=== PATIENT | male | born 1960 | race Two or more races ===

== ENCOUNTER 2020-07-22 11:22 | Inpatient (IN) | payer MEDICAID, SELFPAY ==
[2020-07-22] VITALS (19 sets, daily range): BP systolic 115–155; BP diastolic 67–99; PULSE 58–92; RESP 10–19; TEMP 36.1–36.8; O2SAT 97–100; BMI 26.4
--- NOTE | 2020-07-22 | ECG_ITS ---
Test Reason : WEAKNESS Blood Pressure : / mmHG Vent. Rate : 071 BPM Atrial Rate : 071 BPM P-R Int : 162 ms QRS Dur : 090 ms QT Int : 402 ms P-R-T Axes : 074 -32 027 degrees QTc Int : 436 ms Normal sinus rhythm Possible Left atrial enlargement Left axis deviation Abnormal ECG When compared with ECG of 27-AUG-2019 16:59, No significant change was found Referred By: Generic ED Physician Electronically Signed By:Kadeem Valle
[2020-07-22 12:14] LABS: MANUAL DIFF FLAG NO
[2020-07-22 12:15] LABS: Basophils Absolute Auto 0.1 X10*3/uL (0.0-0.2); Eosinophils Absolute Auto 0.1 X10*3/uL (0.0-0.4); Eosinophils Percent Auto 1.1 % (0-4); Hematocrit 42.8 % (42-52); Hemoglobin 14.5 g/dl (14.0-18.0); Imm Gran Abs Auto 0.01 X10*3/uL (0.00-0.03); Imm Gran Pct Auto 0.1 % (0.0-0.4); Lymphocytes Absolute Auto 1.6 X10*3/uL (1.2-4.9); Lymphocytes Percent Auto 20.9 % (20-40); Mean Corpuscular HGB Conc 33.9 g/dl (31.0-36.0); Mean Corpuscular Hemoglobin 30.9 pg (27.0-33.0); Mean Corpuscular Volume 91.3 fL (80-98); Mean Platelet Volume 9.4 fL (9.4-12.4); Monocytes Absolute Auto 0.6 X10*3/uL (0.1-1.2); Monocytes Percent Auto 7.3 % (2-11); Neutrophils Absolute Auto 5.5 X10*3/uL (2.0-8.3); Neutrophils Percent Auto 69.6 % (45-73); Platelet Count 243 X10*3/uL (160-400); Red Blood Count 4.69 X10*6/uL (4.60-5.80); Red Cell Distribution Width 12.7 % (11.0-16.0); White Blood Count 7.8 X10*3/uL (4.8-10.8)
[2020-07-22 12:40] LABS: Anion Gap 14 (12-20); Blood Urea Nitrogen 14 mg/dL (9-16); Calcium 9.2 mg/dL (8.4-10.2); Carbon Dioxide 25 mmol/L (22-29); Chloride 105 mmol/L (96-108); Creatinine Clr Calc Pharmacy 84.5; Estimated Glomerular Filt Rate > 60; Glucose Random 95 mg/dL (60-115); Potassium 4.5 mmol/l (3.3-5.1); Sodium 139 mmol/L (135-145)
--- NOTE | 2020-07-22 12:45 | XR_ITS ---
EXAMINATION: XR CHEST CLINICAL INFORMATION: Dizziness, question stroke COMPARISON: Chest x-ray 08/27/2019 TECHNIQUE: Frontal view of the chest was obtained. FINDINGS: The lungs are well-expanded and clear of acute process. The heart size and pulmonary vascularity is normal. There is moderate spondylosis mid and lower dorsal spine. No lytic process seen. XR/XR chest 1V IMPRESSION: Unremarkable chest exam
--- NOTE | 2020-07-22 12:45 | CT_ITS ---
EXAMINATION: CT ANGIOGRAM HEAD CT ANGIOGRAM NECK CLINICAL INFORMATION: Stroke like symptoms. Slurred speech. Right-sided facial droop. COMPARISON: CT head from 07/22/2020. Brain MRI from 04/09/2008. TECHNIQUE: Initial noncontrast town marshal imaging of the head and neck was performed. Comparison is made with noncontrast head CT from earlier today. Test bolus sequences followed by intravenous administration 70 mL of Omnipaque 350. Helical imaging was performed in the axial plane from the aortic arch to the skull vertex. Delayed postcontrast imaging of the head was also performed. The data was processed at the ct mri technologist's workstation for generation of MIP sequences. Angled MIPs and volume rendered reformatted images were also generated at an offline 3D workstation. Stenoses are assessed in accordance with NASCET criteria unless otherwise indicated. DLP: 1556 mGy-cm This CT examination was performed using dose optimization techniques as appropriate, variously including the following: *Automated exposure control. *Adjustment of mA and/or kV according to patient size (this includes techniques or standardized protocols for targeted exams where dose is matched to indication/reason for exam; i.e. extremities or head). *Use of iterative reconstruction technique. FINDINGS: CT Head: There is no evidence of acute intracranial hemorrhage or edematous territorial infarction. Scattered hypoattenuation in the periventricular and deep white matter are consistent with mild to moderate microangiopathy. Matute-white matter differentiation is preserved. Proportional prominence of the ventricles and sulcal spaces. No evidence for obstructive hydrocephalus. No abnormal mass effect or midline shift. No extra-axial fluid collections. No pathologic intra-axial enhancement or regional oligemia. No acute soft tissue or osseous abnormalities. Mild mucosal thickening of the paranasal sinuses. The mastoid air cells and middle ear cavities are clear. Prominent odontogenic enamel erosions and periapical lucencies associated with the maxillary right premolars/molars. CT Neck: Bilateral tonsillitis. The thyroid gland and remaining cervical soft tissues are within normal limits. Moderate multilevel degenerative spinal arthropathy of the cervical spine. Advanced degenerative disc disease from C3-C7 with disc-osteophyte complexes. Moderate multilevel facet and uncovertebral joint arthropathy with osseous encroachment on the neural foramina from C2-C7. CT Upper Chest: The visualized lung apices and upper mediastinum are within normal limits. Neck CTA: Aortic Arch: Normal contour and caliber with mild calcific atherosclerotic disease. Classic 3 vessel branching pattern of the aortic arch. Great Vessel Origins: No significant stenosis of the branch origins. Right Common Carotid Artery: Normal opacification without focal stenosis or occlusion. Cervical Right Internal Carotid Artery: Calcific atherosclerotic disease of the carotid bulb and proximal internal carotid artery causing less than 50% stenosis. Left Common Carotid Artery: Normal opacification without focal stenosis or occlusion. Cervical Left Internal Carotid Artery: Mild calcific atherosclerotic disease of the carotid bulb and proximal internal carotid artery without flow-limiting stenosis. Cervical Right Vertebral Artery: Co-dominant. Normal opacification without focal stenosis or occlusion. Cervical Left Vertebral Artery: Co-dominant. Normal opacification without focal stenosis or occlusion. Brain CTA: Intracranial Internal Carotid Arteries: Normal contrast opacification of the petrous, cavernous, paraophthalmic, and supraclinoid segments of the internal carotid arteries without focal stenosis. Right Anterior Cerebral Artery: Normal A1 segment. Normal opacification of the distal segments of the JENNIFER. Left Anterior Cerebral Artery: Normal A1 segment. Normal opacification of the distal segments of the JENNIFER. Anterior Communicating Artery: Normal. Right Middle Cerebral Artery: Normal opacification of the M1 segment of the MCA without focal stenosis or occlusion. Normal arborization of the distal segments. Left Middle Cerebral Artery: Normal opacification of the M1 segment of the MCA without focal stenosis or occlusion. Normal arborization of the distal segments. Right Vertebral Artery: Normal opacification of the V4 segment. Normal opacification of the proximal segments of the posterior inferior cerebellar artery. Left Vertebral Artery: Normal opacification of the V4 segment. Normal opacification of the proximal segments of the posterior inferior cerebellar artery. Basilar Artery: Normal opacification without focal stenosis or occlusion. Normal appearance of the proximal superior cerebellar arteries. Right Posterior Cerebral Artery: Normal P1 segment. Normal opacification of the distal segments of the PAPER SLITTER. Left Posterior Cerebral Artery: Normal P1 segment. Normal opacification of the distal segments of the PAPER SLITTER. Dominant right transverse sinus. The left-sided transverse and sigmoid sinuses are mildly diminutive. Otherwise, normal opacification of the superior sagittal, straight, transverse, and sigmoid sinuses. CT/CT angio head neck stroke IMPRESSION: 1. No evidence of acute intracranial hemorrhage or edematous territorial infarction. 2. CTA of the head and neck without proximal occlusion or flow-limiting stenosis. 3. Mild to moderate underlying microangiopathy. 4. Moderate multilevel degenerative spinal arthropathy of the cervical spine. This critical result was discussed with YEIMY Weir at 13:40 on 07/22/2020 and it was ascertained that the content and urgency of the report was understood at the time of direct communication.
--- NOTE | 2020-07-22 12:45 | CT_ITS ---
EXAMINATION: CT HEAD WITHOUT CONTRAST (STROKE PROTOCOL) CLINICAL INFORMATION: Acute stroke like symptoms. COMPARISON: MRI brain 11/09/2009, 11 09, 04/09/2008 TECHNIQUE: Contiguous axial imaging was performed from the skull base to vertex without intravenous administration of contrast. Additional 2-D coronal and sagittal reformatted images are generated on the CT workstation and uploaded to PACS. This CT examination was performed using dose optimization techniques as appropriate, variously including the following: *Automated exposure control *Adjustment of mA and/or kV according to patient size (this includes techniques or standardized protocols for targeted exams where dose is matched to indication/reason for exam; i.e. extremities or head) *Use of iterative reconstruction technique DLP: 495 mGy-cm FINDINGS: There is no intracranial hemorrhage, hematoma, or extra-axial fluid collection. The ventricles are normal in size. There is no hydrocephalus, edema, or mass effect. There are some subtle scattered low-attenuation gliosis centrum semiovale, greater on the left, similar to prior MR studies. No mass effect or edema. No dense vessel sign. There is no visible acute territorial infarct or mass lesion. The calvarium appears intact. There is no pneumocephalus or orbital emphysema. The visualized sinuses and middle ears and mastoid air cells show no significant mucosal thickening. There are no air-fluid levels. Result called to Emergency Department provider Raquel Rossi at [address]/CT head for stroke IMPRESSION: No acute intracranial abnormality. CTA head and neck to be reported separately.
--- NOTE | 2020-07-22 12:46 | ED_ITS ---
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 Reports that he was feeling completely well prior to that no preceding symptoms. Patient reports that he feels the room is spinning and he is unable to walk due to he feels like he is going to fall over with a headache and slurred speech. Related Data Allergies Allergy/AdvReac Type Severity Reaction Status Date / Time No Known Allergies Allergy Mild UNKNOWN Unverified 04/21/20 15:56 [No Known Allergies*] Review of Systems Review of Systems: Constitutional : No Fever, No Chills, No Night Sweats, No Fatigue, No Malaise ENT/Mouth : No Ear Pain, No Nasal Congestion, No Sinus Pain, No sore throat, No Rhinorrhea Eyes: No Eye Pain, No Swelling, No Redness, No Foreign Body, No Discharge, No Vision Changes Cardiovascular : No Chest Pain, No SOB, No Dyspnea on Exertion, No Orthopnea, No Palpitations Respiratory : No Cough, No Sputum, No Wheezing, No Dyspnea Gastrointestinal : No Nausea, No Vomiting, No Diarrhea, No Constipation, No abdominal Pain, No Hematochezia, No Melena Genitourinary : No Dysuria, No Urinary Frequency, No Urinary Incontinence, No Urgency, No Flank Pain Musculoskeletal : No joint pain, No Myalgias Skin : No lacerations Neuro : No Numbness, No Paresthesias, No Loss of Consciousness, + Dizziness, + Headache, + Slurred speech Yes all other systems are reviewed and are negative COUNTS INCLUDE 234 BEDS AT THE [facility] Past Medical History Attestation statement: The following information was validated with the patient. Medical History Asthma Bronchitis HLD (hyperlipidemia) HTN (hypertension) Myocardial infarction Social History Social History Alcohol intake: never Smoking Status: Never smoker Use of substances other than those prescribed or required for medical reasons: No Advance Directives: No Advance Directives Information Provided: Yes Physical Exam Vital Signs: Vital Signs: Last Vital Signs Temp 98.2 F 07/22/20 11:29 Pulse 76 07/22/20 15:45 Resp 11 L 07/22/20 15:45 BP 152/99 H 07/22/20 15:45 Pulse Ox 99 07/22/20 15:45 Body Mass Index 26.4 Vital signs have been reviewed as normal and appeared to be correct. Blood pressure normal. Heart rate normal. Respiration rate normal. Temperature normal. Oxygen saturation normal. Appearance: Patient is Malaysian-speaking. Noted to have a slurred speech although is Alert and Oriented X3. No acute distress. Head: Normal external exam. Normocephalic. Atraumatic. Able to rotate head bilaterally. Eyes: PERRLA. EOMI. No nystagmus noted. Conjunctiva and sclera normal. Eyelids normal. Corneal reflex normal. ENT: EAC normal. TM's Normal. Hearing normal. Pharynx normal. Uvula midline. tongue midline. Moist mucous membranes. No trismus noted. No drooling noted. No muffled voice noted. Neck: Normal inspection. Neck supple. FROM. No adenopathy. Thyroid Normal. No meningeal signs. No neck mass noted. CVS: Normal heart rate and rhythm. Heart sound normal. No murmurs noted. Pulses normal throughout. Respiratory: No respiratory distress. Painless inspiration. Breath sounds normal. No wheezes/rales/rhonchi noted. Chest nontender. No accessory muscle usage noted or decreased air movement noted. Abdomen: Soft and nontender. Bowel sounds normal in all 4 quadrants. No distention noted. No organomegaly noted. No visible injury noted. Back: No CVA tenderness. Full range of motion noted. Skin: Skin warm and dry. Normal skin color. Normal skin turgor. No ra shes/lesions/lacerations noted. Extremities: No lower extremity edema. Extremities exhibit normal range of motion. Extremities nontender. Able to shrug shoulders bilaterally and keep up against resistance. Neuro: Oriented X 3. No motor deficit. No sensory deficit. Reflexes normal. Moving all extremities. No focal motor deficits. Cranial nerves II-XI intact bilaterally. Patient noted to have right facial droop.. Normal cognition. Speech is slurred. Gait is unable to be tested as I attempted to stand the patient and he leaned over forward and reported he was too dizzy to attempt to walk at this time and wanted to sit back down. Strength 5/5 throughout. No pronator drift. No tremor noted. No fasciculations noted. Muscle tone normal throughout. No asterixis noted. Jrxprr-om-cita test normal. Heel to key test normal. No rigidity noted. NIHSS score 4. NIH Stroke Scale Internal: Initial- Upon Arrival Time: 12:45 Level of Consciousness: Alert Level of Consciousness Questions: Answers both questions correctly Level of Consciousness Commands: Performs both tasks correctly Best Gaze: Normal Visual: No visual loss Facial Palsy: Partial paralysis Motor Arm (Right): No drift Motor Arm (Left): No drift Motor Leg (Right): No drift Motor Leg (Left): No drift Limb Ataxia: Absent Sensory: Normal Best Language: Mild to moderate aphasia Dysarthia: Mild to moderate dysarthria Extinction and Inattention: No abnormality Score: 4 Course Course Course Narrative: 12:45pm - 59yoM c PMHx of CAD, [place], Paroxysmal atrial fibrillation, HTN, HLD currently only on aspirin presenting via ems c reports of sudden onset of dizziness/occiptal headache 6-7 out of 10 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 - on exam patient is alert and oriented x3 noted to have a right facial droop and slurred speech otherwise does not have pronator drift. Equal strength bilaterally to all 4 extremities. I attempted to ambulate the patient and he stood up leaning forward reporting he felt like he was going to fall over and wanted to sit back down there for gait not able to be tested at this time. NIHSS score at - I called [facility] on [address] in [place] and they report that the patient has not filled any prescriptions since 2017 at their location although patient reported this is his primary pharmacy. - Concern for cerebellum CVA - Plan: Stroke protocol, consult with Neurology Dr. Rick who reported after the CT scan of brain without contrast and a CTA of brain with contrast to attempt to walk the patient if the patient falls over towards the right to give tPA in order MRI. Reevaluation(s) Reevaluation #1: - call received from radiologist CT scan of brain without contrast negative for any acute processes. Awaiting CTA. Time: 13:24 Reevaluation #2: - CTA of brain and neck negative for any large vessel occlusion or acute intracranial hemorrhage. Therefore myself and Dr. Joseph attempted attempted to ambulate the patient and he has right-sided weakness with a wide based gait and leaning to the left. - Care team TPa delay due to Care team unable to determine eligibilty and needed diagnostic testing first. Therefore TPa given at 13:59PM. Awaiting MRI of brain without contrast. Will continue to monitor. Time: 13:59 Reevaluation #3: - MRI of brain returned revealed chronic changes intracranial abnormality. Although patient received tPA as it appears he had a vertebral vascular ischemia and responded to the tPA with moderate improvement slurred speech is resolved. Still has mild right sided facial droop although it is improved at this time we will admit and monitor for at least 24 hours. Patient understands agrees with this plan. Time: 16:13 [facility] - Dizziness Medical Records Attestation: I reviewed the patient's medical records. Lab Data Attestation: I reviewed the patient's lab results. Result diagrams: 07/22/20 13:25 12 13:25 Labs: Lab Results 07/22/20 07/22/20 07/22/20 Range/Units 12:09 12:09 12:09 WBC 7.8 (4.8-10.8) X10*3/uL RBC 4.69 (4.60-5.80) X10*6/uL Hgb 14.5 (14.0-18.0) g/dl Hct 42.8 (42-52) % MCV 91.3 (80-98) fL MCH 30.9 (27.0-33.0) pg MCHC 33.9 (31.0-36.0) g/dl RDW 12.7 (11.0-16.0) % Plt Count 243 (160-400) X10*3/uL MPV 9.4 (9.4-12.4) fL Immature Gran % (Auto) 0.1 (0.0-0.4) % Neut % (Auto) 69.6 (45-73) % Lymph % (Auto) 20.9 (20-40) % [place] % (Auto) 7.3 (2-11) % Eos % (Auto) 1.1 (0-4) % Baso % (Auto) 1.0 (0-2) % Lymph # (Auto) 1.6 (1.2-4.9) X10*3/uL [place] # (Auto) 0.6 (0.1-1.2) X10*3/uL Eos # (Auto) 0.1 (0.0-0.4) X10*3/uL Baso # (Auto) 0.1 (0.0-0.2) X10*3/uL Abs Immat Gran (auto) 0.01 (0.00-0.03) X10*3/uL Absolute Neuts (auto) 5.5 (2.0-8.3) X10*3/uL Absolute Nucleated RBC 0.000 (0.0-0.012) X10*3/uL Nucleated RBC % (auto) 0.0 (0.0-0.2) /100WBC PT (10.8-13.0) SEC Whole Blood PT (11.1-13.5) sec INR (0.9-1.1) Whole Blood INR (0.9-1.1) APTT (24.1-38.0) SEC Sodium 139 (135-145) mmol/L Potassium 4.5 (3.3-5.1) mmol/l Chloride 105 (96-108) mmol/L Carbon Dioxide 25 (22-29) mmol/L Anion Gap 14 (12-20) BUN 14 (9-16) mg/dL Creatinine 1.02 (0.5-1.4) mg/dL Estim Creat Clear Calc 84.5 Estimated GFR > 60 POC Glucose (60-115) mg/dL Random Glucose 95 (60-115) mg/dL Calcium 9.2 (8.4-10.2) mg/dL Magnesium (1.6-2.6) mg/dL Total Bilirubin (0.0-1.0) mg/dL Direct Bilirubin (0.0-0.5) mg/dL AST (5-37) U/L ALT (0-40) U/L Alkaline Phosphatase (39-117) U/L Total Creatine Kinase (38-174) U/L Troponin I High Sens < 3.5 (<3.5-35.0) ng/L Total Protein (6.5-8.0) g/dL Albumin (3.5-5.0) g/dL TSH (0.32-4.0) uIU/mL Urine Color Urine Appearance Urine pH (5.0-8.0) Ur Specific [place] (1.005-1.025) Urine Protein (NEG-TRACE) MG/DL Urine Glucose (UA) (NEG) MG/DL Urine Ketones (NEG) MG/DL Urine Blood (NEG) Urine Nitrite (NEG) Ur Leukocyte Esterase (NEG) Urine Opiates Screen (Not Detect) Ur Barbiturates Screen (Not Detect) Ur Phencyclidine Scrn (Not Detect) Ur Amphetamines Screen (Not Detect) U Benzodiazepines Scrn (Not Detect) Urine Cocaine Screen (Not Detect) U Marijuana (THC) Screen (Not Detect) Ethyl Alcohol mg/dL 07/22/20 07/22/20 07/22/20 Range/Units 12:46 12:55 13:25 WBC 9.0 (4.8-10.8) X10*3/uL RBC 4.79 (4.60-5.80) X10*6/uL Hgb 14.7 (14.0-18.0) g/dl Hct 43.9 (42-52) % MCV 91.6 (80-98) fL MCH 30.7 (27.0-33.0) pg MCHC 33.5 (31.0-36.0) g/dl RDW 12.5 (11.0-16.0) % Plt Count 233 (160-400) X10*3/uL MPV 9.7 (9.4-12.4) fL Immature Gran % (Auto) 0.2 (0.0-0.4) % Neut % (Auto) 67.2 (45-73) % Lymph % (Auto) 22.7 (20-40) % [place] % (Auto) 7.8 (2-11) % Eos % (Auto) 1.3 (0-4) % Baso % (Auto) 0.8 (0-2) % Lymph # (Auto) 2.0 (1.2-4.9) X10*3/uL [place] # (Auto) 0.7 (0.1-1.2) X10*3/uL Eos # (Auto) 0.1 (0.0-0.4) X10*3/uL Baso # (Auto) 0.1 (0.0-0.2) X10*3/uL Abs Immat Gran (auto) 0.02 (0.00-0.03) X10*3/uL Absolute Neuts (auto) 6.1 (2.0-8.3) X10*3/uL Absolute Nucleated RBC 0.000 (0.0-0.012) X10*3/uL Nucleated RBC % (auto) 0.0 (0.0-0.2) /100WBC PT (10.8-13.0) SEC Whole Blood PT 12.1 (11.1-13.5) sec INR (0.9-1.1) Whole Blood INR 1.0 (0.9-1.1) APTT (24.1-38.0) SEC Sodium (135-145) mmol/L Potassium (3.3-5.1) mmol/l Chloride (96-108) mmol/L Carbon Dioxide (22-29) mmol/L Anion Gap (12-20) BUN (9-16) mg/dL Creatinine (0.5-1.4) mg/dL Estim Creat Clear Calc Estimated GFR POC Glucose 96 (60-115) mg/dL Random Glucose (60-115) mg/dL Calcium (8.4-10.2) mg/dL Magnesium (1.6-2.6) mg/dL Total Bilirubin (0.0-1.0) mg/dL Direct Bilirubin (0.0-0.5) mg/dL AST (5-37) U/L ALT (0-40) U/L Alkaline Phosphatase (39-117) U/L Total Creatine Kinase (38-174) U/L Troponin I High Sens (<3.5-35.0) ng/L Total Protein (6.5-8.0) g/dL Albumin (3.5-5.0) g/dL TSH (0.32-4.0) uIU/mL Urine Color Urine Appearance Urine pH (5.0-8.0) Ur Specific [place] (1.005-1.025) Urine Protein (NEG-TRACE) MG/DL Urine Glucose (UA) (NEG) MG/DL Urine Ketones (NEG) MG/DL Urine Blood (NEG) Urine Nitrite (NEG) Ur Leukocyte Esterase (NEG) Urine Opiates Screen (Not Detect) Ur Barbiturates Screen (Not Detect) Ur Phencyclidine Scrn (Not Detect) Ur Amphetamines Screen (Not Detect) U Benzodiazepines Scrn (Not Detect) Urine Cocaine Screen (Not Detect) U Marijuana (THC) Screen (Not Detect) Ethyl Alcohol mg/dL 07/22/20 07/22/20 07/22/20 Range/Units 13:25 13:25 13:25 WBC (4.8-10.8) X10*3/uL RBC (4.60-5.80) X10*6/uL Hgb (14.0-18.0) g/dl Hct (42-52) % MCV (80-98) fL MCH (27.0-33.0) pg MCHC (31.0-36.0) g/dl RDW (11.0-16.0) % Plt Count (160-400) X10*3/uL MPV (9.4-12.4) fL Immature Gran % (Auto) (0.0-0.4) % Neut % (Auto) (45-73) % Lymph % (Auto) (20-40) % [place] % (Auto) (2-11) % Eos % (Auto) (0-4) % Baso % (Auto) (0-2) % Lymph # (Auto) (1.2-4.9) X10*3/uL [place] # (Auto) (0.1-1.2) X10*3/uL Eos # (Auto) (0.0-0.4) X10*3/uL Baso # (Auto) (0.0-0.2) X10*3/uL Abs Immat Gran (auto) (0.00-0.03) X10*3/uL Absolute Neuts (auto) (2.0-8.3) X10*3/uL Absolute Nucleated RBC (0.0-0.012) X10*3/uL Nucleated RBC % (auto) (0.0-0.2) /100WBC PT 12.5 (10.8-13.0) SEC Whole Blood PT (11.1-13.5) sec INR 1.1 (0.9-1.1) Whole Blood INR (0.9-1.1) APTT 29.7 (24.1-38.0) SEC Sodium 138 (135-145) mmol/L Potassium 4.3 (3.3-5.1) mmol/l Chloride 105 (96-108) mmol/L Carbon Dioxide 28 (22-29) mmol/L Anion Gap 9 L (12-20) BUN 13 (9-16) mg/dL Creatinine 1.00 (0.5-1.4) mg/dL Estim Creat Clear Calc 86.2 Estimated GFR > 60 POC Glucose (60-115) mg/dL Random Glucose 93 (60-115) mg/dL Calcium 9.2 (8.4-10.2) mg/dL Magnesium 2.0 (1.6-2.6) mg/dL Total Bilirubin 0.9 (0.0-1.0) mg/dL Direct Bilirubin 0.4 (0.0-0.5) mg/dL AST 21 (5-37) U/L ALT 24 (0-40) U/L Alkaline Phosphatase 72 (39-117) U/L Total Creatine Kinase 201 H (38-174) U/L Troponin I High Sens < 3.5 (<3.5-35.0) ng/L Total Protein 6.9 (6.5-8.0) g/dL Albumin 3.7 (3.5-5.0) g/dL TSH 1.08 (0.32-4.0) uIU/mL Urine Color Urine Appearance Urine pH (5.0-8.0) Ur Specific [place] (1.005-1.025) Urine Protein (NEG-TRACE) MG/DL Urine Glucose (UA) (NEG) MG/DL Urine Ketones (NEG) MG/DL Urine Blood (NEG) Urine Nitrite (NEG) Ur Leukocyte Esterase (NEG) Urine Opiates Screen (Not Detect) Ur Barbiturates Screen (Not Detect) Ur Phencyclidine Scrn (Not Detect) Ur Amphetamines Screen (Not Detect) U Benzodiazepines Scrn (Not Detect) Urine Cocaine Screen (Not Detect) U Marijuana (THC) Screen (Not Detect) Ethyl Alcohol mg/dL 07/22/20 07/22/20 07/22/20 Range/Units 13:25 14:14 14:14 WBC (4.8-10.8) X10*3/uL RBC (4.60-5.80) X10*6/uL Hgb (14.0-18.0) g/dl Hct (42-52) % MCV (80-98) fL MCH (27.0-33.0) pg MCHC (31.0-36.0) g/dl RDW (11.0-16.0) % Plt Count (160-400) X10*3/uL MPV (9.4-12.4) fL Immature Gran % (Auto) (0.0-0.4) % Neut % (Auto) (45-73) % Lymph % (Auto) (20-40) % [place] % (Auto) (2-11) % Eos % (Auto) (0-4) % Baso % (Auto) (0-2) % Lymph # (Auto) (1.2-4.9) X10*3/uL [place] # (Auto) (0.1-1.2) X10*3/uL Eos # (Auto) (0.0-0.4) X10*3/uL Baso # (Auto) (0.0-0.2) X10*3/uL Abs Immat Gran (auto) (0.00-0.03) X10*3/uL Absolute Neuts (auto) (2.0-8.3) X10*3/uL Absolute Nucleated RBC (0.0-0.012) X10*3/uL Nucleated RBC % (auto) (0.0-0.2) /100WBC PT (10.8-13.0) SEC Whole Blood PT (11.1-13.5) sec INR (0.9-1.1) Whole Blood INR (0.9-1.1) APTT (24.1-38.0) SEC Sodium (135-145) mmol/L Potassium (3.3-5.1) mmol/l Chloride (96-108) mmol/L Carbon Dioxide (22-29) mmol/L Anion Gap (12-20) BUN (9-16) mg/dL Creatinine (0.5-1.4) mg/dL Estim Creat Clear Calc Estimated GFR POC Glucose (60-115) mg/dL Random Glucose (60-115) mg/dL Calcium (8.4-10.2) mg/dL Magnesium (1.6-2.6) mg/dL Total Bilirubin (0.0-1.0) mg/dL Direct Bilirubin (0.0-0.5) mg/dL AST (5-37) U/L ALT (0-40) U/L Alkaline Phosphatase (39-117) U/L Total Creatine Kinase (38-174) U/L Troponin I High Sens (<3.5-35.0) ng/L Total Protein (6.5-8.0) g/dL Albumin (3.5-5.0) g/dL TSH (0.32-4.0) uIU/mL Urine Color YELLOW Urine Appearance CLEAR Urine pH 7.0 (5.0-8.0) Ur Specific [place] 1.010 (1.005-1.025) Urine Protein NEG (NEG-TRACE) MG/DL Urine Glucose (UA) NEG (NEG) MG/DL Urine Ketones NEG (NEG) MG/DL Urine Blood NEG (NEG) Urine Nitrite NEG (NEG) Ur Leukocyte Esterase NEG (NEG) Urine Opiates Screen Not Detected (Not Detect) Ur Barbiturates Screen Not Detected (Not Detect) Ur Phencyclidine Scrn Not Detected (Not Detect) Ur Amphetamines Screen Not Detected (Not Detect) U Benzodiazepines Scrn Not Detected (Not Detect) Urine Cocaine Screen Not Detected (Not Detect) U Marijuana (THC) Screen Not Detected (Not Detect) Ethyl Alcohol < 10 mg/dL Imaging Data Chest x-ray: Attestation: I personally reviewed and interpreted this imaging study as follows: Radiologist's impression: IMPRESSION: Unremarkable chest exam CT scan - head: Attestation: I personally reviewed and interpreted this imaging study as follows: Radiologist's impression: IMPRESSION: No acute intracranial abnormality. CTA head and neck to be reported separately. CTA of head/neck: Attestation: I personally reviewed and interpreted this imaging study as follows: Radiologist's impression: IMPRESSION: 1. No evidence of acute intracranial hemorrhage or edematous territorial infarction. 2. CTA of the head and neck without proximal occlusion or flow-limiting stenosis. 3. Mild to moderate underlying microangiopathy. 4. Moderate multilevel degenerative spinal arthropathy of the cervical spine. This critical result was discussed with YEIMY Weir at 13:40 on 07/22/2020 and it was ascertained that the content and urgency of the report was understood at the time of direct communication. MR brain without contrast: Attestation: I personally reviewed and interpreted this imaging study as follows: Radiologist's impression: IMPRESSION: No acute intracranial abnormality. Specifically, no acute infarction or mass is seen. Background changes of moderate chronic microangiopathy. Degenerative spondylosis seen in the upper cervical spine with some mass effect on the ventral cord at the C3-C4 and C4-C5 levels. ECG Data Attestation: I personally reviewed and interpreted this ECG as follows: ECG interpretation date: 07/22/20 ECG interpretation time: 11:31 Interpretation: Normal sinus rhythm with ventricular rate of 71 with left atrial enlargement with left axis deviation no acute ischemic changes noted. Similar compared to 08/27/2019. Critical Care Time Critical Care Time Critical Care Time: Yes Total Critical Care Time: 60 Attestation: I personally attest to this time spent taking care of the patient Discharge Plan Discharge Clinical Impression: CVA (cerebral vascular accident) Patient Disposition: Admitted As Inpatient
[2020-07-22 12:47] LABS: Troponin-I High Sensitivity < 3.5 ng/L (<3.5-35.0)
[2020-07-22 12:59] LABS: Glucose, Whole Blood 96 mg/dL (60-115)
[2020-07-22] MEDS: iohexoL 350 MG/ML 100 ML INFUS..BTL 70 ML IV (13:19)
--- NOTE | 2020-07-22 13:22 | PC.NURSE ---
RETURN FROM CT AT THIS TIME, CXR AT BEDSIDE
[2020-07-22 13:35] LABS: Basophils Absolute Auto 0.1 X10*3/uL (0.0-0.2); Basophils Percent Auto 0.8 % (0-2); Eosinophils Absolute Auto 0.1 X10*3/uL (0.0-0.4); Eosinophils Percent Auto 1.3 % (0-4); Hematocrit 43.9 % (42-52); Hemoglobin 14.7 g/dl (14.0-18.0); Imm Gran Abs Auto 0.02 X10*3/uL (0.00-0.03); Imm Gran Pct Auto 0.2 % (0.0-0.4); Lymphocytes Percent Auto 22.7 % (20-40); MANUAL DIFF FLAG NO; Mean Corpuscular HGB Conc 33.5 g/dl (31.0-36.0); Mean Corpuscular Hemoglobin 30.7 pg (27.0-33.0); Mean Corpuscular Volume 91.6 fL (80-98); Mean Platelet Volume 9.7 fL (9.4-12.4); Monocytes Absolute Auto 0.7 X10*3/uL (0.1-1.2); Monocytes Percent Auto 7.8 % (2-11); Neutrophils Absolute Auto 6.1 X10*3/uL (2.0-8.3); Neutrophils Percent Auto 67.2 % (45-73); Platelet Count 233 X10*3/uL (160-400); Red Blood Count 4.79 X10*6/uL (4.60-5.80); Red Cell Distribution Width 12.5 % (11.0-16.0)
[2020-07-22 13:40] LABS: INTERNATIONAL NORM RATIO 1.1 (0.9-1.1); Prothrombin Time 12.5 SEC (10.8-13.0)
--- NOTE | 2020-07-22 13:42 | MR_ITS ---
EXAMINATION: MR BRAIN WITHOUT CONTRAST CLINICAL INFORMATION: Patient with right facial droop/slurred speech. Question stroke. COMPARISON: Head CT 07/22/2020. TECHNIQUE: Multiplanar, multisequence imaging of the brain was performed without intravenous contrast. FINDINGS: There is no acute infarction, hemorrhage, mass, or extra-axial fluid collection. Punctate microhemorrhages are seen in the left temporal lobe and in the right basal ganglia presumably reflecting sequela of hypertensive arteriopathy.. Moderate patchy foci of T2 hyperintensity are seen in the cerebral white matter compatible with chronic microangiopathy. The ventricles and sulci are commensurate. No hydrocephalus is seen. The major arterial flow voids are preserved at the skull base. The orbital contents appear normal. There is mild paranasal sinus mucosal thickening without fluid levels. Degenerative changes are seen in the upper cervical spine at the C3-C4 and C4-C5 levels with some mass effect on the ventral cord. MR/MR head/brain wo con IMPRESSION: No acute intracranial abnormality. Specifically, no acute infarction or mass is seen. Background changes of moderate chronic microangiopathy. Degenerative spondylosis seen in the upper cervical spine with some mass effect on the ventral cord at the C3-C4 and C4-C5 levels.
[2020-07-22 13:43] LABS: Partial Thromboplastin Time 29.7 SEC (24.1-38.0)
[2020-07-22 14:00] LABS: Ethanol < 10 mg/dL
--- NOTE | 2020-07-22 14:00 | PC.NURSE ---
this rn witnessed tpa being administered by caden prasad (rn) at 1359, bolus and administration of pump with 5 rights.
[2020-07-22 14:08] LABS: Troponin-I High Sensitivity < 3.5 ng/L (<3.5-35.0)
[2020-07-22 14:09] LABS: Alanine Aminotransferase 24 U/L (0-40); Albumin Level 3.7 g/dL (3.5-5.0); Alkaline Phosphatase 72 U/L (39-117); Anion Gap 9 (12-20); Aspartate Amino Transferase 21 U/L (5-37); Bilirubin Direct 0.4 mg/dL (0.0-0.5); Bilirubin Total 0.9 mg/dL (0.0-1.0); Blood Urea Nitrogen 13 mg/dL (9-16); Calcium 9.2 mg/dL (8.4-10.2); Carbon Dioxide 28 mmol/L (22-29); Chloride 105 mmol/L (96-108); Creatinine Clr Calc Pharmacy 86.2; Estimated Glomerular Filt Rate > 60; Glucose Random 93 mg/dL (60-115); Potassium 4.3 mmol/l (3.3-5.1); Sodium 138 mmol/L (135-145); Total Protein 6.9 g/dL (6.5-8.0)
[2020-07-22 14:10] LABS: Stroke Lab Use COMPLETE
[2020-07-22 14:17] LABS: Prothrombin Time Whole Bld POC 12.1 sec (11.1-13.5)
[2020-07-22 14:25] LABS: Thyroid Stimulating Hormone 1.08 uIU/mL (0.32-4.0)
[2020-07-22 14:25] LABS: Glucose Urine UA NEG (NEG); Leukocyte Esterase Urine NEG (NEG); Nitrite Urine NEG (NEG); Urine Blood NEG (NEG); Urine Ketones NEG (NEG); Urine Protein NEG (NEG-TRACE)
[2020-07-22 14:26] LABS: Appearance Urine CLEAR; Color Urine YELLOW
[2020-07-22] MEDS: 0.9 % Sodium Chloride 1,000 ML 999 ML IVCONT (14:30)
[2020-07-22 14:50] LABS: Amphetamine Screen Urine Not Detected (Not Detect); Barbiturates, Urine Not Detected (Not Detect); Benzodiazepines Screen Urine Not Detected (Not Detect); Cannabinoid Screen Urine Not Detected (Not Detect); Cocaine Screen Urine Not Detected (Not Detect); Opiate Screen Urine Not Detected (Not Detect); Phencyclidine Screen Urine Not Detected (Not Detect)
--- NOTE | 2020-07-22 15:26 | MHC.STROKE ---
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 HE HAS BEEN NON-COMPLIANT IN THE PAST BUT HE DOES AGREE TO THIS PLAN. I STRESSED FUTURE STROKE PREVENTION. WE REVIEWED HIS RISK FACTORS. I DID GIVE HIM 2 PILL BOXES FOR MANANA AND NOCHE. HE KNOWS TO TAKE THESE MEDICATIONS AND HAS AGREED TO DO SO. HE ALSO AGREES TO FOLLOW UP WITH DR MEYER AT THE [facility]. HE HAS AGREED TO CINETECHNICIAN HIS MEDICATIONS AND I HAVE ASKED CASE MANAGEMENT TO MAKE SURE THIS IS ALL SET AT THE PHARMACY WHEN HE GETS THERE. Addendum entered by Gina Carpio RN 07/25/20 11:34: PHYSICAL THERAPY IS RECOMMENDING OUTPATIENT PT, PATIENT CAN BE REFERRED TO [facility] BY HIS PCP. Addendum entered by Gina Carpio RN 07/23/20 10:35: LDL 108 RECOMMENDING HIGH DOSE STATIN (IF ATORVASTATIN 40 MG OR GREATER, ANTICOAGULATION START (AFTER 1400 TODAY DUE TO TPA GUIDELINES)(SEE DR FIGUEROA'S NOTE) Original Note: EMS PRE-NOTIFIED AT 1117, NO STROKE ALERT, NEAL, DIZZY, UPON PA EVAL AND MASK TAKEN OFF SLIGHT FACIAL DROOP AND APHASIA. HE IS DANISH SPEAKING AND PA SPEAKS DANISH. STROKE PROTOCOL ACTIVATED. PA SPOKE WITH NEUROLOGIST, CT AND CTA H/N RECOMMENDED PRIOR TO DECISION ON TPA. CTA NO LVO (LARGE VESSEL OCCLUSION). TPA BOLUS WAS GIVEN AT 1359 DOOR-TO-TPA = 3HR 37 MINUTES (217MINUTES). DELAY IN ADMINISTRATION DUE TO CLARIFICATION OF DIAGNOSIS, CARE TEAM COULD NOT DETERMINE ELIGIBILITY WITHOUT THE DIAGNOSTIC TESTS. SLIGHT IMPROVEMENT OF APHASIA AFTER TPA. PASSED SWALLOW SCREEN, CURRENTLY IN MRI. DISCUSSED CASE WITH DR FIGUEROA. STROKE EDUCATION INITIATED. I MARSHA CONTINUE TO FOLLOW.
--- NOTE | 2020-07-22 15:51 | PC.NURSE ---
RETURN FROM MRI AT THIS TIME. IMPROVING SPEECH AND R SIDED FACIAL DROOP
--- NOTE | 2020-07-22 16:12 | P.CNNE_ITS ---
History of Present Illness Data of Consult Service Date: 07/22/20 Primary Care Provider: Fidel Faust MD HPI Reason for consult: Right facial droop, slurred speech and loss of balance This is a 59-year-old man with a history of coronary artery disease status post myocardial infarction, paroxysmal atrial fibrillation not anticoagulated, hypertension and depression hyperlipidemia and asthma who came to the ER away at the want to our history of difficulty walking because of poor balance some slurring of speech and was noted to have a right facial droop. He had a stat CT scan and CT a and which were unremarkable and was given TPA in the ER and then it was suggested that she have an MRI that to see if there has been a vertebrobasilar stroke. There is no previous history of stroke. Review of Systems Eyes: Eyes: Reports no additional eye complaints ENT: Reports system reviewed and no additional complaints, except as documented and Reports Normal hearing present Cardiovascular: Cardiovascular: Reports no additional cardiovascular complaints Respiratory: Respiratory: Reports no additional respiratory complaints Gastrointestinal: Gastrointestinal: Reports no additional gastrointestinal complaints Genitourinary: Genitourinary: Reports no additional male genitourinary compl aints Musculoskeletal: Musculoskeletal: Reports no additional musculoskeletal complaints Integumentary/Breasts: Skin/Breast: Reports system reviewed and no additional complaints, except as docu Neurologic: Reports as per HPI and Reports Normal hearing present Psychiatric: Psychiatric: Reports as per HPI Endocrine: Endocrine: Reports no additional endocrine complaints Hematologic/Lymphatic: Hematologic/Lymphatic: Reports no additional hematologic/lymphatic complaints Allergic/Immunologic: Allergic/Immunologic: Reports no additional allergic/immunologic complaints [facility] Past Medical History Medical History Asthma Bronchitis HLD (hyperlipidemia) HTN (hypertension) Myocardial infarction Social History Social History Alcohol intake: never Smoking Status: Never smoker Use of substances other than those prescribed or required for medical reasons: No Advance Directives: No Advance Directives Information Provided: Yes Meds Allergies Allergy/AdvReac Type Severity Reaction Status Date / Time No Known Allergies Allergy Mild UNKNOWN Unverified 04/21/20 15:56 [No Known Allergies*] Physical Exam Vital Signs: Vital Signs: Last Vital Signs Temp 98.2 F 07/22/20 11:29 Pulse 76 07/22/20 15:45 Resp 11 L 07/22/20 15:45 BP 152/99 H 07/22/20 15:45 Pulse Ox 99 07/22/20 15:45 Body Mass Index 26.4 Const: General: cooperative, comfortable, no acute distress, well developed, alert and awake Nutritional Appearance: well nourished Orientation/consciousness: oriented to person, oriented to place and oriented to time Limitations: no limitations HENMT: Head: Yes normal to inspection, Yes normocephalic and Yes atraumatic Ears: hearing grossly normal bilaterally General nose exam: Normal external nose present Face and sinus: Yes normal facial exam Mouth: Normal oral and palatal mucosa present Eyes: General: appearance normal, both eyes and all related structures Visual Garcia: normal visual garcia by confrontation Alignment and Position: alignment normal Periorbital: periorbital findings normal Eyelids: Yes eyelids normal Conjunctivae: conjunctivae normal Sclerae: sclerae normal Corneas: corneas normal Pupils: Equal, round and reactive pupils present and Pupil accommodation reflex normal EOM: EOMs intact bilaterally Direct Ophthalmoscopy: normal light reflex Neck: Neck: Yes normal visual inspection, Yes full ROM and Yes no meningeal s igns Thyroid: Thyroid normal Carotids: normal carotid upstroke and bounding pulses Chest: Chest palpation & inspection: normal inspection of the chest Resp: Effort & Inspection: normal respiratory effort Auscultation: clear to auscultation bilaterally Cardio: Rate: regular rate Rhythm: regular rhythm Heart sounds: S1 normal heart sound present and S2 normal heart sound present Peripheral pulses: Peripheral pulses 2+ throughout GI: Inspection: Yes normal to inspection Percussion: Yes normal to percussion Auscultation: normal bowel sounds Rectal Exam - Male: Yes de ferred Back/Spine/Pelvis: Cervical Spine: normal cervical lordosis and cervical ROM normal Thoracic/Lumbar Spine: thoracic and lumbar spine normal to inspection Skin: General skin exam: no rashes or lesions noted Neuro: General: oriented to person, oriented to place, oriented to time, gait normal, tone normal, moves all extremities, Normal light touch and pain sensation, no meningeal signs, no focal motor deficits, CN's II-XI intact bilaterally, normal sensation to monofilament and deep tendon reflexes 2+ bilaterally Cranial nerves: Yes CN's II-XII intact bilaterally, Yes Equal, round and reactive pupils present, Yes Bilaterally intact EOM present, Yes Nystagmus not present, Yes Normal facial strength present, Yes Midline tongue p resent, Yes Normal gag reflex present, Yes Symmetric palate elevation present, Yes Normal hearing present and Yes Ability to bilaterally rotate head present Cognition (Neuro): normal cognition Speech: Other speech findings present (Neuro) Gait exam (Neuro): Normal gait present Motor exam (neuro): 5/5 motor strength present throughout, Pronator motor function not present, no tremor noted, no asterixis, Motor fasciculations not present, Normal motor muscle tone present throughout and Motor abnormalities not present Sensory Exam: Bilaterally intact graphesthesia Deep tendon reflexes (DTR's): Right triceps reflex intensity grade: 2+, Left triceps reflex intensity grade: 2+, Rt Biceps (C5, C6): 2+, Left biceps reflex intensity grade: 2+, Right brachioradialis reflex intensity grade: 2+, Left brachioradialis reflex intensity grade: 2+, Right patellar reflex intensity grade: 2+, Left patellar reflex intensity grade: 2+, Right ankle reflex intensity grade: 2+ and Left ankle reflex intensity grade: 2+ Plantar Reflex Responses: downgoing: right, left and bilateral Coordination: [id number] test normal, [id number] test normal, tandem gait normal and Romberg test negative Pupils: Normal pupillary reactivity/response: bilateral Extrem: General: Yes normal to inspection, Yes normal exam except as noted and Yes no pedal edema Psych: Appearance: grossly normal Mental Status: mental status grossly normal Speech and movement: Normal speech and movement present and Clear speech present Affect: normal affect Attitude: cooperative Thought process: Normal thought process present Results Labs CBC & Chem 7: 07/22/20 13:25 07/22/20 13:25 Labs: Short CBC 07/22/20 07/22/20 Range/Units 12:09 13:25 WBC 7.8 9.0 (4.8-10.8) X10*3/uL Hgb 14.5 14.7 (14.0-18.0) g/dl Hct 42.8 43.9 (42-52) % Plt Count 243 233 (160-400) X10*3/uL BMP 07/22/20 07/22/20 12:09 13:25 Sodium 139 138 Potassium 4.5 4.3 Chloride 105 105 Carbon Dioxide 25 28 BUN 14 13 Creatinine 1.02 1.00 Calcium 9.2 9.2 Cardiac Enzymes 07/22/20 Range/Units 13:25 Total Creatine Kinase 201 H (38-174) U/L Liver Function 07/22/20 Range/Units 13:25 Total Bilirubin 0.9 (0.0-1.0) mg/dL Direct Bilirubin 0.4 (0.0-0.5) mg/dL AST 21 (5-37) U/L ALT 24 (0-40) U/L Alkaline Phosphatase 72 (39-117) U/L Albumin 3.7 (3.5-5.0) g/dL Urine 07/22/20 Range/Units 14:14 Urine Color YELLOW Urine Appearance CLEAR Urine pH 7.0 (5.0-8.0) Ur Specific [place] 1.010 (1.005-1.025) Urine Protein NEG (NEG-TRACE) MG/DL Urine Glucose (UA) NEG (NEG) MG/DL Assessment and Plan (1) Vertebrobasilar ischemia: Problem details: Vertebrobasilar ischemic events characterized by ataxia, right facial droop and some slurring of speech which has improved after t-PA Status: Acute Observing ICU for 24 hours because of the TPA administered from vertebrobasilar ischemic event. The patient has made a good recovery. We'll start him on long-term anticoagulation with either Coumadin or Eliquis (2) Heart disease: Status: Acute (3) Paroxysmal A-fib: Status: Acute Anticoagulate (4) HLD (hyperlipidemia): Status: Acute
[2020-07-22 16:15] LABS: COVID-19 Test Negative (Negative); IDNOW Serial# 9DD0AD1C
--- NOTE | 2020-07-22 16:55 | PM.CCHP ---
History of Present Illness Date of Service: 07/22/20 Chief Complaint: Right-sided weakness 59-year-old gentleman with underlying history of CAD, mi, paroxysmal AFib not on anticoagulation, hypertension, hyperlipidemia, asthma admitted on 07/22/2020 with right-sided weakness and slurred speech. Evaluated by neurology in emergency room and has had tPA administered for an acute CVA with significant improvement of his right-sided deficits. Patient being admitted for further monitoring. Review of Systems Constitutional: Constitutional: Denies malaise Eyes: Eyes: Denies change in vision ENT: Reports Normal hearing present Cardiovascular: Cardiovascular: Denies chest pain and Denies dyspnea on exertion Respiratory: Respiratory: Denies cough, Denies dyspnea on exertion and Denies wheezing Gastrointestinal: Gastrointestinal: Denies constipation and Denies diarrhea Genitourinary: Genitourinary: Denies urinary incontinence and Denies urinary urgency Musculoskeletal: Musculoskeletal: Reports muscle weakness (Right-sided) Integumentary/Breasts: Skin/Breast: Denies rash Neurologic: Reports as per HPI, Reports Normal hearing present, Denies confusion, Reports focal weakness and Reports other (slurred speech) Psychiatric: Psychiatric: Denies anxiety and Denies confusion Endocrine: Endocrine: Denies cold intolerance and Denies heat intolerance Hematologic/Lymphatic: Hematologic/Lymphatic: Denies easy bruising Allergic/Immunologic: Allergic/Immunologic: Denies wheezing PMFSH Past Medical History Medical History Asthma Bronchitis HLD (hyperlipidemia) HTN (hypertension) Myocardial infarction Social History Social History Alcohol intake: never Smoking Status: Never smoker Use of substances other than those prescribed or required for medical reasons: No Advance Directives: No Advance Directives Information Provided: Yes Meds Allergies Allergy/AdvReac Type Severity Reaction Status Date / Time No Known Allergies Allergy Mild UNKNOWN Unverified 04/21/20 15:56 [No Known Allergies*] Physical Exam Vital Signs: Vital Signs: Last Vital Signs Temp 98.2 F 07/22/20 11:29 Pulse 76 07/22/20 15:45 Resp 11 L 07/22/20 15:45 BP 152/99 H 07/22/20 15:45 Pulse Ox 99 07/22/20 15:45 Body Mass Index 26.4 Const: General: No confusion Orientation/consciousness: patient oriented x3 and No confusion Eyes: Sclerae: sclerae normal EOM: EOMs intact bilaterally Neck: Neck: Yes no lymphadenopathy, Yes trachea midline and Yes supple Resp: Effort & Inspection: normal respiratory effort and no respiratory distress Auscultation: clear to auscultation bilaterally Cardio: Rate: regular rate Rhythm: regular rhythm Heart sounds: no gallops, no murmurs and no rubs GI: Palpation (GI): Soft to palpation and Other GI palpation findings present ( Nontender) Auscultation: normal bowel sounds Neuro: General: patient oriented x3 and No confusion Cranial nerves: Yes Normal hearing present and Yes Other cranial nerve findings present (RUE and RLE motor strength 4 out 5, otherwise 5 out of 5) Extrem: General: Yes no pedal edema, No clubbing and No cyanosis Results Labs CBC and Chem 7: 07/22/20 13:25 07/22/20 13:25 Labs: Laboratory Results - last 24 hr 07/22/20 07/22/20 07/22/20 12:09 12:09 12:09 MCV 91.3 MCH 30.9 MCHC 33.9 RDW 12.7 Plt Count 243 MPV 9.4 Immature Gran % (Auto) 0.1 Neut % (Auto) 69.6 Lymph % (Auto) 20.9 [place] % (Auto) 7.3 Eos % (Auto) 1.1 Baso % (Auto) 1.0 Lymph # (Auto) 1.6 [place] # (Auto) 0.6 Eos # (Auto) 0.1 Baso # (Auto) 0.1 Abs Immat Gran (auto) 0.01 Absolute Neuts (auto) 5.5 Absolute Nucleated RBC 0.000 Nucleated RBC % (auto) 0.0 PT Whole Blood PT INR Whole Blood INR APTT Anion Gap 14 Estim Creat Clear Calc 84.5 Estimated GFR > 60 POC Glucose Random Glucose 95 Calcium 9.2 Magnesium Total Bilirubin Direct Bilirubin AST ALT Alkaline Phosphatase Total Creatine Kinase Troponin I High Sens < 3.5 Total Protein Albumin TSH Urine Color Urine Appearance Urine pH Ur Specific [place] Urine Protein Urine Glucose (UA) Urine Ketones Urine Blood Urine Nitrite Ur Leukocyte Esterase Urine Opiates Screen Ur Barbiturates Screen Ur Phencyclidine Scrn Ur Amphetamines Screen U Benzodiazepines Scrn Urine Cocaine Screen U Marijuana (THC) Screen Ethyl Alcohol COVID-19 (MARIA G) COVID-19 Clin Com 07/22/20 07/22/20 07/22/20 12:46 12:55 13:25 MCV 91.6 MCH 30.7 MCHC 33.5 RDW 12.5 Plt Count 233 MPV 9.7 Immature Gran % (Auto) 0.2 Neut % (Auto) 67.2 Lymph % (Auto) 22.7 [place] % (Auto) 7.8 Eos % (Auto) 1.3 Baso % (Auto) 0.8 Lymph # (Auto) 2.0 [place] # (Auto) 0.7 Eos # (Auto) 0.1 Baso # (Auto) 0.1 Abs Immat Gran (auto) 0.02 Absolute Neuts (auto) 6.1 Absolute Nucleated RBC 0.000 Nucleated RBC % (auto) 0.0 PT Whole Blood PT 12.1 INR Whole Blood INR 1.0 APTT Anion Gap Estim Creat Clear Calc Estimated GFR POC Glucose 96 Random Glucose Calcium Magnesium Total Bilirubin Direct Bilirubin AST ALT Alkaline Phosphatase Total Creatine Kinase Troponin I High Sens Total Protein Albumin TSH Urine Color Urine Appearance Urine pH Ur Specific [place] Urine Protein Urine Glucose (UA) Urine Ketones Urine Blood Urine Nitrite Ur Leukocyte Esterase Urine Opiates Screen Ur Barbiturates Screen Ur Phencyclidine Scrn Ur Amphetamines Screen U Benzodiazepines Scrn Urine Cocaine Screen U Marijuana (THC) Screen Ethyl Alcohol COVID-19 (MARIA G) COVID-19 Clin Com 07/22/20 07/22/20 07/22/20 13:25 13:25 13:25 MCV MCH MCHC RDW Plt Count MPV Immature Gran % (Auto) Neut % (Auto) Lymph % (Auto) [place] % (Auto) Eos % (Auto) Baso % (Auto) Lymph # (Auto) [place] # (Auto) Eos # (Auto) Baso # (Auto) Abs Immat Gran (auto) Absolute Neuts (auto) Absolute Nucleated RBC Nucleated RBC % (auto) PT 12.5 Whole Blood PT INR 1.1 Whole Blood INR APTT 29.7 Anion Gap 9 L Estim Creat Clear Calc 86.2 Estimated GFR > 60 POC Glucose Random Glucose 93 Calcium 9.2 Magnesium 2.0 Total Bilirubin 0.9 Direct Bilirubin 0.4 AST 21 ALT 24 Alkaline Phosphatase 72 Total Creatine Kinase 201 H Troponin I High Sens < 3.5 Total Protein 6.9 Albumin 3.7 TSH 1.08 Urine Color Urine Appearance Urine pH Ur Specific [place] Urine Protein Urine Glucose (UA) Urine Ketones Urine Blood Urine Nitrite Ur Leukocyte Esterase Urine Opiates Screen Ur Barbiturates Screen Ur Phencyclidine Scrn Ur Amphetamines Screen U Benzodiazepines Scrn Urine Cocaine Screen U Marijuana (THC) Screen Ethyl Alcohol COVID-19 (MARIA G) COVID-19 Clin Com 07/22/20 07/22/20 07/22/20 13:25 14:14 14:14 MCV MCH MCHC RDW Plt Count MPV Immature Gran % (Auto) Neut % (Auto) Lymph % (Auto) [place] % (Auto) Eos % (Auto) Baso % (Auto) Lymph # (Auto) [place] # (Auto) Eos # (Auto) Baso # (Auto) Abs Immat Gran (auto) Absolute Neuts (auto) Absolute Nucleated RBC Nucleated RBC % (auto) PT Whole Blood PT INR Whole Blood INR APTT Anion Gap Estim Creat Clear Calc Estimated GFR POC Glucose Random Glucose Calcium Magnesium Total Bilirubin Direct Bilirubin AST ALT Alkaline Phosphatase Total Creatine Kinase Troponin I High Sens Total Protein Albumin TSH Urine Color YELLOW Urine Appearance CLEAR Urine pH 7.0 Ur Specific [place] 1.010 Urine Protein NEG Urine Glucose (UA) NEG Urine Ketones NEG Urine Blood NEG Urine Nitrite NEG Ur Leukocyte Esterase NEG Urine Opiates Screen Not Detected Ur Barbiturates Screen Not Detected Ur Phencyclidine Scrn Not Detected Ur Amphetamines Screen Not Detected U Benzodiazepines Scrn Not Detected Urine Cocaine Screen Not Detected U Marijuana (THC) Screen Not Detected Ethyl Alcohol < 10 COVID-19 (MARIA G) COVID-19 Clin Com 07/22/20 15:54 MCV MCH MCHC RDW Plt Count MPV Immature Gran % (Auto) Neut % (Auto) Lymph % (Auto) [place] % (Auto) Eos % (Auto) Baso % (Auto) Lymph # (Auto) [place] # (Auto) Eos # (Auto) Baso # (Auto) Abs Immat Gran (auto) Absolute Neuts (auto) Absolute Nucleated RBC Nucleated RBC % (auto) PT Whole Blood PT INR Whole Blood INR APTT Anion Gap Estim Creat Clear Calc Estimated GFR POC Glucose Random Glucose Calcium Magnesium Total Bilirubin Direct Bilirubin AST ALT Alkaline Phosphatase Total Creatine Kinase Troponin I High Sens Total Protein Albumin TSH Urine Color Urine Appearance Urine pH Ur Specific [place] Urine Protein Urine Glucose (UA) Urine Ketones Urine Blood Urine Nitrite Ur Leukocyte Esterase Urine Opiates Screen Ur Barbiturates Screen Ur Phencyclidine Scrn Ur Amphetamines Screen U Benzodiazepines Scrn Urine Cocaine Screen U Marijuana (THC) Screen Ethyl Alcohol COVID-19 (MARIA G) Negative COVID-19 Clin Com See Note Imaging Radiologist's Impressions: Impressions Chest X-Ray 07/22/20 12:45 IMPRESSION: Unremarkable chest exam Head CT 07/22/20 12:45 IMPRESSION: No acute intracranial abnormality. CTA head and neck to be reported separately. Head/Neck CTA 07/22/20 12:45 IMPRESSION: 1. No evidence of acute intracranial hemorrhage or edematous territorial infarction. 2. CTA of the head and neck without proximal occlusion or flow-limiting stenosis. 3. Mild to moderate underlying microangiopathy. 4. Moderate multilevel degenerative spinal arthropathy of the cervical spine. This critical result was discussed with YEIMY Weir at 13:40 on 07/22/2020 and it was ascertained that the content and urgency of the report was understood at the time of direct communication. Brain MRI 07/22/20 13:42 IMPRESSION: No acute intracranial abnormality. Specifically, no acute infarction or mass is seen. Background changes of moderate chronic microangiopathy. Degenerative spondylosis seen in the upper cervical spine with some mass effect on the ventral cord at the C3-C4 and C4-C5 levels. Assessment and Plan (1) CVA (cerebral vascular accident): Status: Acute Assessment: 59-year-old gentleman admitted with an acute CVA status post tPA administration in ER with significant improvement in right-sided upper and lower extremity weakness and resolution of aphasia Plan: Neuro: acute CVA status post tPA administration in ER with significant improvement in right-sided upper and lower extremity weakness and resolution of aphasia. Neurology service care appreciated. Continue post tPA care. Cardiac: No acute issues. Maintain systolic blood pressure under 180. Pulmonary: No acute issues. Renal: No acute issues. Endo: No acute issues. GI: No acute issues. ID: No acute issues Heme/Onc: No acute issues. Psych: No acute issues. Miscellaneous: No acute issues. Prophylaxis: Intermittent pneumatic compression Diet: Pending swallow evaluation
--- NOTE | 2020-07-22 17:45 | PC.NURSE ---
report given to joseph in icu
[2020-07-22 18:26] LABS: Basophils Absolute Auto 0.1 X10*3/uL (0.0-0.2); Basophils Percent Auto 0.8 % (0-2); Eosinophils Absolute Auto 0.3 X10*3/uL (0.0-0.4); Eosinophils Percent Auto 2.5 % (0-4); Hemoglobin 15.4 g/dl (14.0-18.0); Imm Gran Abs Auto 0.02 X10*3/uL (0.00-0.03); Imm Gran Pct Auto 0.2 % (0.0-0.4); Lymphocytes Absolute Auto 2.6 X10*3/uL (1.2-4.9); Lymphocytes Percent Auto 26.9 % (20-40); Mean Corpuscular HGB Conc 34.2 g/dl (31.0-36.0); Mean Corpuscular Volume 90.7 fL (80-98); Mean Platelet Volume 9.8 fL (9.4-12.4); Monocytes Percent Auto 9.9 % (2-11); Neutrophils Absolute Auto 5.9 X10*3/uL (2.0-8.3); Neutrophils Percent Auto 59.7 % (45-73); Platelet Count 229 X10*3/uL (160-400); Red Blood Count 4.96 X10*6/uL (4.60-5.80); Red Cell Distribution Width 12.6 % (11.0-16.0); White Blood Count 9.8 X10*3/uL (4.8-10.8)
[2020-07-22 18:27] LABS: MANUAL DIFF FLAG NO
[2020-07-22] MEDS: 0.9 % Sodium Chloride Flush 3 ML SYRINGE IVFLUSH (18:29)
[2020-07-22 18:55] LABS: Cholesterol 177 mg/dL; HDL Cholesterol 48 mg/dL; LDL Cholesterol Calculated 108 mg/dl; Triglycerides 106 mg/dL
[2020-07-22] MEDS: Flu Vacc QS2020-21(6mos up)/PF 0.5 ML SYRINGE IM (20:27)
[2020-07-22] MEDS: Acetaminophen 325 MG TABLET 650 MG PO (21:20)
[2020-07-22 22:05] LABS: Glucose, Whole Blood 115 mg/dL (60-115)
[2020-07-22] MEDS: Lactated Ringers 1,000 ML 80 ML IVCONT (22:25)
[2020-07-23] VITALS (18 sets, daily range): BP systolic 117–138; BP diastolic 68–84; PULSE 56–86; RESP 14–20; TEMP 35.9–36.6; O2SAT 95–99; BMI 26.4
[2020-07-23 06:25] LABS: Anion Gap 11 (12-20); Blood Urea Nitrogen 12 mg/dL (9-16); Calcium 9.2 mg/dL (8.4-10.2); Carbon Dioxide 27 mmol/L (22-29); Chloride 106 mmol/L (96-108); Creatinine Clr Calc Pharmacy 99.1; Estimated Glomerular Filt Rate > 60; Glucose Random 89 mg/dL (60-115); Magnesium 2.1 mg/dL (1.6-2.6); Potassium 4.2 mmol/l (3.3-5.1); Sodium 140 mmol/L (135-145)
--- NOTE | 2020-07-23 06:25 | PC.NURSE ---
CARE ASSUMED 23;15...AWAKE..ALERT...ORIENTED X3..SPEECH CLEAR...LYLE WITH GOOD STRENGTH..REPOSITIONS SELF AD-SCOTTY...VSS...RESPIRATIONS EASY ON ROOM AIR...S.CAMERON TO NSR HR 50'S-60'S...DENIES HEADACHE ...RESTFUL..NO SIGNS OF BLEEDING...
[2020-07-23] MEDS: 0.9 % Sodium Chloride Flush 3 ML SYRINGE IVFLUSH ×3 (08:52→23:02)
--- NOTE | 2020-07-23 11:09 | P.PNCC_ITS ---
Subjective Subjective Date of Service: 07/23/20 Interval History: 59-year-old gentleman with underlying history of CAD, mi, paroxysmal AFib not on anticoagulation, hypertension, hyperlipidemia, asthma admitted on 07/22/2020 with right-sided weakness and slurred speech. Evaluated by neurology in emergency room and has had tPA administered for an acute CVA with significant improvement of his right-sided deficits. Patient admitted to intensive care unit for post tPA monitoring. No events overnight. Passed swallow evaluation. Physical Exam Vital Signs: Vital Signs: Last Vital Signs Temp 97.6 F 07/23/20 03:57 Pulse 75 07/23/20 10:57 Resp 16 07/23/20 10:57 BP 117/79 07/23/20 10:57 Pulse Ox 96 07/23/20 10:57 Body Mass Index 26.4 Const: General: no acute distress, alert and awake Orientation/consciousness: patient oriented x3 Eyes: Sclerae: sclerae normal EOM: EOMs intact bilaterally Neck: Neck: Yes no lymphadenopathy, Yes trachea midline and Yes supple Resp: Effort & Inspection: normal respiratory effort and no respiratory distress Auscultation: clear to auscultation bilaterally Cardio: Rate: regular rate Rhythm: regular rhythm Heart sounds: no gallops, no murmurs and no rubs GI: Palpation (GI): Soft to palpation and Other GI palpation findings present ( Nontender) Auscultation: normal bowel sounds Neuro: General: patient oriented x3 and no focal motor deficits Extrem: General: Yes no pedal edema, No clubbing and No cyanosis Objective Data Labs CBC & Chem 7: 07/22/20 18:16 07/23/20 05:16 Labs: Laboratory Results - last 24 hr 07/22/20 07/22/20 07/22/20 12:09 12:09 12:09 WBC 7.8 RBC 4.69 Hgb 14.5 Hct 42.8 MCV 91.3 MCH 30.9 MCHC 33.9 RDW 12.7 Plt Count 243 MPV 9.4 Immature Gran % (Auto) 0.1 Neut % (Auto) 69.6 Lymph % (Auto) 20.9 [place] % (Auto) 7.3 Eos % (Auto) 1.1 Baso % (Auto) 1.0 Lymph # (Auto) 1.6 [place] # (Auto) 0.6 Eos # (Auto) 0.1 Baso # (Auto) 0.1 Abs Immat Gran (auto) 0.01 Absolute Neuts (auto) 5.5 Absolute Nucleated RBC 0.000 Nucleated RBC % (auto) 0.0 PT Whole Blood PT INR Whole Blood INR APTT Sodium 139 Potassium 4.5 Chloride 105 Carbon Dioxide 25 Anion Gap 14 BUN 14 Creatinine 1.02 Estim Creat Clear Calc 84.5 Estimated GFR > 60 POC Glucose Random Glucose 95 Calcium 9.2 Magnesium Total Bilirubin Direct Bilirubin AST ALT Alkaline Phosphatase Total Creatine Kinase Troponin I High Sens < 3.5 Total Protein Albumin Triglycerides Cholesterol LDL Cholesterol, Calc HDL Cholesterol TSH Urine Color Urine Appearance Urine pH Ur Specific [place] Urine Protein Urine Glucose (UA) Urine Ketones Urine Blood Urine Nitrite Ur Leukocyte Esterase Urine Opiates Screen Ur Barbiturates Screen Ur Phencyclidine Scrn Ur Amphetamines Screen U Benzodiazepines Scrn Urine Cocaine Screen U Marijuana (THC) Screen Ethyl Alcohol COVID-19 (MARIA G) COVID-19 Clin Com 07/22/20 07/22/20 07/22/20 12:46 12:55 13:25 WBC 9.0 RBC 4.79 Hgb 14.7 Hct 43.9 MCV 91.6 MCH 30.7 MCHC 33.5 RDW 12.5 Plt Count 233 MPV 9.7 Immature Gran % (Auto) 0.2 Neut % (Auto) 67.2 Lymph % (Auto) 22.7 [place] % (Auto) 7.8 Eos % (Auto) 1.3 Baso % (Auto) 0.8 Lymph # (Auto) 2.0 [place] # (Auto) 0.7 Eos # (Auto) 0.1 Baso # (Auto) 0.1 Abs Immat Gran (auto) 0.02 Absolute Neuts (auto) 6.1 Absolute Nucleated RBC 0.000 Nucleated RBC % (auto) 0.0 PT Whole Blood PT 12.1 INR Whole Blood INR 1.0 APTT Sodium Potassium Chloride Carbon Dioxide Anion Gap BUN Creatinine Estim Creat Clear Calc Estimated GFR POC Glucose 96 Random Glucose Calcium Magnesium Total Bilirubin Direct Bilirubin AST ALT Alkaline Phosphatase Total Creatine Kinase Troponin I High Sens Total Protein Albumin Triglycerides Cholesterol LDL Cholesterol, Calc HDL Cholesterol TSH Urine Color Urine Appearance Urine pH Ur Specific [place] Urine Protein Urine Glucose (UA) Urine Ketones Urine Blood Urine Nitrite Ur Leukocyte Esterase Urine Opiates Screen Ur Barbiturates Screen Ur Phencyclidine Scrn Ur Amphetamines Screen U Benzodiazepines Scrn Urine Cocaine Screen U Marijuana (THC) Screen Ethyl Alcohol COVID-19 (MARIA G) COVID-19 [employer] Com 07/22/20 07/22/20 07/22/20 13:25 13:25 13:25 WBC RBC Hgb Hct MCV MCH MCHC RDW Plt Count MPV Immature Gran % (Auto) Neut % (Auto) Lymph % (Auto) [place] % (Auto) Eos % (Auto) Baso % (Auto) Lymph # (Auto) [place] # (Auto) Eos # (Auto) Baso # (Auto) Abs Immat Gran (auto) Absolute Neuts (auto) Absolute Nucleated RBC Nucleated RBC % (auto) PT 12.5 Whole Blood PT INR 1.1 Whole Blood INR APTT 29.7 Sodium 138 Potassium 4.3 Chloride 105 Carbon Dioxide 28 Anion Gap 9 L BUN 13 Creatinine 1.00 Estim Creat Clear Calc 86.2 Estimated GFR > 60 POC Glucose Random Glucose 93 Calcium 9.2 Magnesium 2.0 Total Bilirubin 0.9 Direct Bilirubin 0.4 AST 21 ALT 24 Alkaline Phosphatase 72 Total Creatine Kinase 201 H Troponin I High Sens < 3.5 Total Protein 6.9 Albumin 3.7 Triglycerides Cholesterol LDL Cholesterol, Calc HDL Cholesterol TSH 1.08 Urine Color Urine Appearance Urine pH Ur Specific [place] Urine Protein Urine Glucose (UA) Urine Ketones Urine Blood Urine Nitrite Ur Leukocyte Esterase Urine Opiates Screen Ur Barbiturates Screen Ur Phencyclidine Scrn Ur Amphetamines Screen U Benzodiazepines Scrn Urine Cocaine Screen U Marijuana (THC) Screen Ethyl Alcohol COVID-19 (MARIA G) COVID-19 [employer] Com 07/22/20 07/22/20 07/22/20 13:25 14:14 14:14 WBC RBC Hgb Hct MCV MCH MCHC RDW Plt Count MPV Immature Gran % (Auto) Neut % (Auto) Lymph % (Auto) [place] % (Auto) Eos % (Auto) Baso % (Auto) Lymph # (Auto) [place] # (Auto) Eos # (Auto) Baso # (Auto) Abs Immat Gran (auto) Absolute Neuts (auto) Absolute Nucleated RBC Nucleated RBC % (auto) PT Whole Blood PT INR Whole Blood INR APTT Sodium Potassium Chloride Carbon Dioxide Anion Gap BUN Creatinine Estim Creat Clear Calc Estimated GFR POC Glucose Random Glucose Calcium Magnesium Total Bilirubin Direct Bilirubin AST ALT Alkaline Phosphatase Total Creatine Kinase Troponin I High Sens Total Protein Albumin Triglycerides Cholesterol LDL Cholesterol, Calc HDL Cholesterol TSH Urine Color YELLOW Urine Appearance CLEAR Urine pH 7.0 Ur Specific [place] 1.010 Urine Protein NEG Urine Glucose (UA) NEG Urine Ketones NEG Urine Blood NEG Urine Nitrite NEG Ur Leukocyte Esterase NEG Urine Opiates Screen Not Detected Ur Barbiturates Screen Not Detected Ur Phencyclidine Scrn Not Detected Ur Amphetamines Screen Not Detected U Benzodiazepines Scrn Not Detected Urine Cocaine Screen Not Detected U Marijuana (THC) Screen Not Detected Ethyl Alcohol < 10 COVID-19 (MARIA G) COVID-19 [employer] 07/22/20 07/22/20 07/22/20 15:54 18:16 18:16 WBC 9.8 RBC 4.96 Hgb 15.4 Hct 45.0 MCV 90.7 MCH 31.0 MCHC 34.2 RDW 12.6 Plt Count 229 MPV 9.8 Immature Gran % (Auto) 0.2 Neut % (Auto) 59.7 Lymph % (Auto) 26.9 [place] % (Auto) 9.9 Eos % (Auto) 2.5 Baso % (Auto) 0.8 Lymph # (Auto) 2.6 [place] # (Auto) 1.0 Eos # (Auto) 0.3 Baso # (Auto) 0.1 Abs Immat Gran (auto) 0.02 Absolute Neuts (auto) 5.9 Absolute Nucleated RBC 0.000 Nucleated RBC % (auto) 0.0 PT Whole Blood PT INR Whole Blood INR APTT Sodium Potassium Chloride Carbon Dioxide Anion Gap BUN Creatinine Estim Creat Clear Calc Estimated GFR POC Glucose Random Glucose Calcium Magnesium Total Bilirubin Direct Bilirubin AST ALT Alkaline Phosphatase Total Creatine Kinase Troponin I High Sens Total Protein Albumin Triglycerides 106 Cholesterol 177 LDL Cholesterol, Calc 108 HDL Cholesterol 48 TSH Urine Color Urine Appearance Urine pH Ur Specific [place] Urine Protein Urine Glucose (UA) Urine Ketones Urine Blood Urine Nitrite Ur Leukocyte Esterase Urine Opiates Screen Ur Barbiturates Screen Ur Phencyclidine Scrn Ur Amphetamines Screen U Benzodiazepines Scrn Urine Cocaine Screen U Marijuana (THC) Screen Ethyl Alcohol COVID-19 (MARIA G) Negative COVID-19 [employer] See Note 07/22/20 07/23/20 22:02 05:16 WBC RBC Hgb Hct MCV MCH MCHC RDW Plt Count MPV Immature Gran % (Auto) Neut % (Auto) Lymph % (Auto) [place] % (Auto) Eos % (Auto) Baso % (Auto) Lymph # (Auto) [place] # (Auto) Eos # (Auto) Baso # (Auto) Abs Immat Gran (auto) Absolute Neuts (auto) Absolute Nucleated RBC Nucleated RBC % (auto) PT Whole Blood PT INR Whole Blood INR APTT Sodium 140 Potassium 4.2 Chloride 106 Carbon Dioxide 27 Anion Gap 11 L BUN 12 Creatinine 0.87 Estim Creat Clear Calc 99.1 Estimated GFR > 60 POC Glucose 115 Random Glucose 89 Calcium 9.2 Magnesium 2.1 Total Bilirubin Direct Bilirubin AST ALT Alkaline Phosphatase Total Creatine Kinase Troponin I High Sens Total Protein Albumin Triglycerides Cholesterol LDL Cholesterol, Calc HDL Cholesterol TSH Urine Color Urine Appearance Urine pH Ur Specific [place] Urine Protein Urine Glucose (UA) Urine Ketones Urine Blood Urine Nitrite Ur Leukocyte Esterase Urine Opiates Screen Ur Barbiturates Screen Ur Phencyclidine Scrn Ur Amphetamines Screen U Benzodiazepines Scrn Urine Cocaine Screen U Marijuana (THC) Screen Ethyl Alcohol COVID-19 (MARIA G) COVID-19 Clin Com Progress Note: A&P Assessment and plan (1) CVA (cerebral vascular accident): Status: Acute Assessment and Plan: Assessment: 59-year-old gentleman admitted with an acute CVA status post tPA administration in ER with significant improvement in right-sided upper and lower extremity weakness and resolution of aphasia Plan: Neuro: acute CVA status post tPA administration in ER with significant improvement in right-sided upper and lower extremity weakness and resolution of aphasia. Neurology service care appreciated. Continue post tPA care. Started on aspirin. Cardiac: No acute issues. Maintain systolic blood pressure under 180. Underlying history of hypertension and paroxysmal AFib. Pulmonary: No acute issues. Renal: No acute issues. Endo: No acute issues. GI: No acute issues. ID: No acute issues Heme/Onc: No acute issues. Psych: No acute issues. Miscellaneous: No acute issues. Prophylaxis: Intermittent pneumatic compression Diet: Regular Time Spent With Patient Total time spent with greater than 50% in coordination of care (as documented) at patient's floor/unit and/or counseling patient:: 0
[2020-07-23] MEDS: Lactated Ringers 1,000 ML 80 ML IVCONT (12:13)
[2020-07-23 12:26] LABS: Glucose, Whole Blood 99 mg/dL (60-115)
[2020-07-23 16:41] LABS: Glucose, Whole Blood 119 mg/dL (60-115)
[2020-07-23 21:12] LABS: Glucose, Whole Blood 97 mg/dL (60-115)
[2020-07-24] VITALS (7 sets, daily range): BP systolic 106–136; BP diastolic 68–82; PULSE 66–84; RESP 18–20; TEMP 36.3–36.9; O2SAT 96–98; BMI 25.5
[2020-07-24] MEDS: 0.9 % Sodium Chloride Flush 3 ML SYRINGE IVFLUSH ×3 (08:24→23:15)
[2020-07-24 08:56] LABS: Glucose, Whole Blood 97 mg/dL (60-115)
--- NOTE | 2020-07-24 11:31 | P.PNIM_ITS ---
Subjective Subjective Date of Service: 07/24/20 Interval History: seen and examined this AM hoping to go home today denies any complaints reports unsure why hes not on OAC for his PAF. Denies history of GI bleed. Explained to him the need for OAC, risk vs benefits discussed. Agreeable on s tarting Eliquis. ROS General - no fevers or chills Cardiovascular - no chest pain Respiratory - no shortness of breath or cough Abdominal- no abdominal pain, nausea, vomiting, diarrhea Physical Exam Vital Signs: Vital Signs: Last Vital Signs Temp 98.1 F 07/24/20 08:00 Pulse 77 07/24/20 08:00 Resp 20 07/24/20 08:00 BP 116/71 07/24/20 08:00 Pulse Ox 96 07/24/20 08:00 Body Mass Index 25.5 Const: Other: General - no acute distress, appears comfortable Cardiovascular - regular rate and rhythm, S1-S2 Lungs - normal respiratory effort, clear to auscultation bilaterally, no wheezing Abdomen - soft, nontender, no rebound or guarding Extremities - no edema bilaterally Neuro - awake and alert, no focal deficits Objective Data Current Medications Generic Name Dose Route Start Last Admin Trade Name Freq PRN Reason Stop Dose Admin Acetaminophen 650 mg 07/22/20 18:48 07/22/20 21:20 Acetaminophen 325 Mg Tablet PO 650 mg Q6H PRN Administration Pain, Mild (Pain Scale 1-3) Atorvastatin Calcium 40 mg 07/24/20 21:00 Atorvastatin Calcium 40 Mg Tablet PO BEDTIME ISIAH Ondansetron HCl 4 mg 07/22/20 16:17 Ondansetron Hcl 4 Mg/2 Ml Vial IVPUSH Q8H PRN Nausea Sodium Chloride 3 ml 07/23/20 00:00 07/24/20 08:24 0.9 % Sodium Chloride Flush 3 Ml Syringe IVFLUSH 3 ml QSHIFT ISIAH Administration Labs CBC & Chem 7: 07/22/20 18:16 07/23/20 05:16 Assessment and Plan (1) CVA (cerebral vascular accident): Status: Acute Assessment and Plan: This is a 59 yo M with CAD - s/p CT, PAF -- not on OAC, HLD, HTN, Asthma who presented with sudden onset neurological deficits. He was treated with t-PA and subsequently admitted to the ICU. 1. Acute CVA lipitor 40 change aspirin to eliquis (history of PAF) neuro input appreciated echo tomorrow seen by pt/ot - OP PT 2. PAF not on OAC, unclear why eliquis 5mg bid -- start this evening rate controlled, ? on toprol 25mg at home -- will hold off on this 3. HLD atorvastatin 40mg 4. Asthma not in exacerbation Full Code DVT pptx, ELiquis dispo: home tomorrow with outpatient services
[2020-07-24 11:34] LABS: Glucose, Whole Blood 103 mg/dL (60-115)
--- NOTE | 2020-07-24 15:33 | MHC.CM.PN ---
SENIOR EXECUTIVE COMPENSATION ANALYST COMPLETED WITH PT WITH THE ASSISTANCE OF PASSENGER SERVICE MANAGER. PT REPORTS HE LIVES ALONE AND IS FULLY INDEPENDENT WITH ALL CARE AND MOBILITY. PT HAS NO SERVICES AND NO DME. PT HAS A HCP COMPLETED NAMING LEON MARTINEZ HIS AGENT. PT CONFIRMS HIS PCP IS KIERRA LINO. CURRENT DC PLAN IS HOME WITH NO SERVICES PT REPORTS HIS FRIEND WILL DRIVE HIM HOME AT DC
[2020-07-24 16:28] LABS: Glucose, Whole Blood 94 mg/dL (60-115)
[2020-07-24] MEDS: Apixaban 5 MG TABLET PO (19:59)
[2020-07-24] MEDS: Atorvastatin Calcium 40 MG TABLET PO (19:59)
[2020-07-24 21:48] LABS: Glucose, Whole Blood 90 mg/dL (60-115)
[2020-07-25 03:20] VITALS: BP 136/80; PULSE 65; RESP 18; TEMP 36.4; O2SAT 97
[2020-07-25 06:00] VITALS: BMI 25.0
[2020-07-25 07:28] VITALS: BP 131/76; PULSE 61; RESP 20; TEMP 36.8; O2SAT 96
[2020-07-25] MEDS: Apixaban 5 MG TABLET PO (08:01)
[2020-07-25] MEDS: 0.9 % Sodium Chloride Flush 3 ML SYRINGE IVFLUSH (08:02)
[2020-07-25 08:03] LABS: Glucose, Whole Blood 102 mg/dL (60-115)
[2020-07-25 11:24] LABS: Glucose, Whole Blood 99 mg/dL (60-115)
[2020-07-25 11:35] VITALS: BP 124/78; PULSE 64; RESP 20; TEMP 36.4; O2SAT 97
[2020-07-25 15:17] VITALS: BP 135/76; PULSE 75; RESP 20; TEMP 37.1; O2SAT 98
--- NOTE | 2020-07-25 15:59 | PM.DS ---
DS: Providers Provider Date of admission: 07/22/20 16:17 Primary care physician: Fidel Faust MD Consults: 07/22/20 12:45 Consult to Neurology Stat Consulting Provider: [facility] Reason for consultation: dizziness? stroke Has provider been notified: Yes DS: Diagnosis Discharge Diagnosis (1) CVA (cerebral vascular accident): Status: Acute (2) Paroxysmal A-fib: Status: Acute DS: Medications Discharge Medications Home Medications: Home Medications Medication Instructions Recorded Confirmed albuterol sulfate [ProAir HFA] 2 puff INHALATION Q4-6H PRN 07/25/20 07/25/20 Previous Rx's Medication Instructions Recorded apixaban [Eliquis] 5 mg PO BID #30 tab 07/25/20 atorvastatin 40 mg PO BEDTIME #30 tab 07/25/20 diltiazem HCl [Cardizem CD] 120 mg PO DAILY #30 cap 07/25/20 DS: Summary Hospital Course Hospital Course: Patient presented with signs and symptoms suggestive of an acute CVA and after discussion with Neurology he was given tPA while in the emergency room and per protocol was subsequently admitted to the emergency room. Patient's symptoms subsequently improved and eventually he was without any neurological deficits (despite a negative MRI, felt by Neurology that this was an aborted stroke). He was evaluated by Physical therapy who recommended PT with outpatient services. Due to his history of paroxysmal AFib atrial fibrillation, neurology recommended anticoagulation and he was subsequently started on Eliquis 48 hours post tPA. He will also be discharged on Lipitor and Cardizem 120.. Time Spent with Patient Time attestation: Total time spent providing and/or coordinating discharge services: Quality: Stroke Pt Provided Written Stroke Discharge Instructions: Patient given written information Physical Exam Vital Signs: Vital Signs: Last Vital Signs Temp 98.7 F 07/25/20 15:17 Pulse 75 07/25/20 15:17 Resp 20 07/25/20 15:17 BP 135/76 07/25/20 15:17 Pulse Ox 98 07/25/20 15:17 Body Mass Index 25.0 Const: Other: General - no acute distress, appears comfortable Cardiovascular - regular rate and rhythm, S1-S2 Lungs - normal respiratory effort, clear to auscultation bilaterally, no wheezing Abdomen - soft, nontender, no rebound or guarding Extremities - no edema bilaterally Neuro - awake and alert, no focal deficits DS: Data Data Completed and Pending Labs on day of discharge: Laboratory Last Values WBC 9.8 X10*3/uL (4.8-10.8) 07/22/20 18:16 RBC 4.96 X10*6/uL (4.60-5.80) 07/22/20 18:16 Hgb 15.4 g/dl (14.0-18.0) 07/22/20 18:16 Hct 45.0 % (42-52) 07/22/20 18:16 MCV 90.7 fL (80-98) 07/22/20 18:16 MCH 31.0 pg (27.0-33.0) 07/22/20 18:16 MCHC 34.2 g/dl (31.0-36.0) 07/22/20 18:16 RDW 12.6 % (11.0-16.0) 07/22/20 18:16 Plt Count 229 X10*3/uL (160-400) 07/22/20 18:16 MPV 9.8 fL (9.4-12.4) 07/22/20 18:16 Immature Gran % (Auto) 0.2 % (0.0-0.4) 07/22/20 18:16 Neut % (Auto) 59.7 % (45-73) 07/22/20 18:16 Lymph % (Auto) 26.9 % (20-40) 07/22/20 18:16 [place] % (Auto) 9.9 % (2-11) 07/22/20 18:16 Eos % (Auto) 2.5 % (0-4) 07/22/20 18:16 Baso % (Auto) 0.8 % (0-2) 07/22/20 18:16 Lymph # (Auto) 2.6 X10*3/uL (1.2-4.9) 07/22/20 18:16 [place] # (Auto) 1.0 X10*3/uL (0.1-1.2) 07/22/20 18:16 Eos # (Auto) 0.3 X10*3/uL (0.0-0.4) 07/22/20 18:16 Baso # (Auto) 0.1 X10*3/uL (0.0-0.2) 07/22/20 18:16 Abs Immat Gran (auto) 0.02 X10*3/uL (0.00-0.03) 07/22/20 18:16 Absolute Neuts (auto) 5.9 X10*3/uL (2.0-8.3) 07/22/20 18:16 Absolute Nucleated RBC 0.000 X10*3/uL (0.0-0.012) 07/22/20 18:16 Nucleated RBC % (auto) 0.0 /100WBC (0.0-0.2) 07/22/20 18:16 PT 12.5 SEC (10.8-13.0) 07/22/20 13:25 Whole Blood PT 12.1 sec (11.1-13.5) 07/22/20 12:46 INR 1.1 (0.9-1.1) 07/22/20 13:25 Whole Blood INR 1.0 (0.9-1.1) 07/22/20 12:46 APTT 29.7 SEC (24.1-38.0) 07/22/20 13:25 Sodium 140 mmol/L (135-145) 07/23/20 05:16 Potassium 4.2 mmol/l (3.3-5.1) 07/23/20 05:16 Chloride 106 mmol/L (96-108) 07/23/20 05:16 Carbon Dioxide 27 mmol/L (22-29) 07/23/20 05:16 Anion Gap 11 (12-20) L 07/23/20 05:16 BUN 12 mg/dL (9-16) 07/23/20 05:16 Creatinine 0.87 mg/dL (0.5-1.4) 07/23/20 05:16 Estim Creat Clear Calc 99.1 07/23/20 05:16 Estimated GFR > 60 07/23/20 05:16 POC Glucose 99 mg/dL (60-115) 07/25/20 11:15 Random Glucose 89 mg/dL (60-115) 07/23/20 05:16 Calcium 9.2 mg/dL (8.4-10.2) 07/23/20 05:16 Magnesium 2.1 mg/dL (1.6-2.6) 07/23/20 05:16 Total Bilirubin 0.9 mg/dL (0.0-1.0) 07/22/20 13:25 Direct Bilirubin 0.4 mg/dL (0.0-0.5) 07/22/20 13:25 AST 21 U/L (5-37) 07/22/20 13:25 ALT 24 U/L (0-40) 07/22/20 13:25 Alkaline Phosphatase 72 U/L (39-117) 07/22/20 13:25 Total Creatine Kinase 201 U/L (38-174) H 07/22/20 13:25 Troponin I High Sens < 3.5 ng/L (<3.5-35.0) 07/22/20 13:25 Total Protein 6.9 g/dL (6.5-8.0) 07/22/20 13:25 Albumin 3.7 g/dL (3.5-5.0) 07/22/20 13:25 Triglycerides 106 mg/dL 07/22/20 18:16 Cholesterol 177 mg/dL 07/22/20 18:16 LDL Cholesterol, Calc 108 mg/dl 07/22/20 18:16 HDL Cholesterol 48 mg/dL 07/22/20 18:16 TSH 1.08 uIU/mL (0.32-4.0) 07/22/20 13:25 Urine Color YELLOW 07/22/20 14:14 Urine Appearance CLEAR 07/22/20 14:14 Urine pH 7.0 (5.0-8.0) 07/22/20 14:14 Ur Specific [place] 1.010 (1.005-1.025) 07/22/20 14:14 Urine Protein NEG MG/DL (NEG-TRACE) 07/22/20 14:14 Urine Glucose (UA) NEG MG/DL (NEG) 07/22/20 14:14 Urine Ketones NEG MG/DL (NEG) 07/22/20 14:14 Urine Blood NEG (NEG) 07/22/20 14:14 Urine Nitrite NEG (NEG) 07/22/20 14:14 Ur Leukocyte Esterase NEG (NEG) 07/22/20 14:14 Urine Opiates Screen Not Detected (Not Detect) 07/22/20 14:14 Ur Barbiturates Screen Not Detected (Not Detect) 07/22/20 14:14 Ur Phencyclidine Scrn Not Detected (Not Detect) 07/22/20 14:14 Ur Amphetamines Screen Not Detected (Not Detect) 07/22/20 14:14 U Benzodiazepines Scrn Not Detected (Not Detect) 07/22/20 14:14 Urine Cocaine Screen Not Detected (Not Detect) 07/22/20 14:14 U Marijuana (THC) Screen Not Detected (Not Detect) 07/22/20 14:14 Ethyl Alcohol < 10 mg/dL 07/22/20 13:25 COVID-19 (MARIA G) Negative (Negative) 07/22/20 15:54 COVID-19 Clin Com See Note 07/22/20 15:54 Discharge Plan Discharge Patient Disposition: Home, Self-Care Referrals: Fidel Faust MD [Primary Care Provider] - Discharge Medications: New atorvastatin 40 mg Tablet 40 mg PO BEDTIME Qty: 30 RF: 0 Eliquis 5 mg Tablet 5 mg PO BID Qty: 30 RF: 0 Continued albuterol sulfate [ProAir HFA] 90 mcg/actuation Hfa Aerosol Inhaler 2 puff INHALATION Q4-6H PRN (Reason: Shortness Of Breath) RF: 0 diltiazem HCl [Cardizem CD] 120 mg Capsule,Extended Release 24hr 120 mg PO DAILY Qty: 30 RF: 0 Discontinued fluticasone propion-salmeterol [Advair Diskus] 250-50 mcg/dose Blister With Device 1 inh INHALATION BID RF: 0 simvastatin 10 mg Tablet 10 mg PO BEDTIME RF: 0 aspirin [Aspir-81] 81 mg Tablet,Delayed Release (Dr/Ec) 81 mg PO DAILY RF: 0 Discharge Orders: Discharge Order (Routine); Ordered 07/25/20 Ordered By: Cj Torres Diet: advance to usual diet Activity on Discharge: As tolerated Visit Report Forms: Patient Portal Discharge page Care Plan Goals: To stay healthy and out of the hospital. Health Concerns: Stroke PAF Plan of Treatment: Stroke - take Lipitor and Eliquis PAF - Take Eliquis + Cardizem Follow up with your primary care doctor.
--- NOTE | 2020-07-25 16:19 | CA_ITS ---
Transthoracic Echocardiogram Patient (Last, First, Middle): Edmond Childers, Gender: Male Date of : 1960 Age: 59 Procedure Date: 07/25/2020 Procedure Type: Transthoracic Echocardiogram Location: [facility] [place] Height: 182.88 cm Weight: 83.46 kg BSA: 2.06 m2 Heart Rate: bpm BP: 136 / 80 mmHg Civil Division Commander Deputy Sheriff: FRANC Abel MD: Damon Huff MD Tar Heat Exchanger Cleaner: Aric Magaña MD Symptoms: s/p CVA Study Quality: Good ECG Rhythm: Sinus Conclusions: - 1. Normal LV systolic function with grade 1 diastolic dysfunction 2. Normal cardiac valvular Doppler 3. Normal RV systolic pressure 4. No pericardial effusion Findings Left Ventricle Normal left ventricular size, thickness, and systolic function. The visually estimated ejection fraction is between 60-65%. Spectral Doppler is indicative of an impaired relaxation filling pattern. E/E prime ratio is <8, consistent with normal filling pressures. Evidence suggests grade I (mild) diastolic dysfunction. Right Ventricle Normal right ventricular cavity size and systolic function. Atria Both atria are normal in size. There is lipomatous hypertrophy of the interatrial septum. There is no evidence of interatrial shunt. Aortic Valve There is mild calcification of the aortic valve. There is no aortic valve stenosis. There is trace (trivial) aortic valve regurgitation. Mitral Valve Normal mitral valve structure and function. There is trace mitral valve regurgitation. There is no mitral valve stenosis. Pulmonic Valve The pulmonic valve was not well visualized. Tricuspid Valve Likely normal tricuspid valve structure and function. There is trace tricuspid valve regurgitation. The right ventricular systolic pressure is normal. Normal right atrial pressure. There is no evidence of pulmonary hypertension. Great Vessels All visible segments of the aorta are normal in size. The pulmonary artery was not well visualized. Venous The inferior vena cava is normal in size and collapses greater than 50% with inspiration. Pericardium/Pleural There is no evidence of pericardial effusion. Prior Study Comparison No change compared to prior study dated: 07/24/2019. Measurements 2D Linear Measurements IVSd: 1.00 0.6-0.9/0.6-1.0 cm LVIDd: 4.42 3.9-5.3/4.2-5.9 cm LVIDd Index: 2.15 2.4-3.2/2.2-3.1 cm/m2 LVIDs: 2.74 2.0-3.6 cm LVPWd: 0.99 0.7-1.1 cm Ao Root: 3.90 2.1-3.5 cm LA Diam: 3.00 2.7-3.8/3.0-4.0 cm LAIDs Index: 1.46 1.5-2.3 cm/m2 LV Mass: 184.23 67-162/88-224 g LV Mass Index: 89.43 43-95/49-115 g/m2 LVOT Diam: 2.20 3.0+(-)1.3 cm 2D Systolic Function EF 4C: 61.50 >55% EF 2C: 65.60 >55% EF BiP: 64.10 >55% Mitral Valve MV Pk E: 0.64 MV PK A: 0.65 MV Decel Time: 349.00 E/A: 1.00 E'Lateral: 13.20 E'Medial: 6.38 E/E' Med: 10.00 E/E' Lat: 4.80 PHT: 102.00 MVA PHT: 2.16 Decel [place]: 1.82 Aortic Valve AoV Pk Dimitry: 1.34 AoV Mn Dimitry: 0.79 AoV VTI: 0.24 AoV Pk Grad: 7.00 Aov Mn Grad: 3.00 FRANCESCO Cont.VTI: 3.67 LVOT LVOT Pk Dimitry: 1.17 LVOT Mn Dimitry: 0.66 LVOT VTI: 0.23 LVOT Pk Grad: 5.00 LVOT Mn Grad: 2.00 LVOT Diam: 2.20 LVOT Area: 3.80 Diastolic Function MV Pk E: 0.64 MV Pk A: 0.65 E/A: 1.00 E'Medial: 6.38 E/E' Med: 10.00 E' Laterial: 13.20 E/E' Lat: 4.80 Tricuspid Valve TR Pk Dimitry: 2.11 TR Pk Grad: 18.00 RA Press: 3.00 RVSP: 21.00 Great Vessels Aorta Ao Root-2D: 3.90 2.0-3.7 cm Ao Asc: 3.20 2.1-3.4 cm Ao Arch: 3.00 Updated in Other Vendor System with Status of Final Aric Magaña MD electronically signed on 07/25/2020 2:19:02 PM with status of Final
[2020-07-25 16:32] LABS: Glucose, Whole Blood 85 mg/dL (60-115)
== END 2020-07-25 17:00 | disposition home or self-care (01) | DRG 45 ==
LOC: HO.ED 16:18 → HO.ICU 17:10 → HO.IMC 07-23 10:20
PROVIDERS: Internal Medicine; Physician Assistant Medical; Admitting Provider Internal Medicine Pulmonary Disease; Emergency Provider Emergency Medicine Emergency Medical Services; PCP Internal Medicine; Visit Provider Family Medicine
DX: I63.9 Cerebral infarction, unspecified (principal); I48.0 Paroxysmal atrial fibrillation; G45.0 Vertebro-basilar artery syndrome; R29.810 Facial weakness; E78.5 Hyperlipidemia, unspecified; I10 Essential (primary) hypertension; J45.909 Unspecified asthma, uncomplicated; Z20.828 Contact with and (suspected) exposure to other viral communicable diseases; R29.704 NIHSS score 4; I25.2 Old myocardial infarction; I25.10 Atherosclerotic heart disease of native coronary artery without angina pectoris; Z79.899 Other long term (current) drug therapy
CPT/HCPCS: 36415; 70450; 70496; 70498; 70551; 71045; 80048; 80061; 80076; 80307; 80320; 81003; 82550; 82947; 83735; 84443; 84484; 85025; 85610; 85730; 87635; 90686; 92526; 92610; 93005; 93306; 96360; 97162; 97166; 99285; 99291; J2997; Q9967

== ENCOUNTER 2020-08-05 09:33 | Emergency (ER) | payer MEDICAID, SELFPAY ==
[2020-08-05 09:42] VITALS: BP 131/67; BP 154/89; PULSE 76; PULSE 82; RESP 16; TEMP 37; O2SAT 98; BMI 26.4
--- NOTE | 2020-08-05 09:58 | XR_ITS ---
EXAMINATION: XR CHEST CLINICAL INFORMATION: Left-sided headaches since 9:00 AM. COMPARISON: Chest done on 07/22/2020. TECHNIQUE: 2 views of the chest were obtained. FINDINGS: No significant abnormality is noted involving the heart, lungs, mediastinum, bony thorax or soft tissues. XR/XR chest 2V IMPRESSION: Unremarkable examination.
--- NOTE | 2020-08-05 09:58 | ECG_ITS ---
Test Reason : WEAKNESS Blood Pressure : / mmHG Vent. Rate : 066 BPM Atrial Rate : 066 BPM P-R Int : 166 ms QRS Dur : 096 ms QT Int : 420 ms P-R-T Axes : 000 -25 -26 degrees QTc Int : 440 ms Normal sinus rhythm Left axis deviation RSR' or QR pattern in V1 suggests right ventricular conduction delay Abnormal ECG When compared with ECG of 22-JUL-2020 11:31, No significant changes seen Referred By: Raquel Rossi Electronically Signed By:CHRISTY GARY
--- NOTE | 2020-08-05 09:59 | CT_ITS ---
EXAMINATION: CT HEAD WITHOUT CONTRAST CLINICAL INFORMATION: Left-sided headaches since 9:00 AM. COMPARISON: CT of the head done on 07/22/2020. MRI of the head done on 07/22/2020. TECHNIQUE: Contiguous axial imaging was performed from the skull base to vertex without intravenous administration of contrast. This CT examination was performed using dose optimization techniques as appropriate, variously including the following: *Automated exposure control *Adjustment of mA and/or kV according to patient size (this includes techniques or standardized protocols for targeted exams where dose is matched to indication/reason for exam; i.e. extremities or head) *Use of iterative reconstruction technique DLP: 750.0 mGy-cm FINDINGS: There is no evidence of acute intracranial hemorrhage or territorial infarction. No abnormal mass effect or midline shift is seen. Matute to white matter differentiation is well preserved. No extra-axial fluid collections are identified. The ventricles are normal in size. There is no abnormal attenuation within the brain parenchyma. The osseous structures and soft tissues are normal. The mastoid air cells and visualized portions of the paranasal sinuses are well aerated. CT/CT head/brain wo con IMPRESSION: No acute intracranial pathology. No significant change since prior CT of the head dated 07/22/2020.
[2020-08-05 10:23] LABS: Basophils Absolute Auto 0.1 X10*3/uL (0.0-0.2); Basophils Percent Auto 0.7 % (0-2); Eosinophils Absolute Auto 0.2 X10*3/uL (0.0-0.4); Eosinophils Percent Auto 2.1 % (0-4); Hemoglobin 14.4 g/dl (14.0-18.0); Imm Gran Abs Auto 0.02 X10*3/uL (0.00-0.03); Imm Gran Pct Auto 0.2 % (0.0-0.4); Lymphocytes Absolute Auto 1.4 X10*3/uL (1.2-4.9); Lymphocytes Percent Auto 13.6 % (20-40); MANUAL DIFF FLAG NO; Mean Corpuscular HGB Conc 33.5 g/dl (31.0-36.0); Mean Corpuscular Hemoglobin 30.6 pg (27.0-33.0); Mean Corpuscular Volume 91.3 fL (80-98); Mean Platelet Volume 9.7 fL (9.4-12.4); Monocytes Percent Auto 9.9 % (2-11); Neutrophils Absolute Auto 7.4 X10*3/uL (2.0-8.3); Neutrophils Percent Auto 73.5 % (45-73); Platelet Count 275 X10*3/uL (160-400); Red Blood Count 4.71 X10*6/uL (4.60-5.80); Red Cell Distribution Width 12.3 % (11.0-16.0); White Blood Count 10.1 X10*3/uL (4.8-10.8)
[2020-08-05] MEDS: Acetaminophen 325 MG TABLET 975 MG PO (10:33)
[2020-08-05] MEDS: 0.9 % Sodium Chloride 1,000 ML 999 ML IVCONT (10:34)
--- NOTE | 2020-08-05 10:46 | PC.NURSE ---
iv established, blood labs obtained and sent, pt sent for ct scan via stretcher. medicated per emar, tolerating po w/o issue, see swallow eval.
[2020-08-05 10:50] LABS: Alanine Aminotransferase 37 U/L (0-40); Albumin Level 3.8 g/dL (3.5-5.0); Alkaline Phosphatase 91 U/L (39-117); Anion Gap 11 (12-20); Aspartate Amino Transferase 25 U/L (5-37); Bilirubin Direct 0.3 mg/dL (0.0-0.5); Bilirubin Total 0.7 mg/dL (0.0-1.0); Blood Urea Nitrogen 12 mg/dL (9-16); Calcium 8.7 mg/dL (8.4-10.2); Carbon Dioxide 25 mmol/L (22-29); Chloride 106 mmol/L (96-108); Creatinine Clr Calc Pharmacy 97.9; Estimated Glomerular Filt Rate > 60; Glucose Random 116 mg/dL (60-115); Potassium 4.2 mmol/l (3.3-5.1); Sodium 138 mmol/L (135-145)
[2020-08-05 10:57] LABS: INTERNATIONAL NORM RATIO 1.3 (0.9-1.1); Prothrombin Time 14.9 SEC (10.8-13.0)
--- NOTE | 2020-08-05 11:01 | ECG_ITS ---
Test Reason : repeat ekg Blood Pressure : / mmHG Vent. Rate : 062 BPM Atrial Rate : 062 BPM P-R Int : 164 ms QRS Dur : 096 ms QT Int : 438 ms P-R-T Axes : 066 -25 011 degrees QTc Int : 444 ms Normal sinus rhythm Possible Left atrial enlargement Incomplete right bundle branch block Borderline ECG When compared with ECG of 05-AUG-2020 10:57, No significant changes seen Referred By: Radhika Dunaway Electronically Signed By:Kadeem Valle
--- NOTE | 2020-08-05 11:01 | ED.HA ---
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 Denies any other symptoms related to this including dizziness, changes in vision, recent head injury, paresthesias, jaw pain, nausea/vomiting, chest pain Related Data Home Medications Medication Instructions Recorded Confirmed albuterol sulfate [ProAir HFA] 2 puff INHALATION Q4-6H PRN 07/25/20 07/25/20 Previous Rx's Medication Instructions Recorded apixaban [Eliquis] 5 mg PO BID #30 tab 07/25/20 atorvastatin 40 mg PO BEDTIME #30 tab 07/25/20 diltiazem HCl [Cardizem CD] 120 mg PO DAILY #30 cap 07/25/20 acetaminophen [Tylenol Extra 1,000 mg PO QID PRN #14 tab 08/05/20 Strength] Allergies Allergy/AdvReac Type Severity Reaction Status Date / Time No Known Allergies Allergy Mild UNKNOWN Verified 07/23/20 21:06 [No Known Allergies*] Review of Systems Review of Systems: Constitutional : No Fever, No Chills, No Night Sweats, No Fatigue, No Malaise ENT/Mouth : No Ear Pain, No Nasal Congestion, No Sinus Pain, No sore throat, No Rhinorrhea Eyes: No Eye Pain, No Swelling, No Redness, No Foreign Body, No Discharge, No Vision Changes Cardiovascular : No Chest Pain, No SOB, No Dyspnea on Exertion, No Orthopnea, No Palpitations Respiratory : No Cough, No Sputum, No Wheezing, No Dyspnea Gastrointestinal : No Nausea, No Vomiting, No Diarrhea, No Constipation, No abdominal Pain, No Hematochezia, No Melena Genitourinary : No Dysuria, No Urinary Frequency, No Urinary Incontinence, No Urgency, No Flank Pain Musculoskeletal : No joint pain, No Myalgias Skin : No lacerations Neuro : No Numbness, No Paresthesias, No Loss of Consciousness, No Dizziness, + Headache Yes all other systems are reviewed and are negative [facility] Past Medical History Attestation statement: The following information was validated with the patient. Medical History Asthma Bronchitis HLD (hyperlipidemia) HTN (hypertension) Myocardial infarction Vertebrobasilar ischemia Social History Social History Household Members: None Housing: House Alcohol intake: never Smoking Status: Never smoker Use of substances other than those prescribed or required for medical reasons: No Advance Directives: No Advance Directives Information Provided: No service: No Current occupational status: unemployed Physical Exam Vital Signs: Vital Signs: Last Vital Signs Temp 98.6 F 08/05/20 09:42 Pulse 82 08/05/20 09:42 Resp 16 08/05/20 09:42 BP 131/67 08/05/20 09:42 Pulse Ox 98 08/05/20 09:42 Body Mass Index 26.4 Vital signs have been reviewed as normal and appeared to be correct. Blood pressure normal. Heart rate normal. Respiration rate normal. Temperature normal. Oxygen saturation normal. Appearance: Alert. Oriented X3. No acute distress. Head: Normal external exam. Normocephalic. Atraumatic. Able to rotate head bilaterally. Eyes: PERRLA. EOMI. No nystagmus noted. Conjunctiva and sclera normal. Eyelids normal. Corneal reflex normal. ENT: EAC normal. TM's Normal. Hearing normal. Pharynx normal. Uvula midline. tongue midline. Moist mucous membranes. No trismus noted. No drooling noted. No muffled voice noted. Neck: Normal inspection. Neck supple. FROM. No adenopathy. Thyroid Normal. No meningeal signs. No neck mass noted. CVS: Normal heart rate and rhythm. Heart sound normal. No murmurs noted. Pulses normal throughout. Respiratory: No respiratory distress. Painless inspiration. Breath sounds normal. No wheezes/rales/rhonchi noted. Chest nontender. No accessory muscle usage noted or decreased air movement noted. Abdomen: Soft and nontender. Bowel sounds normal in all 4 quadrants. No distention noted. No organomegaly noted. No visible injury noted. Back: No CVA tenderness. Full range of motion noted. Skin: Skin warm and dry. Normal skin color. Normal skin turgor. No rashes/lesions/lacerations noted. Extremities: No lower extremity edema. Extremities exhibit normal range of motion. Extremities nontender. Able to shrug shoulders bilaterally and keep up against resistance. Neuro: Oriented X 3. No motor deficit. No sensory deficit. Reflexes normal. Moving all extremities. No focal motor deficits. Cranial nerves II-XI intact bilaterally. Facial strength normal. Normal cognition. Speech normal. Gait normal. Strength 5/5 throughout. No pronator drift. No tremor noted. No fasciculations noted. Muscle tone normal throughout. No asterixis noted. [id number] test normal. Heel to key test normal. Tandem gait normal. Does not sway with eyes open. Romberg test negative. Rapid alternating movement upper extremity normal. Rapid alternating movement lower extremity normal. Hand drop from overhead-Misses. face. No rigidity noted. NIHSS score 0. NIH Stroke Scale Internal: Initial- Upon Arrival Time: 10:00 Level of Consciousness: Alert Level of Consciousness Questions: Answers both questions correctly Level of Consciousness Commands: Performs both tasks correctly Best Gaze: Normal Visual: No visual loss Facial Palsy: Normal Motor Arm (Right): No drift Motor Arm (Left): No drift Motor Leg (Right): No drift Motor Leg (Left): No drift Limb Ataxia: Absent Sensory: Normal Best Language: No aphasia Dysarthia: Normal Extinction and Inattention: No abnormality Score: 0 Course Course Course Narrative: 10am - 59yoM c PMHx of CVA on 07/22/2020 currently on Eliquis and taking as prescribed, CAD, AR, Paroxysmal atrial fibrillation, HTN, HLD presenting to the ED c 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 - on exam patient is alert and oriented x3. No focal neuro deficits noted. Has a normal steady gait. NIH SS score 0. Patient is currently on Eliquis and is taking as prescribed. Patient has non disabling symptoms and is on Eliquis therefore not a tPA candidate at this time. - Plan: Labs, EKG, chest x-ray, CT scan of brain. Provide Tylenol then re-evaluate. Reevaluation(s) Reevaluation #1: - all labs within normal limits. CT scan of brain within normal limits no acute processes noted. Chest x-ray within normal limits no acute processes noted. EKG normal sinus rhythm no acute ischemic changes noted. - patient was given 975 mg of Tylenol reports symptomatic relief of his headache. - I consulted with neurology who reported that the patient had a MRI last month and was unsure if he actually had a stroke although due to patient having symptoms of stroke-like symptoms and receiving tPA and symptoms improve they called it a stroke although patient is currently on Eliquis therefore there is nothing else to do for him at this time therefore Neurology Dr. Velazquez recommending if the patient's headache is better to discharge the patient and instruct to return if any new or worsening symptoms therefore instructed the patient to return if any new or worsening symptoms follow-up with Neurology and PCP. Patient understands agrees the plan. Time: 11:58 [facility] - Headache Medical Records Attestation: I reviewed the patient's medical records. Lab Data Attestation: I reviewed the patient's lab results. Result diagrams: 08/05/20 10:16 08/05/20 10:15 Labs: Lab Results 08/05/20 08/05/20 08/05/20 Range/Units 10:15 10:15 10:15 WBC (4.8-10.8) X10*3/uL RBC (4.60-5.80) X10*6/uL Hgb (14.0-18.0) g/dl Hct (42-52) % MCV (80-98) fL MCH (27.0-33.0) pg MCHC (31.0-36.0) g/dl RDW (11.0-16.0) % Plt Count (160-400) X10*3/uL MPV (9.4-12.4) fL Immature Gran % (Auto) (0.0-0.4) % Neut % (Auto) (45-73) % Lymph % (Auto) (20-40) % [place] % (Auto) (2-11) % Eos % (Auto) (0-4) % Baso % (Auto) (0-2) % Lymph # (Auto) (1.2-4.9) X10*3/uL [place] # (Auto) (0.1-1.2) X10*3/uL Eos # (Auto) (0.0-0.4) X10*3/uL Baso # (Auto) (0.0-0.2) X10*3/uL Abs Immat Gran (auto) (0.00-0.03) X10*3/uL Absolute Neuts (auto) (2.0-8.3) X10*3/uL Absolute Nucleated RBC (0.0-0.012) X10*3/uL Nucleated RBC % (auto) (0.0-0.2) /100WBC PT 14.9 H (10.8-13.0) SEC INR 1.3 H (0.9-1.1) Sodium 138 (135-145) mmol/L Potassium 4.2 (3.3-5.1) mmol/l Chloride 106 (96-108) mmol/L Carbon Dioxide 25 (22-29) mmol/L Anion Gap 11 L (12-20) BUN 12 (9-16) mg/dL Creatinine 0.88 (0.5-1.4) mg/dL Estim Creat Clear Calc 97.9 Estimated GFR > 60 Random Glucose 116 H (60-115) mg/dL Calcium 8.7 (8.4-10.2) mg/dL Magnesium 2.0 (1.6-2.6) mg/dL Total Bilirubin 0.7 (0.0-1.0) mg/dL Direct Bilirubin 0.3 (0.0-0.5) mg/dL AST 25 (5-37) U/L ALT 37 (0-40) U/L Alkaline Phosphatase 91 D (39-117) U/L Troponin I High Sens < 3.5 (<3.5-35.0) ng/L B-Natriuretic Peptide 18 (<100) pg/mL Total Protein 7.0 (6.5-8.0) g/dL Albumin 3.8 (3.5-5.0) g/dL 08/05/20 Range/Units 10:16 WBC 10.1 (4.8-10.8) X10*3/uL RBC 4.71 (4.60-5.80) X10*6/uL Hgb 14.4 (14.0-18.0) g/dl Hct 43.0 (42-52) % MCV 91.3 (80-98) fL MCH 30.6 (27.0-33.0) pg MCHC 33.5 (31.0-36.0) g/dl RDW 12.3 (11.0-16.0) % Plt Count 275 (160-400) X10*3/uL MPV 9.7 (9.4-12.4) fL Immature Gran % (Auto) 0.2 (0.0-0.4) % Neut % (Auto) 73.5 H (45-73) % Lymph % (Auto) 13.6 L (20-40) % [place] % (Auto) 9.9 (2-11) % Eos % (Auto) 2.1 (0-4) % Baso % (Auto) 0.7 (0-2) % Lymph # (Auto) 1.4 (1.2-4.9) X10*3/uL [place] # (Auto) 1.0 (0.1-1.2) X10*3/uL Eos # (Auto) 0.2 (0.0-0.4) X10*3/uL Baso # (Auto) 0.1 (0.0-0.2) X10*3/uL Abs Immat Gran (auto) 0.02 (0.00-0.03) X10*3/uL Absolute Neuts (auto) 7.4 (2.0-8.3) X10*3/uL Absolute Nucleated RBC 0.000 (0.0-0.012) X10*3/uL Nucleated RBC % (auto) 0.0 (0.0-0.2) /100WBC PT (10.8-13.0) SEC INR (0.9-1.1) Sodium (135-145) mmol/L Potassium (3.3-5.1) mmol/l Chloride (96-108) mmol/L Carbon Dioxide (22-29) mmol/L Anion Gap (12-20) BUN (9-16) mg/dL Creatinine (0.5-1.4) mg/dL Estim Creat Clear Calc Estimated GFR Random Glucose (60-115) mg/dL Calcium (8.4-10.2) mg/dL Magnesium (1.6-2.6) mg/dL Total Bilirubin (0.0-1.0) mg/dL Direct Bilirubin (0.0-0.5) mg/dL AST (5-37) U/L ALT (0-40) U/L Alkaline Phosphatase (39-117) U/L Troponin I High Sens (<3.5-35.0) ng/L B-Natriuretic Peptide (<100) pg/mL Total Protein (6.5-8.0) g/dL Albumin (3.5-5.0) g/dL Imaging Data Chest x-ray: Attestation: I personally reviewed and interpreted this imaging study as follows: Radiologist's impression: IMPRESSION: Unremarkable examination. CT scan - head: Attestation: I personally reviewed and interpreted this imaging study as follows: Radiologist's impression: IMPRESSION: No acute intracranial pathology. No significant change since prior CT of the head dated 07/22/2020. ECG Data Attestation: I personally reviewed and interpreted this ECG as follows: ECG interpretation date: 08/05/20 ECG interpretation time: 11:01 Interpretation: Normal sinus rhythm with a ventricular rate of 62 with a normal [place] interval with incomplete right bundle-branch block with a normal QT/QTC interval. No acute ischemic changes noted. Similar compared to prior EKG on 07/22/2020. Critical Care Time Critical Care Time Critical Care Time: Yes Total Critical Care Time: 60 Attestation: I personally attest to this time spent taking care of the patient Discharge Plan Discharge Clinical Impression: Headache, migraine Patient Disposition: Home, Self-Care Instructions: Migraine Headache (ED) Prescriptions: New acetaminophen [Tylenol Extra Strength] 500 mg tablet 1,000 mg PO QID PRN (Reason: pain) Qty: 14 RF: 0 No Action albuterol sulfate [ProAir HFA] 90 mcg/actuation Hfa Aerosol Inhaler 2 puff INHALATION Q4-6H PRN (Reason: Shortness Of Breath) RF: 0 atorvastatin 40 mg Tablet 40 mg PO BEDTIME Qty: 30 RF: 0 Eliquis 5 mg Tablet 5 mg PO BID Qty: 30 RF: 0 diltiazem HCl [Cardizem CD] 120 mg Capsule,Extended Release 24hr 120 mg PO DAILY Qty: 30 RF: 0 Referrals: Fidel Faust MD [Primary Care Provider] - 2 days Print Language: Wallisian
[2020-08-05 11:02] LABS: B Type Natriuretic Peptide 18 pg/mL (<100); Troponin-I High Sensitivity < 3.5 ng/L (<3.5-35.0)
--- NOTE | 2020-08-05 11:43 | PC.NURSE ---
pt sts feeling much better, denies headache at this time. per neuro, pt can be discharged home.
== END 2020-08-05 12:09 | disposition home or self-care (01) ==
PROVIDERS: Physician Assistant Medical; Emergency Provider Emergency Medicine; PCP Internal Medicine
DX: G43.909 Migraine, unspecified, not intractable, without status migrainosus (principal); I10 Essential (primary) hypertension; I25.2 Old myocardial infarction; Z86.73 Personal history of transient ischemic attack (TIA), and cerebral infarction without residual deficits; I48.0 Paroxysmal atrial fibrillation; Z79.01 Long term (current) use of anticoagulants
CPT/HCPCS: 36415; 70450; 71046; 80048; 80076; 83735; 83880; 84484; 85025; 85610; 93005; 96360; 99284; 99291

== ENCOUNTER 2020-09-26 09:00 | Outpatient (RCR) | payer MEDICAID, SELFPAY ==
[2020-09-04 05:47] LABS: Stone Source KIDNEY
== END 2020-10-19 09:12 | disposition other institution (70) ==
LOC: HO.PT 09:00
PROVIDERS: PCP Internal Medicine; Visit Provider Internal Medicine
DX: I63.9 Cerebral infarction, unspecified (principal)
CPT/HCPCS: 82365; 97110; 97162; 97530; 97535

== ENCOUNTER 2020-11-16 10:39 | Emergency (ER) | payer MEDICAID, SELFPAY ==
[2020-11-16 11:19] VITALS: BP 160/90; PULSE 80
--- NOTE | 2020-11-16 11:19 | PC.NURSE ---
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
[2020-11-16 11:26] VITALS: BP 122/61; PULSE 74; RESP 18; TEMP 36.6; O2SAT 98; BMI 26.0
--- NOTE | 2020-11-16 12:32 | PC.NURSE ---
labs drawn per standing order
[2020-11-16 12:42] LABS: Basophils Percent Auto 0.3 % (0-2); Hematocrit 44.7 % (42-52); Hemoglobin 14.6 g/dl (14.0-18.0); Imm Gran Abs Auto 0.04 X10*3/uL (0.00-0.03); Imm Gran Pct Auto 0.3 % (0.0-0.4); Lymphocytes Absolute Auto 0.6 X10*3/uL (1.2-4.9); Lymphocytes Percent Auto 5.3 % (20-40); MANUAL DIFF FLAG SCAN; Mean Corpuscular HGB Conc 32.7 g/dl (31.0-36.0); Mean Corpuscular Hemoglobin 29.7 pg (27.0-33.0); Mean Corpuscular Volume 90.9 fL (80-98); Mean Platelet Volume 9.4 fL (9.4-12.4); Monocytes Absolute Auto 0.4 X10*3/uL (0.1-1.2); Monocytes Percent Auto 3.5 % (2-11); Neutrophils Percent Auto 90.6 % (45-73); Platelet Count 253 X10*3/uL (160-400); Red Blood Count 4.92 X10*6/uL (4.60-5.80); Red Cell Distribution Width 12.9 % (11.0-16.0); SCAN SMEAR FLAG 1; White Blood Count 12.2 X10*3/uL (4.8-10.8)
--- NOTE | 2020-11-16 12:44 | ECG_ITS ---
Test Reason : DIZZINESS Blood Pressure : / mmHG Vent. Rate : 066 BPM Atrial Rate : 066 BPM P-R Int : 162 ms QRS Dur : 090 ms QT Int : 418 ms P-R-T Axes : 148 -25 -21 degrees QTc Int : 438 ms Unusual P axis, possible ectopic atrial rhythm Abnormal ECG When compared with ECG of 05-AUG-2020 11:01, Ectopic atrial rhythm has replaced Sinus rhythm Nonspecific T wave abnormality, worse in Inferior leads Referred By: Evert Joseph Electronically Signed By:
[2020-11-16 12:49] LABS: INTERNATIONAL NORM RATIO 1.1 (0.9-1.1); Prothrombin Time 12.7 SEC (10.8-13.0)
[2020-11-16 12:52] LABS: Partial Thromboplastin Time 29.2 SEC (24.1-38.0)
[2020-11-16 13:06] LABS: Troponin-I High Sensitivity 7.3 ng/L (<3.5-35.0)
[2020-11-16 13:23] LABS: Alanine Aminotransferase 32 U/L (0-40); Albumin Level 3.8 g/dL (3.5-5.0); Alkaline Phosphatase 99 U/L (39-117); Anion Gap 10 (12-20); Aspartate Amino Transferase 24 U/L (5-37); Bilirubin Direct 0.6 mg/dL (0.0-0.5); Bilirubin Total 1.5 mg/dL (0.0-1.0); Blood Urea Nitrogen 14 mg/dL (9-16); Calcium 9.1 mg/dL (8.4-10.2); Carbon Dioxide 23 mmol/L (22-29); Chloride 109 mmol/L (96-108); Creatinine Clr Calc Pharmacy 91.5; Estimated Glomerular Filt Rate > 60; Glucose Random 104 mg/dL (60-115); Lipase 25 U/L (8-78); Potassium 4.8 mmol/L (3.3-5.1); Sodium 137 mmol/L (135-145)
[2020-11-16 13:52] LABS: SLIDE REVIEW VERIFIED
--- NOTE | 2020-11-16 14:10 | ED.GENADULT ---
HPI - General Adult General Chief complaint: Dizziness Stated complaint: DIZZY,ABD PAIN Time Seen by Provider: 11/16/20 12:42 Source: patient Mode of arrival: EMS Limitations: no limitations History of Present Illness HPI narrative: 60-year-old male who presents emergency department by ambulance for evaluation sudden onset of dizziness. Patient states that he was just waking up around 10:00 a.m. when he developed room spinning dizziness. He had associated nausea and vomiting. He also states that he had abdominal pain. He points to his periumbilical area when asked to localize the pain. He states that it was a dull ache which was worse with vomiting. He felt hot at home but did not take his temperature. He denied lightheadedness, diaphoresis, neck, jaw, arm pain, chest pain, changes bowel movements. The patient states that any time he moved his head, the dizziness got worse. The patient received his 2nd Moderna COVID-19 shot yesterday. Related Data Home Medications Medication Instructions Recorded Confirmed albuterol sulfate [ProAir HFA] 2 puff INHALATION Q4-6H PRN 07/25/20 07/25/20 Previous Rx's Medication Instructions Recorded apixaban [Eliquis] 5 mg PO BID #30 tab 07/25/20 atorvastatin 40 mg PO BEDTIME #30 tab 07/25/20 diltiazem HCl [Cardizem CD] 120 mg PO DAILY #30 cap 07/25/20 acetaminophen [Tylenol Extra 1,000 mg PO QID PRN #14 tab 08/05/20 Strength] meclizine [Dramamine Less Drowsy] 25 mg PO TID PRN #20 tab 11/16/20 ondansetron 4 mg PO Q6-8H PRN #14 tab 11/16/20 Allergies Allergy/AdvReac Type Severity Reaction Status Date / Time No Known Allergies Allergy Mild UNKNOWN Verified 07/23/20 21:06 [No Known Allergies*] Review of Systems Review of Systems: Yes all other systems are reviewed and are negative [facility] Past Medical History Medical History Asthma Bronchitis CVA (cerebral vascular accident) HLD (hyperlipidemia) HTN (hypertension) Myocardial infarction Paroxysmal A-fib Vertebrobasilar ischemia Social History Social History Household Members: None Housing: House Alcohol intake: never Smoking Status: Never smoker Advance Directives Date on File: 07/23/20 service: No Current occupational status: unemployed Physical Exam Vital Signs: Vital Signs: Last Vital Signs Temp 97.9 F 11/16/20 11:26 Pulse 74 11/16/20 11:26 Resp 18 11/16/20 11:26 BP 122/61 11/16/20 11:26 Pulse Ox 98 11/16/20 11:26 Body Mass Index 26.0 Const: General: cooperative and healthy appearing Orientation/consciousness: oriented to person and oriented to place Limitations: no limitations HENMT: Head: Yes normal to inspection, Yes normocephalic and Yes atraumatic Ears: external ears normal General nose exam: Normal external nose present Face and sinus: Yes normal facial exam Mouth: Normal oral and palatal mucosa present Throat: Yes posterior oropharynx normal Eyes: Periorbital: periorbital findings normal Eyelids: Yes eyelids normal Conjunctivae: conjunctivae normal Sclerae: sclerae normal Corneas: corneas normal Pupils: Equal, round and reactive pupils present EOM: Nystagmus present (Lateral) Direct Ophthalmoscopy: normal light reflex Neck: Neck: Yes full ROM, Yes no lymphadenopathy, Yes no meningeal signs, Yes trachea midline and Yes supple Chest: Chest palpation & inspection: normal inspection of the chest and normal palpation of entire chest wall Resp: Effort & Inspection: normal respiratory effort and able to speak in complete sentences Auscultation: clear to auscultation bilaterally Cardio: Rate: regular rate Rhythm: regular rhythm Heart sounds: S1 normal heart sound present, S2 normal heart sound present and no murmurs GI: Inspection: Yes normal to inspection Palpation (GI): Soft to palpation, nontender, no guarding, not rigid and No hepatosplenomegaly present : General: Yes no CVA tenderness Back/Spine/Pelvis: Back: no CVA tenderness Cervical Spine: normal cervical lordosis Thoracic/Lumbar Spine: thoracic and lumbar spine normal to inspection Skin: Lesions: no lesions Rashes: no rashes Wounds: no wounds Neuro: General: oriented to person, oriented to place and no meningeal signs Cranial nerves: Yes CN's II-XII intact bilaterally, Yes Equal, round and reactive pupils present and Yes Nystagmus present (Lateral) Cognition (Neuro): normal cognition Motor exam (neuro): 5/5 motor strength present throughout Coordination: [id number] test normal and [id number] test normal Extrem: General: Yes normal to inspection and Yes full ROM Psych: Appearance: well kempt Mental Status: mental status grossly normal Speech and movement: Normal speech and movement present Affect: normal affect Attitude: cooperative Thought process: Normal thought process present Thought content: Normal thought content present Course Course Course Narrative: 60-year-old male who presents emergency department for evaluation of sudden onset dizziness associated with nausea, vomiting and abdominal pain. Patient states the symptoms are worse with movement. Patient states that his symptoms have resolved at this time however if he moves his head the symptoms return. Patient's physical examination did reveal lateral nystagmus and inducible dizziness with position change. Laboratory evaluation was revealed a detectable but not elevated high sensitivity troponin of 7.3 which was. The patient's 12 EKG was unremarkable. At this time, I believe the patient's presentation is consistent with positional vertigo and not a stroke or myocardial infarction. I did discuss this with him. He was given meclizine 25 mg orally and Zofran ODT 4 mg trans lingual. The patient was discharged home with printed and verbal instructions on positional vertigo. Was given a prescription for meclizine and Zofran. Medical Decision Making Lab Data Result diagrams: 11/16/20 12:29 11/16/20 12:29 Labs: Lab Results 11/16/20 11/16/20 11/16/20 Range/Units 12:29 12:29 12:29 WBC 12.2 H (4.8-10.8) X10*3/uL RBC 4.92 (4.60-5.80) X10*6/uL Hgb 14.6 (14.0-18.0) g/dl Hct 44.7 (42-52) % MCV 90.9 (80-98) fL MCH 29.7 (27.0-33.0) pg MCHC 32.7 (31.0-36.0) g/dl RDW 12.9 (11.0-16.0) % Plt Count 253 (160-400) X10*3/uL MPV 9.4 (9.4-12.4) fL Immature Gran % (Auto) 0.3 (0.0-0.4) % Neut % (Auto) 90.6 H (45-73) % Lymph % (Auto) 5.3 L (20-40) % Hernando % (Auto) 3.5 (2-11) % Eos % (Auto) 0.0 (0-4) % Baso % (Auto) 0.3 (0-2) % Lymph # (Auto) 0.6 L (1.2-4.9) X10*3/uL Hernando # (Auto) 0.4 (0.1-1.2) X10*3/uL Eos # (Auto) 0.0 (0.0-0.4) X10*3/uL Baso # (Auto) 0.0 (0.0-0.2) X10*3/uL Abs Immat Gran (auto) 0.04 H (0.00-0.03) X10*3/uL Absolute Neuts (auto) 11.0 H (2.0-8.3) X10*3/uL Absolute Nucleated RBC 0.000 (0.0-0.012) X10*3/uL Nucleated RBC % (auto) 0.0 (0.0-0.2) /100WBC Smear Tech's Comments VERIFIED PT 12.7 (10.8-13.0) SEC INR 1.1 (0.9-1.1) APTT 29.2 (24.1-38.0) SEC Sodium 137 (135-145) mmol/L Potassium 4.8 (3.3-5.1) mmol/L Chloride 109 H (96-108) mmol/L Carbon Dioxide 23 (22-29) mmol/L Anion Gap 10 L (12-20) BUN 14 (9-16) mg/dL Creatinine 0.93 (0.5-1.4) mg/dL Estim Creat Clear Calc 91.5 Estimated GFR > 60 Random Glucose 104 (60-115) mg/dL Calcium 9.1 (8.4-10.2) mg/dL Total Bilirubin 1.5 H (0.0-1.0) mg/dL Direct Bilirubin 0.6 H (0.0-0.5) mg/dL AST 24 (5-37) U/L ALT 32 (0-40) U/L Alkaline Phosphatase 99 (39-117) U/L Troponin I High Sens (<3.5-35.0) ng/L Total Protein 7.0 (6.5-8.0) g/dL Albumin 3.8 (3.5-5.0) g/dL Lipase 25 (8-78) U/L 11/16/20 Range/Units 12:29 WBC (4.8-10.8) X10*3/uL RBC (4.60-5.80) X10*6/uL Hgb (14.0-18.0) g/dl Hct (42-52) % MCV (80-98) fL MCH (27.0-33.0) pg MCHC (31.0-36.0) g/dl RDW (11.0-16.0) % Plt Count (160-400) X10*3/uL MPV (9.4-12.4) fL Immature Gran % (Auto) (0.0-0.4) % Neut % (Auto) (45-73) % Lymph % (Auto) (20-40) % Hernando % (Auto) (2-11) % Eos % (Auto) (0-4) % Baso % (Auto) (0-2) % Lymph # (Auto) (1.2-4.9) X10*3/uL Hernando # (Auto) (0.1-1.2) X10*3/uL Eos # (Auto) (0.0-0.4) X10*3/uL Baso # (Auto) (0.0-0.2) X10*3/uL Abs Immat Gran (auto) (0.00-0.03) X10*3/uL Absolute Neuts (auto) (2.0-8.3) X10*3/uL Absolute Nucleated RBC (0.0-0.012) X10*3/uL Nucleated RBC % (auto) (0.0-0.2) /100WBC Smear Tech's Comments PT (10.8-13.0) SEC INR (0.9-1.1) APTT (24.1-38.0) SEC Sodium (135-145) mmol/L Potassium (3.3-5.1) mmol/L Chloride (96-108) mmol/L Carbon Dioxide (22-29) mmol/L Anion Gap (12-20) BUN (9-16) mg/dL Creatinine (0.5-1.4) mg/dL Estim Creat Clear Calc Estimated GFR Random Glucose (60-115) mg/dL Calcium (8.4-10.2) mg/dL Total Bilirubin (0.0-1.0) mg/dL Direct Bilirubin (0.0-0.5) mg/dL AST (5-37) U/L ALT (0-40) U/L Alkaline Phosphatase (39-117) U/L Troponin I High Sens 7.3 D (<3.5-35.0) ng/L Total Protein (6.5-8.0) g/dL Albumin (3.5-5.0) g/dL Lipase (8-78) U/L Discharge Plan Discharge Clinical Impression: Benign paroxysmal positional vertigo Patient Disposition: Home, Self-Care Instructions: Benign Paroxysmal Positional Vertigo (ED) Additional Instructions: Take meclizine 25 mg pills, 1 pill every 6 hours as needed for dizziness. Take Zofran (ondansetron) ODT 4 mg pills, 1 pill dissolved in your mouth every 6-8 hours as needed for nausea and vomiting. Follow-up with your doctor in 2 days. Please return to the emergency department if your symptoms get worse or if you develop any symptoms that are concerning to you. Prescriptions: New meclizine [Dramamine Less Drowsy] 25 mg tablet 25 mg PO TID PRN (Reason: dizziness) Qty: 20 RF: 0 ondansetron 4 mg tablet,disintegrating 4 mg PO Q6-8H PRN (Reason: nausea and vomiting) Qty: 14 RF: 0 No Action acetaminophen [Tylenol Extra Strength] 500 mg tablet 1,000 mg PO QID PRN (Reason: pain) Qty: 14 RF: 0 albuterol sulfate [ProAir HFA] 90 mcg/actuation Hfa Aerosol Inhaler 2 puff INHALATION Q4-6H PRN (Reason: Shortness Of Breath) RF: 0 atorvastatin 40 mg Tablet 40 mg PO BEDTIME Qty: 30 RF: 0 Eliquis 5 mg Tablet 5 mg PO BID Qty: 30 RF: 0 diltiazem HCl [Cardizem CD] 120 mg Capsule,Extended Release 24hr 120 mg PO DAILY Qty: 30 RF: 0 Print Language: Finnish
[2020-11-16] MEDS: Meclizine HCl 25 MG TABLET PO (14:17)
== END 2020-11-16 14:34 | disposition home or self-care (01) ==
PROVIDERS: Emergency Provider Emergency Medicine Emergency Medical Services; PCP Internal Medicine
DX: H81.10 Benign paroxysmal vertigo, unspecified ear (principal); R11.2 Nausea with vomiting, unspecified; I10 Essential (primary) hypertension; E78.5 Hyperlipidemia, unspecified; J45.909 Unspecified asthma, uncomplicated; I48.0 Paroxysmal atrial fibrillation; I25.2 Old myocardial infarction; Z86.73 Personal history of transient ischemic attack (TIA), and cerebral infarction without residual deficits; Z79.01 Long term (current) use of anticoagulants; Z79.02 Long term (current) use of antithrombotics/antiplatelets; Z79.899 Other long term (current) drug therapy
CPT/HCPCS: 36415; 80053; 80076; 82248; 83690; 84484; 85025; 85610; 85730; 93005; 99283; 99284

== ENCOUNTER 2020-11-25 13:37 | Outpatient (REF) | payer MEDICAID, SELFPAY ==
--- NOTE | ~2020-11-25 | MR_ITS ---
EXAMINATION: MR ABDOMEN WITHOUT AND WITH CONTRAST CLINICAL INFORMATION: Congenital malformation of the pancreatic duct. Abdominal pain. COMPARISON: Previous CT of the abdomen and pelvis July 2019 TECHNIQUE: MR abdomen was performed without and with use of 9 mL intravenous Gadavist gadolinium contrast. Postcontrast images are performed in multiphase dynamic sequences. Imaging was performed in 3 planes. MRCP sequences were also performed. FINDINGS: LUNG BASES: The visualized lung bases are unremarkable. LIVER, GALLBLADDER, AND BILIARY TREE: The liver is normal in size, smooth in contour, and normal in signal. No focal hepatic lesion or biliary ductal dilatation is present. The gallbladder is unremarkable with no evidence of gallbladder wall thickening, or obvious pericholecystic inflammatory changes. PANCREAS: Unremarkable. The pancreas is normal in signal. The pancreas enhances normally. The main pancreatic duct is normal in caliber. SPLEEN: Normal. ADRENAL GLANDS: Normal. KIDNEYS AND URETERS: The kidneys are normal in size, shape, and enhance symmetrically. No hydronephrosis or mass. There are small renal cysts. GASTROINTESTINAL TRACT: No bowel obstruction. No ascites or fluid collection. ABDOMINAL WALL: No significant hernia is appreciated. LYMPH NODES: No lymphadenopathy. VASCULAR: Unremarkable. OSSEOUS STRUCTURES: Marrow signal normal. There is degenerative disc disease of the spine. MR/MR abdomen wo/w con IMPRESSION: Normal MR of the pancreas and MRCP.
[2020-11-25 14:20] LABS: Blood Urea Nitrogen 15 mg/dL (9-16); Estimated Glomerular Filt Rate > 60
== END 2020-11-25 13:38 | disposition home or self-care (01) ==
LOC: HO.MRI 13:37
PROVIDERS: Visit Provider Internal Medicine
DX: Q45.3 Other congenital malformations of pancreas and pancreatic duct (principal)
CPT/HCPCS: 36415; 74183; 82565; 84520; A9585

== ENCOUNTER 2021-02-20 09:00 | Outpatient (RCR) | payer MEDICAID, SELFPAY | END 2021-02-21 08:00 | disposition home or self-care (01) | LOC: HO.PT 09:00 | PROVIDERS: PCP Internal Medicine; Visit Provider Nurse Practitioner Family | DX: H81.10 Benign paroxysmal vertigo, unspecified ear (principal) | CPT/HCPCS: 95992; 97110; 97112; 97162; 97530 ==

== ENCOUNTER 2021-06-15 08:59 | Emergency (ER) | payer MEDICAID, SELFPAY ==
[2021-06-15 09:08] VITALS: BP 147/83; PULSE 78; RESP 17; TEMP 36.6; O2SAT 98; BMI 29.0
--- NOTE | 2021-06-15 10:42 | ED_ITS ---
HPI - General Adult General Chief complaint: Wound/Laceration Stated complaint: lt thumb lac, dizziness Time Seen by Provider: 06/15/21 10:41 Source: patient Limitations: no limitations History of Present Illness HPI narrative: Patient presents to the ER with laceration to his left thumb after making breakfast this morning. Lacerations to the palmar aspect at the base of the thumb. Approximately 1 cm. Patient states bleeding was controlled with pressure. Tetanus status is unknown. No other complaints at this time. Related Data Home Medications Medication Instructions Recorded Confirmed albuterol sulfate 90 mcg/actuation 2 puff INHALATION Q4-6H PRN 07/25/20 07/25/20 aerosol inhaler (ProAir HFA) Previous Rx's Medication Instructions Recorded apixaban 5 mg tablet (Eliquis) 5 mg PO BID #30 tab 07/25/20 atorvastatin 40 mg tablet 40 mg PO BEDTIME #30 tab 07/25/20 diltiazem HCl 120 mg 120 mg PO DAILY #30 cap 07/25/20 capsule,extended release 24 hr (Cardizem CD) acetaminophen 500 mg tablet 1,000 mg PO QID PRN #14 tab 08/05/20 (Tylenol Extra Strength) meclizine 25 mg tablet (Dramamine 25 mg PO TID PRN #20 tab 11/16/20 Less Drowsy) ondansetron 4 mg disintegrating 4 mg PO Q6-8H PRN #14 tab 11/16/20 tablet Allergies Allergy/AdvReac Type Severity Reaction Status Date / Time No Known Allergies Allergy Mild UNKNOWN Verified 07/23/20 21:06 [No Known Allergies*] Review of Systems Constitutional: Constitutional: Denies chills, Denies fever(s) and Denies headache(s) ENT: Denies headache(s) Cardiovascular: Cardiovascular: Denies chest pain and Denies dyspnea Respiratory: Respiratory: Denies dyspnea Gastrointestinal: Gastrointestinal: Denies nausea and Denies vomiting Musculoskeletal: Comments: Left thumb pain secondary laceration Neurologic: Denies headache(s) [facility] Past Medical History Medical History Asthma Bronchitis CVA (cerebral vascular accident) HLD (hyperlipidemia) HTN (hypertension) Myocardial infarction Paroxysmal A-fib Vertebrobasilar ischemia Social History Social History Household Members: None Housing: House Do you presently have visiting nurse or other home services: No Alcohol intake: never Advance Directives: No Advance Directives Date on File: 07/23/20 service: No Current occupational status: unemployed Physical Exam Vital Signs: Vital Signs: Last Vital Signs Temp 98 F 06/15/21 09:08 Pulse 78 06/15/21 09:08 Resp 17 06/15/21 09:08 BP 147/83 H 06/15/21 09:08 Pulse Ox 98 06/15/21 09:08 Body Mass Index 29.0 vital signs have been reviewed as normal and appeared to be correct. Blood pressure normal. Heart rate normal. Respiration rate normal. Temperature normal. Oxygen saturation normal. Appearance: Alert. Oriented X3. No acute distress. Head: Normal external exam. Normocephalic. Atraumatic. Eyes: PERRLA. EOMI. Conjunctiva and sclera normal. Eyelids normal. ENT: Pharynx normal. Uvula midline. Neck: Soft full range of motion, no JVD CVS: Heart regular rate and rhythm no murmurs and rubs Respiratory: Breath sounds are clear to auscultation bilaterally. No accessory muscle use noted. Skin: Palmar aspect base of left thumb that is approximately 1.5 cm laceration bleeding controlled with pressure Extremities: Patient has full range of motion of the left thumb with flexion a nd extension positive capillary refill positive sensation Neuro: Oriented X 3. No motor deficit. No sensory deficit. Reflexes normal. Course Course Course Narrative: Left thumb laceration Abrasion Puncture wound 0.5 mL Tdap IM 11:08 a.m. wound dress patient tolerated procedure well Procedures Laceration Laceration 1: Site: hand (Base of left thumb palmar aspect) Side (If applicable): left Size (cm): 1.5 Description: linear Depth: simple, single layer Local Anesthetic: lidocaine 1% Amount of anesthesia used (mL): 3.5 Pre-repair: wound explored and irrigated extensively Skin layer closed with: nylon Size (cm): 4-0 Number of sutures: 3 Technique: simple, interrupted Technique: simple, interrupted Discharge Plan Discharge Clinical Impression: Laceration of thumb Qualifiers: Encounter type: initial encounter Damage to nail status: without damage Foreign body presence: without foreign body Laterality: left Qualified Code(s): S61.012A - Laceration without foreign body of left thumb without damage to nail, initial encounter Patient Disposition: Home, Self-Care Instructions: Finger Laceration (ED) Additional Instructions: Suture removal 7-10 days Keep wound clean and dry if bleeding direct pressure Return if symptoms worsen Prescriptions: No Action acetaminophen [Tylenol Extra Strength] 500 mg tablet 1,000 mg PO QID PRN (Reason: pain) Qty: 14 RF: 0 albuterol sulfate [ProAir HFA] 90 mcg/actuation Hfa Aerosol Inhaler 2 puff INHALATION Q4-6H PRN (Reason: Shortness Of Breath) RF: 0 atorvastatin 40 mg Tablet 40 mg PO BEDTIME Qty: 30 RF: 0 Eliquis 5 mg Tablet 5 mg PO BID Qty: 30 RF: 0 diltiazem HCl [Cardizem CD] 120 mg Capsule,Extended Release 24hr 120 mg PO DAILY Qty: 30 RF: 0 meclizine [Dramamine Less Drowsy] 25 mg tablet 25 mg PO TID PRN (Reason: dizziness) Qty: 20 RF: 0 ondansetron 4 mg tablet,disintegrating 4 mg PO Q6-8H PRN (Reason: nausea and vomiting) Qty: 14 RF: 0
[2021-06-15] MEDS: Lidocaine HCl 1 % 20 ML VIAL 10 ML INFILTRATI (11:09)
[2021-06-15] MEDS: Diphth,Pertus(ACell),Tet Adult 0.5 ML SYRINGE IM (11:09)
== END 2021-06-15 11:14 | disposition home or self-care (01) ==
PROVIDERS: Emergency Provider Emergency Medicine; PCP Internal Medicine
DX: S61.012A Laceration without foreign body of left thumb without damage to nail, initial encounter (principal); I10 Essential (primary) hypertension; J45.909 Unspecified asthma, uncomplicated; I25.2 Old myocardial infarction; Z86.73 Personal history of transient ischemic attack (TIA), and cerebral infarction without residual deficits; X58.XXXA Exposure to other specified factors, initial encounter; Y93.G3 Activity, cooking and baking; Y92.9 Unspecified place or not applicable; Y99.9 Unspecified external cause status
CPT/HCPCS: 12001; 90471; 90715; 99283; 99284

== ENCOUNTER 2021-07-25 09:28 | Emergency (ER) | payer MEDICAID, SELFPAY ==
--- NOTE | ~2021-07-25 | US_ITS ---
EXAMINATION: US VENOUS ULTRASOUND WITH DOPPLER LOWER EXTREMITY, BILATERAL CLINICAL INFORMATION: Leg swelling COMPARISON: None TECHNIQUE: Ultrasound of the deep veins is performed from the hip to the calf with compression sonography and color and pulse Doppler assessment. Spectral analysis with color-flow imaging is performed. FINDINGS: RIGHT: There is normal venous compression and respiratory variation and augmented flow. The visualized common femoral vein, superficial femoral vein, profunda femoral vein, popliteal vein, and the trifurcation region shows no evidence of deep venous thrombosis. There is a 3.8 x 0.8 x 0.9 cm Aguila's cyst. LEFT: There is normal venous compression and respiratory variation and augmented flow. The visualized common femoral vein, superficial femoral vein, profunda femoral vein, popliteal vein, and the trifurcation region shows no evidence of deep venous thrombosis. There is no popliteal fossa cyst. US/US venous duplex LE BI IMPRESSION: No DVT demonstrated in the bilateral lower extremities. Small right Aguila's cyst.
--- NOTE | ~2021-07-25 | XR_ITS ---
EXAMINATION: XR CHEST CLINICAL INFORMATION: Chest pain COMPARISON: None TECHNIQUE: Frontal view of the chest was obtained. FINDINGS: No significant abnormality is noted involving the heart, lungs, mediastinum, bony thorax or soft tissues. XR/XR chest 1V IMPRESSION: Unremarkable chest examination.
--- NOTE | ~2021-07-25 | CT_ITS ---
EXAMINATION: CT ANGIOGRAM OF THE CHEST WITH AND WITHOUT CONTRAST (CT PULMONARY ANGIOGRAM FOR PE) CLINICAL INFORMATION: Reason for Exam Covid positive. elevated D-dimer. PE? COMPARISON: Previous chest x-ray from earlier the same day and chest CTA October 2018 TECHNIQUE: Prior to contrast administration, noncontrast localization images were obtained. Subsequently, multidetector volumetric imaging was performed from the thoracic inlet to below the diaphragms following the administration of 80 mL Omnipaque 350 intravenous contrast. No contrast reaction reported Sagittal, coronal, and MIP oblique sagittal reformatted images were obtained on the CT workstation, uploaded to PACS, and reviewed. This CT examination was performed using dose optimization techniques as appropriate, variously including the following: *Automated exposure control *Adjustment of mA and/or kV according to patient size (this includes techniques or standardized protocols for targeted exams where dose is matched to indication/reason for exam; i.e. extremities or head) *Use of iterative reconstruction technique Total exam dose-length product 357 mGy-cm FINDINGS: QUALITY OF STUDY/CONTRAST BOLUS: Exam is limited due to late timing of IV contrast administration. PULMONARY ARTERIES: Evaluation pulmonary embolism is limited due to late timing of contrast administration. No large or central pulmonary embolism is seen. Evaluation of smaller segmental and subsegmental pulmonary arteries is nondiagnostic. THORACIC AORTA: No aneurysm or dissection. LUNG: There is subsegmental atelectasis at the left lung base. The lungs are otherwise clear. PLEURA: No pleural effusion or pneumothorax. MEDIASTINUM: Normal heart size. No pericardial effusion. No hilar or mediastinal lymphadenopathy. No evidence of septal bowing or right heart strain. CHEST WALL/AXILLA: No axillary or internal mammary lymphadenopathy. OSSEOUS STRUCTURES: No acute or suspicious osseous abnormality. There are degenerative changes of the spine. UPPER ABDOMEN: Unremarkable. No reflux of contrast into the hepatic veins to suggest elevated right heart pressures. CT/CT angio chest PE protocol IMPRESSION: Very limited exam due to timing of contrast. No evidence of large or central pulmonary embolism. Smaller segmental and subsegmental pulmonary arteries are not optimally evaluated. Minimal subsegmental atelectasis at the left lung base. No evidence of pneumonia.
[2021-07-25 10:03] VITALS: BP 123/80; BP 170/82; PULSE 106; RESP 18; TEMP 36.6; O2SAT 96; O2SAT 97; BMI 27.1
--- NOTE | 2021-07-25 10:50 | ECG_ITS ---
Test Reason : leg pain Blood Pressure : / mmHG Vent. Rate : 099 BPM Atrial Rate : 099 BPM P-R Int : 154 ms QRS Dur : 086 ms QT Int : 348 ms P-R-T Axes : 062 -33 014 degrees QTc Int : 446 ms Normal sinus rhythm Left axis deviation Abnormal ECG When compared with ECG of 16-NOV-2020 12:53, Vent. rate has increased BY 34 BPM Referred By: Jimmy Hernandez Electronically Signed By:CHRISTY GARY
[2021-07-25 12:01] LABS: Basophils Percent Auto 0.4 % (0-2); Eosinophils Percent Auto 0.4 % (0-4); Hematocrit 46.8 % (42.0-52.0); Hemoglobin 15.5 g/dl (14.0-18.0); Imm Gran Abs Auto 0.03 X10*3/uL (0.00-0.03); Imm Gran Pct Auto 0.3 % (0.0-0.4); Lymphocytes Absolute Auto 1.4 X10*3/uL (1.2-4.9); Lymphocytes Percent Auto 14.2 % (20-40); MANUAL DIFF FLAG SCAN; Mean Corpuscular HGB Conc 33.1 g/dl (31.0-36.0); Mean Corpuscular Hemoglobin 29.7 pg (27.0-33.0); Mean Corpuscular Volume 89.7 fL (80.0-98.0); Mean Platelet Volume 9.7 fL (9.4-12.4); Monocytes Absolute Auto 1.6 X10*3/uL (0.1-1.2); Monocytes Percent Auto 16.7 % (2-11); Neutrophils Absolute Auto 6.6 x10*3/uL (2.0-8.3); Platelet Count 231 X10*3/uL (160-400); Red Blood Count 5.22 X10*6/uL (4.60-5.80); Red Cell Distribution Width 13.3 % (11.0-16.0); SCAN SMEAR FLAG 1; White Blood Count 9.7 X10*3/uL (4.8-10.8)
[2021-07-25 12:03] LABS: INTERNATIONAL NORM RATIO 1.1 (0.9-1.1); Prothrombin Time 12.7 SEC (9.9-13.0)
[2021-07-25 12:06] LABS: Partial Thromboplastin Time 32.7 SEC (24.1-38.0)
[2021-07-25 12:20] LABS: SLIDE REVIEW VERIFIED
[2021-07-25 12:23] LABS: Alanine Aminotransferase 56 U/L (0-40); Alkaline Phosphatase 110 U/L (39-117); Anion Gap 12 (12-20); Aspartate Amino Transferase 37 U/L (5-37); Bilirubin Total 1.7 mg/dL (0.0-1.0); Blood Urea Nitrogen 17 mg/dL (9-16); Calcium 9.7 mg/dL (8.4-10.2); Carbon Dioxide 26 mmol/L (22-29); Chloride 106 mmol/L (96-108); Creatinine Clr Calc Pharmacy 69.7; Estimated Glomerular Filt Rate > 60; Glucose Random 105 mg/dL (60-115); Lactate Dehydrogenase 178 U/L (118-273); Potassium 4.6 mmol/L (3.3-5.1); Sodium 139 mmol/L (135-145); Total Protein 7.8 g/dL (6.5-8.0)
[2021-07-25 12:24] LABS: B Type Natriuretic Peptide 13 pg/mL (<100)
[2021-07-25 12:31] LABS: Influenza A PCR NEGATIVE (Negative); Influenza B PCR NEGATIVE (Negative); Resp Syncy Virus RNA Qual PCR NEGATIVE (Negative); SARS COV2 PCR INHOUSE POSITIVE (Negative)
--- NOTE | 2021-07-25 12:36 | ED_ITS ---
HPI - General Adult General Chief complaint: Extremity Injury, Lower Stated complaint: LEG PAIN, NO INJURY PER EMS Time Seen by Provider: 07/25/21 10:42 Source: patient Mode of arrival: ambulatory Limitations: no limitations History of Present Illness HPI narrative: 60-year-old male presents to ED for bilateral leg pain with chills and subjective fever. Patient denies any coughing, shortness of breath, or redness of lower extremities. Patient states he feels lower extremities are inflamed/swollen. Patient denies any trauma to the legs. Patient denies any numbness/tingling in lower extremities. Patient states mild chest discomfort ealier in the day that resolved. . Patient states he last received covid vaccine doses last November. Patient did not get the booster. Related Data Home Medications Medication Instructions Recorded Confirmed albuterol sulfate 90 mcg/actuation 2 puff INHALATION Q4-6H PRN 07/25/20 07/25/20 aerosol inhaler (ProAir HFA) Previous Rx's Medication Instructions Recorded apixaban 5 mg tablet (Eliquis) 5 mg PO BID #30 tab 07/25/20 atorvastatin 40 mg tablet 40 mg PO BEDTIME #30 tab 07/25/20 diltiazem HCl 120 mg 120 mg PO DAILY #30 cap 07/25/20 capsule,extended release 24 hr (Cardizem CD) acetaminophen 500 mg tablet 1,000 mg PO QID PRN #14 tab 08/05/20 (Tylenol Extra Strength) meclizine 25 mg tablet (Dramamine 25 mg PO TID PRN #20 tab 11/16/20 Less Drowsy) ondansetron 4 mg disintegrating 4 mg PO Q6-8H PRN #14 tab 11/16/20 tablet benzonatate 100 mg capsule 100 mg PO TID PRN #15 cap 07/25/21 dexamethasone 6 mg tablet 6 mg PO DAILY #10 tab 07/25/21 (Decadron) Allergies Allergy/AdvReac Type Severity Reaction Status Date / Time No Known Allergies Allergy Mild UNKNOWN Verified 07/23/20 21:06 [No Known Allergies*] Review of Systems Review of Systems: Yes all other systems are reviewed and are negative Constitutional: Constitutional: Reports as per HPI, Reports no additional constitutional complaints and Reports chills Eyes: Eyes: Reports as per HPI and Reports no additional eye complaints ENT: Reports system reviewed and no additional complaints, except as documented and Reports as per HPI Cardiovascular: Cardiovascular: Reports as per HPI and Reports no additional cardiovascular complaints Respiratory: Respiratory: Reports as per HPI and Reports no additional resp iratory complaints Gastrointestinal: Gastrointestinal: Reports as per HPI and Reports no additional gastrointestinal complaints Genitourinary: Genitourinary: Reports no additional male genitourinary complaints and Reports as per HPI Musculoskeletal: Musculoskeletal: Reports no additional musculoskeletal complaints and Reports as per HPI Comments: Bilateral leg pain Neurologic: Reports system reviewed and no additional complaints, except as documented and Reports as per HPI Psychiatric: Psychiatric: Reports no additional psychiatric complaints and Reports as per HPI [facility] Past Medical History Medical History Asthma Bronchitis CVA (cerebral vascular accident) HLD (hyperlipidemia) HTN (hypertension) Myocardial infarction Paroxysmal A-fib Vertebrobasilar ischemia Social History Social History Household Members: None Housing: House Do you presently have visiting nurse or other home services: No Alcohol intake: never Advance Directives: Yes Advance Directives on File: Yes Advance Directives Date on File: 07/23/20 service: No Current occupational status: unemployed Physical Exam Vital Signs: Vital Signs: Last Vital Signs Temp 98 F 07/25/21 10:03 Pulse 106 H 07/25/21 10:03 Resp 18 07/25/21 10:03 BP 123/80 07/25/21 10:03 Pulse Ox 97 07/25/21 10:03 BMI result Body Mass Index 27.1 Const: General: cooperative, healthy appearing, comfortable, no acute distress, well developed, alert, awake and Physically active Orientation/consciousness: patient oriented x3 HENMT: Head: Yes normal to inspection, Yes No palpable skull fracture present, Yes normocephalic, Yes atraumatic and No abrasion Eyes: General: appearance normal, both eyes and all related structures Neck: Neck: Yes normal visual inspection, Yes full ROM, Yes no lymphadenopathy, Yes no meningeal signs, Yes trachea midline, Yes supple and No tender Chest: Chest palpation & inspection: normal inspection of the chest and normal palpation of entire chest wall Resp: Effort & Inspection: normal respiratory effort and able to speak in complete sentences Auscultation: clear to auscultation bilaterally Cardio: Jugular venous distension: no JVD Heart sounds: S1 normal heart sound present and S2 normal heart sound present GI: Inspection: Yes normal to inspection and No abdominal wall ecchymosis Palpation (GI): Soft to palpation, not firm, nontender, no guarding and not rigid : General: No CVA tenderness and Yes no CVA tenderness Back/Spine/Pelvis: Back: no CVA tenderness, No CVA tenderness and No back tenderness Skin: General skin exam: no rashes or lesions noted and elasticity normal Neuro: Other: Bilateral lower extremity negative for any swelling, pitting edema, calf tenderness, erythema, ecchymosis, deformity, crepitus, bluish black discoloration, or hotness. Both lower extremities motor/neuro/vascular exam intact. General: patient oriented x3, gait normal, no meningeal signs and CN's II-XI intact bilaterally Cranial nerves: Yes CN's II-XII intact bilaterally Extrem: General: Yes normal to inspection and Yes full ROM Psych: Appearance: grossly normal, well kempt and not disheveled Course Course Course Narrative: Patient lower extremities negative for cellulitis, DVT, arterial occlusion, or fracture. Due to patient stating chills and feeling warm will do COVID swab and labs and D-dimer patient states slight chest pain without any shortness of breath. Reevaluation(s) Reevaluation #1: EKG negative STEMI. Troponin pending. BNP negative. COVID swab positive. D-dimer positive. Chest x-ray negative pneumonia. Chest CT ordered to rule out PE. Time: 13:21 Reevaluation #2: Chest CTA negative for PE. Troponin negative. Lower extremity negative for blood clot. Patient is safe for discharge. Patient is not hypoxic. Patient educated on self-isolation. Patient educated on symptoms of respiratory distress and told to return to the ED immediately if he has them. Patient encouraged to get portable finger O2 saturation pulse ox Medical Decision Making MDM Narrative Medical decision making narrative: COVID Lab Data Result diagrams: 07/25/21 11:46 07/25/21 11:46 Labs: Lab Results 07/25/21 07/25/21 07/25/21 Range/Units 11:46 11:46 11:46 WBC 9.7 (4.8-10.8) X10*3/uL RBC 5.22 (4.60-5.80) X10*6/uL Hgb 15.5 (14.0-18.0) g/dl Hct 46.8 (42.0-52.0) % MCV 89.7 (80.0-98.0) fL MCH 29.7 (27.0-33.0) pg MCHC 33.1 (31.0-36.0) g/dl RDW 13.3 (11.0-16.0) % Plt Count 231 (160-400) X10*3/uL MPV 9.7 (9.4-12.4) fL Immature Gran % (Auto) 0.3 (0.0-0.4) % Neut % (Auto) 68.0 (45-73) % Lymph % (Auto) 14.2 L (20-40) % Runnels % (Auto) 16.7 H (2-11) % Eos % (Auto) 0.4 (0-4) % Baso % (Auto) 0.4 (0-2) % Lymph # (Auto) 1.4 (1.2-4.9) X10*3/uL Runnels # (Auto) 1.6 H (0.1-1.2) X10*3/uL Eos # (Auto) 0.0 (0.0-0.4) X10*3/uL Baso # (Auto) 0.0 (0.0-0.2) X10*3/uL Abs Immat Gran (auto) 0.03 (0.00-0.03) X10*3/uL Absolute Neuts (auto) 6.6 (2.0-8.3) x10*3/uL Absolute Nucleated RBC 0.000 (0.0-0.012) X10*3/uL Nucleated RBC % (auto) 0.0 (0.0-0.2) /100WBC Smear Tech's Comments VERIFIED PT 12.7 (9.9-13.0) SEC INR 1.1 (0.9-1.1) APTT 32.7 (24.1-38.0) SEC D-Dimer High Sensitivty 555 NG/ML Sodium 139 (135-145) mmol/L Potassium 4.6 (3.3-5.1) mmol/L Chloride 106 (96-108) mmol/L Carbon Dioxide 26 (22-29) mmol/L Anion Gap 12 (12-20) BUN 17 H (9-16) mg/dL Creatinine 1.22 (0.5-1.4) mg/dL Estim Creat Clear Calc 69.7 Estimated GFR > 60 Random Glucose 105 (60-115) mg/dL Calcium 9.7 D (8.4-10.2) mg/dL Total Bilirubin 1.7 H (0.0-1.0) mg/dL AST 37 D (5-37) U/L ALT 56 H (0-40) U/L Alkaline Phosphatase 110 (39-117) U/L Lactate Dehydrogenase 178 (118-273) U/L Troponin I High Sens (<3.5-35.0) ng/L B-Natriuretic Peptide (<100) pg/mL Total Protein 7.8 (6.5-8.0) g/dL Albumin 4.0 (3.5-5.0) g/dL Procalcitonin ng/mL Influenza Type A (PCR) (Negative) Influenza Type B (PCR) (Negative) RSV RNA Qual (PCR) (Negative) SARS-CoV-2 RNA (RT-PCR) (Negative) 07/25/21 07/25/21 07/25/21 Range/Units 11:46 11:46 11:46 WBC (4.8-10.8) X10*3/uL RBC (4.60-5.80) X10*6/uL Hgb (14.0-18.0) g/dl Hct (42.0-52.0) % MCV (80.0-98.0) fL MCH (27.0-33.0) pg MCHC (31.0-36.0) g/dl RDW (11.0-16.0) % Plt Count (160-400) X10*3/uL MPV (9.4-12.4) fL Immature Gran % (Auto) (0.0-0.4) % Neut % (Auto) (45-73) % Lymph % (Auto) (20-40) % Runnels % (Auto) (2-11) % Eos % (Auto) (0-4) % Baso % (Auto) (0-2) % Lymph # (Auto) (1.2-4.9) X10*3/uL Runnels # (Auto) (0.1-1.2) X10*3/uL Eos # (Auto) (0.0-0.4) X10*3/uL Baso # (Auto) (0.0-0.2) X10*3/uL Abs Immat Gran (auto) (0.00-0.03) X10*3/uL Absolute Neuts (auto) (2.0-8.3) x10*3/uL Absolute Nucleated RBC (0.0-0.012) X10*3/uL Nucleated RBC % (auto) (0.0-0.2) /100WBC Smear Tech's Comments PT (9.9-13.0) SEC INR (0.9-1.1) APTT (24.1-38.0) SEC D-Dimer High Sensitivty NG/ML Sodium (135-145) mmol/L Potassium (3.3-5.1) mmol/L Chloride (96-108) mmol/L Carbon Dioxide (22-29) mmol/L Anion Gap (12-20) BUN (9-16) mg/dL Creatinine (0.5-1.4) mg/dL Estim Creat Clear Calc Estimated GFR Random Glucose (60-115) mg/dL Calcium (8.4-10.2) mg/dL Total Bilirubin (0.0-1.0) mg/dL AST (5-37) U/L ALT (0-40) U/L Alkaline Phosphatase (39-117) U/L Lactate Dehydrogenase (118-273) U/L Troponin I High Sens (<3.5-35.0) ng/L B-Natriuretic Peptide 13 (<100) pg/mL Total Protein (6.5-8.0) g/dL Albumin (3.5-5.0) g/dL Procalcitonin 0.18 ng/mL Influenza Type A (PCR) NEGATIVE (Negative) Influenza Type B (PCR) NEGATIVE (Negative) RSV RNA Qual (PCR) NEGATIVE (Negative) SARS-CoV-2 RNA (RT-PCR) POSITIVE A (Negative) 07/25/21 Range/Units 15:09 WBC (4.8-10.8) X10*3/uL RBC (4.60-5.80) X10*6/uL Hgb (14.0-18.0) g/dl Hct (42.0-52.0) % MCV (80.0-98.0) fL MCH (27.0-33.0) pg MCHC (31.0-36.0) g/dl RDW (11.0-16.0) % Plt Count (160-400) X10*3/uL MPV (9.4-12.4) fL Immature Gran % (Auto) (0.0-0.4) % Neut % (Auto) (45-73) % Lymph % (Auto) (20-40) % Runnels % (Auto) (2-11) % Eos % (Auto) (0-4) % Baso % (Auto) (0-2) % Lymph # (Auto) (1.2-4.9) X10*3/uL Runnels # (Auto) (0.1-1.2) X10*3/uL Eos # (Auto) (0.0-0.4) X10*3/uL Baso # (Auto) (0.0-0.2) X10*3/uL Abs Immat Gran (auto) (0.00-0.03) X10*3/uL Absolute Neuts (auto) (2.0-8.3) x10*3/uL Absolute Nucleated RBC (0.0-0.012) X10*3/uL Nucleated RBC % (auto) (0.0-0.2) /100WBC Smear Tech's Comments PT (9.9-13.0) SEC INR (0.9-1.1) APTT (24.1-38.0) SEC D-Dimer High Sensitivty NG/ML Sodium (135-145) mmol/L Potassium (3.3-5.1) mmol/L Chloride (96-108) mmol/L Carbon Dioxide (22-29) mmol/L Anion Gap (12-20) BUN (9-16) mg/dL Creatinine (0.5-1.4) mg/dL Estim Creat Clear Calc Estimated GFR Random Glucose (60-115) mg/dL Calcium (8.4-10.2) mg/dL Total Bilirubin (0.0-1.0) mg/dL AST (5-37) U/L ALT (0-40) U/L Alkaline Phosphatase (39-117) U/L Lactate Dehydrogenase (118-273) U/L Troponin I High Sens < 3.5 (<3.5-35.0) ng/L B-Natriuretic Peptide (<100) pg/mL Total Protein (6.5-8.0) g/dL Albumin (3.5-5.0) g/dL Procalcitonin ng/mL Influenza Type A (PCR) (Negative) Influenza Type B (PCR) (Negative) RSV RNA Qual (PCR) (Negative) SARS-CoV-2 RNA (RT-PCR) (Negative) ECG Data Interpretation: Normal sinus rhythm. Vent 99. CA interval 154. QRS 85. QTC 446. Negative STEMI Discharge Plan Discharge Clinical Impression: COVID Patient Disposition: Home, Self-Care Instructions: COVID-19 (Coronavirus Disease 2019) (ED) Additional Instructions: Johns prueba de COVID result? positiva. Johns CTA de t?rax result? negativa para embolia pulmonar y tambi?n negativa para neumon?a. La ecograf?a de johns extremidad inferior result? negativa para detectar co?gulos de rani. Tienes quistes de panadero derecho. El an?lisis de rani y el electrocardiograma resultaron negativos por ataque card?aco o insuficiencia card?baltazar congestiva. Recomiendo comprar un oxigeno port?til para evaluar johns nivel de ox?andrews. Regresar al servi instructor business education de urgencias del nivel de ox?andrews por debajo del 95%. Regrese al servicio de urgencias de inmediato si tiene dolor en el pecho, dificultad para respirar, hinchaz?n de las extremidades inferiores, dolor en la pantorrilla, tos con rani, mareos, debilidad o cualquier otro s?ntoma preocupante. Recomendamos 14 d?as de autoaislamiento. Emily un seguimiento con el proveedor de atenci?n primaria. Prescriptions: New dexamethasone [Decadron] 6 mg tablet 6 mg PO DAILY Qty: 10 RF: 0 benzonatate 100 mg capsule 100 mg PO TID PRN (Reason: cough) Qty: 15 RF: 0 No Action acetaminophen [Tylenol Extra Strength] 500 mg tablet 1,000 mg PO QID PRN (Reason: pain) Qty: 14 RF: 0 albuterol sulfate [ProAir HFA] 90 mcg/actuation Hfa Aerosol Inhaler 2 puff INHALATION Q4-6H PRN (Reason: Shortness Of Breath) RF: 0 atorvastatin 40 mg Tablet 40 mg PO BEDTIME Qty: 30 RF: 0 Eliquis 5 mg Tablet 5 mg PO BID Qty: 30 RF: 0 diltiazem HCl [Cardizem CD] 120 mg Capsule,Extended Release 24hr 120 mg PO DAILY Qty: 30 RF: 0 meclizine [Dramamine Less Drowsy] 25 mg tablet 25 mg PO TID PRN (Reason: dizziness) Qty: 20 RF: 0 ondansetron 4 mg tablet,disintegrating 4 mg PO Q6-8H PRN (Reason: nausea and vomiting) Qty: 14 RF: 0 Stand Alone Forms: Work/School Release Print Language: Armenian
[2021-07-25 12:44] LABS: Procalcitonin 0.18 ng/mL
[2021-07-25 12:47] LABS: D Dimer High Sensitivity 555 NG/ML
[2021-07-25] MEDS: iohexoL 350 MG/ML 100 ML INFUS..BTL 65 ML IV (14:21)
[2021-07-25 15:35] LABS: Troponin-I High Sensitivity < 3.5 ng/L (<3.5-35.0)
== END 2021-07-25 19:16 | disposition home or self-care (01) ==
PROVIDERS: Physician Assistant; Emergency Provider Emergency Medicine; PCP Internal Medicine
DX: U07.1 COVID-19 (principal); R79.1 Abnormal coagulation profile; J45.909 Unspecified asthma, uncomplicated; I10 Essential (primary) hypertension; I48.0 Paroxysmal atrial fibrillation; Z86.73 Personal history of transient ischemic attack (TIA), and cerebral infarction without residual deficits
CPT/HCPCS: 0241U; 36415; 71045; 71275; 80053; 83615; 83880; 84145; 84484; 85025; 85379; 85610; 85730; 93005; 93970; 99283; 99284; Q9967

== ENCOUNTER 2022-01-20 10:44 | Inpatient (IN) | payer MEDICAID, SELFPAY ==
--- NOTE | ~2022-01-20 | CT_ITS ---
EXAMINATION: CT ANGIOGRAM OF THE CHEST WITH AND WITHOUT CONTRAST (CT PULMONARY ANGIOGRAM FOR PE) CT ABDOMEN AND PELVIS WITH CONTRAST CLINICAL INFORMATION: Reason for Exam SOB, dizziness, tachycardia ; left lower quadrant abdominal pain COMPARISON: Chest CT 07/25/2021, CT abdomen and pelvis 07/27/2019 TECHNIQUE: Prior to contrast administration, noncontrast localization images were obtained. Subsequently, multidetector volumetric imaging was performed from the thoracic inlet to the pubic symphysis following the administration of 98 mL Omnipaque 350 intravenous contrast. This was followed by multidetector acquisition of the abdomen and pelvis. No contrast reaction reported Sagittal, coronal, and MIP oblique sagittal reformatted images were obtained on the CT workstation, uploaded to PACS, and reviewed. This CT examination was performed using dose optimization techniques as appropriate, variously including the following: *Automated exposure control *Adjustment of mA and/or kV according to patient size (this includes techniques or standardized protocols for targeted exams where dose is matched to indication/reason for exam; i.e. extremities or head) *Use of iterative reconstruction technique Total exam dose-length product 862 mGy-cm FINDINGS: CHEST: Quality of study/contrast bolus: Suboptimal. Attenuation in the central pulmonary trunk measures only 150 Hounsfield units. Pulmonary arteries: No gross/large central pulmonary embolus. Assessment for segmental small emboli is nondiagnostic. Normal caliber central pulmonary trunk measuring 2.9 cm in diameter. Thoracic aorta: No aneurysm or dissection. Lungs: No airspace consolidation. No suspicious appearing pulmonary nodules. Mild left basilar subsegmental atelectasis. Airways:Central through segmental airways are clear. Pleura and pericardium: No pleural or pericardial effusions. Heart and vascular structures: No cardiomegaly. Mild LAD coronary calcifications. No thoracic aortic aneurysm. Normal caliber central pulmonary trunk. Lymph nodes: No mediastinal, hilar, or axillary lymphadenopathy. Chest Wall: No chest wall mass. ABDOMEN/PELVIS: Liver: Normal size and attenuation. No liver lesions. Gallbladder and bile ducts:No calcified gallstones, mural thickening, or pericholecystic fluid/inflammatory change. No biliary ductal dilation. Pancreas: No pancreatic lesion, ductal dilation, or peripancreatic inflammatory change. Spleen: Normal size. No splenic lesion. Adrenal Glands: Unremarkable. Kidneys and Ureters: Few small subcentimeter hypodense renal cortical lesions bilaterally, too small to characterize and likely represent small cysts. Symmetric nephrograms. No hydronephrosis. No perinephric collections. Vasculature:Mild atherosclerotic vascular calcifications. Normal caliber abdominal aorta. Lymph nodes:No retroperitoneal or mesenteric lymphadenopathy. Gastrointestinal Tract: No dilated bowel loops or bowel wall thickening. The appendix is unremarkable. Peritoneum:No ascites or intra-abdominal free air. Abdominal wall:No hernia. Bladder: Prominently distended. No bladder wall thickening. Pelvic Viscera: Prostate gland is enlarged with a slightly heterogeneous nodular contour. Bones: No acute fracture or suspicious osseous lesion. Mild multilevel degenerative disc disease throughout the thoracolumbar spine. Moderate disc degenerative change at L4-L5. Grade 1 anterolisthesis at L4-L5 related to facet arthrosis. CT/CT angio chest PE protocol IMPRESSION: 1. Assessment for pulmonary emboli is essentially nondiagnostic due to suboptimal contrast opacification. No gross/large central pulmonary embolus. 2. Mild left basilar atelectasis. No consolidation or effusions. 3. No acute intra-abdominal process identified. 4. Markedly distended urinary bladder. Correlate with inability to void and consider Gaxiola catheter decompression as clinically necessary. 5. Enlarged prostate gland. VTE: indeterminate
--- NOTE | 2022-01-20 10:49 | ED.GENADULT ---
HPI - General Adult General Chief complaint: Nausea/Vomiting/Diarrhea Stated complaint: nausea Time Seen by Provider: 01/20/22 10:49 Source: patient and kettle hand Mode of arrival: EMS History of Present Illness HPI narrative: 61-year-old male brought in via EMS for wakening with feelings of lightheadedness substernal chest pressure as well as nausea. Patient denies any shortness of breath, diaphoresis or radiation of the pain. He does have a significant history of CVA and PA, he is currently on Eliquis 5 mg twice a day and has had a recent surgical procedure on his cervical spine approximately 1 month ago at [facility]. Patient denies any fevers or chills but during the interview is noted to have a cough. Related Data Home Medications Medication Instructions Recorded Confirmed albuterol sulfate 90 mcg/actuation 2 puff inhalation Q4-6H PRN 07/25/20 07/25/20 aerosol inhaler (ProAir HFA) Shortness Of Breath Previous Rx's Medication Instructions Recorded apixaban 5 mg tablet (Eliquis) 5 mg PO BID #30 tabs 07/25/20 atorvastatin 40 mg tablet 40 mg PO BEDTIME #30 tabs 07/25/20 diltiazem HCl 120 mg 120 mg PO DAILY #30 caps 07/25/20 capsule,extended release 24 hr (Cardizem CD) acetaminophen 500 mg tablet 1,000 mg PO QID PRN pain #14 tabs 08/05/20 (Tylenol Extra Strength) meclizine 25 mg tablet (Dramamine 25 mg PO TID PRN dizziness #20 tabs 11/16/20 Less Drowsy) ondansetron 4 mg disintegrating 4 mg PO Q6-8H PRN nausea and 11/16/20 tablet vomiting #14 tabs benzonatate 100 mg capsule 100 mg PO TID PRN cough #15 caps 07/25/21 dexamethasone 6 mg tablet 6 mg PO DAILY #10 tabs 07/25/21 (Decadron) Allergies Allergy/AdvReac Type Severity Reaction Status Date / Time No Known Allergies Allergy Mild UNKNOWN Verified 01/20/22 11:08 [No Known Allergies*] Review of Systems Review of Systems: Pertinent positives and negatives as stated in HPI 10 point review of systems is otherwise negative. [facility] Past Medical History Source: nursing notes reviewed Medical History CVA (cerebral vascular accident) Paroxysmal A-fib Vertebrobasilar ischemia Social History Social History Household Members: None Housing: House Do you presently have visiting nurse or other home services: No Alcohol intake: never Patient Tobacco Use Status: Never used Tobacco Use of substances other than those prescribed or required for medical reasons: No Advance Directives: Yes Advance Directives on File: Yes Advance Directives Date on File: 07/23/20 service: No Current occupational status: unemployed Physical Exam ED Vital Signs: Vital Signs - 24 hr 01/20/22 10:58 01/20/22 14:26 01/20/22 16:00 Temperature 98.0 F Pulse Rate 127 H 100 103 H Respiratory Rate 18 22 H 16 Blood Pressure 137/85 133/85 140/81 H Pulse Oximetry 97 97 97 Oxygen Delivery Method Room Air Room Air Room Air BMI result Body Mass Index 32.0 VITAL SIGNS: Reviewed. GENERAL: Well developed, well nourished, in no acute distress. HEAD: Normocephalic/atraumatic EYES: PERRLA, EOMI intact without pain, no nystagmus EARS: Ext canals without abnormality OROPHARYNX: no oral lesions noted, posterior pharynx clear LUNGS: Normal breath sounds. No adventitious sounds or accessory muscle use. SpO2<97> CARDIOVASCULAR: sinus tachycardia and rhythm without noted murmurs, no JVD or lower extremity edema. ABDOMEN: Soft, left lower quadrant pain, non-distended with bowel sounds. MUSCULOSKELETAL: No tenderness, deformities, or effusions noted on gross inspection. EXTREMITIES: No cyanosis, clubbing or edema. SKIN: Inspection of the skin reveals no rashes NEUROLOGIC: Alert and oriented x 4. Strength and sensation to light touch were grossly intact x 4 , no facial asymmetry, no pronator drift, heel to key is intact, cranial nerves 2-12 grossly intact, finger past point tooth is intact. There is no evidence of truncal ataxia. Course Course Course Narrative: 61-year-old male with history and clinical presentation suggestive of possible diverticulitis, although due to his extensive history of above with cerebrovascular accident as well as and high will insure the lightheadedness and substernal chest discomfort are not contributing to these conditions. Will also evaluate for PE despite patient being on Eliquis. Patient states that he has poor balance at baseline and that this is been going on for quite a while. Otherwise, low clinical suspicion for neurologic etiology. review of all investigations significant for sepsis secondary to UTI Which was secondary to urinary retention. Patient has already received antibiotics as well as IV fluids. discussed case with the inpatient hospitalist who accepts admission. Medical Decision Making Lab Data Result diagrams: 01/20/22 11:01/20/22 11: Labs: Lab Results 01/20/22 01/20/22 01/20/22 Range/Units 11:22 11: 11:22 WBC 20.1 H (4.8-10.8) X10*3/uL RBC 4.59 L (4.60-5.80) X10*6/uL Hgb 13.1 L (14.0-18.0) g/dl Hct 39.6 L (42.0-52.0) % MCV 86.3 (80.0-98.0) fL MCH 28.5 (27.0-33.0) pg MCHC 33.1 (31.0-36.0) g/dl RDW 13.4 (11.0-16.0) % Plt Count 240 (160-400) X10*3/uL MPV 8.7 L (9.4-12.4) fL Immature Gran % (Auto) 0.4 (0.0-0.4) % Neut % (Auto) 86.6 H (45-73) % Lymph % (Auto) 5.1 L (20-40) % [place] % (Auto) 7.5 (2-11) % Eos % (Auto) 0.1 (0-4) % Baso % (Auto) 0.3 (0-2) % Lymph # (Auto) 1.0 L (1.2-4.9) X10*3/uL [place] # (Auto) 1.5 H (0.1-1.2) X10*3/uL Eos # (Auto) 0.0 (0.0-0.4) X10*3/uL Baso # (Auto) 0.1 (0.0-0.2) X10*3/uL Abs Immat Gran (auto) 0.09 H (0.00-0.03) X10*3/uL Absolute Neuts (auto) 17.4 H (2.0-8.3) x10*3/uL Absolute Nucleated RBC 0.000 (0.0-0.012) X10*3/uL Nucleated RBC % (auto) 0.0 (0.0-0.2) /100WBC Smear Tech's Comments VERIFIED PT 17.3 H (9.9-13.0) SEC INR 1.5 H (0.9-1.1) D-Dimer High Sensitivty 597 NG/ML Sodium 137 (135-145) mmol/L Potassium 4.1 (3.3-5.1) mmol/L Chloride 107 (96-108) mmol/L Carbon Dioxide 22 (22-29) mmol/L Anion Gap 12 (12-20) BUN 14 (9-16) mg/dL Creatinine 0.91 (0.5-1.4) mg/dL Estim Creat Clear Calc 88.4 Estimated GFR > 60 Random Glucose 111 (60-115) mg/dL Lactic Acid (0.5-2.0) mmol/L Calcium 9.2 (8.4-10.2) mg/dL Total Bilirubin 2.0 H (0.0-1.0) mg/dL AST 13 D (5-37) U/L ALT 22 (0-40) U/L Alkaline Phosphatase 103 (39-117) U/L Troponin I High Sens (<3.5-35.0) ng/L Total Protein 7.1 (6.5-8.0) g/dL Albumin 3.6 (3.5-5.0) g/dL Urine Color Urine Appearance Urine pH (5.0-8.0) Ur Specific [place] (1.005-1.025) Urine Protein (NEG-TRACE) MG/DL Urine Glucose (UA) (NEG) MG/DL Urine Ketones (NEG) MG/DL Urine Blood (NEG) Urine Nitrite (NEG) Ur Leukocyte Esterase (NEG) Urine RBC (0) /HPF Urine WBC (0-4) /HPF Ur Squamous Epith Cells /LPF Urine Bacteria /LPF Urine Mucus /LPF COVID-19 (MARIA G) (Negative) COVID-19 Clin Com 01/20/22 01/20/22 01/20/22 Range/Units 11:22 11:27 12:21 WBC (4.8-10.8) X10*3/uL RBC (4.60-5.80) X10*6/uL Hgb (14.0-18.0) g/dl Hct (42.0-52.0) % MCV (80.0-98.0) fL MCH (27.0-33.0) pg MCHC (31.0-36.0) g/dl RDW (11.0-16.0) % Plt Count (160-400) X10*3/uL MPV (9.4-12.4) fL Immature Gran % (Auto) (0.0-0.4) % Neut % (Auto) (45-73) % Lymph % (Auto) (20-40) % [place] % (Auto) (2-11) % Eos % (Auto) (0-4) % Baso % (Auto) (0-2) % Lymph # (Auto) (1.2-4.9) X10*3/uL [place] # (Auto) (0.1-1.2) X10*3/uL Eos # (Auto) (0.0-0.4) X10*3/uL Baso # (Auto) (0.0-0.2) X10*3/uL Abs Immat Gran (auto) (0.00-0.03) X10*3/uL Absolute Neuts (auto) (2.0-8.3) x10*3/uL Absolute Nucleated RBC (0.0-0.012) X10*3/uL Nucleated RBC % (auto) (0.0-0.2) /100WBC Smear Tech's Comments PT (9.9-13.0) SEC INR (0.9-1.1) D-Dimer High Sensitivty NG/ML Sodium (135-145) mmol/L Potassium (3.3-5.1) mmol/L Chloride (96-108) mmol/L Carbon Dioxide (22-29) mmol/L Anion Gap (12-20) BUN (9-16) mg/dL Creatinine (0.5-1.4) mg/dL Estim Creat Clear Calc Estimated GFR Random Glucose (60-115) mg/dL Lactic Acid 1.1 (0.5-2.0) mmol/L Calcium (8.4-10.2) mg/dL Total Bilirubin (0.0-1.0) mg/dL AST (5-37) U/L ALT (0-40) U/L Alkaline Phosphatase (39-117) U/L Troponin I High Sens < 3.5 (<3.5-35.0) ng/L Total Protein (6.5-8.0) g/dL Albumin (3.5-5.0) g/dL Urine Color Urine Appearance Urine pH (5.0-8.0) Ur Specific [place] (1.005-1.025) Urine Protein (NEG-TRACE) MG/DL Urine Glucose (UA) (NEG) MG/DL Urine Ketones (NEG) MG/DL Urine Blood (NEG) Urine Nitrite (NEG) Ur Leukocyte Esterase (NEG) Urine RBC (0) /HPF Urine WBC (0-4) /HPF Ur Squamous Epith Cells /LPF Urine Bacteria /LPF Urine Mucus /LPF COVID-19 (MARIA G) Negative (Negative) COVID-19 Clin Com See Note 01/20/22 Range/Units 15:52 WBC (4.8-10.8) X10*3/uL RBC (4.60-5.80) X10*6/uL Hgb (14.0-18.0) g/dl Hct (42.0-52.0) % MCV (80.0-98.0) fL MCH (27.0-33.0) pg MCHC (31.0-36.0) g/dl RDW (11.0-16.0) % Plt Count (160-400) X10*3/uL MPV (9.4-12.4) fL Immature Gran % (Auto) (0.0-0.4) % Neut % (Auto) (45-73) % Lymph % (Auto) (20-40) % [place] % (Auto) (2-11) % Eos % (Auto) (0-4) % Baso % (Auto) (0-2) % Lymph # (Auto) (1.2-4.9) X10*3/uL [place] # (Auto) (0.1-1.2) X10*3/uL Eos # (Auto) (0.0-0.4) X10*3/uL Baso # (Auto) (0.0-0.2) X10*3/uL Abs Immat Gran (auto) (0.00-0.03) X10*3/uL Absolute Neuts (auto) (2.0-8.3) x10*3/uL Absolute Nucleated RBC (0.0-0.012) X10*3/uL Nucleated RBC % (auto) (0.0-0.2) /100WBC Smear Tech's Comments PT (9.9-13.0) SEC INR (0.9-1.1) D-Dimer High Sensitivty NG/ML Sodium (135-145) mmol/L Potassium (3.3-5.1) mmol/L Chloride (96-108) mmol/L Carbon Dioxide (22-29) mmol/L Anion Gap (12-20) BUN (9-16) mg/dL Creatinine (0.5-1.4) mg/dL Estim Creat Clear Calc Estimated GFR Random Glucose (60-115) mg/dL Lactic Acid (0.5-2.0) mmol/L Calcium (8.4-10.2) mg/dL Total Bilirubin (0.0-1.0) mg/dL AST (5-37) U/L ALT (0-40) U/L Alkaline Phosphatase (39-117) U/L Troponin I High Sens (<3.5-35.0) ng/L Total Protein (6.5-8.0) g/dL Albumin (3.5-5.0) g/dL Urine Color YELLOW Urine Appearance HAZY Urine pH 6.5 (5.0-8.0) Ur Specific [place] 1.015 (1.005-1.025) Urine Protein 1+ H (NEG-TRACE) MG/DL Urine Glucose (UA) NEG (NEG) MG/DL Urine Ketones NEG (NEG) MG/DL Urine Blood TRACE (NEG) Urine Nitrite POS H (NEG) Ur Leukocyte Esterase 1+ H (NEG) Urine RBC 0-2 (0) /HPF Urine WBC 1-4 (0-4) /HPF Ur Squamous Epith Cells TRACE /LPF Urine Bacteria 1+ /LPF Urine Mucus TRACE /LPF COVID-19 (MARIA G) (Negative) COVID-19 Clin Com ECG Data Attestation: I personally reviewed and interpreted this ECG as follows: Prior ECG tracings: available for review Interpretation: sinus tachycardia, HR- 117, no STEMI, RI /QRS /QTC are within normal limits. Discharge Plan Discharge Clinical Impression: Sepsis, Acute UTI, Acute urinary retention Patient Disposition: Admitted As Inpatient Prescriptions: No Action acetaminophen [Tylenol Extra Strength] 500 mg tablet 1,000 mg PO QID PRN (Reason: pain) Qty: 14 0RF albuterol sulfate [ProAir HFA] 90 mcg/actuation Hfa Aerosol Inhaler 2 puff INHALATION Q4-6H PRN (Reason: Shortness Of Breath) atorvastatin 40 mg Tablet 40 mg PO BEDTIME Qty: 30 0RF Eliquis 5 mg Tablet 5 mg PO BID Qty: 30 0RF diltiazem HCl [Cardizem CD] 120 mg Capsule,Extended Release 24hr 120 mg PO DAILY Qty: 30 0RF meclizine [Dramamine Less Drowsy] 25 mg tablet 25 mg PO TID PRN (Reason: dizziness) Qty: 20 0RF ondansetron 4 mg tablet,disintegrating 4 mg PO Q6-8H PRN (Reason: nausea and vomiting) Qty: 14 0RF Rx Instructions: Patient may request partial refill dexamethasone [Decadron] 6 mg tablet 6 mg PO DAILY Qty: 10 0RF benzonatate 100 mg capsule 100 mg PO TID PRN (Reason: cough) Qty: 15 0RF
--- NOTE | 2022-01-20 10:50 | ECG_ITS ---
Test Reason : TACHY Blood Pressure : / mmHG Vent. Rate : 117 BPM Atrial Rate : 117 BPM P-R Int : 158 ms QRS Dur : 086 ms QT Int : 334 ms P-R-T Axes : 063 -26 047 degrees QTc Int : 465 ms Sinus tachycardia Possible Left atrial enlargement Borderline ECG When compared with ECG of 25-JUL-2021 11:55, No significant change was found Referred By: Linda Joseph Electronically Signed By:Kadeem Valle
[2022-01-20 10:58] VITALS: BP 129/84; BP 137/85; PULSE 118; PULSE 127; RESP 18; O2SAT 97; BMI 32.0
--- NOTE | 2022-01-20 11:15 | PC.NURSE ---
patient a&ox3, monitoring and evaluation advisor intact- sinus tach, pt c/o 3/10 midsternal chest pain, iv previously inserted by ems, ekg performed, tech to draw labs, will continue to monitor.
[2022-01-20] MEDS: 0.9 % Sodium Chloride 1,000 ML 999 ML IV (11:26)
[2022-01-20 11:29] LABS: Basophils Absolute Auto 0.1 X10*3/uL (0.0-0.2); Basophils Percent Auto 0.3 % (0-2); Eosinophils Percent Auto 0.1 % (0-4); Hematocrit 39.6 % (42.0-52.0); Hemoglobin 13.1 g/dl (14.0-18.0); Imm Gran Abs Auto 0.09 X10*3/uL (0.00-0.03); Imm Gran Pct Auto 0.4 % (0.0-0.4); Lymphocytes Percent Auto 5.1 % (20-40); MANUAL DIFF FLAG SCAN; Mean Corpuscular HGB Conc 33.1 g/dl (31.0-36.0); Mean Corpuscular Hemoglobin 28.5 pg (27.0-33.0); Mean Corpuscular Volume 86.3 fL (80.0-98.0); Mean Platelet Volume 8.7 fL (9.4-12.4); Monocytes Absolute Auto 1.5 X10*3/uL (0.1-1.2); Monocytes Percent Auto 7.5 % (2-11); Neutrophils Absolute Auto 17.4 x10*3/uL (2.0-8.3); Neutrophils Percent Auto 86.6 % (45-73); Platelet Count 240 X10*3/uL (160-400); Red Blood Count 4.59 X10*6/uL (4.60-5.80); Red Cell Distribution Width 13.4 % (11.0-16.0); SCAN SMEAR FLAG 1; White Blood Count 20.1 X10*3/uL (4.8-10.8)
[2022-01-20 11:36] LABS: INTERNATIONAL NORM RATIO 1.5 (0.9-1.1); Prothrombin Time 17.3 SEC (9.9-13.0)
[2022-01-20 11:38] LABS: D Dimer High Sensitivity 597 NG/ML
[2022-01-20 11:47] LABS: COVID-19 Test Negative (Negative); IDNOW Serial# 55D5AD1C
[2022-01-20 11:48] LABS: Alanine Aminotransferase 22 U/L (0-40); Albumin Level 3.6 g/dL (3.5-5.0); Alkaline Phosphatase 103 U/L (39-117); Anion Gap 12 (12-20); Aspartate Amino Transferase 13 U/L (5-37); Blood Urea Nitrogen 14 mg/dL (9-16); Calcium 9.2 mg/dL (8.4-10.2); Carbon Dioxide 22 mmol/L (22-29); Chloride 107 mmol/L (96-108); Creatinine Clr Calc Pharmacy 88.4; Estimated Glomerular Filt Rate > 60; Glucose Random 111 mg/dL (60-115); Potassium 4.1 mmol/L (3.3-5.1); SLIDE REVIEW VERIFIED; Sodium 137 mmol/L (135-145); Total Protein 7.1 g/dL (6.5-8.0)
[2022-01-20 11:55] LABS: Troponin-I High Sensitivity < 3.5 ng/L (<3.5-35.0)
[2022-01-20 12:38] LABS: Lactic Acid 1.1 mmol/L (0.5-2.0)
--- NOTE | 2022-01-20 12:54 | PC.NURSE ---
iv inserted to lt forearm for ct as the hand iv cannot be used per radiology.
[2022-01-20] MEDS: Piperacillin Sodium/Tazobactam 3.375 GM in 0.9 % Sodium Chloride 50 ML IV (13:20)
[2022-01-20] MEDS: Acetaminophen 325 MG TABLET 975 MG PO (13:20)
--- NOTE | 2022-01-20 13:23 | PC.NURSE ---
pt was at ct scan so there was a delay administering medications, pt now medicated, will continue to monitor.
[2022-01-20] MEDS: iohexoL 350 MG/ML 100 ML INFUS..BTL IV (13:30)
[2022-01-20 14:26] VITALS: BP 133/85; PULSE 100; RESP 22; O2SAT 97
--- NOTE | 2022-01-20 15:53 | PC.NURSE ---
patient a&ox3, vss, aguilera cath inserted per order, urine obtained, child monitor sinus tach, will continue to monitor.
[2022-01-20 16:00] VITALS: BP 140/81; PULSE 103; RESP 16; TEMP 36.7; O2SAT 97
[2022-01-20 16:04] LABS: Appearance Urine HAZY; Color Urine YELLOW; Glucose Urine UA NEG (NEG); Leukocyte Esterase Urine 1+ (NEG); Nitrite Urine POS (NEG); PH 6.5 (5.0-8.0); Specific Gravity - Urine 1.015 (1.005-1.025); UACC Culture Trigger YES; Urine Blood TRACE (NEG); Urine Ketones NEG (NEG); Urine Protein 1+ MG/DL (NEG-TRACE)
[2022-01-20 16:25] LABS: Bacteria Urine 1+ /LPF; Mucus Urine TRACE /LPF; RBC Urine 0-2 /HPF (0); Squamous Epithelial Cell Urine TRACE /LPF
--- NOTE | 2022-01-20 16:59 | PHA.MEDREC ---
Pharmacy Consult ? Medication Reconciliation Pharmacy has completed the medication reconciliation.
--- NOTE | 2022-01-20 17:15 | PC.NURSE ---
hospitalist at bedside speaking with patient
--- NOTE | 2022-01-20 17:40 | PM.IMHP ---
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 The patient reports that he is doing well until 2-3 days ago when he started to feel lightheadedness and feeling sick to his stomach with episodes of nausea and vomiting. He denies any fever, chills, chest pain, change in bowel habit. He reports having difficulties passing the urine and he wakes up multiple times during the night to go to the bathroom. He has hesitancy, urgency and feeling of incomplete emptying. In the emergency was found to have elevated WBCs with evidence of urinary tract infection and concern of sepsis. He was found to have urinary retention requiring placing a Gax[place] catheter. Admitted for further evaluation and treatment. Review of Systems Review of Systems: No fever, chills but reports generalized weakness No chest pain, palpitation No shortness of breath or coughing No abdominal pain, nausea or vomiting But having difficulties passing urine and urgency No any rash or wounds PMFSH Medical History CVA (cerebral vascular accident) Paroxysmal A-fib Vertebrobasilar ischemia Social History Household Members: None Housing: House Do you presently have visiting nurse or other home services: No Alcohol intake: never Patient Tobacco Use Status: Never used Tobacco Use of substances other than those prescribed or required for medical reasons: No Advance Directives: Yes Advance Directives on File: Yes Advance Directives Date on File: 07/23/20 service: No Current occupational status: unemployed Meds Allergies Allergy/AdvReac Type Severity Reaction Status Date / Time No Known Allergies Allergy Mild UNKNOWN Verified 01/20/22 11:08 [No Known Allergies*] Active Medications: Current Medications Pharmacy Consult (Consult Rx Perform Med Rec) 1 each MISCELLANE ONCE PRN PRN Reason: Consult order Home Medications Medication Instructions Recorded Confirmed Last Taken Type diltiazem HCl 120 mg capsule,24 1 cap PO DAILY 01/20/22 01/20/22 01/20/22 History hr,extended release (Tiadylt ER) meclizine 25 mg tablet (Dramamine 25 mg PO BID PRN dizziness 01/20/22 01/20/22 Unknown History Less Drowsy) tamsulosin 0.4 mg capsule 1 cap PO BEDTIME 01/20/22 01/20/22 01/19/22 History tizanidine 4 mg tablet 1 tab PO Q8H PRN muscle spasm 01/20/22 01/20/22 Unknown History Physical Exam Vital Signs and Narrative: Vital Signs: Last Vital Signs Temp 98.0 F 01/20/22 16:00 Pulse 103 H 01/20/22 16:00 Resp 16 01/20/22 16:00 BP 140/81 H 01/20/22 16:00 Pulse Ox 97 01/20/22 16:00 O2 Del Method 01/20/22 16:00 BMI result Body Mass Index 32.0 Const: Other: Constitutional : Alert, oriented, not in distress Neck : Normal inspection, Supple Cardiovascular : RRR, no JVP, no lower extremity edema Respiratory : fair bilateral air entry, no crackles, wheezes or rhonchi Gastrointestinal: soft, lax, Normal bowel sounds, Non tender Skin : Warm, Dry Neurological : Alert & oriented x3, No focal deficit , CN 2-12 within normal Results Labs CBC and Chem 7: 01/20/22 11:22 01/20/22 11:22 Labs: Laboratory Results - last 24 hr 01/20/22 01/20/22 01/20/22 11:22 11:22 11:22 MCV 86.3 MCH 28.5 MCHC 33.1 RDW 13.4 Plt Count 240 MPV 8.7 L Immature Gran % (Auto) 0.4 Neut % (Auto) 86.6 H Lymph % (Auto) 5.1 L [place] % (Auto) 7.5 Eos % (Auto) 0.1 Baso % (Auto) 0.3 Lymph # (Auto) 1.0 L [place] # (Auto) 1.5 H Eos # (Auto) 0.0 Baso # (Auto) 0.1 Abs Immat Gran (auto) 0.09 H Absolute Neuts (auto) 17.4 H Absolute Nucleated RBC 0.000 Nucleated RBC % (auto) 0.0 Smear Tech's Comments VERIFIED PT 17.3 H INR 1.5 H D-Dimer High Sensitivty 597 Anion Gap 12 Estim Creat Clear Calc 88.4 Estimated GFR > 60 Random Glucose 111 Lactic Acid Calcium 9.2 Total Bilirubin 2.0 H AST 13 D ALT 22 Alkaline Phosphatase 103 Troponin I High Sens Total Protein 7.1 Albumin 3.6 Urine Color Urine Appearance Urine pH Ur Specific [place] Urine Protein Urine Glucose (UA) Urine Ketones Urine Blood Urine Nitrite Ur Leukocyte Esterase Urine RBC Urine WBC Ur Squamous Epith Cells Urine Bacteria Urine Mucus COVID-19 (MARIA G) COVID-19 Clin Com 01/20/22 01/20/22 01/20/22 11:22 11:27 12:21 MCV MCH MCHC RDW Plt Count MPV Immature Gran % (Auto) Neut % (Auto) Lymph % (Auto) [place] % (Auto) Eos % (Auto) Baso % (Auto) Lymph # (Auto) [place] # (Auto) Eos # (Auto) Baso # (Auto) Abs Immat Gran (auto) Absolute Neuts (auto) Absolute Nucleated RBC Nucleated RBC % (auto) Smear Tech's Comments PT INR D-Dimer High Sensitivty Anion Gap Estim Creat Clear Calc Estimated GFR Random Glucose Lactic Acid 1.1 Calcium Total Bilirubin AST ALT Alkaline Phosphatase Troponin I High Sens < 3.5 Total Protein Albumin Urine Color Urine Appearance Urine pH Ur Specific [place] Urine Protein Urine Glucose (UA) Urine Ketones Urine Blood Urine Nitrite Ur Leukocyte Esterase Urine RBC Urine WBC Ur Squamous Epith Cells Urine Bacteria Urine Mucus COVID-19 (MARIA G) Negative COVID-19 Clin Com See Note 01/20/22 15:52 MCV MCH MCHC RDW Plt Count MPV Immature Gran % (Auto) Neut % (Auto) Lymph % (Auto) [place] % (Auto) Eos % (Auto) Baso % (Auto) Lymph # (Auto) [place] # (Auto) Eos # (Auto) Baso # (Auto) Abs Immat Gran (auto) Absolute Neuts (auto) Absolute Nucleated RBC Nucleated RBC % (auto) Smear Tech's Comments PT INR D-Dimer High Sensitivty Anion Gap Estim Creat Clear Calc Estimated GFR Random Glucose Lactic Acid Calcium Total Bilirubin AST ALT Alkaline Phosphatase Troponin I High Sens Total Protein Albumin Urine Color YELLOW Urine Appearance HAZY Urine pH 6.5 Ur Specific [place] 1.015 Urine Protein 1+ H Urine Glucose (UA) NEG Urine Ketones NEG Urine Blood TRACE Urine Nitrite POS H Ur Leukocyte Esterase 1+ H Urine RBC 0-2 Urine WBC 1-4 Ur Squamous Epith Cells TRACE Urine Bacteria 1+ Urine Mucus TRACE COVID-19 (MARI AG) COVID-19 Clin Com Imaging Radiologist's Impressions: Impressions Abdomen/Pelvis CT 01/20/22 13:37 IMPRESSION: 1. Assessment for pulmonary emboli is essentially nondiagnostic due to suboptimal contrast opacification. No gross/large central pulmonary embolus. 2. Mild left basilar atelectasis. No consolidation or effusions. 3. No acute intra-abdominal process identified. 4. Markedly distended urinary bladder. Correlate with inability to void and consider Gaxiola catheter decompression as clinically necessary. 5. Enlarged prostate gland. VTE: indeterminate Chest CTA 01/20/22 13:37 IMPRESSION: 1. Assessment for pulmonary emboli is essentially nondiagnostic due to suboptimal contrast opacification. No gross/large central pulmonary embolus. 2. Mild left basilar atelectasis. No consolidation or effusions. 3. No acute intra-abdominal process identified. 4. Markedly distended urinary bladder. Correlate with inability to void and consider Gaxiola catheter decompression as clinically necessary. 5. Enlarged prostate gland. 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 Sepsis secondary to UTI Pending urine cultures Start IV ceftriaxone Acute urinary retention secondary to BPH Increase tamsulosin to 0.8 mg Start finasteride 5 mg daily Keep Gaxiola, voiding trials tomorrow Atrial fibrillation In sinus next [place] continue Cardizem and Eliquis DVT PPX Eliquis The patient will need to overnight hospital stay for management of sepsis secondary to UTI with IV antibiotics pending final cultures to prevent possible decompensation in to severe sepsis. Quality Stroke Does the patient have a stroke diagnosis?: No VTE Prior VTE?: No VTE Risk Level:: Medical - low VTE Device Contraindication: Treatment Not Indicated VTE Drug Contraindication: N/A - Med Ordered
[2022-01-20] MEDS: Tamsulosin HCL 0.4 MG CAPSULE 0.8 MG PO ×2 (18:34→21:10)
[2022-01-20] MEDS: Finasteride 5 MG TABLET PO (18:35)
[2022-01-20] MEDS: Apixaban 5 MG TABLET PO (21:09)
[2022-01-20] MEDS: Atorvastatin Calcium 40 MG TABLET PO (21:10)
[2022-01-20] MEDS: cefTRIAXone sodium 1 GM in 0.9 % Sodium Chloride 50 ML IV (21:11)
[2022-01-20 22:22] VITALS: BP 126/72; PULSE 123; RESP 18; TEMP 37.3; O2SAT 95
[2022-01-21] VITALS (7 sets, daily range): BP systolic 117–146; BP diastolic 60–89; PULSE 88–126; RESP 17–18; TEMP 36.6–38.1; O2SAT 94–98
[2022-01-21] MEDS: 0.9 % Sodium Chloride Flush 3 ML SYRINGE IVFLUSH ×3 (02:43→15:25)
[2022-01-21 06:58] LABS: Hematocrit 38.3 % (42.0-52.0); Hemoglobin 12.3 g/dl (14.0-18.0); Mean Corpuscular HGB Conc 32.1 g/dl (31.0-36.0); Mean Corpuscular Hemoglobin 27.9 pg (27.0-33.0); Mean Corpuscular Volume 86.8 fL (80.0-98.0); Mean Platelet Volume 9.6 fL (9.4-12.4); Platelet Count 229 X10*3/uL (160-400); Red Blood Count 4.41 X10*6/uL (4.60-5.80); Red Cell Distribution Width 13.4 % (11.0-16.0)
[2022-01-21] MEDS: dilTIAZem HCL CD 120 MG CAP.ER.DEG PO (07:31)
[2022-01-21] MEDS: Finasteride 5 MG TABLET PO (07:31)
[2022-01-21] MEDS: Apixaban 5 MG TABLET PO ×2 (07:31→19:09)
[2022-01-21 07:39] LABS: Anion Gap 12 (12-20); Blood Urea Nitrogen 8 mg/dL (9-16); Calcium 8.6 mg/dL (8.4-10.2); Carbon Dioxide 22 mmol/L (22-29); Chloride 105 mmol/L (96-108); Creatinine Clr Calc Pharmacy 95.7; Estimated Glomerular Filt Rate > 60; Glucose Random 97 mg/dL (60-115); Potassium 3.9 mmol/L (3.3-5.1); Sodium 135 mmol/L (135-145)
--- NOTE | 2022-01-21 10:19 | MHC.CM.PN ---
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
--- NOTE | 2022-01-21 11:12 | P.PNIM_ITS ---
Subjective Subjective Date of Service: 01/21/22 Interval History: Feels better today Complaining of the catheter No reported fever or chills Review of Systems No fever, chills but reports generalized weakness No chest pain, palpitation No shortness of breath or coughing No abdominal pain, nausea or vomiting Pain from the catheter No any rash or wounds Physical Exam Vital Signs: Vital Signs: Last Vital Signs Temp 98.1 F 01/21/22 07:36 Pulse 95 01/21/22 07:36 Resp 18 01/21/22 07:36 BP 146/89 H 01/21/22 07:36 Pulse Ox 97 01/21/22 07:36 O2 Del Method 01/21/22 07:36 BMI result Body Mass Index 32.0 Const: Other: Constitutional : Alert, oriented, not in distress Neck : Normal inspection, Supple Cardiovascular : RRR, no JVP, no lower extremity edema Respiratory : fair bilateral air entry, no crackles, wheezes or rhonchi Gastrointestinal: soft, lax, Normal bowel sounds, Non tender Skin : Warm, Dry Neurological : Alert & oriented x3, No focal deficit , CN 2-12 within normal Objective Data Active Medications Acetaminophen (Acetaminophen 325 Mg Tablet) 650 mg PO Q6H PRN PRN Reason: Pain, Mild (Pain Scale 1-3) Apixaban (Apixaban 5 Mg Tablet) 5 mg PO BID [facility] Last Admin: 01/21/22 07:31 Dose: 5 mg Documented By: JAYA Atorvastatin Calcium (Atorvastatin Calcium 40 Mg Tablet) 40 mg PO BEDTIME [facility] Last Admin: 01/20/22 21:10 Dose: 40 mg Documented By: AMARI Diltiazem HCl (Diltiazem Hcl Cd 120 Mg Cap.Er.Deg) 120 mg PO DAILY [facility]; Pro tocol Last Admin: 01/21/22 07:31 Dose: 120 mg Documented By: JAYA Finasteride (Finasteride 5 Mg Tablet) 5 mg PO DAILY [facility] Last Admin: 01/21/22 07:31 Dose: 5 mg Documented By: JAYA Ceftriaxone Sodium 1 gm/ (Sodium Chloride) 50 mls @ 100 mls/hr IV Q24H [facility] Last Infusion: 01/20/22 23:43 Dose: 0 mls/hr Documented By: KELLY Meclizine HCl (Meclizine Hcl 25 Mg Tablet) 25 mg PO BID PRN PRN Reason: dizziness Ondansetron HCl (Ondansetron Hcl 4 Mg/2 Ml Vial) 4 mg IVPUSH Q8H PRN PRN Reason: Nausea and Vomiting Pharmacy Consult (Consult Rx Perform Med Rec) 1 each MISCELLANE ONCE PRN PRN Reason: Consult order Sodium Chloride (0.9 % Sodium Chloride Flush 3 Ml Syringe) 3 ml IVFLUSH QSHIFT [facility] Last Admin: 01/21/22 07:31 Dose: 3 ml Documented By: JAYA Tamsulosin HCl (Tamsulosin Hcl 0.4 Mg Capsule) 0.8 mg PO BEDTIME [facility] Last Admin: 01/20/22 21:10 Dose: 0.8 mg Documented By: AMARI Tizanidine HCl (Tizanidine Hcl 4 Mg Tablet) 4 mg PO Q8H PRN PRN Reason: muscle spasm Labs CBC & Chem 7: 01/21/22 05:51 01/21/22 05:51 Labs: Laboratory Results - last 24 hr 01/20/22 01/20/22 01/20/22 11:22 11:22 11:22 MCV 86.3 MCH 28.5 MCHC 33.1 RDW 13.4 Plt Count 240 MPV 8.7 L Immature Gran % (Auto) 0.4 Neut % (Auto) 86.6 H Lymph % (Auto) 5.1 L Steele % (Auto) 7.5 Eos % (Auto) 0.1 Baso % (Auto) 0.3 Lymph # (Auto) 1.0 L Steele # (Auto) 1.5 H Eos # (Auto) 0.0 Baso # (Auto) 0.1 Abs Immat Gran (auto) 0.09 H Absolute Neuts (auto) 17.4 H Absolute Nucleated RBC 0.000 Nucleated RBC % (auto) 0.0 Smear Tech's Comments VERIFIED PT 17.3 H INR 1.5 H D-Dimer High Sensitivty 597 Anion Gap 12 Estim Creat Clear Calc 88.4 Estimated GFR > 60 Random Glucose 111 Lactic Acid Calcium 9.2 Total Bilirubin 2.0 H AST 13 D ALT 22 Alkaline Phosphatase 103 Troponin I High Sens Total Protein 7.1 Albumin 3.6 Urine Color Urine Appearance Urine pH Ur Specific [place] Urine Protein Urine Glucose (UA) Urine Ketones Urine Blood Urine Nitrite Ur Leukocyte Esterase Urine RBC Urine WBC Ur Squamous Epith Cells Urine Bacteria Urine Mucus COVID-19 (MARIA G) COVID-19 Clin Com 01/20/22 01/20/22 01/20/22 11:22 11:27 12:21 MCV MCH MCHC RDW Plt Count MPV Immature Gran % (Auto) Neut % (Auto) Lymph % (Auto) Steele % (Auto) Eos % (Auto) Baso % (Auto) Lymph # (Auto) Steele # (Auto) Eos # (Auto) Baso # (Auto) Abs Immat Gran (auto) Absolute Neuts (auto) Absolute Nucleated RBC Nucleated RBC % (auto) Smear Tech's Comments PT INR D-Dimer High Sensitivty Anion Gap Estim Creat Clear Calc Estimated GFR Random Glucose Lactic Acid 1.1 Calcium Total Bilirubin AST ALT Alkaline Phosphatase Troponin I High Sens < 3.5 Total Protein Albumin Urine Color Urine Appearance Urine pH Ur Specific [place] Urine Protein Urine Glucose (UA) Urine Ketones Urine Blood Urine Nitrite Ur Leukocyte Esterase Urine RBC Urine WBC Ur Squamous Epith Cells Urine Bacteria Urine Mucus COVID-19 (MARIA G) Negative COVID-19 Clin Com See Note 01/20/22 01/21/22 01/21/22 15:52 05:51 05:51 MCV 86.8 MCH 27.9 MCHC 32.1 RDW 13.4 Plt Count 229 MPV 9.6 Immature Gran % (Auto) Neut % (Auto) Lymph % (Auto) Steele % (Auto) Eos % (Auto) Baso % (Auto) Lymph # (Auto) Steele # (Auto) Eos # (Auto) Baso # (Auto) Abs Immat Gran (auto) Absolute Neuts (auto) Absolute Nucleated RBC 0.000 Nucleated RBC % (auto) 0.0 Smear Tech's Comments PT INR D-Dimer High Sensitivty Anion Gap 12 Estim Creat Clear Calc 95.7 Estimated GFR > 60 Random Glucose 97 Lactic Acid Calcium 8.6 D Total Bilirubin AST ALT Alkaline Phosphatase Troponin I High Sens Total Protein Albumin Urine Color YELLOW Urine Appearance HAZY Urine pH 6.5 Ur Specific [place] 1.015 Urine Protein 1+ H Urine Glucose (UA) NEG Urine Ketones NEG Urine Blood TRACE Urine Nitrite POS H Ur Leukocyte Esterase 1+ H Urine RBC 0-2 Urine WBC 1-4 Ur Squamous Epith Cells TRACE Urine Bacteria 1+ Urine Mucus TRACE COVID-19 (MARIA G) COVID-19 Clin Com Assessment and Plan (1) Acute UTI: Status: Acute (2) Acute urinary retention: Status: Acute (3) Sepsis: Status: Acute Plan A 61 years old male with PMH of Afib, HLD and BPH who presented to the hospital 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 Sepsis, resolved secondary to UTI Pending urine and blood cultures Continue ceftriaxone Acute urinary retention secondary to BPH Increase tamsulosin to 0.8 mg Continue finasteride 5 mg daily voiding trials and DC the Gaxiola catheter Follow-up with bladder scan Atrial fibrillation In sinus continue Cardizem and Eliquis DVT PPX Eliquis The patient will need overnight hospital stay for management of sepsis secondary to UTI with IV antibiotics pending final cultures to prevent possible decompensation in to severe sepsis. Quality Stroke Does the patient have a stroke diagnosis?: No VTE Prior VTE?: No VTE Risk Level:: Medical - low VTE Device Contraindication: Treatment Not Indicated VTE Drug Contraindication: N/A - Med Ordered
[2022-01-21] MEDS: cefTRIAXone sodium 1 GM in 0.9 % Sodium Chloride 50 ML IV (19:09)
[2022-01-21] MEDS: Atorvastatin Calcium 40 MG TABLET PO (19:09)
[2022-01-21] MEDS: Tamsulosin HCL 0.4 MG CAPSULE 0.8 MG PO (19:10)
[2022-01-22] MEDS: 0.9 % Sodium Chloride Flush 3 ML SYRINGE IVFLUSH ×2 (00:07→08:22)
[2022-01-22 03:17] VITALS: BP 114/67; PULSE 86; RESP 18; TEMP 36.4; O2SAT 97
[2022-01-22 07:48] VITALS: BP 115/65; PULSE 74; RESP 18; TEMP 37.3; O2SAT 96
[2022-01-22 07:54] LABS: Anion Gap 12 (12-20); Blood Urea Nitrogen 14 mg/dL (9-16); Calcium 9.1 mg/dL (8.4-10.2); Carbon Dioxide 24 mmol/L (22-29); Chloride 105 mmol/L (96-108); Creatinine Clr Calc Pharmacy 94.6; Estimated Glomerular Filt Rate > 60; Glucose Random 103 mg/dL (60-115); Potassium 4.3 mmol/L (3.3-5.1); Sodium 137 mmol/L (135-145)
[2022-01-22] MEDS: dilTIAZem HCL CD 120 MG CAP.ER.DEG PO (08:21)
[2022-01-22] MEDS: Finasteride 5 MG TABLET PO (08:21)
[2022-01-22] MEDS: Apixaban 5 MG TABLET PO (08:21)
[2022-01-22 11:35] VITALS: BP 124/80; PULSE 88; RESP 18; TEMP 37.1; O2SAT 97
--- NOTE | 2022-01-22 11:43 | MHC.CM.PN ---
HOME TODAY - SELF CARE RN AWARE OF PLAN.
--- NOTE | 2022-01-22 11:55 | PM.DS ---
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 The patient reports that he is doing well until 2-3 days ago when he started to feel lightheadedness and feeling sick to his stomach with episodes of nausea and vomiting.? He denies any fever, chills, chest pain, change in bowel habit.? He reports having difficulties passing the urine and he wakes up multiple times during the night to go to the bathroom.? He has hesitancy, urgency and feeling of incomplete emptying. In the emergency was found to have elevated WBCs with evidence of urinary tract infection and concern of sepsis.? He was found to have urinary retention requiring placing a Gaxiola catheter. Admitted for further evaluation and treatment. Hospital course The patient was admitted for treatment of sepsis secondary to UTI. He was treated with IV ceftriaxone with good response as blood cultures remain negative and his urine culture growing gram-negative rods. Plan to discharge home with 7 more days of Ceftin to finish total of 10 days of antibiotics. He was noticed to have acute urinary retention at time of presentation secondary to BPH. Gaxiola catheter was placed and tamsulosin dose increased to 0.8 mg daily with addition of finasteride 5 mg daily. He had voiding trials as the catheter was removed with good tolerance. Plan to discharge home on the current medications and follow-up with PCP for any further workup needed. continue Ceftin for 1 more week Increase tamsulosin to 0.8 mg daily Start finasteride 5 mg daily To follow-up with PCP as scheduled as he might need further workup for the enlarged prostate Time Spent with Patient Time attestation: Total time spent providing and/or coordinating discharge services: Discharge coordination time: Greater than 30 minutes Quality: Safe Use of Opioids Does Pt have an Active Cancer Diagnosis on the Problem List?: No Quality: Stroke Does the patient have a stroke diagnosis?: No Physical Exam Vital Signs: Vital Signs: Last Vital Signs Temp 98.8 F 01/22/22 11:35 Pulse 88 01/22/22 11:35 Resp 18 01/22/22 11:35 BP 124/80 01/22/22 11:35 Pulse Ox 97 01/22/22 11:35 O2 Del Method 01/22/22 11:35 BMI result Body Mass Index 32.0 Const: Other: Constitutional : Alert, oriented, not in distress Neck : Normal inspection, Supple Cardiovascular : RRR, no JVP, no lower extremity edema Respiratory : fair bilateral air entry, no crackles, wheezes or rhonchi Gastrointestinal: soft, lax, Normal bowel sounds, Non tender Skin : Warm, Dry Neurological : Alert & oriented x3, No focal deficit , CN 2-12 within normal DS: Data Data Completed and Pending Completed studies during hospitalization [Text1]: Procedures Introduction of Other Thrombolytic into Peripheral Vein, Percutaneous Approach (07/22/20) Labs on day of discharge: Laboratory Results - last 24 hr 01/22/22 06:37 Sodium 137 Potassium 4.3 Chloride 105 Carbon Dioxide 24 Anion Gap 12 BUN 14 D Creatinine 0.85 Estim Creat Clear Calc 94.6 Estimated GFR > 60 Random Glucose 103 Calcium 9.1 Preliminary micro results at discharge 01/20/22 16:06 Urine Culture - Preliminary Urine clean catch - Clean Catch Midstream Gram negative alexandra 01/20/22 12:28 Blood Culture - Preliminary Blood - Venous No growth after 24 hours. 01/20/22 12:21 Blood Culture - Preliminary Blood - Venous No growth after 24 hours. Discharge Plan Discharge Patient Disposition: Home, Self-Care Discharge Diagnosis: Sepsis, UTI Acute urinary retention Referrals: Fidel Faust MD [Primary Care Provider] - 1 Week Discharge Medications: New tamsulosin 0.4 mg Capsule 0.8 mg PO BEDTIME 30 Days Qty: 60 0RF finasteride [Proscar] 5 mg Tablet 5 mg PO DAILY 30 Days Qty: 30 0RF cefuroxime axetil 500 mg tablet 500 mg PO BID Qty: 14 0RF Continued atorvastatin 40 mg Tablet 40 mg PO BEDTIME Qty: 30 0RF Eliquis 5 mg Tablet 5 mg PO BID Qty: 30 0RF tizanidine 4 mg tablet 1 tab PO Q8H PRN (Reason: muscle spasm) diltiazem HCl [Tiadylt ER] 120 mg capsule,extended release 24 hr 1 cap PO DAILY meclizine [Dramamine Less Drowsy] 25 mg tablet 25 mg PO BID PRN (Reason: dizziness) Discontinued tamsulosin 0.4 mg capsule 1 cap PO BEDTIME Discharge Orders: Discharge Order (Routine); Ordered 01/22/22 Ordered By: Peng Muniz Diet: advance to usual diet Activity on Discharge: As tolerated Stand Alone Forms: Patient Portal Discharge page Care Plan Goals: Read below Health Concerns: Read below Plan of Treatment: Read below Assessment: You were admitted to the hospital for evaluation of nausea and weakness. Found to have sepsis from urinary tract infection. Treated with IV antibiotics with good response. You were noticed to have urine retention at time of presentation secondary to enlarged prostate. Gaxiola catheter was placed and you were started on higher level of tamsulosin and finasteride. The catheter was removed with good tolerance. continue Ceftin for 1 more week Increase tamsulosin to 0.8 mg daily Start finasteride 5 mg daily To follow-up with PCP as scheduled as you might need further workup for the enlarged prostate
== END 2022-01-22 12:45 | disposition home or self-care (01) | DRG 720 ==
LOC: HO.ED 16:33 → HO.EDOVER 17:43 → HO.S3 20:54
PROVIDERS: Admitting Provider Student in an Organized Health Care Education/Training Program; Emergency Provider Student in an Organized Health Care Education/Training Program; PCP Internal Medicine; Visit Provider Student in an Organized Health Care Education/Training Program
DX: A41.9 Sepsis, unspecified organism (principal); E78.5 Hyperlipidemia, unspecified; I10 Essential (primary) hypertension; I48.0 Paroxysmal atrial fibrillation; N39.0 Urinary tract infection, site not specified; N41.0 Acute prostatitis; R33.8 Other retention of urine; Z20.822 Contact with and (suspected) exposure to COVID-19; I25.2 Old myocardial infarction; Z86.73 Personal history of transient ischemic attack (TIA), and cerebral infarction without residual deficits; Z79.01 Long term (current) use of anticoagulants; Z79.899 Other long term (current) drug therapy
CPT/HCPCS: 36415; 51798; 71275; 74177; 80048; 80053; 81001; 81003; 83605; 84484; 85025; 85027; 85379; 85610; 87040; 87086; 87088; 87186; 87635; 93005; 96361; 96374; 99218; 99285; C1758; J0696; J2543; Q9967

== ENCOUNTER 2022-03-15 10:14 | Outpatient (REF) | payer MEDICAID, SELFPAY ==
--- NOTE | ~2022-03-15 | XR_ITS ---
EXAMINATION: XR chest 2V CLINICAL INFORMATION: Reason for Exam HX OF PNEUMONIA RECURRENT COMPARISON: Chest radiograph 07/25/2021 TECHNIQUE: 2 views of the chest FINDINGS: Clear lungs. No pneumothorax or pleural effusion. Normal cardiomediastinal silhouette. XR/XR chest 2V Impression: * Clear lungs.
== END 2022-03-15 10:15 | disposition home or self-care (01) ==
LOC: HO.XRAY 10:14
PROVIDERS: PCP Internal Medicine; Visit Provider Internal Medicine
DX: Z87.01 Personal history of pneumonia (recurrent) (principal)
CPT/HCPCS: 71046

== ENCOUNTER 2023-02-22 08:31 | Emergency (ER) | payer MEDICAID, SELFPAY ==
--- NOTE | ~2023-02-22 | CT_ITS ---
EXAMINATION: CT ABDOMEN AND PELVIS WITHOUT CONTRAST CLINICAL INFORMATION: Right flank pain COMPARISON: Previous CT of the abdomen and pelvis most recent January 2022 TECHNIQUE: Multidetector volumetric imaging was performed from the superior aspect of the liver through the pubic symphysis. Sagittal and coronal reformatted images were obtained on the technologist's workstation. This CT examination was performed using dose optimization techniques as appropriate, variously including the following: *Automated exposure control *Adjustment of mA and/or kV according to patient size (this includes techniques or standardized protocols for targeted exams where dose is matched to indication/reason for exam; i.e. extremities or head) *Use of iterative reconstruction technique DLP: 667 mGy-cm FINDINGS: Slightly limited due to motion artifact. LUNG BASES: Subsegmental atelectasis at the left lung base. LIVER, GALLBLADDER, AND BILIARY TREE: The liver is normal in size, shape, and attenuation. No focal hepatic lesion or biliary ductal dilatation is present. The gallbladder is unremarkable with no evidence of radiopaque gallstones, gallbladder wall thickening, or obvious pericholecystic inflammatory changes. PANCREAS: Unremarkable. SPLEEN: Unremarkable. ADRENAL GLANDS: Unremarkable. KIDNEYS AND URETERS: Evaluation of the kidneys is limited due to motion artifact. No obstructing stone, ureteral dilatation or ureteral stone is seen. There are several small punctate echogenic foci that project over the kidneys is difficult to exclude a small nonobstructing renal stone. BLADDER: Unremarkable. GASTROINTESTINAL TRACT: The small and large bowel are unremarkable. The appendix is unremarkable. ABDOMINAL WALL: No significant hernia is appreciated. LYMPH NODES: Normal. VASCULAR: Unremarkable. PELVIC VISCERA: Unremarkable. OSSEOUS STRUCTURES: Degenerative changes of the spine. CT/CT abdomen pelvis wo IV con IMPRESSION: Limited exam due to motion artifact. No hydronephrosis or obstructing stone. Fleischner guidelines were followed.
[2023-02-22 08:34] VITALS: BP 142/82; PULSE 72; PULSE 75; RESP 18; TEMP 36.5; O2SAT 98; O2SAT 99; BMI 30.5
--- NOTE | 2023-02-22 08:40 | ED_ITS ---
HPI - General Adult General Chief complaint: General Medical Stated complaint: Sudden onset pain in R low back down leg per EMS Time Seen by Provider: 02/22/23 08:34 Source: patient Mode of arrival: EMS History of Present Illness HPI narrative: This is a 62 years old male presented to the emergency department complaining of right flank pain radiating to the right lower extremity onset was 1 and 1/2 hour ago. He denies any trauma. Pain goes from the flank in the posterior aspect of the right lower extremity. Onset (ago): hour(s) (1.5) Radiation: other (rt lower extremity) Severity: moderate Quality: burning Pain Consistency: constant Relieving factors: none Exacerbating factors: none Related Data Home Medications Medication Instructions Recorded Confirmed diltiazem HCl 120 mg capsule,24 1 cap PO DAILY 01/20/22 01/20/22 hr,extended release (Tiadylt ER) meclizine 25 mg tablet (Dramamine 25 mg PO BID PRN dizziness 01/20/22 01/20/22 Less Drowsy) tizanidine 4 mg tablet 1 tab PO Q8H PRN muscle spasm 01/20/22 01/20/22 Previous Rx's Medication Instructions Recorded apixaban 5 mg tablet (Eliquis) 5 mg PO BID #30 tabs 07/25/20 atorvastatin 40 mg tablet 40 mg PO BEDTIME #30 tabs 07/25/20 cefuroxime axetil 500 mg tablet 500 mg PO BID #14 tabs 01/22/22 finasteride 5 mg tablet (Proscar) 5 mg PO DAILY 30 days #30 tabs 01/22/22 tamsulosin 0.4 mg capsule 0.8 mg PO BEDTIME 30 days #60 caps 01/22/22 oxycodone 5 mg capsule 5 mg PO Q8H PRN pain #12 caps 02/22/23 Allergies Allergy/AdvReac Type Severity Reaction Status Date / Time No Known Allergies Allergy Mild UNKNOWN Verified 01/20/22 11:08 [No Known Allergies*] Review of Systems Constitutional: Constitutional: Reports no additional constitutional complaints Cardiovascular: Cardiovascular: Reports no additional cardiovascular complaints PMFSH Past Medical History Medical History Asthma Bronchitis CVA (cerebral vascular accident) HLD (hyperlipidemia) HTN (hypertension) Myocardial infarction Paroxysmal A-fib Vertebrobasilar ischemia Social History Social History Household Members: None Housing: Apartment Do you presently have visiting nurse or other home services: No Alcohol intake: former Patient Tobacco Use Status: Never used Tobacco Smoked in Last 30 Days: No Use of substances other than those prescribed or required for medical reasons: No Advance Directives: Yes Advance Directives on File: Yes Advance Directives Date on File: 07/23/20 service: No Current occupational status: unemployed Physical Exam ED Vital Signs: Vital Signs - 24 hr 02/22/23 08:34 02/22/23 08:42 02/22/23 12:02 Temperature 97.7 F 97.7 F 98.2 F Pulse Rate 75 61 70 Respiratory Rate 18 18 15 Blood Pressure 155/77 H 143/76 H Pulse Oximetry 99 98 97 Oxygen Delivery Method Room Air Room Air BMI result Body Mass Index 30.5 He looks well is not toxic-appearing Const General: cooperative Nutritional Appearance: well nourished Orientation/consciousness: patient oriented x3 HENMT Head: Yes normal to inspection Ears: hearing grossly normal bilaterally General nose exam: Normal external nose present Face and sinus: Yes normal facial exam Mouth: Normal oral and palatal mucosa present Teeth and gingiva: dentition normal Throat: Yes posterior oropharynx normal Neck Neck: Yes normal visual inspection Chest Chest palpation & inspection: normal inspection of the chest Resp Effort & Inspection: normal respiratory effort Auscultation: clear to auscultation bilaterally Cardio Jugular venous distension: no JVD Rate: regular rate Rhythm: regular rhythm GI Inspection: Yes normal to inspection Palpation (GI): Soft to palpation Skin General skin exam: no rashes or lesions noted Neuro Other: Examination the right lower extremity shows good pulses, the straight leg rais ing test is positive at 45 degree reflexes present sensation is intact there is no weakness General: patient oriented x3 Course Reevaluation(s) Reevaluation #1: feeling much better will d/c home Time: 13:16 Medications Administered Discontinued Medications Generic Name Dose Route Start Last Admin Trade Name Freq PRN Reason Stop Dose Admin Furosemide 80 mg 02/22/23 09:44 02/22/23 11:00 Furosemide 100 Mg/10 Ml Vial IVPUSH 02/22/23 09:45 80 mg ONCE ONE Administration Protocol Morphine Sulfate 4 mg 02/22/23 08:39 02/22/23 10:11 Morphine Sulfate 4 Mg/Ml Cartridge IVPUSH 02/22/23 08:40 4 mg ONCE ONE Administration Protocol Ondansetron HCl 4 mg 02/22/23 08:39 02/22/23 10:12 Ondansetron Hcl 4 Mg/2 Ml Vial IVPUSH 02/22/23 08:40 4 mg ONCE ONE Administration Medical Decision Making Medical Decision Making [facility] Narrative: Patient presented with sciatic pain reflexes are normal good perfusion the foot, good strength most likely the features consistent with sciatica Differential Diagnosis Differential Diagnoses: The differential diagnosis associated with the prese ntation includes Sciatica/kidney stone Admission/Observation Consideration of admission/observation: Escalation of care including admission/observation considered Lab Data [facility] Lab Attestation statement: I reviewed the patient's lab results. 02/22/23 08:50 02/22/23 08:50 Labs: Lab Results 02/22/23 02/22/23 Range/Units 08:50 08:50 WBC 8.2 (4.8-10.8) X10*3/uL RBC 5.33 D (4.60-5.80) X10*6/uL Hgb 14.4 (14.0-18.0) g/dl Hct 44.7 (42.0-52.0) % MCV 83.9 (80.0-98.0) fL MCH 27.0 (27.0-33.0) pg MCHC 32.2 (31.0-36.0) g/dl RDW 15.0 (11.0-16.0) % Plt Count 262 (160-400) X10*3/uL MPV 9.5 (9.4-12.4) fL Immature Gran % (Auto) 0.2 (0.0-0.4) % Neut % (Auto) 74.9 H (45-73) % Lymph % (Auto) 15.2 L (20-40) % [place] % (Auto) 7.6 (2-11) % Eos % (Auto) 1.2 (0-4) % Baso % (Auto) 0.9 (0-2) % Lymph # (Auto) 1.2 (1.2-4.9) X10*3/uL [place] # (Auto) 0.6 (0.1-1.2) X10*3/uL Eos # (Auto) 0.1 (0.0-0.4) X10*3/uL Baso # (Auto) 0.1 (0.0-0.2) X10*3/uL Abs Immat Gran (auto) 0.02 (0.00-0.03) X10*3/uL Absolute Neuts (auto) 6.1 (2.0-8.3) x10*3/uL Absolute Nucleated RBC 0.000 (0.0-0.012) X10*3/uL Nucleated RBC % (auto) 0.0 (0.0-0.2) /100WBC Sodium 139 (135-145) mmol/L Potassium 3.9 (3.3-5.1) mmol/L Chloride 106 (96-108) mmol/L Carbon Dioxide 27 (22-29) mmol/L Anion Gap 10 L (12-20) BUN 9 (9-16) mg/dL Creatinine 0.97 (0.5-1.4) mg/dL Estim Creat Clear Calc 93.5 Estimated GFR > 60 Random Glucose 99 (60-115) mg/dL Calcium 9.5 (8.4-10.2) mg/dL Total Bilirubin 1.2 H (0.0-1.0) mg/dL AST 26 (5-37) U/L ALT 31 (0-40) U/L Alkaline Phosphatase 96 (39-117) U/L Total Protein 7.7 (6.5-8.0) g/dL Albumin 4.0 (3.5-5.0) g/dL Independent Interpretation I performed an independent interpretation of an: CT Scan Radiology Impression Discussion of test interpretation with radiology: I have reviewed the radiologist's reading. Discharge Plan Discharge Clinical Impression: Sciatic leg pain Patient Disposition: Home, Self-Care Instructions: Sciatica (ED) Additional Instructions: Follow-up with primary care physician a prescription was sent for you at [facility] [employer] [place] Prescriptions: New oxycodone 5 mg capsule 5 mg PO Q8H PRN (Reason: pain) Qty: 12 0RF Rx Instructions: Partial Fill upon patient request. No Action atorvastatin 40 mg Tablet 40 mg PO BEDTIME Qty: 30 0RF Eliquis 5 mg Tablet 5 mg PO BID Qty: 30 0RF tizanidine 4 mg tablet 1 tab PO Q8H PRN (Reason: muscle spasm) diltiazem HCl [Tiadylt ER] 120 mg capsule,extended release 24 hr 1 cap PO DAILY meclizine [Dramamine Less Drowsy] 25 mg tablet 25 mg PO BID PRN (Reason: dizziness) tamsulosin 0.4 mg Capsule 0.8 mg PO BEDTIME 30 Days Qty: 60 0RF finasteride [Proscar] 5 mg Tablet 5 mg PO DAILY 30 Days Qty: 30 0RF cefuroxime axetil 500 mg tablet 500 mg PO BID Qty: 14 0RF
--- NOTE | 2023-02-22 08:41 | PC.NURSE ---
Alert and oriented, mostly grenadian speaking, Reporting sudden onset back pain this morning that radiates down right leg. Denies fall or injury. Denies headache, sob, chest pain. vss, nsr or monitor.
[2023-02-22 08:42] VITALS: BP 155/77; PULSE 61; RESP 18; TEMP 36.5; O2SAT 98
[2023-02-22 08:54] LABS: MANUAL DIFF FLAG NO
[2023-02-22 08:56] LABS: Basophils Absolute Auto 0.1 X10*3/uL (0.0-0.2); Basophils Percent Auto 0.9 % (0-2); Eosinophils Absolute Auto 0.1 X10*3/uL (0.0-0.4); Eosinophils Percent Auto 1.2 % (0-4); Hematocrit 44.7 % (42.0-52.0); Hemoglobin 14.4 g/dl (14.0-18.0); Imm Gran Abs Auto 0.02 X10*3/uL (0.00-0.03); Imm Gran Pct Auto 0.2 % (0.0-0.4); Lymphocytes Absolute Auto 1.2 X10*3/uL (1.2-4.9); Lymphocytes Percent Auto 15.2 % (20-40); Mean Corpuscular HGB Conc 32.2 g/dl (31.0-36.0); Mean Corpuscular Volume 83.9 fL (80.0-98.0); Mean Platelet Volume 9.5 fL (9.4-12.4); Monocytes Absolute Auto 0.6 X10*3/uL (0.1-1.2); Monocytes Percent Auto 7.6 % (2-11); Neutrophils Absolute Auto 6.1 x10*3/uL (2.0-8.3); Neutrophils Percent Auto 74.9 % (45-73); Platelet Count 262 X10*3/uL (160-400); Red Blood Count 5.33 X10*6/uL (4.60-5.80); White Blood Count 8.2 X10*3/uL (4.8-10.8)
[2023-02-22 09:12] LABS: Alanine Aminotransferase 31 U/L (0-40); Alkaline Phosphatase 96 U/L (39-117); Anion Gap 10 (12-20); Aspartate Amino Transferase 26 U/L (5-37); Bilirubin Total 1.2 mg/dL (0.0-1.0); Blood Urea Nitrogen 9 mg/dL (9-16); Calcium 9.5 mg/dL (8.4-10.2); Carbon Dioxide 27 mmol/L (22-29); Chloride 106 mmol/L (96-108); Creatinine Clr Calc Pharmacy 93.5; Estimated Glomerular Filt Rate > 60; Glucose Random 99 mg/dL (60-115); Potassium 3.9 mmol/L (3.3-5.1); Sodium 139 mmol/L (135-145); Total Protein 7.7 g/dL (6.5-8.0)
[2023-02-22] MEDS: Morphine Sulfate 4 MG/ML CARTRIDGE IVPUSH (10:11)
[2023-02-22] MEDS: ondansetron HCL 4 MG/2 ML VIAL IVPUSH (10:12)
[2023-02-22] MEDS: Furosemide 100 MG/10 ML VIAL 80 MG IVPUSH (11:00)
[2023-02-22 12:02] VITALS: BP 143/76; PULSE 70; RESP 15; TEMP 36.8; O2SAT 97
== END 2023-02-22 13:22 | disposition home or self-care (01) ==
PROVIDERS: Emergency Provider Emergency Medicine; PCP Internal Medicine
DX: M54.41 Lumbago with sciatica, right side (principal); I10 Essential (primary) hypertension; E78.5 Hyperlipidemia, unspecified; I48.0 Paroxysmal atrial fibrillation; Z86.73 Personal history of transient ischemic attack (TIA), and cerebral infarction without residual deficits; Z79.899 Other long term (current) drug therapy; Z79.01 Long term (current) use of anticoagulants
CPT/HCPCS: 36415; 74176; 80053; 85025; 96374; 96375; 99284; J1940; J2270; J2405

== ENCOUNTER 2023-02-22 14:04 | Emergency (ER) | payer MEDICAID, SELFPAY ==
--- NOTE | 2023-02-22 14:34 | ED_ITS ---
HPI - General Adult General Chief complaint: Dizziness Stated complaint: nauseas, dizzy, recently discharged Time Seen by Provider: 02/22/23 21:24 Source: patient Mode of arrival: ambulatory Limitations: no limitations History of Present Illness HPI narrative: patient history of dizziness in the past was seen here earlier for the back pain discharge in the parking lot patient started feeling dizzy came back dionne ent had stable labs done earlier no fever no headache no fall after coming to the ER patient is feeling much better ambulatory without any significant dizziness no vomiting no headache no weakness . denies any palpitation no syncope or chest pain no tinnitus Related Data Home Medications Medication Instructions Recorded Confirmed diltiazem HCl 120 mg capsule,24 1 cap PO DAILY 01/20/22 01/20/22 hr,extended release (Tiadylt ER) meclizine 25 mg tablet (Dramamine 25 mg PO BID PRN dizziness 01/20/22 01/20/22 Less Drowsy) tizanidine 4 mg tablet 1 tab PO Q8H PRN muscle spasm 01/20/22 01/20/22 Previous Rx's Medication Instructions Recorded apixaban 5 mg tablet (Eliquis) 5 mg PO BID #30 tabs 07/25/20 atorvastatin 40 mg tablet 40 mg PO BEDTIME #30 tabs 07/25/20 cefuroxime axetil 500 mg tablet 500 mg PO BID #14 tabs 01/22/22 finasteride 5 mg tablet (Proscar) 5 mg PO DAILY 30 days #30 tabs 01/22/22 tamsulosin 0.4 mg capsule 0.8 mg PO BEDTIME 30 days #60 caps 01/22/22 meclizine 25 mg tablet 25 mg PO TID PRN dizziness #20 tabs 02/22/23 oxycodone 5 mg capsule 5 mg PO Q8H PRN pain #12 caps 02/22/23 Allergies Allergy/AdvReac Type Severity Reaction Status Date / Time No Known Allergies Allergy Mild UNKNOWN Verified 01/20/22 11:08 [No Known Allergies*] Review of Systems Review of Systems: Yes all other systems are reviewed and are negative [facility] Past Medical History Medical History Asthma Bronchitis CVA (cerebral vascular accident) HLD (hyperlipidemia) HTN (hypertension) Myocardial infarction Paroxysmal A-fib Vertebrobasilar ischemia Social History Social History Household Members: None Housing: Apartment Do you presently have visiting nurse or other home services: No Alcohol intake: former Patient Tobacco Use Status: Never used Tobacco Advance Directives: Yes Advance Directives on File: Yes Advance Directives Date on File: 07/23/20 service: No Current occupational status: unemployed Physical Exam ED Vital Signs: Vital Signs - 24 hr 02/22/23 14:35 02/22/23 20:04 02/22/23 22:22 Temperature 96.4 F L Pulse Rate 69 74 74 Respiratory Rate 16 16 14 Blood Pressure 130/85 148/89 H 164/84 H Pulse Oximetry 95 96 97 Oxygen Delivery Method Room Air BMI result Body Mass Index 28.3 Appearance: Alert. Oriented X3. No acute distress. Eyes: PERRLA, No Nystagmus ENT: Pharynx normal. Oral Mucosa moist Neck: Normal inspection. Neck supple. CVS: Normal heart rate and rhythm. Pulses normal. Respiratory: No respiratory distress. Equal air entry bilateral, no wheezing/rales/rhonchi Abdomen: Soft and nontender. Bowel sounds are present, no mass palpable, no CVA tenderness Skin: Skin warm and dry. Normal skin color. Normal skin turgor. Extremities: No lower extremity edema. No calf tenderness Neuro: Oriented X 3. No motor deficit. No sensory deficit.No cerebellar signs , cranial nerves II-XII intact stable gait Course Course Course Narrative: RME performed by Karina Burgos PA-C. Patient is a 62 year old assigned male at presenting to the emergency department with dizziness. Patient states that he was seen here earlier for right sided flank pain but now he is too dizzy to walk or get out of the car or do anything . Labs completed earlier today. Patient placed back in the waiting room pending room availability. Medical Decision Making Medical Decision Making [facility] Narrative: patient history of benign positional vertigo came back for same reason symptoms have improved after arrival to the ER stable vitals discharge patient on meclizine Lab Data [facility] Lab Attestation statement: I reviewed the patient's lab results. Labs: Lab Results 02/22/23 Range/Units 22:25 Urine Color Yellow Urine Appearance Clear Urine pH 5.5 (5.0-9.0) Ur Specific [place] 1.020 (1.005-1.025) Urine Protein Trace (Neg-Trace) mg/dL Urine Glucose (UA) Negative (Negative) mg/dL Urine Ketones Trace (Negative) mg/dL Urine Blood Negative (Negative) Urine Nitrite Negative (Negative) Ur Leukocyte Esterase Negative (Negative) Independent Interpretation I performed an independent interpretation of an: EKG Interpretation: number sinus rhythm heart rate 78 beats per minute normal interval normal axis no acute ST-T changes no acute ischemia Discharge Plan Discharge Clinical Impression: Benign paroxysmal positional vertigo Patient Disposition: Home, Self-Care Instructions: Benign Paroxysmal Positional Vertigo (ED) Additional Instructions: care and cautions as advised medicine 1 tablet every 8 hours as needed for dizziness follow with PCP as needed Prescriptions: New meclizine 25 mg tablet 25 mg PO TID PRN (Reason: dizziness) Qty: 20 0RF No Action atorvastatin 40 mg Tablet 40 mg PO BEDTIME Qty: 30 0RF Eliquis 5 mg Tablet 5 mg PO BID Qty: 30 0RF tizanidine 4 mg tablet 1 tab PO Q8H PRN (Reason: muscle spasm) diltiazem HCl [Tiadylt ER] 120 mg capsule,extended release 24 hr 1 cap PO DAILY meclizine [Dramamine Less Drowsy] 25 mg tablet 25 mg PO BID PRN (Reason: dizziness) tamsulosin 0.4 mg Capsule 0.8 mg PO BEDTIME 30 Days Qty: 60 0RF finasteride [Proscar] 5 mg Tablet 5 mg PO DAILY 30 Days Qty: 30 0RF cefuroxime axetil 500 mg tablet 500 mg PO BID Qty: 14 0RF oxycodone 5 mg capsule 5 mg PO Q8H PRN (Reason: pain) Qty: 12 0RF Rx Instructions: Partial Fill upon patient request.
[2023-02-22 14:35] VITALS: BP 130/85; PULSE 69; RESP 16; TEMP 35.8; O2SAT 95; BMI 28.3
[2023-02-22 20:04] VITALS: BP 148/89; PULSE 74; RESP 16; O2SAT 96
[2023-02-22 22:22] VITALS: BP 164/84; PULSE 74; RESP 14; O2SAT 97
--- NOTE | 2023-02-22 22:26 | ECG_ITS ---
Test Reason : afib Blood Pressure : / mmHG Vent. Rate : 078 BPM Atrial Rate : 078 BPM P-R Int : 152 ms QRS Dur : 094 ms QT Int : 380 ms P-R-T Axes : 069 -28 030 degrees QTc Int : 433 ms Normal sinus rhythm Normal ECG When compared with ECG of 20-JAN-2022 10:47, Vent. rate has decreased BY 39 BPM Referred By: Jose Cruz Bennett Electronically Signed By:Kadeem Valle
[2023-02-22 22:33] LABS: Appearance Urine Clear; Color Urine Yellow; Glucose Urine UA Negative (Negative); Leukocyte Esterase Urine Negative (Negative); Nitrite Urine Negative (Negative); PH 5.5 (5.0-9.0); Urine Blood Negative (Negative); Urine Ketones Trace mg/dL (Negative); Urine Protein Trace mg/dL (Neg-Trace)
[2023-02-22] MEDS: Meclizine HCl 25 MG TABLET PO (22:46)
== END 2023-02-22 22:53 | disposition home or self-care (01) ==
PROVIDERS: Emergency Provider Internal Medicine
DX: H81.10 Benign paroxysmal vertigo, unspecified ear (principal); I48.0 Paroxysmal atrial fibrillation; I10 Essential (primary) hypertension; E78.5 Hyperlipidemia, unspecified; I25.2 Old myocardial infarction; Z86.73 Personal history of transient ischemic attack (TIA), and cerebral infarction without residual deficits
CPT/HCPCS: 81003; 93005; 99283; 99284

== ENCOUNTER → 2023-02-22 22:26 | Outpatient (BNV) | payer MEDICAID, SELFPAY | PROVIDERS: Emergency Provider Internal Medicine; Visit Provider Internal Medicine Cardiovascular Disease | DX: I48.91 Unspecified atrial fibrillation (principal) | CPT/HCPCS: 93010 ==

== ENCOUNTER 2023-04-22 08:49 | Outpatient (REF) | payer MEDICAID, SELFPAY ==
[2023-04-22 11:53] LABS: Cholesterol 180 mg/dL (<200); HDL Cholesterol 58 mg/dL (>40); LDL Cholesterol Calculated 100 mg/dL (<100); Triglycerides 112 mg/dL (<150)
[2023-04-22 11:57] LABS: Anion Gap 10 (12-20); Blood Urea Nitrogen 12 mg/dL (9-16); Calcium 9.9 mg/dL (8.4-10.2); Carbon Dioxide 26 mmol/L (22-29); Chloride 107 mmol/L (96-108); Estimated Glomerular Filt Rate > 60; Glucose Random 95 mg/dL (60-115); Potassium 4.2 mmol/L (3.3-5.1); Sodium 139 mmol/L (135-145)
[2023-04-22 13:37] LABS: Reflex LDLD? No
[2023-04-23 05:14] LABS: ~HepC Num1 0.09 S/CO (0.00-0.79); ~Hepatitis C Antibody Nonreactive (Nonreactive)
== END 2023-04-22 08:50 | disposition home or self-care (01) ==
LOC: HO.HHCL 08:49
PROVIDERS: Visit Provider Internal Medicine
DX: Z00.00 Encounter for general adult medical examination without abnormal findings (principal); I10 Essential (primary) hypertension; E78.2 Mixed hyperlipidemia
CPT/HCPCS: 36415; 80048; 80061; 86803

== ENCOUNTER 2023-05-17 00:15 | Emergency (ER) | payer MEDICARE, MEDICAID, SELFPAY ==
--- NOTE | ~2023-05-17 | XR_ITS ---
EXAMINATION: XR SHOULDER, LEFT CLINICAL INFORMATION: Pain COMPARISON: None available. TECHNIQUE: Two views of the left shoulder. FINDINGS: No acute fracture or dislocation. [place] calcification in the expected location of the supraspinatus tendon. Small marginal osteophytes along the acromioclavicular and glenohumeral joints. Soft tissues otherwise unremarkable. XR/XR shoulder LT min 2V IMPRESSION: * No acute fracture or dislocation. * [place] calcific rotator cuff tendinopathy, supraspinatus.
[2023-05-17 00:25] VITALS: BP 146/87; BP 158/80; PULSE 89; PULSE 94; RESP 18; TEMP 36.6; O2SAT 95; O2SAT 97; BMI 29.1
[2023-05-17 00:33] VITALS: PULSE 78; O2SAT 97
[2023-05-17] MEDS: Lidocaine 4 % Patch ADH..PATCH 1 PATCH TRANSDERMA (00:36)
[2023-05-17] MEDS: oxyCODONE HCl Immed Release 5 MG TABLET PO (00:36)
--- NOTE | 2023-05-17 00:38 | ED_ITS ---
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 He reports no trauma but the pain has become more severe today. No overuse he is R handed. He denies prior injury or trauma to the area. No numbness or weakness. MD Complaint: extremity pain Onset (ago): day(s) (2) Pain Consistency: constant Location: left and upper extremity Quality: aching and constant Radiation: distal Relieving factors: immobilization Exacerbating factors: range of motion Associated symptoms: denies other symptoms Related Data Home Medications Medication Instructions Recorded Confirmed diltiazem HCl 120 mg capsule,24 1 cap PO DAILY 01/20/22 01/20/22 hr,extended release (Tiadylt ER) meclizine 25 mg tablet (Dramamine 25 mg PO BID PRN dizziness 01/20/22 01/20/22 Less Drowsy) tizanidine 4 mg tablet 1 tab PO Q8H PRN muscle spasm 01/20/22 01/20/22 Previous Rx's Medication Instructions Recorded apixaban 5 mg tablet (Eliquis) 5 mg PO BID #30 tabs 07/25/20 atorvastatin 40 mg tablet 40 mg PO BEDTIME #30 tabs 07/25/20 cefuroxime axetil 500 mg tablet 500 mg PO BID #14 tabs 01/22/22 finasteride 5 mg tablet (Proscar) 5 mg PO DAILY 30 days #30 tabs 01/22/22 tamsulosin 0.4 mg capsule 0.8 mg (2 x 0.4 mg) PO BEDTIME 30 01/22/22 days #60 caps meclizine 25 mg tablet 25 mg PO TID PRN dizziness #20 tabs 02/22/23 oxycodone 5 mg capsule 5 mg PO Q8H PRN pain #12 caps 02/22/23 lidocaine 5 % topical patch 1 patch topical DAILY #30 ea 05/17/23 oxycodone 5 mg tablet 5 mg PO Q6H PRN pain #12 tabs 05/17/23 Allergies Allergy/AdvReac Type Severity Reaction Status Date / Time No Known Allergies Allergy Mild UNKNOWN Verified 05/17/23 00:29 [No Known Allergies*] Review of Systems 2 Review of Systems: Constitutional : No Fever, No Chills Cardiovascular : No Chest Pain, No SOB Respiratory : No Cough, No Dyspnea Gastrointestinal : No Nausea, No Vomiting, No Diarrhea, No abdominal Pain Genitourinary : No Dysuria, No Hematuria Musculoskeletal : positive joint pain, No Myalgias, No Joint Swelling Skin : No Skin lacerations, No rash Neuro : No Weakness, No Numbness All other systems reviewed and are negative [facility] Past Medical History Attestation statement: The following information was validated with the patient. Source: old records reviewed Medical History Paroxysmal A-fib CVA (cerebral vascular accident) Vertebrobasilar ischemia Bronchitis Asthma Myocardial infarction HLD (hyperlipidemia) HTN (hypertension) Social History Social History Household Members: None Housing: Apartment Do you presently have visiting nurse or other home services: No Alcohol intake: former Patient Tobacco Use Status: Never used Tobacco Smoked in Last 30 Days: No Use of substances other than those prescribed or required for medical reasons: No Advance Directives: Yes Advance Directives on File: Yes Advance Directives Date on File: 07/23/20 service: No Current occupational status: unemployed Physical Exam 2 Vital Signs: Vital Signs: Last Vital Signs Temp 97.8 F 05/17/23 00:25 Pulse 78 05/17/23 00:33 Resp 18 05/17/23 00:25 BP 146/87 H 05/17/23 00:25 Pulse Ox 97 05/17/23 00:33 O2 Del Method Room Air 05/17/23 00:33 BMI result Body Mass Index 29.1 Appearance: Alert. Oriented X3. No acute distress. Eyes: Pupils equal, round and reactive to light. ENT: Pharynx normal. Neck: Normal inspection. Neck supple. CVS: Normal heart rate and rhythm. Pulses normal. Respiratory: No respiratory distress. Breath sounds normal. Abdomen: Soft and nontender. Skin: Skin warm and dry. Normal skin color. Normal skin turgor. Extremities: No lower extremity edema. L hand NV intact SILT throughout 2+ radial pulse 5/5 pruner ttp along L AC joint and shoulder pain with any ROM testing cannot abduct arm without pain, spasm along L trapezius Neuro: Oriented X 3. No motor deficit. No sensory deficit. Course Course Course Narrative: c/o hand shaking but this was after I made his arm hurt and it was only the index finger and it stopped when I told him to relax and make it a fist it was not rhythmic and it was mild he was NV intact. It was possibly a spasm or tremor after pain Medications Administered Discontinued Medications Generic Name Dose Route Start Last Admin Trade Name Rikki PRN Reason Stop Dose Admin Lidocaine 1 patch 05/17/23 00:32 05/17/23 00:36 Lidocaine 4 % Patch Adh..Patch TRANSDERMA 05/17/23 00:33 1 patch ONCE ONE Administration Protocol Oxycodone HCl 5 mg 05/17/23 00:32 05/17/23 00:36 Oxycodone Hcl Immed Release 5 Mg Tablet PO 05/17/23 00:33 5 mg ONCE ONE Administration Medical Decision Making Medical Decision Making [facility] Narrative: 62 yo male with PMH of PAF on eliquis, CAD, MT, depression, CVA, bronchitis, asthma, bronchitis here with reproduceable L shoulder pain distal NV intact no CP/SOB to suggest ACS hurts to move touch and abduct arm possible strain/sprain, rotator cuff, tendonitis, xray ordered along with PO pain medications Differential Diagnosis Differential Diagnoses: The differential diagnosis associated with the presentation includes sible strain/sprain, rotator cuff, tendonitis Admission/Observation Consideration of admission/observation: Escalation of care including admission/observation considered pain improved stable for DC labs and VS stable. Lab Data [facility] Lab Attestation statement: I reviewed the patient's lab results. 05/17/23 00:53 05/17/23 00:53 Labs: Lab Results 05/17/23 Range/Units 00:53 WBC 10.0 (4.8-10.8) X10*3/uL RBC 4.81 (4.60-5.80) X10*6/uL Hgb 13.6 L (14.0-18.0) g/dl Hct 40.8 L (42.0-52.0) % MCV 84.8 (80.0-98.0) fL MCH 28.3 (27.0-33.0) pg MCHC 33.3 (31.0-36.0) g/dl RDW 14.3 (11.0-16.0) % Plt Count 258 (160-400) X10*3/uL MPV 9.6 (9.4-12.4) fL Absolute Nucleated RBC 0.000 (0.0-0.012) X10*3/uL Nucleated RBC % (auto) 0.0 (0.0-0.2) /100WBC Sodium 139 (135-145) mmol/L Potassium 3.8 (3.3-5.1) mmol/L Chloride 107 (96-108) mmol/L Carbon Dioxide 21 L (22-29) mmol/L Anion Gap 15 (12-20) BUN 13 (9-16) mg/dL Creatinine 0.92 (0.5-1.4) mg/dL Estim Creat Clear Calc 99.4 Estimated GFR > 60 Random Glucose 112 (60-115) mg/dL Calcium 9.2 D (8.4-10.2) mg/dL Total Bilirubin 1.0 (0.0-1.0) mg/dL AST 19 (5-37) U/L ALT 19 (0-40) U/L Alkaline Phosphatase 88 (39-117) U/L Total Protein 7.3 (6.5-8.0) g/dL Albumin 3.7 (3.5-5.0) g/dL Independent Interpretation I performed an independent interpretation of an: Plain X-Ray (tendonitis) Radiology Impression Discussion of test interpretation with radiology: I have reviewed the radiologist's reading. External Record Review External record reviewed: Inpatient record Prescription Management I considered prescription management with: Pain Medication and Other Discharge Plan Discharge Clinical Impression: Left shoulder tendonitis Patient Disposition: Home, Self-Care Instructions: Tendinitis (ED) Additional Instructions: tendonitis of the shoulder - please follow up with your doctor if not better in 1 week. use tylenol and pain medications. limit painful activity but try to move area around. use prescriptions written for you. return for numbness, weakness, worsening pain, chest pain trouble breathing or any other concerns. tendinitis del hombro: consulte con johns m?dico si no mejora en 1 semana. use tylenol y analg?sicos. Limite la actividad dolorosa shiv trate de putty remover el ?ryan. use recetas escritas para usted. Regrese si tiene entumecimiento, debilidad, dolor que empeora, dolor en el pecho, dificultad para respirar o cualquier otra inquietud. Prescriptions: New lidocaine 5 % adhesive patch,medicated 1 patch topical DAILY Qty: 30 0RF Rx Instructions: leave on most painful area for up to 12 hrs oxycodone 5 mg tablet 5 mg PO Q6H PRN (Reason: pain) Qty: 12 0RF Rx Instructions: Partial Fill upon patient request. No Action atorvastatin 40 mg Tablet 40 mg PO BEDTIME Qty: 30 0RF Eliquis 5 mg Tablet 5 mg PO BID Qty: 30 0RF tizanidine 4 mg tablet 1 tab PO Q8H PRN (Reason: muscle spasm) diltiazem HCl [Tiadylt ER] 120 mg capsule,extended release 24 hr 1 cap PO DAILY meclizine [Dramamine Less Drowsy] 25 mg tablet 25 mg PO BID PRN (Reason: dizziness) tamsulosin 0.4 mg Capsule 0.8 mg PO BEDTIME 30 Days Qty: 60 0RF finasteride [Proscar] 5 mg Tablet 5 mg PO DAILY 30 Days Qty: 30 0RF cefuroxime axetil 500 mg tablet 500 mg PO BID Qty: 14 0RF oxycodone 5 mg capsule 5 mg PO Q8H PRN (Reason: pain) Qty: 12 0RF Rx Instructions: Partial Fill upon patient request. meclizine 25 mg tablet 25 mg PO TID PRN (Reason: dizziness) Qty: 20 0RF Referrals: Fidel Faust MD [Primary Care Provider] - ( Llame para programar varsha gia para varsha posible fisioterapia.) Print Language: Setswana
--- NOTE | 2023-05-17 00:40 | PC.NURSE ---
pt biba from home for throbbing left shoulder pain for 2 days. pt reports taking Tylenol at 11pm without relief. pt reports radiation to the left elbow, denies radiation to the chest and upper jaw. pt denies trauma and injury to the left shoulder. pt has equal bilateral hand grasps, even shoulder shrugs but is unable to lift the left arm over his head. at bedside discussing pt care.
[2023-05-17 01:01] LABS: Hematocrit 40.8 % (42.0-52.0); Hemoglobin 13.6 g/dl (14.0-18.0); Mean Corpuscular HGB Conc 33.3 g/dl (31.0-36.0); Mean Corpuscular Hemoglobin 28.3 pg (27.0-33.0); Mean Corpuscular Volume 84.8 fL (80.0-98.0); Mean Platelet Volume 9.6 fL (9.4-12.4); Platelet Count 258 X10*3/uL (160-400); Red Blood Count 4.81 X10*6/uL (4.60-5.80); Red Cell Distribution Width 14.3 % (11.0-16.0)
[2023-05-17 01:13] LABS: Alanine Aminotransferase 19 U/L (0-40); Albumin Level 3.7 g/dL (3.5-5.0); Alkaline Phosphatase 88 U/L (39-117); Anion Gap 15 (12-20); Aspartate Amino Transferase 19 U/L (5-37); Blood Urea Nitrogen 13 mg/dL (9-16); Calcium 9.2 mg/dL (8.4-10.2); Carbon Dioxide 21 mmol/L (22-29); Chloride 107 mmol/L (96-108); Creatinine Clr Calc Pharmacy 99.4; Estimated Glomerular Filt Rate > 60; Glucose Random 112 mg/dL (60-115); Potassium 3.8 mmol/L (3.3-5.1); Sodium 139 mmol/L (135-145); Total Protein 7.3 g/dL (6.5-8.0)
--- OUTSIDE RECORDS SUMMARY | 2023-05-17 01:14 | XMS_ITS | Continuity of Care Document ---
Author Name Unknown Organization [facility] Address [address] [place] [address], [address] [place] [address]- Care Team Providers Care In Flight Technician Name Role Phone Govind WILLIS, Fidel Osborn Primary Care Physi rigo Encounter [facility] Date(s): 06/19/21 - 07/19/21 [facility] [address] [place] [address] Drive, [address] [place] [address]- Attending Physician: Jerome Hernandez Admitting Physician: Jerome Hernandez Referring Physician: AdmtrJerome Allergies, Adverse Reactions, Alerts Substance Reaction Severity Status NKA Active Medications Advair 250 mcg-50 mcg Inhaler See Instructions, Maintenance, 1 puff Inhalation daily, 01/26/13 15:10:41 Start Date: 01/26/13 Status: Ordered Aspir 81 = 81 mg, By Mouth, Daily, 0 Refills, Maintenance Start Date: 01/26/13 Status: Ordered atorvastatin 40 mg oral tablet 1 tablet = 40 mg, By Mouth, Daily, # 90 tablet, 0 Refills, Maintenance, 04/17/21 13:13:00 EDT, Tablet, Partial fill upon patient request if the prescription is for a schedule II opioid drug. Start Date: 04/17/21 Status: Ordered diltiazem 24 hour extended release By Mouth, Daily, 0 Refills, Maintenance Start Date: 01/26/13 Status: Ordered Eliquis 5 mg oral tablet 1 tablet = 5 mg, By Mouth, 2 times a day, # 60 tablet, 0 Refills, Maintenance, 10/14/20 16:49:00 EST, Tablet, Partial fill upon patient request if the prescription is for a schedule II opioid drug. Start Date: 10/14/20 Status: Ordered Eliquis Starter Pack 5 mg oral tablet 2 tablet = 10 mg, By Mouth, 2 times a day, followed by 1 tablet by mouth twice daily for 23 days, #74 tablet, 0 Refills, Maintenance, 06/19/21 10:31:00 EST, Partial fill upon patient request if the prescription is for a schedule II opioid drug. Start Date: 06/19/21 Stop Date: 06/26/21 Status: Ordered ibuprofen 800 mg oral tablet See Instructions, PRN, 0 Refills, Maintenance Start Date: 01/26/13 Status: Ordered meclizine 25 mg oral tablet 1 tablet = 25 mg, By Mouth, 2 times a day, # 60 tablet, 0 Refills, Maintenance, 04/17/21 13:12:00 EDT, Tablet, Partial fill upon patient request if the prescription is for a schedule II opioid drug. Start Date: 04/17/21 Status: Ordered NuLYTELY with Flavor Packs oral powder for reconstitution See Instructions, 240 mL By Mouth Every 15 minutes, # 4,000 mL, 0 Refills, Maintenance, 09/19/18 11:01:50 EST, 240 mL By Mouth Every 15 minutes Start Date: 09/19/18 Status: Ordered oxycodone 5 mg oral tablet See Instructions, PRN, 0 Refills, Maintenance Start Date: 01/26/13 Status: Ordered ProAir HFA 90 mcg/inh inhalation aerosol with adapter 1 puffs, Inhalation, 4 times a day, PRN for wheezing, # 8.5 Gm, 0 Refills, Maintenance, Aerosol Start Date: 01/26/13 Status: Ordered simvastatin 10 mg oral tablet 1 tablet = 10 mg, By Mouth, Daily at bedtime, # 30 tablet, 0 Refills, Maintenance, Tablet Start Date: 01/26/13 Status: Ordered Singulair 10 mg oral tablet 1 tablet = 10 mg, By Mouth, Daily in PM, # 30 tablet, 0 Refills, Maintenance, Tablet Start Date: 01/26/13 Status: Ordered Problem List Condition Effective Dates Status Health Status Inform ant Encounter for screening colonoscopy(Confirmed) Active Social History Social History Type Response Smoking Status Never (less than 100 in lifetime) entered on: 09/19/18 Sex
--- OUTSIDE RECORDS SUMMARY | 2023-05-17 01:14 | XMS_ITS | Continuity of Care Document ---
Author Name Unknown Organization [facility] Address [address] [place] [address] [address], [address] [place] [address]- Care Team Providers Care Electrical Tryout Person Name Role Phone Fidel Faust MD Primary Care Physi rigo Encounter [facility] [place] [facility] [place] [id number] Date(s): 11/20/21 - 11/27/21 [facility] [address] [place] [address] Drive, [address] [place] [address]- Attending Physician: Catrachito Bhagat MD Referring Physician: Fidel Faust MD Allergies, Adverse Reactions, Alerts No Known Allergies Medications Advair 250 mcg-50 mcg Inhaler See [...] Inform ant Encounter for screening colonoscopy(Confirmed) Active Vital Signs Most recent to oldest [Reference Range]: 1 Height 186 cm (11/20/21 9:55 AM) Weight 89 kg (11/20/21 9:55 AM) Body Mass Index [18.5-24.99] 25.73 *H* (11/20/21 9:55 AM) Social History Social History Type Response Smoking Status Never (less than 100 in lifetime) entered on: 09/19/18 Sex
--- OUTSIDE RECORDS SUMMARY | 2023-05-17 01:14 | XMS_ITS | Continuity of Care Document ---
Author Name Unknown Organization [facility] Address [address] [place] [address], [address] [place] [address]- Care Team Providers Care Diesel Retrofit Designer Name Role Phone Fidel Faust MD Primary Care Physi rigo [place] [facility] [place] 01/02/22 - 01/09/22 [facility] [address] [place] [address] Drive, [address] [place] [address]- Attending Physician: Catrachito Bhagat MD Referring Physician: Fidel Faust MD Allergies, Adverse Reactions, Alerts No Known Allergies Immunizations Given and Recorded Vaccine Date Status Refusal Reason SARS-CoV-2 (COVID-19) mRNA-1273 vaccine 10/12/21 R ecorded SARS-CoV-2 (COVID-19) mRNA-1273 vaccine 11/15/20 R ecorded SARS-CoV-2 (COVID-19) mRNA-1273 vaccine 10/18/20 R ecorded Medications acetaminophen 325 mg oral tablet 650 mg, By Mouth, Every 4 hours, Refills 0, Maintenance, 12/18/21 12:27:00 EDT, Partial fill upon patient request if the prescription is for a schedule II opioid drug. Start Date: 12/18/21 Status: Ordered apixaban 5 mg oral tablet 1 tablet = 5 mg, By Mouth, 2 times a day, # 60 tablet, 0 Refills, Maintenance, 01/03/22 8:15:00 EDT, Tablet, [id number], Partial fill upon patient request if the prescription is for a schedule II opioid drug., 185.42, cm, 01/02/22 13:22:00 EDT... Start Date: 01/03/22 Status: Ordered atorvastatin 40 mg oral tablet 1 tablet = 40 mg, By Mouth, Daily at bedtime, # 30 tablet, 0 Refills, Maintenance, 01/03/22 8:13:00EDT, Tablet, [facility] #[id number], Partial fill upon patient request if the prescription is for a schedule II opioid drug., 185.42, cm, 01/02/22 13:22:00... Start Date: 01/03/22 Status: Ordered Colace Capsule 100 mg, 1, capsule, By Mouth, 2 times a day, Refills 0, Maintenance, 12/18/21 12:27:00 EDT, Partialfill upon patient request if the prescription is for a schedule II opioid drug. Start Date: 12/18/21 Status: Ordered diltiazem 120 mg/24 hours oral capsule, extended release 120 mg, By Mouth, Daily in AM, # 30 capsule, Refills 0, Tot. Refills 0, Maintenance, 01/03/22 8:14:00 EDT, Route to Pharmacy Electronically, [facility]/pharmacy #[id number], Partial fill upon patient request if the prescription is for a schedule II opioid drug., 1... Start Date: 01/03/22 Status: Ordered Flomax 0.4 mg oral capsule 0.4 mg, 1, capsule, By Mouth, Daily at bedtime, # 30 capsule, Refills 0, Tot. Refills 0, Maintenance, 01/03/22 8:16:00 EDT, Route to Pharmacy Electronically, [id number], Partial fill upon patient request if the prescription is for a schedule I... Start Date: 01/03/22 Status: Ordered lidocaine 5% topical film 1 patch, Topically, Daily, # 30 patch, 0 Refills, Acute 02/02/22 8:16:00 EDT, 01/03/22 8:16:00 EDT,Patch, [id number], Partial fill upon patient request if the prescription is for a schedule II opioid drug., 1 patch Topically Daily, 185.42, cm... Start Date: 01/03/22 Stop Date: 02/02/22 Status: Ordered meclizine 25 mg oral tablet 1 tablet = 25 mg, By Mouth, 2 times a day, # 60 tablet, 0 Refills, Acute 02/02/22 8:14:00 EDT, 01/03/22 8:14:00 EDT, Tablet, [facility]/pharmacy #[id number], Partial fill upon patient request if the prescription is for a schedule II opioid drug., 185.42, cm, 01/02... Start Date: 01/03/22 Stop Date: 02/02/22 Status: Ordered oxyCODONE 5 mg oral tablet 5 mg, 1, tablet, By Mouth, Every 4 hours, PRN, # 20 tablet, Refills 0, Tot. Refills 0, Acute 01/17/22 8:16:00 EDT, Pain , Moderate, 01/03/22 8:16:00 EDT, Print Requisition, Partial fill upon patient request if the prescription is for a schedule II opi... Start Date: 01/03/22 Stop Date: 01/17/22 Status: Ordered senna 187 mg oral tablet 2 tablet = 17.2 mg, By Mouth, Daily at bedtime, 0 Refills, Maintenance, 01/03/22 8:16:00 EDT, Tablet, Partial fill upon patient request if the prescription is for a schedule II opioid drug. Start Date: 01/03/22 Status: Ordered tiZANidine 4 mg oral tablet 4 mg, 1, tablet, By Mouth, Every 8 hours, PRN, # 60 tablet, Refills 0, Tot. Refills 0, Maintenance,Spasm, 01/03/22 8:15:00 EDT, Route to Pharmacy Electronically, [facility]/pharmacy #[id number], Partial fill upon patient request if the prescription is for a sched... Start Date: 01/03/22 Stop Date: 02/02/22 Status: Ordered Walker See Instructions, # 1 each, Maintenance, wheeled walker, 12/29/21 11:59:00 EDT, Supply Start Date: 12/29/21 Status: Ordered Problem List Condition Effective Dates Status Health Status Inform ant Afib(Confirmed) Active BPPV (benign paroxysmal posi tional vertigo)(Confirmed) Active Cerebrovascular accident (CVA)(Confirmed) Active Cervical myopathy(Confirmed) Active Hx of laminectomy(Confirmed) Active Encounter for screening colonoscopy(Confirmed) Active Cord compression(Confirmed) Active Vital Signs Most recent to oldest [Reference Range]: 1 Height 185.42 cm (01/02/22 1:22 PM) Weight 90 kg (01/02/22 1:22 PM) Body Mass Index [18.5-24.99] 26.18 *H* (01/02/22 1:22 PM) Social History Social History Type Response Smoking Status Never (less than 100 in lifetime) entered on: 09/19/18 Sex
--- OUTSIDE RECORDS SUMMARY | 2023-05-17 01:14 | XMS_ITS | Continuity of Care Document ---
Author Name Unknown Organization [facility] Address [address] [place] [address] [address], [address] [place] [address]- Care Team Providers Care Transferrer Name Role Phone Govind WILLIS, Fidel Osborn Primary Care Physi rigo Encounter [facility] [place] Date(s): 07/26/21 - 08/25/21 [facility] [address] [place] [address] Drive, [address] [place], [place] [address] Allergies, Adverse Reactions, Alerts No Known Allergies [...]
--- OUTSIDE RECORDS SUMMARY | 2023-05-17 01:15 | XMS_ITS | Continuity of Care Document ---
Author Name Unknown Organization [facility] Address [address] [place] [address] [address], [address] [place] [address]- Care Team Providers Care Financial Services Rep Name Role Phone Govind WILLIS, Fidel Osborn Primary Care Physi rigo En[place] [facility] [place](s): 04/18/21 - 05/18/21 [facility] [address] [place] [address] Drive, [address] [place], [place] [address] Attending Physician: Jerome Hernandez Admitting Physician: Jerome Hernandez Referring Physician: Jerome Hernandez Allergies, Adverse Reactions, Alerts Substance Reaction Severity [...] opioid drug. Start Date: 10/14/20 Status: Ordered ibuprofen 800 mg oral tablet [...]
--- OUTSIDE RECORDS SUMMARY | 2023-05-17 01:15 | XMS_ITS | Continuity of Care Document ---
Author Name Unknown Organization [facility] ter Address [address] [place] [address]- Care Team Providers Care Lead Infrastructure Architect Name Role Phone Govind WILLIS, Fidel Osborn Primary Care Physi rigo Encounter [facility] Date(s): 12/15/21 - 12/19/[address] [address]- Discharge Disposition: [facility]red [facility] Attending Physician: Catrachito Bhagat MD Admitting Physician: Catrachito Bhagat MD Referring Physician: Catrachito Bhagat MD Allergies, Adverse Reactions, Alerts No Known [...] opioid drug. Start Date: 12/18/21 Status: Ordered atorvastatin 40 mg oral tablet 1 tablet = 40 mg, By Mouth, Daily at bedtime, # 90 tablet, 0 Refills, Maintenance, 04/17/21 13:13:00 EDT, Tablet, Partial fill upon patient request if the prescription is for a schedule II opioid drug. Start Date: 04/17/21 Status: Ordered Colace Capsule 100 mg, 1, capsule, By Mouth, 2 times a day, Refills 0, Maintenance, 12/18/21 12:27:00 EDT, Partialfill upon patient request if the prescription is for a schedule II opioid drug. Start Date: 12/18/21 Status: Ordered diazepam 5 mg oral tablet 5 mg, 1, tablet, By Mouth, Every 12 hours, PRN, for 7 days, For breakthrough muscle spasms, # 14 tablet, Refills 0, Tot. Refills 0, Acute 12/25/21 12:27:00 EDT, Spasm, 12/18/21 12:27:00 EDT, Print Requisition, Partial fill upon patient request if the... Start Date: 12/18/21 Stop Date: 12/25/21 Status: Ordered diltiazem 24 hour extended release = 120 mg, By Mouth, Daily in AM, 0 Refills, Maintenance, 01/26/13 15:13:10 EDT Start Date: 01/26/13 Status: Ordered meclizine 25 mg oral tablet 1 tablet = 25 mg, By Mouth, 2 times a day, # 60 tablet, 0 Refills, Maintenance, 04/17/21 13:12:00 EDT, Tablet, Partial fill upon patient request if the prescription is for a schedule II opioid drug. Start Date: 04/17/21 Status: Ordered oxyCODONE 5 mg oral tablet 5 mg, 1, tablet, By Mouth, Every 4 hours, PRN, for 7 days, # 42 tablet, Refills 0, Tot. Refills 0, Acute 12/25/21 12:26:00 EDT, Pain , Mild, 12/18/21 12:26:00 EDT, Print Requisition, Partial fill upon patient request if the prescription is for a sched... Start Date: 12/18/21 Stop Date: 12/25/21 Status: Ordered oxyCODONE 5 mg oral tablet 5 mg, Tablet, By Mouth, Every 4 hours, PRN for Pain , Mild, Routine, 12/15/21 12:24:00 EDT Start Date: 12/15/21 Stop Date: 12/22/21 Status: Ordered oxyCODONE 5 mg oral tablet 10 mg, Tablet, By Mouth, Every 4 hours, PRN for Pain , Moderate, Routine, 12/15/21 12:24:00 EDT Start Date: 12/15/21 Stop Date: 12/22/21 Status: Ordered tiZANidine 4 mg oral tablet 4 mg, 1, tablet, By Mouth, Every 8 hours, # 90 tablet, Refills 0, Tot. Refills 0, Maintenance, 12/18/21 12:27:00 EDT, Print Requisition, Partial fill upon patient request if the prescription is for aschedule II opioid drug. Start Date: 12/18/21 Stop Date: 01/17/22 Status: Ordered Tylenol Tablet 650 mg, Tablet, By Mouth, 12/19/21 13:00:00 EDT Start Date: 12/19/21 Stop Date: 12/19/21 Status: Completed Problem List Condition Effective Dates Status Health Status Inform ant Afib(Confirmed) Active BPPV (benign paroxysmal posi tional vertigo)(Confirmed) Active Cerebrovascular accident (CVA)(Confirmed) Active Cervical myopathy(Confirmed) Active Hx of laminectomy(Confirmed) Active Encounter for screening colonoscopy(Confirmed) Active Cord compression(Confirmed) Active Results Radiology Reports * Exam Date Time Procedure Performing Provider Status 12/15/21 11:05 AM C-Arm > 1 Hour Ozzie Nash ( Verified) Notes: (C-Arm > 1 Hour) Reason For Exam: Post C-spine 3-6 RESULT: C-Arm > 1 Hour Spine Single View, C-Arm > 1 Hour INDICATION: Post C-spine 3-6; Special Instructions: FT-21 [id number] COMPARISONS: MRI 08/10/2021 TECHNIQUE: Fluoroscopy support was provided. There was no radiologist in attendance. FLUOROSCOPY TIME: 21 seconds EXPOSURE: 3.52 mGy TECHNOLOGIST TIME: 02 hours 35 minutes FINDINGS: 2 images were submitted showing posterior fusion at C3-C6. Please refer to operative note for full details. IMPRESSION: See above. WSN: [id number] Ordering Physician: Catrachito Bhagat Dictated By: Raf Fischer MD Dictated Date/Time: 12/15/21 11:24 a Reviewed By: Raf Fischer MD Signed By: Raf Fischer MD Signed Date/Time: 12/15/21 11:24 am Transcribed By: ROMULO Transcribed Date/Time: 12/15/21 11:23 am * Exam Date Time Procedure Performing Provider Status 12/15/21 11:05 AM Spine Single View Saad , Ivelisse; Aut h (Verified) Notes: (Spine Single View) Reason For Exam: Post C-spine 3-6 RESULT: Spine Single View Spine Single View, C-Arm > 1 Hour INDICATION: Post C-spine 3-6; Special Instructions: FT-21 [id number] COMPARISONS: MRI 08/10/2021 TECHNIQUE: Fluoroscopy support was provided. There was no radiologist in attendance. FLUOROSCOPY TIME: 21 seconds EXPOSURE: 3.52 mGy TECHNOLOGIST TIME: 02 hours 35 minutes FINDINGS: 2 images were submitted showing posterior fusion at C3-C6. Please refer to operative note for full details. IMPRESSION: See above. WSN: [id number] Ordering Physician: Catrachito Bhagat Dictated By: Raf Fischer MD Dictated Date/Time: 12/15/21 11:24 a Reviewed By: Raf Fischer MD Signed By: Raf Fischer MD Signed Date/Time: 12/15/21 11:24 am Transcribed By: ROMULO Transcribed Date/Time: 12/15/21 11:23 am Vital Signs Most recent to oldest [Reference Range]: 1 2 3 4 Height 185.42 cm (12/19/21 3:11 PM) 185.42 cm (12/19/21 11:34 AM) 185.42 cm (12/19/21 8:16 AM) Weight 100.3 kg (12/15/21 3:33 PM) 96.36 kg (12/15/21 7:01 AM) 96.36 kg (12/13/21 4:23 PM) Oxygen Saturation [94-100 %] 95 % (12/19/21 3:11 PM) 97 % (12/19/21 11:34 AM) 92 % *L* (12/19/21 8:16 AM) Pulse Rate [55-90 bpm] 99 bpm *H* (12/19/21 3:11 PM) 93 bpm *H* (12/19/21 11:34 AM) 93 bpm *H* (12/19/21 8:16 AM) Body Mass Index [18.5-24.99] 29.17 *H* (12/15/21 3:33 PM) 28.03 *H* (12/15/21 7:01 AM) 28.03 *H* (12/13/21 4:23 PM) Blood Pressure [90-138/55-84 mm Hg] 127/79mm Hg (12/19/21 3:11 PM) 117/75mm Hg (12/19/21 11:34 AM) 121/78mm Hg (12/19/21 8:16 AM) Respiratory Rate [16-30 br/min] 16 br/min (12/19/21 3:44 PM) 18 br/min (12/19/21 3:11 PM) 16 br/min (12/19/21 1:42 PM) 16 br/min (12/19/21 1:42 PM) Temperature [96.8-100.4 DegF] 97.8 DegF (12/19/21 3:11 PM) 97.9 DegF (12/19/21 11:34 AM) 97.6 DegF (12/19/21 8:16 AM) Liters per Minute 3 L/min (12/15/21 1:30 PM) 3 L/min (12/15/21 12:45 PM) 6 L/min (12/15/21 12:00 PM) Mode of Delivery (Oxygen) Room air (12/19/21 3:11 PM) Room air (12/19/21 11:34 AM) Room air (12/19/21 8:16 AM) Blood pressure sites Arm, right (12/19/21 3:11 PM) Arm, right (12/19/21 11:34 AM) Arm, right (12/19/21 8:16 AM) Temperature Route Oral (12/19/21 3:11 PM) Oral (12/19/21 11:34 AM) Oral (12/19/21 8:16 AM) Dry Weight 100.3 kg (12/15/21 3:33 PM) 93.1 kg (12/15/21 7:01 AM) 96.36 kg (12/13/21 4:23 PM) Weight Obtained Via Patient/family stated (12/13/21 4:23 PM) Dry Weight Obtained Via Standing scale (12/15/21 7:01 AM) Patient/family stated (12/13/21 4:23 PM) Social History Social History Type Response Smoking Status Never (less than 100 in lifetime) entered on: 09/19/18 Sex
--- OUTSIDE RECORDS SUMMARY | 2023-05-17 01:15 | XMS_ITS | Continuity of Care Document ---
Author Name Unknown Organization [facility] Address [address] [place] [address] [address]arcia, [address] [place] [address]- Care Team Providers Care House Calls Nurse Name Role Phone Govind WILLIS, Fidel Osborn Primary Care Physi rigo [place] [facility] [place] 04[place]18/22 [facility] [address] [place] [address] Drive, [address] [place], [place] [address] Attending Physician: Jerome Hernandez Admitting Physician: AdmtrJerome Referring Physician: Admtr, Ar8 Allergies, Adverse Reactions, Alerts No Known Allergies [...] Refills, Maintenance, 01/03/22 8:15:00 EDT, Tablet, [id number], Partial fill upon patient request if the prescription is for a schedule II opioid drug., 185.42, cm, 01/02/22 13:22:00 EDT... Start Date: 01/03/22 Status: Ordered atorvastatin 40 mg oral tablet 1 tablet = 40 mg, By Mouth, Daily at bedtime, # 30 tablet, 0 Refills, Maintenance, 01/03/22 8:13:00EDT, Tablet, [id number], Partial fill upon patient request [...] 01/03/22 8:14:00 EDT, Route to Pharmacy Electronically, [facility]/pharmacy #[id number], Partial fill upon patient request if [...] schedule I... Start Date: 01/03/22 Status: Ordered senna 187 mg oral tablet [...] 01/03/22 8:15:00 EDT, Route to Pharmacy Electronically, [facility]/pharmacy #[id number], Partial fill upon patient request if [...] for screening colonoscopy(Confirmed) Active Cord compression(Confirmed) Active Social History Social History Type Response Smoking Status Never (less than 100 in lifetime) entered on: 09/19/18 Sex Care Team Personnel Name: Govind WILLIS, Fidel Osborn Address: [address], [place] [address]
--- OUTSIDE RECORDS SUMMARY | 2023-05-17 01:15 | XMS_ITS | Continuity of Care Document ---
Author Name Unknown Organization [facility] ter Address [address] [place] [address]- Care Team Providers Care Navy Fighter Pilot Name Role Phone Govind WILLIS, Fidel Osborn Primary Care Physi rigo Encounter [facility] [place] Date(s): 12/27/21 - 01/26/[address] [address]- Attending Physician: Not on Staff, Attending MD Admitting Physician: Not on Staff, Admitting MD Referring Physician: Not on Staff, Referring MD Allergies, Adverse Reactions, Alerts No Known [...] 0 Refills, Maintenance, 01/03/22 8:15:00 EDT, Tablet, [facility]/pharmacy #[id number], Partial fill upon patient request if the prescription is for a schedule II opioid drug., 185.42, cm, 01/02/22 13:22:00 EDT... Start Date: 01/03/22 Status: Ordered atorvastatin 40 mg oral tablet 1 tablet = 40 mg, By Mouth, Daily at bedtime, # 30 tablet, 0 Refills, Maintenance, 01/03/22 8:13:00EDT, Tablet, [facility]/pharmacy #[id number], Partial fill upon patient request if [...] 01/03/22 8:14:00 EDT, Route to Pharmacy Electronically, [facility]/pharmacy #[id number], Partial fill upon patient request if the prescription is for a schedule II opioid drug., 1... Start Date: 01/03/22 Status: Ordered Flomax 0.4 mg oral capsule 0.4 mg, 1, capsule, By Mouth, Daily at bedtime, # 30 capsule, Refills 0, Tot. Refills 0, Maintenance, 01/03/22 8:16:00 EDT, Route to Pharmacy Electronically, [facility]/pharmacy #[id number], Partial fill upon patient request if the prescription is for a schedule I... Start Date: 01/03/22 Status: Ordered lidocaine 5% topical film 1 patch, Topically, Daily, # 30 patch, 0 Refills, Acute 02/02/22 8:16:00 EDT, 01/03/22 8:16:00 EDT,Patch, [facility]/pharmacy #[id number], Partial fill upon patient request if the prescription is for a schedule II opioid drug., 1 patch Topically Daily, 185.42, cm... Start Date: 01/03/22 Stop Date: 02/02/22 Status: Ordered meclizine 25 mg oral tablet 1 tablet = 25 mg, By Mouth, 2 times a day, # 60 tablet, 0 Refills, Acute 02/02/22 8:14:00 EDT, 01/03/22 8:14:00 EDT, Tablet, [facility]/pharmacy #[id number], Partial fill upon patient request if the prescription is for a schedule II opioid drug., 185.42, cm, 01/02... Start Date: 01/03/22 Stop Date: 02/02/22 Status: Ordered senna 187 mg oral tablet [...] 01/03/22 8:15:00 EDT, Route to Pharmacy Electronically, [facility]/pharmacy #[id number], Partial fill upon patient request if [...]
--- OUTSIDE RECORDS SUMMARY | 2023-05-17 01:15 | XMS_ITS | Continuity of Care Document ---
Author Name Unknown Organization [facility] ter Address [address] [place] [address]- Care Team Providers Care Electrician Ship Name Role Phone Govind WILLIS, Fidel Osborn Primary Care Physi [facility] Encounter [facility] Date(s): 09/11/19 - 09/11/[address] [address]- [facility] Attending Physician: Hai Bo MD Allergies, Adverse Reactions, Alerts Substance Reaction Severity Status NKA Active Medications Advair 250 mcg-50 mcg Inhaler See Instructions, Maintenance, 1 puff Inhalation daily, 01/26/13 15:10:41 Start Date: 01/26/13 Status: Ordered Aspir 81 = 81 mg, By Mouth, Daily, 0 Refills, Maintenance Start Date: 01/26/13 Status: Ordered diltiazem 24 hour extended release By Mouth, Daily, 0 Refills, Maintenance Start Date: 01/26/13 Status: Ordered ibuprofen 800 mg oral tablet See Instructions, PRN, 0 Refills, Maintenance Start Date: 01/26/13 Status: Ordered NuLYTELY with Flavor Packs oral [...]
--- OUTSIDE RECORDS SUMMARY | 2023-05-17 01:15 | XMS_ITS | Continuity of Care Document ---
Author Name Unknown Organization [facility] ter Address [address] [place] [address]- Care Team Providers Care Carver Hand Name Role Phone Govind WILLIS, Fidel Osborn Primary Care Physi rigo Encounter [facility] Date(s): 10/13/20 - 10/14/[address] [address] Discharge Disposition: A-D/C Home Attending Physician: Ward Pratt DO Admitting Physician: Ela Rojas MD Referring Physician: Not on Staff, Referring MD Allergies, Adverse Reactions, Alerts Substance Reaction Severity Status NKA Active Medications Advair 250 mcg-50 mcg Inhaler See Instructions, Maintenance, 1 puff Inhalation daily, 01/26/13 15:10:41 Start Date: 01/26/13 Status: Ordered Aspir 81 = 81 mg, By Mouth, Daily, 0 Refills, Maintenance Start Date: 01/26/13 Status: Ordered diltiazem 120 mg/24 hours oral capsule, extended release 120 mg, CD Capsule, By Mouth, 10/14/20 9:00:00 EST Start Date: 10/14/20 Stop Date: 10/14/20 Status: Completed diltiazem 24 hour extended release By Mouth, [...] Inform ant Encounter for screening colonoscopy(Confirmed) Active Results Radiology Reports * Exam Date Time Procedure Performing Provider Status 10/13/20 1:39 PM Chest 2 Views Frontal and Lat Franklin , Iliana; Auth (Verified) Notes: (Chest 2 Views Frontal and Lat) Reason For Exam: Shortness of Breath, Fever;Other: RESULT: Chest 2 Views Frontal and Lat Chest 2 Views Frontal and Lat Reason: Headache, dizziness, Shortness of Breath, Fever; Clinical Question(s): Pneumonia COMPARISON: 03/27/2008 FINDINGS: LINES AND TUBES: None. LUNGS AND PLEURA: Mildly indistinct pulmonary vasculature may represent vascular congestion. No pleural effusion. No pneumothorax. HEART, MEDIASTINUM AND REAGAN: Heart is normal in size. Normal upper mediastinal and hilar contour. BONES AND SOFT TISSUES: No acute abnormality. IMPRESSION: Mild pulmonary vascular congestion. I have personally reviewed the images and I agree with this report. WSN: [id number] Ordering Physician: Jaylon Tomlinson Dictated By: Hayden Webb DO Dictated Date/Time: 10/13/20 1:46 pm Reviewed By: Calderon Hinson MD, V Signed By: Calderon Hinson MD, V Signed Date/Time: 10/13/20 1:51 pm Transcribed By: ROMULO Transcribed Date/Time: 10/13/20 1:42 pm Vital Signs Most recent to oldest [Reference Range]: 1 2 3 Height 186 cm (10/14/20 4:01 PM) 186 cm (10/14/20 11:37 AM) 186 cm (10/14/20 7:12 AM) Weight 89 kg (10/14/20 12:31 AM) Oxygen Saturation [94-100 %] 99 % (10/14/20 4:01 PM) 99 % (10/14/20 11:37 AM) 98 % (10/14/20 7:12 AM) Pulse Rate [55-90 bpm] 65 bpm (10/14/20 4:01 PM) 80 bpm (10/14/20 11:37 AM) 59 bpm (10/14/20 8:11 AM) Body Mass Index [18.5-24.99] 25.73 *H* (10/14/20 12:31 AM) Blood Pressure [90-138/55-84 mm Hg] 144/90mm Hg *H* (10/14/20 4:01 PM) 116/67mm Hg (10/14/20 11:37 AM) 144/81mm Hg *H* (10/14/20 8:11 AM) Respiratory Rate [16-30 br/min] 18 br/min (10/14/20 4:01 PM) 18 br/min (10/14/20 11:37 AM) 18 br/min (10/14/20 7:12 AM) Temperature [96.8-100.4 DegF] 97.5 DegF (10/14/20 4:01 PM) 97.8 DegF (10/14/20 11:37 AM) 97.5 DegF (10/14/20 7:12 AM) Mode of Delivery (Oxygen) Room air (10/14/20 4:01 PM) Room air (10/14/20 11:37 AM) Room air (10/14/20 7:12 AM) Blood pressure sites Arm, left (10/14/20 4:01 PM) Arm, left (10/14/20 11:37 AM) Arm, left (10/14/20 7:12 AM) Temperature Route Oral (10/14/20 4:01 PM) Oral (10/14/20 11:37 AM) Oral (10/14/20 7:12 AM) Dry Weight 89 kg (10/14/20 12:31 AM) 88.4 kg (10/13/20 10:33 PM) Social History Social History Type Response Smoking Status Never (less than 100 in lifetime) entered on: 09/19/18 Sex
--- OUTSIDE RECORDS SUMMARY | 2023-05-17 01:15 | XMS_ITS | Continuity of Care Document ---
Author Name Unknown Organization [facility] Address [address] [place] [address], [address] [place] [address]- Care Team Providers Care Customer Consultant Name Role Phone Govind WILLIS, Fidel Osborn Primary Care Physi rigo En[place] [facility] [place] Date(s): 07/06/21 - 10/05/21 [facility] [address] [place] [address] Drive, [address] [place], [place] [address] Attending Physician: Catrachito Bhagat MD Referring Physician: [...] oldest [Reference Range]: 1 Height 186 cm (09/04/21 1:27 PM) Weight 89 kg (09/04/21 1:27 PM) Body Mass Index [18.5-24.99] 25.73 *H* (09/04/21 1:27 PM) Social History Social History Type Response Smoking Status Never (less than 100 in lifetime) entered on: 09/19/18 Sex
--- OUTSIDE RECORDS SUMMARY | 2023-05-17 01:15 | XMS_ITS | Continuity of Care Document ---
Author Name Unknown Organization [facility] Address [address] [place] [address] [address], [address] [place] [address]- Care Team Providers Care Boat Rental Clerk Name Role Phone Fidel Faust MD Primary Care Physi rigo Encounter [facility] Date(s): 04/18/21 - 04/25/21 [facility] [address] [place] [address] Drive, [address] [place], [place] [address] Attending Physician: Catrachito Bhagat MD Referring Physician: Fidel Faust MD Allergies, Adverse Reactions, Alerts Substance Reaction [...] oldest [Reference Range]: 1 Height 186 cm (04/17/21 1:09 PM) Weight 89 kg (04/17/21 1:09 PM) Body Mass Index [18.5-24.99] 25.73 *H* (04/17/21 1:09 PM) Social History Social History Type Response Smoking Status Never (less than 100 in lifetime) entered on: 09/19/18 Sex
--- OUTSIDE RECORDS SUMMARY | 2023-05-17 01:15 | XMS_ITS | Continuity of Care Document ---
Author Name Unknown Organization [facility] Address [address] [place] [address], [address] [place] [address]- Care Team Providers Care Senior Sales Assistant Name Role Phone Fidel Faust MD Primary Care Physi rigo [place] [facility] [place] [id number] Date(s): 03/19/22 - 03/26/22 [facility] [address] [place] [address] Drive, [address] [place] [address]- Attending Physician: Catrachito Bhagat MD Referring Physician: [...] Refills, Maintenance, 01/03/22 8:15:00 EDT, Tablet, [id number], Partial fill upon patient request if the [...] 01/03/22 8:14:00 EDT, Route to Pharmacy Electronically, [facility]/pharmacy #[id number], Partial fill upon patient request [...] 01/03/22 8:15:00 EDT, Route to Pharmacy Electronically, [id number], [...] oldest [Reference Range]: 1 Height 185.42 cm (03/19/22 9:30 AM) Weight 90 kg (03/19/22 9:30 AM) Body Mass Index [18.5-24.99] 26.18 *H* (03/19/22 9:30 AM) Social History Social History Type Response Smoking Status Never (less than 100 in lifetime) entered on: 09/19/18 Sex
--- OUTSIDE RECORDS SUMMARY | 2023-05-17 01:15 | XMS_ITS | Continuity of Care Document ---
Author Name Unknown Organization [facility] Address [address] [place] [address] [address], [address] [place] [address]- Care Team Providers Care Public Health Aide Name Role Phone Fidel Faust MD Primary Care Physi rigo [place] [facility] [place] 01/16/22 - 01/23/22 [facility] [address] [place] [address] Drive, [address] [place] [address]- Attending Physician: Catrachito Bhagat MD Referring Physician: [...] Refills, Maintenance, 01/03/22 8:15:00 EDT, Tablet, [id number], Partial fill upon patient request if the prescription is for a schedule II opioid drug., 185.42, cm, 01/02/22 13:22:00 EDT... Start Date: 01/03/22 Status: Ordered atorvastatin 40 mg oral tablet 1 tablet = 40 mg, By Mouth, Daily at bedtime, # 30 tablet, 0 Refills, Maintenance, 01/03/22 8:13:00EDT, Tablet, [facility]/pharmacy #[id number], Partial fill upon patient [...] 02/02/22 8:14:00 EDT, 01/03/22 8:14:00 EDT, Tablet, [facility]/pharmacy #[id number], Partial fill upon patient [...] oldest [Reference Range]: 1 Height 185.42 cm (01/16/22 9:31 AM) Weight 90 kg (01/16/22 9:31 AM) Body Mass Index [18.5-24.99] 26.18 *H* (01/16/22 9:31 AM) Social History Social History Type Response Smoking Status Never (less than 100 in lifetime) entered on: 09/19/18 Sex
--- OUTSIDE RECORDS SUMMARY | 2023-05-17 01:15 | XMS_ITS | Continuity of Care Document ---
Author Name Unknown Organization [facility] Address [address] [place] [address]- Care Team Providers Care Casing Man Name Role Phone Govind WILLIS, Fidel Osborn Primary Care Physi rigo Encounter 01/04/22 - 02/14/22 [facility] [address] [place] [address]- Discharge Disposition: CLIENT NO LONGER REQUIRES SKILLED CARE Allergies, Adverse Reactions, Alerts No Known Allergies [...] 0 Refills, Maintenance, 01/03/22 8:15:00 EDT, Tablet, [facility]/pharmacy #[id number], Partial fill upon patient request if the [...] 01/03/22 8:14:00 EDT, Route to Pharmacy Electronically, [facility]/pharmacy #[id number], Partial fill upon patient request if the prescription is for a schedule II opioid drug., 1... Start Date: 01/03/22 Status: Ordered Flomax 0.4 mg oral capsule 0.4 mg, 1, capsule, By Mouth, Daily at bedtime, # 30 capsule, Refills 0, Tot. Refills 0, Maintenance, 01/03/22 8:16:00 EDT, Route to Pharmacy Electronically, [facility]/pharmacy #[id number], Partial fill upon patient request [...] 01/03/22 8:15:00 EDT, Route to Pharmacy Electronically, [facility]/pharmacy #[id number], Partial fill upon patient request [...]
--- OUTSIDE RECORDS SUMMARY | 2023-05-17 01:15 | XMS_ITS | Continuity of Care Document ---
Author Name Unknown Organization [facility] Address [address] [place] [address], [address] [place] [address]- Care Team Providers Care Tannery Gummer Name Role Phone Fidel Faust MD Primary Care Physi rigo Encounter [facility] [place] Date(s): 06/19/21 - 06/26/21 [facility] [address] [place] [address] Drive, [address] [place] [address]- Attending Physician: Catrachito Bhagat MD Referring Physician: [...] oldest [Reference Range]: 1 Height 186 cm (06/19/21 10:13 AM) Weight 89 kg (06/19/21 10:13 AM) Body Mass Index [18.5-24.99] 25.73 *H* (06/19/21 10:13 AM) Social History Social History Type Response Smoking Status Never (less than 100 in lifetime) entered on: 09/19/18 Sex
[2023-05-17 01:50] VITALS: BP 139/76; PULSE 89; RESP 18; O2SAT 98
== END 2023-05-17 01:51 | disposition home or self-care (01) ==
PROVIDERS: Emergency Provider Emergency Medicine; PCP Internal Medicine
DX: M75.92 Shoulder lesion, unspecified, left shoulder (principal); I48.0 Paroxysmal atrial fibrillation; Z86.73 Personal history of transient ischemic attack (TIA), and cerebral infarction without residual deficits; I10 Essential (primary) hypertension; E78.5 Hyperlipidemia, unspecified; Z79.01 Long term (current) use of anticoagulants; Z79.899 Other long term (current) drug therapy
CPT/HCPCS: 36415; 73030; 80053; 85027; 99283; 99284

== ENCOUNTER 2023-07-08 11:27 | Outpatient (AMB) | payer MEDICARE, MEDICAID, SELFPAY ==
--- NOTE | 2023-07-08 11:33 | A.OFFVIS_ITS ---
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 States he is limited ROM. He recalls he was not fully awake and walked into the wall a fews ago. Seen in ED where he was told he has tendonitis. Patient is open to a cortisone injection. 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 He was seen in the ED about 2 months ago and was told he had tendinitis. He states he did hurt the shoulder when he woke up in the middle of the night to go to the bathroom and bumped his shoulder. Patient denies a medical history of diabetes mellitus. He denies a prior cortisone injections. [facility] Medical History Paroxysmal A-fib CVA (cerebral vascular accident) Vertebrobasilar ischemia Bronchitis Asthma Myocardial infarction HLD (hyperlipidemia) HTN (hypertension) Social History Household Members: None Housing: Apartment Do you presently have visiting nurse or other home services: No Alcohol intake: former Patient Tobacco Use Status: Never used Tobacco Advance Directives Date on File: 07/23/20 service: No Current occupational status: unemployed Review of Systems Const All systems reviewed & are unremarkable except as noted in HPI and below Physical Exam Vital Signs: BMI result Body Mass Index 29.0 Const General: cooperative and no acute distress Orientation/consciousness: patient oriented x3 Resp Effort & Inspection: normal respiratory effort and able to speak in complete sentences Cardio Peripheral pulses: Peripheral pulses 2+ throughout Skin General skin exam: no rashes or lesions noted Neuro General: patient oriented x3 Extrem Other: Left shoulder: Forward flexion lacking 20 degrees. Abduction to 90 degrees. External rotation to 45 degrees. 3/5 strength with empty can. Negative drop arm. NVI. Office Procedures Joint Injection/Drain Joint Injection/Drain Primary Site: left shoulder Prep: site was prepped using aseptic technique, ethochloride spray was applied and injection warnings given Injected: 80 mg of, DepoMedrol, with 8 mL of (2% plain lido ) and in the subcromial space Approach Used: posterolateral Procedure: The patient tolerated the procedure well, but had some pain with the injection and there was some relief with the local anesthesia Coding 08324 - Large joint Procedure code (CPT) selection complete Assessment & Plan Assessment & Plan (1) Calcific tendinitis of left shoulder: Code(s): M75.32 - Calcific tendinitis of left shoulder Plan Mr. Childers is a 62-year-old male, who is Maltese speaking, presents in the office today, as a new patient, for an evaluation of left shoulder pain. He was seen in the ED about 2 months ago and was told he had tendinitis. He states he did hurt the shoulder when he woke up in the middle of the night to go to the b athroom and bumped his shoulder. Patient denies a medical history of diabetes mellitus. He denies a prior cortisone injections. We discussed the role of cortisone injections in the shoulder and physical therapy. He would like to move forward with this at this time. The patient was offered a cortisone injection in the left shoulder with 80 mg of DepoMedrol. The patient was explained the risk, benefits, and alternatives to receiving this injection. After receiving consent for the injection, the patient had the procedure done while in office today. The patient tolerated the procedure well with no complications. Follow up will be PRN, or sooner if needed. X-rays of the left shoulder, obtained on 05/17/2023, revealed: * No acute fracture or dislocation. * Searchlight calcific rotator cuff tendinopathy, supraspinatus. Orders: Orders PT Evaluation and Treatment Today M75.32 - Calcific tendinitis of left shoulder Patient Instructions: Scribed for Lupe Anguiano PA-C by Roselia Liu territory sales manager medical, on 07/08/2023 at 11:33 am, EST. Coding Level of Care Code New Pt Level 4 (03129) Diagnoses Calcific tendinitis of left shoulder M75.32 CPT Codes Coding - 57076 Large joint: 82205 - Large joint ([id number])
[2023-07-08 11:42] VITALS: BMI 29.0
== END 2023-07-08 11:47 | disposition home or self-care (01) ==
PROVIDERS: PCP Internal Medicine; Visit Provider Physician Assistant
DX: M75.32 Calcific tendinitis of left shoulder (principal)
CPT/HCPCS: 20610; 99204

== ENCOUNTER → 2023-07-08 11:27 | Outpatient (BNVA) | payer MEDICARE, MEDICAID, SELFPAY | PROVIDERS: PCP Internal Medicine; Visit Provider Physician Assistant | DX: M75.32 Calcific tendinitis of left shoulder (principal) | CPT/HCPCS: 20610; 99202; J1040 ==

== ENCOUNTER 2023-08-29 13:00 | Outpatient (RCR) | payer MEDICARE, MEDICAID, SELFPAY ==
--- NOTE | 2023-08-08 13:09 | MHC.PT.EP ---
[facility] [place] Office [place] Office [place] Office [address] [phone] F: [phone] F: [phone] F: [phone] F: [phone] Physical Therapy Plan of Care Date of Evaluation: 08/08/23 Date of Surgery: n/a Diagnosis: Calcific tendinitis of left shoulder Assessment: Pt is a pleasant 62yo M who presents to PT with L shoulder pain for ~2 months. Pt had xray which revealed Brandon calcific rotator cuff tendinopathy, supraspinatus. Pt presents to PT with current impairments in pain, decreased L shoulder ROM, decreased L shoulder strength, soft tissue restrictions, and impaired posture. He is limited functionally by lifting, reaching, and ADLs. He is an excellent candidate for skilled PT in order to address current impairments to facilitate return to pain-free PLOF. He is recommended to be seen 1x/week for 6 weeks and will be reassessed at that time Frequency and Duration: The patient will be seen 1x/week for 6 weeks Short Term Goals: Pt will be I with HEP to promote self management of symptoms Pt will improve L shoulder flexion ROM by at least 10 degrees Pt improve L shoulder abduction strength by 1/2 grade Generator Switchboard Operator Goals: Pt will achieve full ROM and strength all planes of L shoulder with minimal to no discomfort Pt will demonstrate ability to lift object into overhead shelf with minimal to no discomfort or compensation Pt will demonstrate improvements in function as evidenced by statistically significant improvement in SPADI outcome measure Treatment Plan: Modalities to reduce pain, spasms and effusion. Manual therapy to restore motion and function. Therapeutic exercise to improve strength and flexibility. Neuromuscular re-education for posture and balance. Therapeutic activities to return to functional activities of daily living. Electronically signed by: Marita Odonnell, PT, DPT Please sign and return to therapist. Thank you for your referral.
--- NOTE | 2023-11-20 15:32 | MHC.PT.DC ---
[facility] [place] Office [place] [facility] [place] [facility] [address] [phone] F: [phone] F: [phone] F: [phone] F: [phone] Physical Therapy Discharge Report Diagnosis: Calcific tendinitis of left shoulder Date of Surgery: n/a Date of Evaluation: 08/08/23 Date of Discharge: 11/20/23 Treatments to Date: 3 Cancellations to Date: No Shows to Date: 3 Discharge Status: Visit Non-compliance Discharge Summary: Pt was seen for PT from 08/08/23-08/29/23. His last attended appointment was 08/29/23. He had 3 no-show appointments since SOC. Pt is being D/C from PT per [facility] [place] policy and visit non-compliance. Pt current level of function unknown at this time Electronically signed by: Marita Odonnell, PT, DPT Please sign and return to therapist. Thank you for your referral.
== END 2023-11-20 15:31 | disposition home or self-care (01) ==
LOC: HO.PT 13:00
PROVIDERS: PCP Internal Medicine; Visit Provider Physician Assistant
DX: M75.32 Calcific tendinitis of left shoulder (principal)
CPT/HCPCS: 97110; 97161

== ENCOUNTER 2023-10-09 11:11 | Outpatient (REF) | payer MEDICARE, MEDICAID, SELFPAY ==
[2023-10-09 14:41] LABS: Alanine Aminotransferase 28 U/L (0-40); Albumin Level 3.8 g/dL (3.5-5.0); Alkaline Phosphatase 91 U/L (39-117); Anion Gap 9 (12-20); Aspartate Amino Transferase 28 U/L (5-37); Bilirubin Direct 0.3 mg/dL (0.0-0.5); Bilirubin Total 1.1 mg/dL (0.0-1.0); Blood Urea Nitrogen 12 mg/dL (9-16); Calcium 9.2 mg/dL (8.4-10.2); Carbon Dioxide 27 mmol/L (22-29); Chloride 109 mmol/L (96-108); Cholesterol 150 mg/dL (<200); Estimated Glomerular Filt Rate > 60; Glucose Random 87 mg/dL (60-115); HDL Cholesterol 40 mg/dL (>40); LDL Cholesterol Calculated 58 mg/dL (<100); Potassium 4.1 mmol/L (3.3-5.1); Sodium 141 mmol/L (135-145); Total Protein 7.3 g/dL (6.5-8.0); Triglycerides 262 mg/dL (<150)
[2023-10-09 18:44] LABS: Reflex LDLD? No
[2023-10-10 09:01] LABS: HIV AB/AG Nonreactive (Nonreactive); HIV Num 1 0.07 S/CO (0.00-0.99)
== END 2023-10-09 11:12 | disposition home or self-care (01) ==
LOC: HO.HHCL 11:11
PROVIDERS: Visit Provider Internal Medicine
DX: Z00.00 Encounter for general adult medical examination without abnormal findings (principal); I10 Essential (primary) hypertension; Z12.5 Encounter for screening for malignant neoplasm of prostate
CPT/HCPCS: 36415; 80048; 80061; 80076; 84153; 87389

== ENCOUNTER 2024-07-01 20:53 | Emergency (ER) | payer OTHER, SELFPAY ==
--- NOTE | 2024-07-01 | ECG_ITS ---
Test Reason : CP Blood Pressure : / mmHG Vent. Rate : 070 BPM Atrial Rate : 070 BPM P-R Int : 172 ms QRS Dur : 092 ms QT Int : 412 ms P-R-T Axes : 067 -34 041 degrees QTc Int : 444 ms Normal sinus rhythm Left axis deviation Abnormal ECG When compared with ECG of 22-FEB-2023 22:30, No significant change was found Referred By: Generic ED Physician Electronically Signed By:CHRISTY GARY
--- NOTE | ~2024-07-01 | XR_ITS ---
EXAMINATION: XR CHEST CLINICAL INFORMATION: chest pain COMPARISON: 03/15/2022 TECHNIQUE: 2 views of the chest were obtained. FINDINGS: No significant abnormality is noted involving the heart, lungs, mediastinum, bony thorax or soft tissues. Posterior fixation hardware is present in the cervical spine. XR/XR chest 2V IMPRESSION: Unremarkable examination. Electronically signed by: Luis Carlos Miguel MD 07/01/2024 10:57 PM RUPINDER
[2024-07-01 21:04] VITALS: BP 142/82; PULSE 73; RESP 18; TEMP 37; O2SAT 98; BMI 28.7
[2024-07-01 21:22] LABS: Hematocrit 43.4 % (42.0-52.0); Hemoglobin 14.8 g/dl (14.0-18.0); Mean Corpuscular HGB Conc 34.1 g/dl (31.0-36.0); Mean Corpuscular Volume 87.9 fL (80.0-98.0); Mean Platelet Volume 9.6 fL (9.4-12.4); Platelet Count 238 X10*3/uL (160-400); Red Blood Count 4.94 X10*6/uL (4.60-5.80); Red Cell Distribution Width 13.2 % (11.0-16.0); White Blood Count 9.7 X10*3/uL (4.8-10.8)
[2024-07-01 21:28] LABS: INTERNATIONAL NORM RATIO 1.1 (0.9-1.1); Prothrombin Time 13.3 SEC (10.9-12.4)
[2024-07-01 21:36] LABS: Anion Gap 15 (12-20); Blood Urea Nitrogen 15 mg/dL (9-16); Carbon Dioxide 25 mmol/L (22-29); Chloride 106 mmol/L (96-108); Creatinine Clr Calc Pharmacy 77.3; Estimated Glomerular Filt Rate > 60; Glucose Random 104 mg/dL (60-115); Potassium 3.9 mmol/L (3.3-5.1); Sodium 142 mmol/L (135-145)
[2024-07-01 21:42] LABS: B Type Natriuretic Peptide < 10 pg/mL (<100)
[2024-07-01 21:44] LABS: Troponin-I High Sensitivity < 2.7 ng/L (<3.5-35.0)
--- NOTE | 2024-07-01 23:27 | ED_ITS ---
HPI - Chest Pain General Chief Complaint: Chest Pain Stated Complaint: chest pains Time Seen by Provider: 07/01/24 23:27 History of Present Illness ED Provider: Asuncion FARIAS narrative: The patient is a 63-year-old male with a history of paroxysmal atrial fibrillation. He is on apixaban and diltiazem. The patient was at [employer] this evening when he developed chest discomfort on his left chest. It was somewhat worse with taking a deep breath. He had some mild sense of shortness of breath. No diaphoresis. No nausea. No vomiting. The symptoms lasted about an hour. He spoke to some friends at [employer] who recommended he come to the emergency room for evaluation. The discomfort began added round 20:30. No fever, sweats, chills. No pain or swelling in his legs. At the time that I interviewed him he remained asymptomatic. Related Data Home Medications ?Medication ?Instructions ?Recorded ?Confirmed diltiazem HCl 120 mg capsule,24 1 cap PO DAILY 01/20/22 01/20/22 hr,extended release (Tiadylt ER) meclizine 25 mg tablet (Dramamine 25 mg PO BID PRN dizziness 01/20/22 01/20/22 Less Drowsy) tizanidine 4 mg tablet 1 tab PO Q8H PRN muscle spasm 01/20/22 01/20/22 Previous Rx's ?Medication ?Instructions ?Recorded apixaban 5 mg tablet (Eliquis) 5 mg PO BID #30 tabs 07/25/20 atorvastatin 40 mg tablet 40 mg PO BEDTIME #30 tabs 07/25/20 cefuroxime axetil 500 mg tablet 500 mg PO BID #14 tabs 01/22/22 finasteride 5 mg tablet (Proscar) 5 mg PO DAILY 30 days #30 tabs 01/22/22 tamsulosin 0.4 mg capsule 0.8 mg (2 x 0.4 mg) PO BEDTIME 30 01/22/22 days #60 caps meclizine 25 mg tablet 25 mg PO TID PRN dizziness #20 tabs 02/22/23 oxycodone 5 mg capsule 5 mg PO Q8H PRN pain #12 caps 02/22/23 lidocaine 5 % topical patch 1 patch topical DAILY #30 ea 05/17/23 oxycodone 5 mg tablet 5 mg PO Q6H PRN pain #12 tabs 05/17/23 Allergies Allergy/AdvReac Type Severity Reaction Status Date / Time No Known Allergies Allergy Mild UNKNOWN Verified 07/01/24 21:06 [No Known Allergies*] Review of Systems 2 Review of Systems: Yes all other systems are reviewed and are negative [facility] Past Medical History Medical History Paroxysmal A-fib CVA (cerebral vascular accident) Vertebrobasilar ischemia Bronchitis Asthma Myocardial infarction HLD (hyperlipidemia) HTN (hypertension) Social History Social History Household Members: None Housing: Apartment Do you presently have visiting nurse or other home services: No Alcohol intake: former Patient Tobacco Use Status: Never used Tobacco Smoked in Last 30 Days: No Use of substances other than those prescribed or required for medical reasons: No Advance Directives: Yes Advance Directives on File: Yes Advance Directives Date on File: 07/23/20 service: No Current occupational status: unemployed Physical Exam 2 Vital Signs: Vital Signs: Last Vital Signs Temp 97.7 F 07/02/24 01:31 Pulse 59 07/02/24 01:31 Resp 18 07/02/24 01:31 BP 127/76 07/02/24 01:31 Pulse Ox 96 07/02/24 01:31 O2 Del Method Room Air 07/02/24 01:31 BMI result Body Mass Index 28.7 Const: Other: The patient is a 63-year-old male who was awake and alert no apparent distress. He is pleasant and cooperative and looks well. HEENT: Other: Face is symmetrical, mucous membranes moist Eyes: General: appearance normal, both eyes and all related structures Neck: Neck: Yes no JVD Resp: Effort & Inspection: normal respiratory effort Auscultation: clear to auscultation bilaterally Cardio: Rate: regular rate Rhythm: regular rhythm Heart sounds: S1 normal heart sound present and S2 normal heart sound present GI: Other: Abdomen is soft and nontender Skin: Other: Skin is dry and unremarkable Neuro: Other: The patient is awake and alert, pleasant cooperative. Cranial nerves are grossly intact. He moves his extremities normally and appropriately and seems neurologically intact. Extrem: Other: No calf swelling or tenderness, no asymmetry, no edema Medical Decision Making Medical Decision Making MDM Narrative: The patient is a 63-year-old male with a history of paroxysmal atrial fibrillation on apixaban. He came to the emergency department after developing chest pain at [employer]. The pain lasted about an hour. His EKG is nonischemic. His troponins are undetectable. He looks well. I think he may be discharged to follow up with his regular doctor or return if worse. Lab Data 07/01/24 21:14 07/01/24 21:14 Labs: Lab Results 07/01/24 07/01/24 Range/Units 21:14 23:51 WBC 9.7 (4.8-10.8) X10*3/uL RBC 4.94 (4.60-5.80) X10*6/uL Hgb 14.8 (14.0-18.0) g/dl Hct 43.4 (42.0-52.0) % MCV 87.9 (80.0-98.0) fL MCH 30.0 (27.0-33.0) pg MCHC 34.1 (31.0-36.0) g/dl RDW 13.2 (11.0-16.0) % Plt Count 238 (160-400) X10*3/uL MPV 9.6 (9.4-12.4) fL Absolute Nucleated RBC 0.000 (0.0-0.012) X10*3/uL Nucleated RBC % (auto) 0.0 (0.0-0.2) /100WBC PT 13.3 H (10.9-12.4) SEC INR 1.1 (0.9-1.1) Sodium 142 (135-145) mmol/L Potassium 3.9 (3.3-5.1) mmol/L Chloride 106 (96-108) mmol/L Carbon Dioxide 25 (22-29) mmol/L Anion Gap 15 (12-20) BUN 15 (9-16) mg/dL Creatinine 1.16 (0.5-1.4) mg/dL Estim Creat Clear Calc 77.3 Estimated GFR > 60 Random Glucose 104 (60-115) mg/dL Calcium 9.0 (8.4-10.2) mg/dL Magnesium 2.0 (1.6-2.6) mg/dL Troponin I High Sens < 2.7 < 2.7 (<3.5-35.0) ng/L B-Natriuretic Peptide < 10 (<100) pg/mL Independent Interpretation I performed an independent interpretation of an: EKG Interpretation: EKG at 20:53 shows normal sinus rhythm at 70 beats per minute. No acute ischemic changes. No change from previous EKG. Discharge Plan Discharge Clinical Impression: Chest pain Patient Disposition: Home, Self-Care Additional Instructions: Your testing in the emergency room today is very reassuring. No other your EKG nor your blood tests suggest anything like a heart attack. Your chest x-ray is clear. Please continue your regular medications. Follow up soon with your regular doctor. Return to the emergency room if you feel significantly worse. Prescriptions: No Action atorvastatin 40 mg Tablet 40 mg PO BEDTIME Qty: 30 0RF Eliquis 5 mg Tablet 5 mg PO BID Qty: 30 0RF tizanidine 4 mg tablet 1 tab PO Q8H PRN (Reason: muscle spasm) diltiazem HCl [Tiadylt ER] 120 mg capsule,extended release 24 hr 1 cap PO DAILY meclizine [Dramamine Less Drowsy] 25 mg tablet 25 mg PO BID PRN (Reason: dizziness) tamsulosin 0.4 mg Capsule 0.8 mg PO BEDTIME 30 Days Qty: 60 0RF finasteride [Proscar] 5 mg Tablet 5 mg PO DAILY 30 Days Qty: 30 0RF cefuroxime axetil 500 mg tablet 500 mg PO BID Qty: 14 0RF oxycodone 5 mg capsule 5 mg PO Q8H PRN (Reason: pain) Qty: 12 0RF Rx Instructions: Partial Fill upon patient request. meclizine 25 mg tablet 25 mg PO TID PRN (Reason: dizziness) Qty: 20 0RF lidocaine 5 % adhesive patch,medicated 1 patch topical DAILY Qty: 30 0RF Rx Instructions: leave on most painful area for up to 12 hrs oxycodone 5 mg tablet 5 mg PO Q6H PRN (Reason: pain) Qty: 12 0RF Rx Instructions: Partial Fill upon patient request. Referrals: Fidel Faust MD [Primary Care Provider] - (chest pain) Print Language: Brazilian
[2024-07-01 23:45] VITALS: BP 124/82; PULSE 63; RESP 14; O2SAT 99
[2024-07-02 00:21] LABS: Troponin-I High Sensitivity < 2.7 ng/L (<3.5-35.0)
[2024-07-02 01:31] VITALS: BP 127/76; PULSE 59; RESP 18; TEMP 36.5; O2SAT 96
[2024-07-02 01:45] VITALS: BP 127/76; PULSE 59; RESP 18; TEMP 36.5; O2SAT 96
== END 2024-07-02 01:45 | disposition home or self-care (01) ==
PROVIDERS: Emergency Provider Emergency Medicine; PCP Internal Medicine
DX: R07.9 Chest pain, unspecified (principal); R06.02 Shortness of breath; I10 Essential (primary) hypertension; E78.5 Hyperlipidemia, unspecified; I48.0 Paroxysmal atrial fibrillation; J45.909 Unspecified asthma, uncomplicated; Z79.01 Long term (current) use of anticoagulants; Z79.02 Long term (current) use of antithrombotics/antiplatelets; Z79.899 Other long term (current) drug therapy; Z86.73 Personal history of transient ischemic attack (TIA), and cerebral infarction without residual deficits
CPT/HCPCS: 36415; 71046; 80048; 83735; 83880; 84484; 85027; 85610; 93005; 99283; 99285

== ENCOUNTER → 2024-07-01 20:53 | Outpatient (BNV) | payer OTHER, SELFPAY | PROVIDERS: Emergency Provider Emergency Medicine; PCP Internal Medicine; Visit Provider Internal Medicine | DX: R94.31 Abnormal electrocardiogram [ECG] [EKG] (principal) | CPT/HCPCS: 93010 ==

== ENCOUNTER 2024-08-17 08:02 | Outpatient (REF) | payer OTHER, SELFPAY ==
[2024-08-17 12:13] LABS: Cholesterol 146 mg/dL (<200); HDL Cholesterol 50 mg/dL (>40); LDL Cholesterol Calculated 79 mg/dL (<100); Triglycerides 88 mg/dL (<150)
== END 2024-08-17 08:03 | disposition home or self-care (01) ==
LOC: HO.HHCL 08:02
PROVIDERS: Visit Provider Internal Medicine
DX: E78.2 Mixed hyperlipidemia (principal)
CPT/HCPCS: 36415; 80061

== ENCOUNTER 2024-11-17 10:41 | Outpatient (REF) | payer MEDICAID, SELFPAY ==
--- OUTSIDE RECORDS SUMMARY | 2024-11-17 12:54 | XMS_ITS | Encounter Summary ---
Author Organization [facility] Address [address] [place] [address] Care Team Providers Care Hotel Assistant General Manager Name Role Phone Fidel Hemphill MD Primary Care Provide r Encounter Details Date Type Department Care Team (Late st Contact Info) Description 08/15/2022 Orders Only [facility] [address] [place], [place] [phone] Fidel Hemphill MD [address] [place], [place] [phone] Social History Tobacco Use Types Packs/Day Years Used Date Smoking Tobacco: Never Smokeless Tobacco: Never Sex and Gender Information Value Date Recorded Sex Assigned at Male 06/04/2022 10:15 AM EDT Legal Sex Male 10:15 AM EDT Gender Identity Male 06/04/2022 10:15 AM EDT Sexual Orientation Choose not to disclose 2021 10:15 AM EDT COVID-19 Exposure Response Date Recorded In the last 10 days, have yo u been in contact with someone who was confirmed or suspected to have Coronavirus/COVID-19? No / Unsure 08/14/2022 10:02 AM EST documented as of this encounter Plan of Treatment Upcoming Encounters Date Type Department Care Team (Late st Contact Info) Description 02/16/2025 11:15 AM EDT Office Visit [facility] [address] [place] [address] [phone] Fidel Hemphill MD [address] [place], [place] [phone] documented as of this encounter Procedures Procedure Name Priority Date/Time Associated Diagnosis Comments CBC Routine 05/17/2023 12:53 AM EDT URINALYSIS WITH REFLEX MICROSCOPIC Routine 02/22/2023 10:25 PM EDT CBC WITH AUTO DIFFERENTIAL Routine 02/22/2023 8:50 AM EDT COMPREHENSIVE METABOLIC PANEL Routine 02/22/2023 8:50 AM EDT documented in this encounter Results * (ABNORMAL) CBC (05/17/2023 12:53 AM EDT) White Blood Count 10.0 4.8 - 10.8 X10*3/uL [facility] Red Blood Count 4.81 4.60 - 5.80 X10*6/uL [facility] Hemoglobin 13.6(L) 14.0 - 18.0 g/dl [facility] Hematocrit 40.8(L) 42.0 - 52.0 % [facility] Mean Corpuscular Volume 84.8 80.0 - 98.0 fL [facility] Mean Corpuscular Hemoglobin 28.3 27.0 - 33.0 pg [facility] Mean Corpuscular HGB Conc 33.3 31.0 - 36.0 g/dl [facility] Red Cell Distribution Width 14.3 11.0 - 16.0 % [facility] Platelet Count 258 160 - 400 X10*3/uL [facility] Mean Platelet Volume 9.6 9.4 - 12.4 fL [facility] NRBC Pct Auto 0.0 0.0 - 0.2 /100WBC [facility] NRBC Abs Auto 0.000 0.0 - 0.012 X10*3/uL [facility] 05/17/2023 12:5 3 AM EDT 05/17/2023 12:57 AM EDT [facility] External Provider LAB BLO OD ORDERABLES Final Result Performing Organization Address [facility] de Phone Number [facility] [address] [place] [address] [phone] * Urinalysis w/reflex microscopic (02/22/2023 10:25 PM EDT) Color Urine Yellow [facility] Appearance Urine Clear [facility] PH 5.5 5.0 - 9.0 [facility] Glucose Urine UA Negative Negative mg/dL [facility] Urine Blood Negative Negative [facility] Specific Blanco - Urine 1.020 1.005 - 1.025 [facility] Urine Protein Trace Neg-Trace mg/dL [facility] Urine Ketones Trace Negative mg/dL [facility] Nitrite Urine Negative Negative [facility] Leukocyte Esterase Urine Negative Negative [facility] 02/22/2023 10:2 5 PM EDT 02/22/2023 10:30 PM EDT Narrative [facility] - 02/22/2023 10:35 PM EDT Urine, Clean Catch [facility] External Provider LAB URI NE ORDERABLES Final Result Performing Organization Address [facility] Co de Phone Number [facility] [address] [place] [address] [phone] * (ABNORMAL) Comprehensive Metabolic Panel (02/22/2023 8:50 AM EDT) Sodium 139 135 - 145 mmol/L [facility] Potassium 3.9 3.3 - 5.1 mmol/L [facility] Chloride 106 96 - 108 mmol/L [facility] Carbon Dioxide 27 22 - 29 mmol/L [facility] Anion Gap 10(L) 12 - 20 [facility] Urea Nitrogen (BUN) 9 9 - 16 mg/dL [facility] Creatinine, Serum 0.97 0.5 - 1.4 mg/dL [facility] Creatinine Clr Calc Pharmacy 93.5 [facility] Comment:eGFR (calculated fro m the MDRD study equation) and eCrCl(calculated from the Cockcroft-Gault equation) are based ondifferent parameters and may not yield comparable results.If eCrCl result is absurd, please check patient'sheight/weight. Estimated Glomerular Filt Rate >60 [facility] Comment:NOTE: For -Am erican individuals, multiply the result by 1.210.Chronic Kidney Disease: Estimated GFR < 60 mL/min/1.35w4Teitjq Kidney Disease: Estimated GFR < 15 mL/min/1.73m2 Glucose 99 60 - 115 mg/dL [facility] Calcium 9.5 8.4 - 10.2 mg/dL [facility] Bilirubin, Total 1.2(H) 0.0 - 1.0 mg/dL [facility] Aspartate Amino Transferase 26 5 - 37 U/L [facility] Alanine Aminotransferase 31 0 - 40 U/L [facility] Total Protein 7.7 6.5 - 8.0 g/dL [facility] Albumin Level 4.0 3.5 - 5.0 g/dL [facility] Alkaline Phosphatase 96 39 - 117 U/L [facility] 02/22/2023 8:50 AM EDT 02/22/2023 8:52 AM EDT [facility] External Provider LAB BLO OD ORDERABLES Final Result [facility] [address] [place] [phone] * (ABNORMAL) CBC auto differential (02/22/2023 8:50 AM EDT) White Blood Count 8.2 4.8 - 10.8 X10*3/uL [facility] Red Blood Count 5.33 4.60 - 5.80 X10*6/uL [facility] Hemoglobin 14.4 14.0 - 18.0 g/dl [facility] Hematocrit 44.7 42.0 - 52.0 % [facility] Mean Corpuscular Volume 83.9 80.0 - 98.0 fL [facility] Mean Corpuscular Hemoglobin 27.0 27.0 - 33.0 pg [facility] Mean Corpuscular HGB Conc 32.2 31.0 - 36.0 g/dl [facility] Red Cell Distribution Width 15.0 11.0 - 16.0 % [facility] Platelet Count 262 160 - 400 X10*3/uL [facility] Mean Platelet Volume 9.5 9.4 - 12.4 fL [facility] Neutrophils Percent Auto 74.9(H) 45 - 73 % [facility] Imm Gran Pct Auto 0.2 0.0 - 0.4 % [facility] Lymphocytes Percent Auto 15.2(L) 20 - 40 % [facility] Monocytes Percent Auto 7.6 2 - 11 % [facility] Eosinophils Percent Auto 1.2 0 - 4 % [facility] Basophils Percent Auto 0.9 0 - 2 % [facility] NRBC Pct Auto 0.0 0.0 - 0.2 /100WBC [facility] Neutrophils Absolute Auto 6.1 2.0 - 8.3 x10*3/uL [facility] Imm Gran Abs Auto 0.02 0.00 - 0.03 X10*3/uL [facility] Lymphocytes Absolute Auto 1.2 1.2 - 4.9 X10*3/uL [facility] Monocytes Absolute Auto 0.6 0.1 - 1.2 X10*3/uL [facility] Eosinophils Absolute Auto 0.1 0.0 - 0.4 X10*3/uL [facility] Basophils Absolute Auto 0.1 0.0 - 0.2 X10*3/uL [facility] NRBC Abs Auto 0.000 0.0 - 0.012 X10*3/uL [facility] 02/22/2023 8:50 AM EDT 02/22/2023 8:52 AM EDT [facility] External Provider LAB BLO OD ORDERABLES Final Result [facility] [address] [place] [phone] documented in this encounter Visit Diagnoses Not on filedocumented in this encounter Care Teams Hotel Assistant General Manager Relationship Specialty Start Date End Date Fidel Hemphill MD [address] [place] [phone] PCP - General Internal Medicine 03/25/14 documented as of this encounter
--- OUTSIDE RECORDS SUMMARY | 2024-11-17 12:54 | XMS_ITS | Clinical Summary ---
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 Active finasteride (Proscar) 5 MG tabletIndications: Benign prostatic hyperplasia without lower urinary tract symptoms TAKE 1 TABLET BY MOUTH EVERY MORNING 90 tablet 3 04/29/20 24 Active atorvastatin (Lipitor) 40 MG tabletIndications: Mixed hyperlipidemia TAKE 1 TABLET BY MOUTH EVERY MORNING 90 tablet 3 04/30/20 24 Active tamsulosin (Flomax) 0.4 MG 24 hr capsuleIndications :Benign prostatic hyperplasia without lower urinary tract symptoms TAKE 1 CAPSULE BY MOUTH EVERY EVENING 90 capsule 1 07/28/20 24 Active apixaban (Eliquis) 5 MG tablet TAKE 1 TABLET BY MOUTH TWICE DAILY IN THE MORNING AND IN THE EVENING 60 tablet 3 08/25/19 25 Active dilTIAZem ER (Tiazac) 120 MG 24 hr capsule TAKE 1 CAPSULE BY MOUTH EVERY MORNING 90 capsule 3 10/23/19 25 Active terbinafine (LamISIL) 250 MG tabletIndications: Onychomycosis of nail of digit of hand Take 1 tablet (250 mg) by mouth Once per day. 30 tablet 2 11/18/19 25 025 Active dilTIAZem CD (Cardizem CD) 120 MG 24 hr capsule TAKE 1 CAPSULE BY MOUTH EVERY MORNING 90 capsule 3 11/14/19 24 025 Discontinued Active Problems Problem Noted Date Diagnosed Date Overweight (BMI 25.0-29.9) 11/17/2024 Assessment & Plan (11/17/2024 10:26 AM EDT): Patient has been counseled and educated about diet and exercise. Personal goal of weight loss discussed Onychomycosis of nail of digit of hand Assessment & Plan (11/17/2024 10:32 AM EDT): Pt with what appears to be onychomycosis right index fingernail Interested in Terbinafine Discussed possible side effects, including liver inflammation/damage Pt would like to start Plan: LFTS. Terbinafine 250 mg daily x 3 months Acute diffuse otitis externa of left ear 025 Assessment & Plan (08/18/2024 10:39 AM EST): Symptomatology and exam indicative of this Plan: Ciprodex ottic 4 drops left ear BID x 7 days Follow up if no improvement Routine physical examination 08/15/2023 Assessment & Plan (08/15/2023 10:44 AM EST): Within normal limits Acute pain of left shoulder 06/04/2023 Assessment & Plan (08/15/2023 10:29 AM EST): Previously evaluated in the ER X-ray suggestive of chunky calcific rotator cuff tendinopathy Seen by ortho 07/08/2023 received steroid injection PT evaluation pending Will consider further imaging if pain persists and no improvement following PT Assessment & Plan (06/04/2023 12:32 PM EDT): -significantly reduced active and passive ROM, normal strength, sensation, pulses -ED X-ray suggestive of chunky calcific rotator cuff tendinopathy -take oxycodone as prescribed in the ED along with tylenol until pills are complete -rx for extra strength tylenol sent and topical NSAID to pharmacy do not exceed 8 tabs daily -orthopedic referral placed for steroid injection -PT orders placed -consider further imaging if pain persists and no improvement following PT Benign prostatic hyperplasia with urinary freque ncy 08/14/2022 Assessment & Plan (08/14/2022 10:52 AM EST): Pt under the care of [facility], last note on record from 06/2022 on Tamsulosin and finasteride. Pt tells me he has a follow up appointment 12/2022 S/P cervical spinal fusion 08/14/2022 Assessment & Plan (08/14/2022 10:26 AM EST): Doing well Cervical radiculopathy due t o degenerative joint disease of spine 08/14/2022 Assessment & Plan (08/14/2022 10:30 AM EST): Pt had an MRI of Cervical spine done at [facility] 07/22/2020 that showed degenerative spondylosis in upper cervical spine with some mass effect on the ventral cord at the C3-C4 and C4-C5 levels Pt referred to Neurosurgery for eval. he was finally seen 06/26/[address] Bhagat, he is now s/p cervical spine fusion Chronic midline low back pain without sciatica 0 08/14/2022 Assessment & Plan (08/14/2022 10:33 AM EST): Currently not complaining. Pt with previous c/o recurrent low back pain with radiation to his left leg and accompanying numbness and tingling. symptomatology seemed to be suggestive of a lumbar radiculopathy. MRI of his LS spine 07/16/12 showed a L3-L4 left posterolateral disc protrusion/herniation contacting left L3 nerve root, L4-L4 posterolateral disc protrusion/ herniation. Pt was seen by a neurosurgeon Dr Escamilla on 09/25/11 and underwent a right L4-L5 minimally invasive decompression with resection of synovial cyst. He was last seen by Dr Escamilla on 11/12/2012 and it appears pt had significant improvement from his previous symptoms.. Preventative health care 08/14/2022 Assessment & Plan (11/17/2024 10:26 AM EDT): PSA 10/09/2023: Normal Colonoscopy: NL 12/22/2018 at [facility] showed a rectal polyp, GI recommended 5 yr repeat given Fam Hx of colon cancer. Due in 12/2023 Scheduled for GI 03/31/2025 Assessment & Plan (08/18/2024 10:04 AM EST): PSA 10/09/2023: Normal Colonoscopy: NL 12/22/2018 at [facility] showed a rectal polyp, GI recommended 5 yr repeat given Fam Hx of colon cancer. Due in 12/2023 Will refer back Assessment & Plan (03/31/2024 9:08 AM EDT): PSA 10/09/2023: Normal Colonoscopy: NL 12/22/2018 at [facility] showed a rectal polyp, GI recommended 5 yr repeat given Fam Hx of colon cancer. Due in 12/2023 Assessment & Plan (08/15/2023 10:45 AM EST): Physical exam today within normal limits Colonoscopy: NL 12/22/2018 at [facility] showed a rectal polyp, GI recommended 5 yr repeat given Fam Hx of colon cancer. Due in 12/2023 Assessment & Plan (08/14/2022 12:40 PM EST): Physical exam today within normal limits Colonoscopy: NL 12/22/2018 at [facility] showed a rectal polyp, GI recommended 5 yr repeat given Fam Hx of colon cancer Benign paroxysmal positional vertigo 06/27/2022 History of CVA (cerebrovascular accident) 2021 Assessment & Plan (08/14/2022 10:29 AM EST): Pt initially presented to [facility] ED with sudden onset of dizziness, slurred speech and right facial droop, suggestive of an acute CVA. After discussion with neurology, pt was given tPA while in ED. Pt? s symptoms improved, a negative MRI was obtained without any neurological deficits. Pt was evaluated by physical therapy who recommended PT with outpatient services. Pt is on Eliquis recommended by Neurology due to hx of paroxysmal AFib. Moderate persistent asthma without complication 11/12/2017 Assessment & Plan (11/17/2024 10:25 AM EDT): No recent exacerbation He is on Flovent 220 In the pasyt used to see Dr. Lin Assessment & Plan (08/14/2022 10:32 AM EST): He is off Advair most likely due to recent event thought to be triggered by arrhythmia. He is now on Flovent 220 In the pasyt used to see Dr. Lin Benign prostatic hyperplasia without lower urinary tract symptoms 05/21/2017 Hyperlipidemia 07/06/2014 Assessment & Plan (08/18/2024 10:04 AM EST): Pt here for a f/u Most recent lipid profile from: Lab Results Component Value Date TRIG 88 08/17/2024 TRIG 262 (H) 10/09/2023 CHOL 146 08/17/2024 CHOL 150 10/09/2023 LDLCHOLCAL 79 08/17/2024 LDLCHOLCAL 58 10/09/2023 HDL 50 08/17/2024 HDL 40 (L) 10/09/2023 Currently on a regimen of: Atorvastatin 40 mg po q pm . For now will continue with current regimen . Pt advised to try to adhere to a low cholesterol diet, counseled and educated about diet and exercise Assessment & Plan (03/31/2024 9:08 AM EDT): Pt here for a f/u Most recent lipid profile from: Lab Results Component Value Date TRIG 262 (H) 10/09/2023 TRIG 112 04/22/2023 CHOL 150 10/09/2023 CHOL 180 04/22/2023 LDLCHOLCAL 58 10/09/2023 LDLCHOLCAL 100 (H) 04/22/2023 HDL 40 (L) 10/09/2023 HDL 58 04/22/2023 Currently on a regimen of: Atorvastatin 40 mg po q pm . For now will continue with current regimen . Pt advised to try to adhere to a low cholesterol diet, counseled and educated about diet and exercise Assessment & Plan (04/23/2023 10:15 AM EDT): Pt here for a f/u Most recent lipid profile from: 04/22/2023 shows a total cholesterol of: 180 triglycerides of: 112 HDL of: 58 and LDL of: 100 Currently on a regimen of: Atorvastatin 40 mg po q pm . For now will continue with current regimen . Pt advised to try to adhere to a low cholesterol diet, counseled and educated about diet and exercise Assessment & Plan (08/14/2022 10:31 AM EST): Pt here for a f/u Most recent lipid profile from: 03/22/2021 shows a total cholesterol of: 131 triglycerides of: 90 HDL of: 47 and LDL of: 67 Currently on a regimen of: Atorvastatin 40 mg po q pm . For now will continue with current regimen . Pt will have a repeat Lipid panel before his next visit. Pt did not have the blood work I ordered on previous visit advised to try to adhere to a low cholesterol diet, counseled and educated about diet and exercise Hypertension 08/18/2013 Assessment & Plan (11/17/2024 10:25 AM EDT): Pt here for a follow up BP currently controlled on a regimen of: Cardizem CD 120 mg po daily Given adequate blood pressure control will continue with current medical regimen. Most recent electrolytes, Bun and Creatinine done on: 07/01/2024 were within normal limits. patient advised to adhere to a low sodium diet, encouraged about medication compliance, counseled about weight loss. f/u 4 months. Assessment & Plan (08/18/2024 10:03 AM EST): Pt here for a follow up BP currently controlled on a regimen of: Cardizem CD 120 mg po daily Given adequate blood pressure control will continue with current medical regimen. Most recent electrolytes, Bun and Creatinine done on: 07/01/2024 were within normal limits. patient advised to adhere to a low sodium diet, encouraged about medication compliance, counseled about weight loss. f/u 4 months. Assessment & Plan (03/31/2024 9:06 AM EDT): Pt here for a follow up BP currently controlled on a regimen of: Cardizem CD 120 mg po daily Given adequate blood pressure control will continue with current medical regimen. Most recent electrolytes, Bun and Creatinine done on: 10/09/2023 were within normal limits. patient advised to adhere to a low sodium diet, encouraged about medication compliance, counseled about weight loss. f/u 4 months. Assessment & Plan (08/15/2023 10:27 AM EST): Pt here for a follow up BP currently controlled on a regimen of: Cardizem CD 120 mg po daily Given adequate blood pressure control will continue with current medical regimen. Most recent electrolytes, Bun and Creatinine done on: 04/22/2023 were within normal limits. patient advised to adhere to a low sodium diet, encouraged about medication compliance, counseled about weight loss. f/u 4 months. Assessment & Plan (04/23/2023 10:10 AM EDT): Pt here for a follow up BP currently controlled on a regimen of: Cardizem CD 120 mg po daily Given adequate blood pressure control will continue with current medical regimen. Most recent electrolytes, Bun and Creatinine done on: 04/22/2023 were within normal limits. patient advised to adhere to a low sodium diet, encouraged about medication compliance, counseled about weight loss. f/u 4 months. Assessment & Plan (12/18/2022 8:45 AM EDT): BP remains controlled per his report He has a BP monitor at home. BP currently controlled on a regimen of: Cardizem CD 120 mg po daily Given adequate blood pressure control will continue with current medical regimen. Most recent electrolytes, Bun and Creatinine done on: 01/20/2022 were within normal limits. Pt forgot yo get his blood work done, promised to do it before his next visit patient advised to adhere to a low sodium diet, encouraged about medication compliance, counseled about weight loss. f/u 3 months in person Assessment & Plan (08/14/2022 10:28 AM EST): BP remains controlled He has a BP monitor at home. BP currently controlled on a regimen of: Cardizem CD 120 mg po daily Given adequate blood pressure control will continue with current medical regimen. Most recent electrolytes, Bun and Creatinine done on: 01/20/2022 were within normal limits. patient advised to adhere to a low sodium diet, encouraged about medication compliance, counseled about weight loss. f/u 4 months Depressive disorder 07/08/2012 Paroxysmal atrial fibrillation 07/08/2012 Assessment & Plan (08/18/2024 10:02 AM EST): Doing well Hx of CVA has a Hx of a single episode of A.Fib with RVR that reverted to NSR on Amiodarone. Evaluated by Cardiology in the past, back then due to a low CHADS score they recommended ASA and Cardizem CD 120mg po daily. He is on Eliquis s/p tPA for CVA Back into care at [facility] last seen on 09/08/2020 Of note Pt has a Hx of an abnormal EKG with a question of a Brugada type II pattern, He was last seen by Dr Ortiz in 09/28/2020 and he recommended a 20 day loop monitor and to continue with Eliquis Pt tells me he had the monitor for only 1 week because he developed a rash from the patches. EKG last visit showed NSR Under the care of Cardiology, last seen 09/05/2023 6 months follow up recommended Assessment & Plan (03/31/2024 9:07 AM EDT): Doing well Hx of CVA has a Hx of a single episode of A.Fib with RVR that reverted to NSR on Amiodarone. Evaluated by Cardiology in the past, back then due to a low CHADS score they recommended ASA and Cardizem CD 120mg po daily. He is on Eliquis s/p tPA for CVA Back into care at [facility] last seen on 09/08/2020 Of note Pt has a Hx of an abnormal EKG with a question of a Brugada type II pattern, He was last seen by Dr Ortiz in 09/28/2020 and he recommended a 20 day loop monitor and to continue with Eliquis Pt tells me he had the monitor for only 1 week because he developed a rash from the patches. EKG last visit showed NSR Under the care of Cardiology, last seen 09/05/2023 6 months follow up recommended Assessment & Plan (08/15/2023 10:54 AM EST): Doing well Hx of CVA has a Hx of a single episode of A.Fib with RVR that reverted to NSR on Amiodarone. Evaluated by Cardiology in the past, back then due to a low CHADS score they recommended ASA and Cardizem CD 120mg po daily. He is on Eliquis s/p tPA for CVA Back into care at [facility] last seen on 09/08/2020 Of note Pt has a Hx of an abnormal EKG with a question of a Brugada type II pattern, He was last seen by Dr Ortiz in 09/28/2020 and he recommended a 20 day loop monitor and to continue with Eliquis Pt tells me he had the monitor for only 1 week because he developed a rash from the patches. EKG today showed NSR Referred back to Cardiology Assessment & Plan (08/14/2022 10:31 AM EST): Pt now s/p CVA has a Hx of a single episode of A.Fib with RVR that reverted to NSR on Amiodarone. Evaluated by Cardiology in the past, back then due to a low CHADS score they recommended ASA and Cardizem CD 120mg po daily. He is on Eliquis s/p tPA for CVA Back into care at [facility] last seen on 09/08/2020 Of note Pt has a Hx of an abnormal EKG with a question of a Brugada type II pattern, He was last seen by Dr Ortiz in 09/28/2020 and he recommended a 20 day loop monitor and to continue with Eliquis Pt tells me he had the monitor for only 1 week because he developed a rash from the patches. He will continue to f/u with Cardiology Resolved Problems Problem Noted Date Diagnosed Date Resolved Date Renal mass 08/14/2022 08/15/2023 Assessment & Plan (04/23/2023 10:12 AM EDT): Pt under the care of [facility], last note on record mentions he had an US that showed an 8 cm mass, does not specify which kidney. 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 No concerning renal mass Assessment & Plan (12/18/2022 9:43 AM EDT): Pt under the care of [facility], last note on record mentions he had an US that showed an 8 cm mass, does not specify which kidney. 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 No concerning renal mass Assessment & Plan (08/14/2022 10:52 AM EST): Pt under the care of [facility], last note on record mentions he had an US that showed an 8 cm mass, does not specify which kidney. 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 08/14/2022 Encounters Date Type Department Care Team Description 11/17/2024 10:15 AM EDT Office Visit [facility] [address] [place] [address] Fidel Hemphill MD Primary hypertension (Primary Dx); Moderate persistent asthma without complication; Overweight (BMI 25.0-29.9); Dietary counseling; Preventative health care; Exercise counseling; Onychomycosis of nail of digit of hand 11/17/2024 Travel 10/28/2024 Telephone [facility] [address] [place] [address] Fidel Hemphill MD Chart Prep 10/21/2024 Refill [facility] [address] [facility] [place] [address] iFdel Hemphill MD 08/22/2024 Refill [facility] [address] [facility] [place] [address] Fidel Hemphill MD 08/20/2024 Telephone [facility] [address] [place] [address] Fidel Hemphill MD 08/19/2024 Telephone [facility] [address] [place] [address] Fidel Hemphill MD from Last 3 Months Immunizations Name Administration Dates Next Due Influenza Injectable Quadriv alant Preservative Free IIV4 MDCK 05/22/2022 Influenza injectable quadriv alent preservative free 06/04/2023,04/23/2023,06/08/2021,07/22,07/20/2019,08/14/2018,05/21/2017 ,11/01/2015 Influenza, IIV3, injectable 07/06/2014, 1,07/02/2010 Influenza, Split (incl. pari fied surface antigen) 05/28/2013,08/21/2012 Influenza, seasonal, injecta ble, preservative free 08/18/2024 Moderna Covid-19 Vaccine 12+ 10/12/2021,11/16/19 21,10/18/2020 Pfizer Covid-19 Vaccine 12+ 07/17/2023 Pneumococcal Conjugate PCV 20 08/27/2023 Pneumococcal Polysaccharide PPSV23 05/20/2011 RSV Bivalent 09/12/2023 TD (adult), 2 Lf tetanus tox oid, preservative free, adsorbed 02/29/2004 Tdap 06/15/2021,11/10/2013 Zoster, Recombinant 01/09/2022,03/27/2021 Social History Tobacco Use Types Packs/Day Years Used Date Smoking Tobacco: Never Passive Smoke Exposure: Never Smokeless Tobacco: Never Tobacco Cessation:Counseling Given: Not Answered Depression Answer Date Recorded Patient Health Questionnaire-9 Score 2 08/18/2024 Patient Health Questionnaire-9 Score 2 08/18/2024 Last PHQ-9: Questionnaire Data Not on file 0 08/18/2024 Housing Stability Answer Date Recorded What is your housing situation today? I have allison granados 05/20/[address] you li ve. Do you have problems with any of the following? None of the above 05/20/2023 Food Insecurity Answer Date Recorded Within the past 12 months, y ou worried that your food would run out before you got money to buy more: Never True 2024 Within the past 12 months,th e food you bought just didn't last and you didn't have enough money to get more: Sometimes True 08/18/2024 Transportation Answer Date Recorded In the past 12 months, has l ack of transportation kept you from medical appts, meetings, work or from getting things needed for daily living? No 08/18/2024 Utilities Answer Date Recorded In the past 12 months, has t he electric, gas, oil or water company threatened to shut off services in your home? Already shut Off 08/18/2024 Depression Answer Date Recorded Patient Health Questionnaire-2 Score 2 08/18/2024 Internet Access Answer Date Recorded Internet Access Q1 Yes 04/06/2024 Internet Access Q2 Not on file 04/06/2024 Sex and Gender Information Value Date Recorded Sex Assigned at Male 06/04/2022 10:15 AM EDT Legal Sex Male 10:15 AM EDT Gender Identity Male 06/04/2022 10:15 AM EDT Sexual Orientation Choose not to disclose 2021 10:15 AM EDT Last Filed Vital Signs Vital Sign Reading Time Taken Comments Blood Pressure 127/79 11/17/2024 10:11 AM EDT Pulse 92 11/17/2024 10:11 AM EDT Temperature 36.1 ??C (96.9 ??F) 11/17/2024 10:11 AM E DT Respiratory Rate 20 11/17/2024 10:11 AM EDT Oxygen Saturation 98% 11/17/2024 10:11 AM EDT Inhaled Oxygen Concentration - - Weight 98.2 kg (216 lb 9.6 oz) 11/17/2024 10:11 AM EDT Height 182.9 cm (6') 11/17/2024 10:11 AM EDT Body Mass Index 29.38 11/17/2024 10:11 AM EDT Plan of Treatment Upcoming Encounters Date Type Department Care Team (Late st Contact Info) Description 02/16/2025 11:15 AM EDT Office Visit [facility] [address] [place] [address] Fidel Hemphill MD [address] [place] [address] Health Maintenance Due Date Last Done Comments CT Colonography 1959 FIT DNA/Cologuard 1959 FIT 1959 FOBT 1960 Sigmoidoscopy 1959 COVID-19 Vaccine ( season) 2024 07/17/2023, 10/12/2021, 11/15/2020, Additional history exists Colonoscopy 12/22/2024 12/23/2019 Colorectal Cancer Screening 12/22/2024 Alcohol/Substance Use Screening 08/18/2025 08/18/2024 Depression Screening 08/18/2025 08/18/2024, 08/18/19 SDOH Screening 08/18/2025 08/18/2024 Tobacco Screening 11/17/2025 11/17/2024 Lipid Panel 08/17/2029 08/17/2024, 03/0 01/2024, 04/22/2023, Additional history exists DTaP/Tdap/Td Vaccines (3 - Td or Tdap) 06/15/2031 06/15/2021, 11/10/2013, 02/29/2004 Zoster Vaccines Completed 01/09/2022, 03/27/2021 Hepatitis C Screening Completed 04/22/2023 Pneumococcal Vaccine: 50+ Years Completed 08/27/2023, 05/20/2011 RSV Patients and Patients Aged 60 years or older Completed 09/12/2023 Influenza Vaccine Completed 08/18/2024, , 04/23/2023, Additional history exists HIB Vaccines Aged Out No longer eligi ble based on patient's age to complete this topic HPV Vaccines Aged Out No longer eligi ble based on patient's age to complete this topic Hepatitis A Vaccines Aged Out No long er eligible based on patient's age to complete this topic Hepatitis B Vaccines Aged Out No long er eligible based on patient's age to complete this topic IPV Vaccines Aged Out No longer eligi ble based on patient's age to complete this topic Meningococcal Vaccine Aged Out No kraig susan eligible based on patient's age to complete this topic RSV under 20 months Aged Out No longe r eligible based on patient's age to complete this topic Rotavirus Vaccines Aged Out No longer eligible based on patient's age to complete this topic Goals Goal Patient Goal Type Associated Problems Recent Progress Patient-Stated? Author Blood Pressure < 150/90 Blood Pressure 127/79(2024 10:11 AM EDT) Fern Cotton, PharmD Note: 150/90 per [facility]; 130/80 per ACC/AHA due to CVD Procedures Procedure Name Priority Date/Time Associated Diagnosis Comments LIPID PANEL, STANDARD Routine 08/17/2024 8:05 AM EST Mixed hyperlipidemia HEPATITIS C AB W/REFL TO HCV RNA, QN, PCR Routine 04/22/2023 8:53 AM EDT Preventative health care HM COLONOSCOPY Routine 12/23/2019 8:47 AM EDT from Last 3 Months or Most Recently Relevant to Health Maintenance Results * Lipid Panel, Standard (08/17/2024 8:05 AM EST) Triglycerides 88 <150 mg/dL [facility] Comment:Desirable Triglyceri de: less than 150 mg/dLBorderline High Triglyceride 150-199 mg/dLHigh Triglyceride: 200-499 mg/dLVery High Triglyceride: greater than or equal to 5OO mg/dL Cholesterol 146 <200 mg/dL [facility] Comment:Desirable Cholestero l: less than 200 mg/dLBorderline High Cholesterol: 200-239 mg/dLHigh Cholesterol: greater than 239 mg/dL LDL Cholesterol Calculated 79 <100 mg/dL [facility] LABS Comment:Desirable LDL: less than 100 mg/dLNear Optimal/Above Optimal LDL: 110- 129 mg/dLBorderline High LDL: 130-159 mg/dLHigh LDL: 160-189 mg/dLVery High LDL: greater than or equal to 190 mg/dL HDL Cholesterol 50 >40 mg/dL [facility] Comment:Desirable HDL: great er than 40 mg/dL Note: This HDL assay may give artificially low results in patients with liver disease. Blood Venous blood specimen / Unknown 08/17/2024 8:05 AM EST 08/17/2024 11:07 AM EST us Fidel Molina MD LAB BLOOD ORDERABLES Final Result [facility] [address] [place] [address] [phone] * Hepatitis C Antibody with Reflex to HCV, RNA, Quantitative, Real-Time PCR (04/22/2023 8:53 AM EDT) Hepatitis C Antibody Nonreactive Nonreactive [facility] Comment:Antibodies to HCV no t detected; does not exclude early acuteHCV infection. Blood Venous blood specimen / Unknown 04/22/2023 8:53 AM EDT 04/22/2023 11:14 AM EDT Fidel Molina MD LAB BLOOD ORDERABLES Final Result [facility] [address] [place] [address] [phone] * Hm Colonoscopy (12/23/2019 8:47 AM EDT) Colonoscopy Normal Normal Historical Provider HEALTH MAINTENANCE Final Result from Last 3 Months or Most Recently Relevant to Health Maintenance Insurance [facility] STANDARD Care Teams Freight Elevator Operator Relationship Specialty Start Date End Date Fidel Hemphill MD [address] [place] [id number] PCP - General Internal Medicine 03/25/14
--- OUTSIDE RECORDS SUMMARY | 2024-11-17 12:54 | XMS_ITS | Encounter Summary ---
Author Organization [employer] Address [address] [place] [address] Care Team Providers Care Hot Baller Name Role Phone Fidel Hemphill MD Primary Care Provide r Reason for Visit * Reason Comments Med Refill Encounter Details Date Type Department Care Team (Late st Contact Info) Description 11/15/2023 Refill [facility] [address] [place] [address] Fidel Hemphill MD [address] [place] [address] Social History Tobacco Use Types Packs/Day Years Used Date Smoking Tobacco: Never Passive Smoke Exposure: Never Smokeless Tobacco: Never Depression Answer Date Recorded Patient Health Questionnaire-9 Score 1 04/23/2023 Housing Stability Answer Date Recorded What is [...] got money to buy more: Never True 05/20/2023 Within the past 12 months,th e food you bought just didn't last and you didn't have enough money to get more: Never True Transportation Answer Date Recorded In the past 12 months, has l ack of transportation kept you from medical appts, meetings, work or from getting things needed for daily living? No 05/20/2023 Utilities Answer Date Recorded In the past 12 months, has t he electric, gas, oil or water Loopster threatened to shut off services in your home? No 05/20/2023 Depression Answer Date Recorded Patient Health Questionnaire-2 Score 0 04/23/2023 Sex and Gender Information Value Date Recorded Sex Assigned at Male 06/04/2022 10:15 AM EDT Legal Sex Male 10:15 AM EDT Gender Identity Male 06/04/2022 10:15 AM EDT Sexual Orientation Choose not to disclose 2021 10:15 AM EDT documented as of this encounter Plan of Treatment Upcoming Encounters Date Type Department Care Team (Late st Contact Info) Description 02/16/2025 11:15 AM EDT Office Visit [facility] [address] [place] [address] Fidel Hemphill MD [address] [place] [phone] documented as of this encounter Goals Goal Patient Goal Type Associated Problems Recent Progress Patient-Stated? Author Blood Pressure < 150/90 Blood Pressure 127/79(2024 10:11 AM EDT) No Fern Jacobo, Charbel Note: 150/90 per JNC; 130/80 per ACC/AHA due to CVD documented as of this encounter Visit Diagnoses Not on filedocumented in this encounter Additional Health Concerns Assessment Noted Time PHQ-9 Depression Total Score: 1 04/23/20 23 10:02 AM EDT documented as of this encounter Care Teams Hot Baller Relationship Specialty Start Date End Date Fidel Hemphill MD [address] [place] [address] PCP - General Internal Medicine 03/25/14 documented as of this encounter
--- OUTSIDE RECORDS SUMMARY | 2024-11-17 12:54 | XMS_ITS | Encounter Summary ---
Author Organization [employer] Address [address] [place] [address] Care Team Providers Care Automatic Maintainer Name Role Phone Fidel Hemphill MD Primary Care Provide r Reason for Visit * Reason Comments Hypertension Encounter Details Date Type Department Care Team ([facility] Contact Info) Description 11/17/2024 10:15 AM EDT Office Visit [facility] [address] [place] [address] Fidel Hemphill MD [address] [place] [address] Primary hypertension (Primary Dx); Moderate persistent asthma without complication; Overweight (BMI 25.0-29.9); Dietary counseling; Preventative health care; Exercise counseling; Onychomycosis of nail of digit of hand Social History Tobacco Use Types Packs/Day Years [...] AM EDT documented as of this encounter Last Filed Vital Signs Vital Sign Reading [...] Mass Index 29.38 11/17/2024 10:11 AM EDT documented in this encounter Progress Notes * iFdel Molina MD - 11/17/2024 10:15 AM EDT LAXMI Childers is a 64 y.o. male who presents for Hypertension. Hypertension This is a chronic problem. Pertinent negatives include no chest pain, headaches or shortness of breath. Review of Systems Constitutional: Negative for fever. HENT: Negative for sore throat. Respiratory: Negative for cough and shortness of breath. Cardiovascular: Negative for chest pain. Gastrointestinal: Negative for abdominal pain. Neurological: Negative for headaches. No Known Allergies OBJECTIVE Vitals: 11/17/24 1011 BP: 127/79 BP Location: Left arm Patient Position: Sitting BP Cuff Size: Adult Pulse: 92 Resp: 20 Temp: 96.9 ??F (36.1 ??C) TempSrc: Temporal SpO2: 98% Weight: 216 lb 9.6 oz (98.2 kg) Height: 6' (1.829 m) Physical Exam Vitals reviewed. Constitutional: Appearance: Normal appearance. HENT: Head: Normocephalic and atraumatic. Right Ear: External ear normal. Left Ear: External ear normal. Nose: Nose normal. Mouth/Throat: Mouth: Mucous membranes are moist. Eyes: Conjunctiva/sclera: Conjunctivae normal. Cardiovascular: Rate and Rhythm: Normal rate and regular rhythm. Pulmonary: Effort: Pulmonary effort is normal. Breath sounds: Normal breath sounds. Skin: General: Skin is warm. Neurological: Mental Status: He is alert. Mental status is at baseline. Assessment/Plan Problem List Items Addressed This Visit Hypertension - Primary Pt here for a follow up BP currently controlled on a regimen of: Cardizem CD 120 mg po daily Given adequate blood pressure control will continue with current medical regimen. Most recent electrolytes, Bun and Creatinine done on: 07/01/2024 were within normal limits. patientadvised to adhere to a low sodium diet, encouraged about medication compliance, counseled about weight loss. f/u 4 months. Moderate persistent asthma without complication No recent exacerbation He is on Flovent 220 In the pasyt used to see Dr. Lin Overweight (BMI 25.0-29.9) Patient has been counseled and educated about diet and exercise. Personal goal of weight loss discussed Preventative health care PSA 10/09/2023: Normal Colonoscopy: NL 12/22/2018 at [facility] Gastroenterology showed a rectal polyp, GI recommended 5 yr repeat given Fam Hx of colon cancer. Due in 12/2023 Scheduled for GI 03/31/2025 Onychomycosis of nail of digit of hand Pt with what appears to be onychomycosis right index fingernail Interested in Terbinafine Discussed possible side effects, including liver inflammation/damage Pt would like to start Plan: LFTS. Terbinafine 250 mg daily x 3 months Relevant Medications terbinafine (LamISIL) 250 MG tablet Other Relevant Orders Hepatic Function Panel Other Visit Diagnoses Dietary counseling Exercise counseling documented in this encounter Miscellaneous Notes * Assessment & Plan Note - Fidel Molina MD - 11/17/2024 10:32 AM EDT Associated Problem(s): Onychomycosis of nail of digit of hand Pt with what appears to be onychomycosis right index fingernail Interested in Terbinafine Discussed possible side effects, including liver inflammation/damage Pt would like to start Plan: LFTS. Terbinafine 250 mg daily x 3 months * Assessment & Plan Note - Fidel Molina MD - 11/17/2024 10:26 AM EDT Associated Problem(s): Overweight (BMI 25.0-29.9) Patient has been counseled and educated about diet and exercise. Personal goal of weight loss discussed * Assessment & Plan Note - Fidel Molina MD - 11/17/2024 10:26 AM EDT Associated Problem(s): Preventative health care PSA 10/09/2023: Normal Colonoscopy: NL 12/22/2018 at [facility] Gastroenterology showed a rectal polyp, GI recommended 5 yr repeat given Fam Hx of colon cancer. Due in 12/2023 Scheduled for GI 03/31/2025 * Assessment & Plan Note - Fidel Molina MD - 11/17/2024 10:25 AM EDT Associated Problem(s): Hypertension Pt here for a follow up BP currently controlled on a regimen of: Cardizem CD 120 mg po daily Given adequate blood pressure control will continue with current medical regimen. Most recent electrolytes, Bun and Creatinine done on: 07/01/2024 were within normal limits. patientadvised to adhere to a low sodium diet, encouraged about medication compliance, counseled about weight loss. f/u 4 months. * Assessment & Plan Note - Fidel Molina MD - 11/17/2024 10:25 AM EDT Associated Problem(s): Moderate persistent asthma without complication No recent exacerbation He is on Flovent 220 In the pasyt used to see Dr. Lin documented in this encounter Plan of Treatment Upcoming Encounters Date Type Department Care Team (Late st Contact Info) Description 02/16/2025 11:15 AM EDT Office Visit [facility] [address] [place] [address] Fidel Hemphill MD [address] [place] [address] Scheduled Orders Name Type Priority Associated Diagnoses Orde r Schedule Hepatic Function Panel Lab Routine Onychomycosis of nail of digit of hand Ordered: 11/17/2024 documented as of this encounter Goals Goal Patient Goal Type Associated Problems Recent Progress Patient-Stated? Author Blood Pressure < 150/90 Blood Pressure 127/79(2024 10:11 AM EDT) No Fern Jacobo, Charbel Note: 150/90 per JNC; 130/80 per ACC/AHA due to CVD documented as of this encounter Visit Diagnoses Diagnosis Primary hypertension- Primary Unspecified essential hypertension Moderate persistent asthma without complication Overweight (BMI 25.0-29.9) Overweight Dietary counseling Dietary surveillance and counseling Preventative health care Routine general medical examination at a health care facility Exercise counseling Onychomycosis of nail of digit of hand documented in this encounter Additional Health Concerns Assessment Noted Time PHQ-9 Depression Total Score: 2 08/18/19 25 10:49 AM EST documented as of this encounter Care Teams Automatic Maintainer Relationship Specialty Start Date End Date Fidel Hemphill MD [address] [place] [address] PCP - General Internal Medicine 03/25/14 documented as of this encounter
--- OUTSIDE RECORDS SUMMARY | 2024-11-17 12:54 | XMS_ITS | Encounter Summary ---
Author Organization [facility] Address [address] [place] [address] [address] [place] [address] Care Team Providers Care Oil Operator Name Role Phone Fidel Hemphill MD Primary Care Provide r Reason for Visit * Reason Comments Med Refill Encounter Details Date Type Department Care Team (Late Contact Info) Description 05/07/2023 Refill [facility] [address] [place] [address] [phone] Karmen Pappas MD [address] [place] [address] [phone] Benign prostatic hyperplasia without lower urinary tract symptoms Social History Tobacco Use Types Packs/Day Years Used Date Smoking Tobacco: Never Passive Smoke Exposure: Never Smokeless Tobacco: Never Depression Answer Date Recorded Patient Health Questionnaire-9 Score 1 04/23/2023 Depression Answer Date Recorded Patient Health Questionnaire-2 [...] Encounters Date Type Department Care Team (Late Contact Info) Description 02/16/2025 11:15 AM EDT Office Visit [facility] [address] [place], [place] [phone] Fidel Hemphill MD [address] [place], [place] [phone] documented as of this encounter Visit Diagnoses Diagnosis Benign prostatic hyperplasia without lower urinary tract symptoms documented in this encounter Additional Health Concerns Assessment Noted Time PHQ-9 Depression Total Score: 1 04/23/20 23 10:02 AM EDT documented as of this encounter Care Teams Oil Operator Relationship Specialty Start Date End Date Fidel Hemphill MD [address] [place] [address] PCP - General Internal Medicine 03/25/14 documented as of this encounter
--- OUTSIDE RECORDS SUMMARY | 2024-11-17 12:54 | XMS_ITS | Encounter Summary ---
Author Organization [employer] Address [address] [facility] [place] [address] Care Team Providers Care Combatant Swimmer Name Role Phone Fidel Hemphill MD Primary Care Provide r Encounter Details Date Type Department Care Team (Latest Contact Info) Description 11/17/2024 Travel Social History Tobacco Use Types Packs/Day Years [...] Description 02/16/2025 11:15 AM EDT Office Visit [facility] [address] [place] [address] Fidel Hemphill MD [address] [place] [address] documented as of this encounter Goals Goal Patient Goal Type Associated Problems Recent Progress Patient-Stated? Author Blood Pressure < 150/90 Blood Pressure 127/79(2024 10:11 AM EDT) No Fern Jacobo, PharmD Note: 150/90 per JNC; 130/80 per ACC/AHA due to CVD documented as of this encounter Visit Diagnoses Not on filedocumented in this encounter Additional Health Concerns Assessment Noted Time PHQ-9 Depression Total Score: 2 08/18/19 25 10:49 AM EST documented as of this encounter Care Teams Combatant Swimmer Relationship Specialty Start Date End Date Fidel Hemphill MD [address] [place] [address] PCP - General Internal Medicine 03/25/14 documented as of this encounter
[2024-11-17 14:10] LABS: Alanine Aminotransferase 34 U/L (0-40); Albumin Level 3.8 g/dL (3.5-5.0); Aspartate Amino Transferase 28 U/L (5-37); Bilirubin Direct 0.2 mg/dL (0.0-0.5); Bilirubin Total 1.2 mg/dL (0.0-1.0); Total Protein 7.1 g/dL (6.5-8.0)
[2024-11-17 17:32] LABS: Alkaline Phosphatase 81 U/L (39-117)
== END 2024-11-17 10:42 | disposition home or self-care (01) ==
LOC: HO.HHCL 10:41
PROVIDERS: Visit Provider Internal Medicine
DX: B35.1 Tinea unguium (principal)
CPT/HCPCS: 36415; 80076

== ENCOUNTER 2025-02-21 17:05 | Inpatient (IN) | payer OTHER, SELFPAY ==
--- NOTE | 2025-02-21 | ECG_ITS ---
Test Reason : dizziness Blood Pressure : */* mmHG Vent. Rate : 63 BPM Atrial Rate : 63 BPM P-R Int : 170 ms QRS Dur : 100 ms QT Int : 436 ms P-R-T Axes : 67 -28 11 degrees QTcB Int : 446 ms Normal sinus rhythm Normal ECG When compared with ECG of 01-Jul-2024 20:53, T wave inversion now evident in Inferior leads Referred By: Generic ED Physician Electronically Signed By: Kadeem Valle
--- NOTE | ~2025-02-21 | CT_ITS ---
CLINICAL HISTORY: Acute post NEAL and dizz, abn NCHCT CT angiography head and neck with contrast. 3D Postprocessing. Comparison: CT - CT ANGIO HEAD NECK - 02/21/25 21:[address]/SR - CT HEAD/BRAIN WO IV CON - 02/21/25 20:09 EDT Findings: Scattered atherosclerotic vascular calcifications. Mild stenosis of the right carotid artery bulb and proximal right cervical internal carotid artery due to atherosclerotic vascular calcifications. Mild stenosis of the left carotid artery bulb and proximal left cervical internal carotid artery due to atherosclerotic vascular calcifications. Evaluation of the vertebral arteries adjacent to the postoperative changes in the cervical spine is limited due to streak artifact caused by the fixation hardware. However, there is contrast more distally to this. Intracranial arteries are patent. No aneurysm, dissection, hemodynamically significant stenoses, or occlusion. No abnormal intracranial enhancement. The visualized thyroid gland is unremarkable. No cervical mass or fluid collection. Lung apices clear. Degenerative changes of the cervical spine. Mildly motion degraded exam. Evaluation is slightly limited due to timing of the contrast and venous contamination. Posterior decompression surgery of the cervical spine. IMPRESSION: Patent head and neck CTA. This document has been electronically signed by: Darnell Zendejas DO on 02/21/2025 22:43:07
--- NOTE | ~2025-02-21 | CT_ITS ---
CLINICAL HISTORY: dizziness CT head without contrast Comparison: None provided Findings: No midline shift, hydrocephalus, or acute hemorrhage. Questionable area of abnormal density within the luis daniel and left cerebellar peduncle ( series 4, image 26) which may be artifactual or secondary to ischemia. Repeat CT of the brain with slightly different positioning could be considered or MRI of the brain is recommended for further evaluation. Moderate white matter disease. Mild atrophy. There is no sinus or mastoid fluid. The orbits are within normal limits. No skull fracture. IMPRESSION: 1. Questionable area of abnormal density within the luis daniel and left cerebellar peduncle ( series 4, image 26) which may be artifactual or secondary to ischemia. Repeat CT of the brain with slightly different positioning could be considered or MRI of the brain is recommended for further evaluation. 2. Moderate white matter disease. This document has been electronically signed by: Darnell Zendejas DO on 02/21/2025 20:38:49
--- NOTE | ~2025-02-21 | MR_ITS ---
EXAMINATION: MR BRAIN WITHOUT IV CONTRAST HISTORY: CVA TECHNIQUE: Sagittal T1, and axial T1, FLAIR, T2, gradient echo, and diffusion weighted MR images of the brain were obtained. COMPARISON: Comparison is made with the prior examination dated 07/22/2020. Correlation is also made with an unenhanced head CT dated 02/21/2025. FINDINGS: The pituitary is normal in size. The cerebellar tonsils are normally located. There is diffuse prominence of the ventricular system and cortical sulci, consistent with atrophy. Periventricular and subcortical white matter hyperintensities are noted on the FLAIR and T2-weighted images which are nonspecific, but often seen in the setting of small vessel ischemic disease. There are old lacunar infarcts of the left basal ganglia, left thalamus and luis daniel. These are new from the prior study. There is no mass effect or midline shift. There are multiple foci of hemosiderin in the bilateral thalami which are new from the prior study. There are no foci of restricted diffusion. Normal vascular flow voids are noted in the basilar and carotid arteries. The visualized paranasal sinuses are clear. MR/MR head/brain wo con IMPRESSION: 1. No evidence of acute infarction. 2. Multiple old lacunar infarcts of the left basal ganglia, left thalamus, and luis daniel which are new from the prior study. 3. Multiple tiny foci of hemosiderin in the bilateral thalami which are new from the prior study. Electronically signed by: Rodney Leon MD 02/22/2025 03:28 PM EDT
[2025-02-21 17:10] VITALS: BP 116/66; BP 128/76; PULSE 67; PULSE 96; RESP 18; TEMP 36.5; O2SAT 96; O2SAT 98; BMI 29.1
[2025-02-21 17:49] LABS: MANUAL DIFF FLAG NO
[2025-02-21 17:50] LABS: Hematocrit 42.3 % (42.0-52.0); Hemoglobin 14.8 g/dl (14.0-18.0); Imm Gran Abs Auto 0.02 X10*3/uL (0.00-0.03); Imm Gran Pct Auto 0.2 % (0.0-0.4); Lymphocytes Absolute Auto 2.2 X10*3/uL (1.2-4.9); Mean Corpuscular HGB Conc 35.0 g/dl (31.0-36.0); Mean Corpuscular Hemoglobin 30.8 pg (27.0-33.0); Mean Corpuscular Volume 88.1 fL (80.0-98.0); NRBC Abs Auto 0.000 X10*3/uL (0.0-0.012); NRBC Pct Auto 0.0 /100WBC (0.0-0.2); Platelet Count 236 X10*3/uL (160-400); Red Blood Count 4.80 X10*6/uL (4.60-5.80); White Blood Count 9.7 X10*3/uL (4.8-10.8)
[2025-02-21 18:00] LABS: INTERNATIONAL NORM RATIO 1.2 (0.9-1.1); Prothrombin Time 13.8 SEC (10.9-12.4)
[2025-02-21 18:03] LABS: Alanine Aminotransferase 33 U/L (0-40); Albumin Level 4.0 g/dL (3.5-5.0); Alkaline Phosphatase 78 U/L (39-117); Anion Gap 13 (12-20); Aspartate Amino Transferase 31 U/L (5-37); Blood Urea Nitrogen 13 mg/dL (9-16); Calcium 9.0 mg/dL (8.4-10.2); Carbon Dioxide 23 mmol/L (22-29); Chloride 110 mmol/L (96-108); Creatinine Clr Calc Pharmacy 88.2; Estimated Glomerular Filt Rate > 60; Potassium 3.5 mmol/L (3.3-5.1); Sodium 142 mmol/L (135-145); Total Protein 7.0 g/dL (6.5-8.0)
[2025-02-21 18:13] LABS: Troponin-I High Sensitivity < 2.7 ng/L (<3.5-35.0)
--- NOTE | 2025-02-21 19:02 | ED.GENADULT ---
HPI - General Adult General Chief complaint: Dizziness Stated complaint: NEAL/Dizziness starting 15 minutes ago Time Seen by Provider: 02/21/25 19:02 History of Present Illness ED Provider: Asuncion FARIAS narrative: The patient is a 64-year-old male. He has a history of paroxysmal atrial fibrillation and is on apixaban. He came to the emergency department this evening by ambulance after developing a headache at around 04:30 this afternoon. He was at home. He says he was walking in his apartment when he had an abrupt onset of a headache that was associated with dizziness. Called the ambulance fairly soon and was brought to the hospital. He says that he has had headaches somewhat similar in the past but this was more severe. His last significant headache was 4 days ago on Saturday. No fever, sweats, chills. His last dose of apixaban was this morning. The patient denies any history of smoking. He says that he used to ride bicycles a lot. Related Data Home Medications ?Medication ?Instructions ?Recorded ?Confirmed diltiazem HCl 120 mg capsule,24 1 cap PO DAILY 01/20/22 01/20/22 hr,extended release (Tiadylt ER) meclizine 25 mg tablet (Dramamine 25 mg PO BID PRN dizziness 01/20/22 01/20/22 Less Drowsy) tizanidine 4 mg tablet 1 tab PO Q8H PRN muscle spasm 01/20/22 01/20/22 Previous Rx's ?Medication ?Instructions ?Recorded apixaban 5 mg tablet (Eliquis) 5 mg PO BID #30 tabs 07/25/20 atorvastatin 40 mg tablet 40 mg PO BEDTIME #30 tabs 07/25/20 cefuroxime axetil 500 mg tablet 500 mg PO BID #14 tabs 01/22/22 finasteride 5 mg tablet (Proscar) 5 mg PO DAILY 30 days #30 tabs 01/22/22 tamsulosin 0.4 mg capsule 0.8 mg (2 x 0.4 mg) PO BEDTIME 30 01/22/22 days #60 caps meclizine 25 mg tablet 25 mg PO TID PRN dizziness #20 tabs 02/22/23 oxycodone 5 mg capsule 5 mg PO Q8H PRN pain #12 caps 02/22/23 lidocaine 5 % topical patch 1 patch topical DAILY #30 ea 05/17/23 oxycodone 5 mg tablet 5 mg PO Q6H PRN pain #12 tabs 05/17/23 Allergies Allergy/AdvReac Type Severity Reaction Status Date / Time No Known Allergies (No Known Allergy Mild UNKNOWN Verified 02/21/25 17:35 Allergies*) Review of Systems Review of Systems: Yes all other systems are reviewed and are negative PENDING SALE TO [facility] Past Medical History Medical History Paroxysmal A-fib CVA (cerebral vascular accident) Vertebrobasilar ischemia Bronchitis Asthma Myocardial infarction HLD (hyperlipidemia) HTN (hypertension) Social History Social History Household Members: None Housing: Apartment Do you presently have visiting nurse or other home services: No Alcohol intake: former Patient Tobacco Use Status: Never used Tobacco Smoked in Last 30 Days: No Advance Directives: Yes Advance Directives on File: Yes Advance Directives Date on File: 07/23/20 Do you have a plan to hurt others: No Plan service: No Current occupational status: unemployed Physical Exam ED Vital Signs: Vital Signs - 24 hr 02/21/25 17:10 Temperature 97.7 F Pulse Rate 67 Respiratory Rate 18 Blood Pressure 116/66 Pulse Oximetry 96 Oxygen Delivery Method Room Air BMI result Body Mass Index 29.1 Const Other: The patient is a 64-year-old male who was awake and alert. He seems pleasant and cooperative. He does not appear in any apparent discomfort or seem ill in any way. HENMT Other: The face is symmetrical. ?Mucous membranes moist. Eyes Other: Pupils are round equal, extraocular movements are intact, no nystagmus. Neck Neck: Yes normal visual inspection, Yes full ROM and Yes no lymphadenopathy Resp Effort & Inspection: normal respiratory effort Auscultation: clear to auscultation bilaterally Cardio Rate: regular rate Rhythm: regular rhythm Heart sounds: S1 normal heart sound present and S2 normal heart sound present GI Other: Abdomen is soft and nontender Skin Other: Skin is dry and unremarkable. No diaphoresis. No rash. Neuro Other: The patient is awake and alert with a normal mental status. He has a cheerful, nontoxic demeanor. Cranial nerves 2-12 are intact. There was no nystagmus. He has symmetrical strength in his extremities. No pronator drift. Finger-nose is normal although he said that he felt that the finger-nose with the right arm felt slightly more difficult than the left arm. This was not really an objective finding.. Heel-key seemed to be fairly symmetrical although he says that he felt that the left leg had more troubled in the right leg. This was not really an objective finding. NIH stroke scale was 0. When ambulating the patient was reasonably steady on his feet. He says that he did not feel his gait was perfectly normal but he did not seem unsteady or require insistence. Possibly some minimal broad based gait. Extrem Other: There is no calf swelling or tenderness. No asymmetry. No peripheral edema. Medications Administered Discontinued Medications Generic Name Dose Route Start Last Admin Trade Name Leoq PRN Reason Stop Dose Admin Diphenhydramine HCl 25 mg 02/21/25 19:33 02/21/25 19:47 Diphenhydramine Hcl 50 Mg/Ml Vial IVPUSH 02/21/25 19:34 25 mg ONCE ONE Administration Acetaminophen 1,000 mg in 100 mls @ 400 mls/hr 02/21/25 19:33 02/21/25 20:10 Ofirmev IV 02/21/25 19:47 Infused ONCE ONE Infusion Sodium Chloride 1,000 mls @ 999 mls/hr 02/21/25 19:45 02/21/25 21:29 Ns IV 02/21/25 20:45 Infused .Q1H1M ISIAH Infusion Iohexol 70 ml 02/21/25 21:54 02/21/25 21:54 Iohexol 350 Mg/Ml 100 Ml Infus..Btl IV 02/21/25 21:55 70 ml ONCE ONE Administration Metoclopramide HCl 10 mg 02/21/25 19:33 02/21/25 19:47 Metoclopramide Hcl 10 Mg/2 Ml Vial IVPUSH 02/21/25 19:34 10 mg ONCE ONE Administration Medical Decision Making Medical Decision Making MDM Narrative: The patient is a 64-year-old male with a history of paroxysmal atrial fibrillation on apixaban who developed an abrupt onset of a posterior headache and dizziness this afternoon. He felt that he was having difficulty walking and called an ambulance. On my exam I did not find any definite obvious neurological deficits. His NIH stroke scale was 0. His neck was supple. A noncontrast head CT was done that was read as IMPRESSION: 1. Questionable area of abnormal density within the luis daniel and left cerebellar peduncle ( series 4, image 26) which may be artifactual or secondary to ischemia. Repeat CT of the brain with slightly different positioning could be considered or MRI of the brain is recommended for further evaluation. 2. Moderate white matter disease. I had treated the patient for a possible migraine headache with IV acetaminophen and metoclopramide and diphenhydramine and IV fluids. His headache improved in his sense of dizziness also improved but when I ambulated him he felt that his balance was off and that his gait was slightly more broad-based than it usually is. We then did a CT angiogram of the head and neck. This shows no definite acute vascular findings. I spoke to the radiologist about the CT angiogram to see if this helped clarify the questionable finding on the original noncontrast head CT. The radiologist did not feel that the angiogram study helps clarify the area in question because of artifact from the dye. I re-examined the patient. He continues to complain of feeling that his gait he is not his usual gait. His gait is mildly broad-based. Although the patient looks otherwise quite well and is hemodynamically stable I think hospitalization for an MRI and further evaluation is reasonable. The patient was therefore admitted to the hospitalist service. Lab Data 02/21/25 17:42 02/21/25 17:42 Labs: Lab Results 02/21/25 Range/Units 17:42 WBC 9.7 (4.8-10.8) X10*3/uL RBC 4.80 (4.60-5.80) X10*6/uL Hgb 14.8 (14.0-18.0) g/dl Hct 42.3 (42.0-52.0) % MCV 88.1 (80.0-98.0) fL MCH 30.8 (27.0-33.0) pg MCHC 35.0 (31.0-36.0) g/dl RDW 12.8 (11.0-16.0) % Plt Count 236 (160-400) X10*3/uL MPV 10.0 (9.4-12.4) fL Immature Gran % (Auto) 0.2 (0.0-0.4) % Neut % (Auto) 64.3 (45-73) % Lymph % (Auto) 23.2 (20-40) % [place] % (Auto) 9.6 (2-11) % Eos % (Auto) 1.9 (0-4) % Baso % (Auto) 0.8 (0-2) % Lymph # (Auto) 2.2 (1.2-4.9) X10*3/uL [place] # (Auto) 0.9 (0.1-1.2) X10*3/uL Eos # (Auto) 0.2 (0.0-0.4) X10*3/uL Baso # (Auto) 0.1 (0.0-0.2) X10*3/uL Abs Immat Gran (auto) 0.02 (0.00-0.03) X10*3/uL Absolute Neuts (auto) 6.2 (2.0-8.3) x10*3/uL Absolute Nucleated RBC 0.000 (0.0-0.012) X10*3/uL Nucleated RBC % (auto) 0.0 (0.0-0.2) /100WBC PT 13.8 H (10.9-12.4) SEC INR 1.2 H (0.9-1.1) Sodium 142 (135-145) mmol/L Potassium 3.5 (3.3-5.1) mmol/L Chloride 110 H (96-108) mmol/L Carbon Dioxide 23 (22-29) mmol/L Anion Gap 13 (12-20) BUN 13 (9-16) mg/dL Creatinine 1.01 (0.5-1.4) mg/dL Estim Creat Clear Calc 88.2 Estimated GFR > 60 Random Glucose 129 H (60-115) mg/dL Calcium 9.0 (8.4-10.2) mg/dL Total Bilirubin 1.8 H (0.0-1.0) mg/dL AST 31 (5-37) U/L ALT 33 (0-40) U/L Alkaline Phosphatase 78 (39-117) U/L Troponin I High Sens < 2.7 (<3.5-35.0) ng/L Total Protein 7.0 (6.5-8.0) g/dL Albumin 4.0 (3.5-5.0) g/dL Independent Interpretation I performed an independent interpretation of an: EKG Interpretation: EKG at 1751 shows normal sinus rhythm at 63 beats per minute. It is a normal EKG. Critical Care Time Critical Care Time Critical Care Time: Yes Total Critical Care Time: 35 Attestation: The patient was critically ill with a high probability of imminent or life-threatening deterioration. ?I spent greater than 30 minutes of discontinuous time evaluating the patient, delivering critical care at the bedside, discussing evaluating data with consultants. ?Critical care time does not include time spent performing separately billable procedures or teaching. ?Time spent performing critical care with 35 minutes. Discharge Plan Discharge Clinical Impression: Difficulty walking, Dizziness, Headache Patient Disposition: Admitted As Inpatient Print Language: Yi
[2025-02-21] MEDS: iohexoL 350 MG/ML 100 ML INFUS..BTL 70 ML IV (21:54)
--- NOTE | 2025-02-21 23:56 | P.HPHOSP_ITS ---
History of Present Illness Date of Service: 02/21/25 Chief Complaint: headache 64-year-old male with a past medical history of HTN, HLD, CAD, CVA vertebrobasilar ischemia, paroxysmal AFib on Eliquis, asthma presented to the hospital today with a chief complaint of headache. Patient reported having headache, around 16:00; also had associated dizziness. Denies any nausea vomiting. [place] unsteady. Denies any blurry visions. Denies any numbness tingling or focal weakness. Denies any chest pain or palpitations. Review of all other systems is negative except mentioned above ER course: Per ER team, patient's exam was grossly nonfocal; CT head showed findings concerning for possible stroke. CT angio head and neck showed acute findings. Patient was already on Eliquis-last dose was early in the morning. [facility] Medical History (Updated 03/03/25 @ 00:02 by Josh Lyle) Headache, migraine Paroxysmal A-fib CVA (cerebral vascular accident) Vertebrobasilar ischemia Bronchitis Asthma Myocardial infarction HLD (hyperlipidemia) HTN (hypertension) Social History Household Members: None Housing: Apartment Do you presently have visiting nurse or other home services: No Alcohol intake: former Patient Tobacco Use Status: Never used Tobacco Advance Directives Date on File: 07/23/20 service: No Current occupational status: unemployed Meds Allergies Allergy/AdvReac Type Severity Reaction Status Date / Time No Known Allergies (No Known Allergy Mild UNKNOWN Verified 02/21/25 17:35 Allergies*) Home Medications ?Medication ?Instructions ?Recorded ?Confirmed ?Last Taken ?Type diltiazem HCl 120 mg capsule,24 1 cap PO DAILY 2 02/22/25 02/21/25 History hr,extended release (Tiadylt ER) tamsulosin 0.4 mg capsule 0.4 mg PO BEDTIME 02/22/25 0 02/22/25 02/21/25 History Physical Exam 2 Vital Signs and Narrative: Vital Signs: Last Vital Signs Temp 97.7 F 02/21/25 17:10 Pulse 67 02/21/25 17:10 Resp 18 02/21/25 17:10 BP 116/66 02/21/25 17:10 Pulse Ox 96 02/21/25 17:10 O2 Del Method Room Air 02/21/25 17:10 BMI result Body Mass Index 29.1 Gen: Appears be in no acute distress HEENT: NCAT, Moist mucosa. Pulmonary: Vesicular breath sounds, fair air entry CVS: Normal S1-S2 Abdomen: BS+, Soft, Nontender Extremities: Warm well perfused Neuro: Alert and awake. Grossly nonfocal Results Labs 02/22/25 03:52 02/22/25 03:52 Labs: Laboratory Results - last 24 hr 02/21/25 17:42 MCV 88.1 MCH 30.8 MCHC 35.0 RDW 12.8 Plt Count 236 MPV 10.0 Immature Gran % (Auto) 0.2 Neut % (Auto) 64.3 Lymph % (Auto) 23.2 [place] % (Auto) 9.6 Eos % (Auto) 1.9 Baso % (Auto) 0.8 Lymph # (Auto) 2.2 [place] # (Auto) 0.9 Eos # (Auto) 0.2 Baso # (Auto) 0.1 Abs Immat Gran (auto) 0.02 Absolute Neuts (auto) 6.2 Absolute Nucleated RBC 0.000 Nucleated RBC % (auto) 0.0 PT 13.8 H INR 1.2 H Anion Gap 13 Estim Creat Clear Calc 88.2 Estimated GFR > 60 Random Glucose 129 H Calcium 9.0 Total Bilirubin 1.8 H AST 31 ALT 33 Alkaline Phosphatase 78 Total Protein 7.0 Albumin 4.0 Assessment and Plan (1) CVA (cerebral vascular accident): Qualifiers: CVA mechanism: unspecified Qualified Code(s): I63.9 - Cerebral infarction, unspecified Status: Deleted Plan 64-year-old male with a past medical history of HTN, HLD, CAD, CVA vertebrobasilar ischemia, paroxysmal AFib on Eliquis, asthma presented to the hospital today with a chief complaint of headache. CT head showed possible CVA. CVA: CT head showed questionable area of abnormal density within the luis daniel and left cerebellar peduncle-either artifact versus acute ischemia. 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 Eliquis on hold until MRI. DVT prophylaxis: SCD boots Code status: Full code Quality Stroke Does the patient have a stroke diagnosis?: Yes Reason for No Anti-thrombotic by Day Two: N/A - Med Ordered VTE Prior VTE?: No VTE Risk Level:: Medical - moderate - high VTE Device Contraindication: Treatment Not Indicated VTE Drug Contraindication: N/A - Med Ordered
[2025-02-22] VITALS (7 sets, daily range): BP systolic 124–146; BP diastolic 70–83; PULSE 51–97; RESP 15–22; TEMP 36.2–36.9; O2SAT 94–98; BMI 28.3
--- NOTE | 2025-02-22 01:15 | PC.NURSE ---
Assumed care of this Pt at 0100. Pt A%Ox3, denies any pain, noted facial droop to right side, slight R hand weakness, and right foot extension. Pt reports he uses walker at home, Pt stand by assist to ambulate to BR.
[2025-02-22 01:19] LABS: Appearance Urine Clear; Glucose Urine UA Negative (Negative); PH 7.0 (5.0-9.0); Specific Gravity - Urine 1.025 (1.005-1.025); UMIC TRIGGER UACC YES
[2025-02-22 01:22] LABS: UACC Culture Trigger YES
[2025-02-22 04:36] LABS: MANUAL DIFF FLAG NO
[2025-02-22 04:38] LABS: Hematocrit 43.3 % (42.0-52.0); Hemoglobin 14.7 g/dl (14.0-18.0); Imm Gran Abs Auto 0.03 X10*3/uL (0.00-0.03); Imm Gran Pct Auto 0.3 % (0.0-0.4); Lymphocytes Absolute Auto 2.7 X10*3/uL (1.2-4.9); Mean Corpuscular HGB Conc 33.9 g/dl (31.0-36.0); Mean Corpuscular Hemoglobin 30.4 pg (27.0-33.0); Mean Corpuscular Volume 89.5 fL (80.0-98.0); NRBC Abs Auto 0.000 X10*3/uL (0.0-0.012); NRBC Pct Auto 0.0 /100WBC (0.0-0.2); Platelet Count 235 X10*3/uL (160-400); Red Blood Count 4.84 X10*6/uL (4.60-5.80); White Blood Count 9.9 X10*3/uL (4.8-10.8)
[2025-02-22 05:00] LABS: Anion Gap 12 (12-20); Blood Urea Nitrogen 11 mg/dL (9-16); Calcium 8.9 mg/dL (8.4-10.2); Carbon Dioxide 24 mmol/L (22-29); Chloride 111 mmol/L (96-108); Cholesterol 124 mg/dL (<200); Creatinine Clr Calc Pharmacy 93.7; Estimated Glomerular Filt Rate > 60; HDL Cholesterol 50 mg/dL (>40); Potassium 4.1 mmol/L (3.3-5.1); Sodium 143 mmol/L (135-145); Triglycerides 49 mg/dL (<150)
--- NOTE | 2025-02-22 07:35 | PC.NURSE ---
report was taken from previous rn. It was understood that patient was being admitted for stroke like symptoms with new findings on a head ct and that he was not a thrombolytic candidate. Pt is npo and initially appeared in no distress. at apporx 0725 he called this rn to his room to report new onset pain to r jaw and feeling dizzy. 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 I alerted the hospitalist team via tigertext but his symtpoms resolved soon thereafter.
--- NOTE | 2025-02-22 09:00 | HE.PHANOTE ---
spoke to patient with help from hourly sign language interpreter services. He did not know his medications by memory but recognized them when listed from pharmacy claims.
--- NOTE | 2025-02-22 09:55 | P.CNNE_ITS ---
History of Present Illness Data of Consult Service Date: 02/22/25 Primary Care Provider: Fidel Faust MD [facility] Reason for consult: Headache 64 years old man who has been having headaches for years at a left-sided severe headache and came to emergency room. Now he was feeling much better with almost resolution of headache. There was no associated cold or flu-like illness or trauma. There was no focal symptom of weakness numbness or speech or language difficulty. He had a CT and CTA of brain and neck done, which showed some finding prompting this consultation. His into was performed with the help of an diplomatic interpreter/translator. Review of Systems 2 Review of Systems: As per HPI [facility] Past Medical History Medical History (Updated 02/22/25 @ 09:58 by Lloyd Mistry MD) Headache, migraine Paroxysmal A-fib CVA (cerebral vascular accident) Vertebrobasilar ischemia Bronchitis Asthma Myocardial infarction HLD (hyperlipidemia) HTN (hypertension) Social History Social History Household Members: None Housing: Apartment Do you presently have visiting nurse or other home services: No Alcohol intake: former Patient Tobacco Use Status: Never used Tobacco Smoked in Last 30 Days: No Advance Directives: Yes Advance Directives on File: Yes Advance Directives Date on File: 07/23/20 Do you have a plan to hurt others: No Plan service: No Current occupational status: unemployed Meds Allergies Allergy/AdvReac Type Severity Reaction Status Date / Time No Known Allergies (No Known Allergy Mild UNKNOWN Verified 02/21/25 17:35 Allergies*) Active Medications: Current Medications Acetaminophen (Acetaminophen 325 Mg Tablet) 650 mg PO Q6H PRN PRN Reason: Pain, Mild 1-3,fever,headache Atorvastatin Calcium (Atorvastatin Calcium 80 Mg Tablet) 80 mg PO DAILY ISIAH Calcium Carbonate (Calcium Carbonate 750 Mg Tab.Chew) 750 mg PO Q4H PRN PRN Reason: Heartburn Magnesium Hydroxide (Milk Of Magnesia 30 Ml Oral.Susp) 30 ml PO DAILY PRN PRN Reason: Constipation Melatonin (Melatonin 3 Mg Tablet) 6 mg PO BEDTIME PRN PRN Reason: Insomnia Home Medications ?Medication ?Instructions ?Recorded ?Confirmed ?Last Taken ?Type diltiazem HCl 120 mg capsule,24 1 cap PO DAILY 2 02/22/25 02/21/25 History hr,extended release (Tiadylt ER) tamsulosin 0.4 mg capsule 0.4 mg PO BEDTIME 02/22/25 0 02/22/25 02/21/25 History Physical Exam 2 Vital Signs: Vital Signs: Last Vital Signs Temp 98.1 F 02/22/25 06:13 Pulse 68 02/22/25 07:39 Resp 16 02/22/25 07:39 BP 140/70 H 02/22/25 07:39 Pulse Ox 98 02/22/25 07:39 O2 Del Method Room Air 02/22/25 07:39 BMI result Body Mass Index 29.1 Neuro: Other: he is alert and awake with normal spontaneity of speech fluency comprehension and affect. Face is symmetrical. Visual lezama are full. There was no pronator drift. Deep tendon reflexes are trace to absent with flexor plantars. Speech is normal. Results Labs 02/22/25 03:52 02/22/25 03:52 Labs: Short CBC 02/21/25 02/22/25 Range/Units 17:42 03:52 WBC 9.7 9.9 (4.8-10.8) X10*3/uL Hgb 14.8 14.7 (14.0-18.0) g/dl Hct 42.3 43.3 (42.0-52.0) % Plt Count 236 235 (160-400) X10*3/uL BMP 02/21/25 02/22/25 17:42 03:52 Sodium 142 143 Potassium 3.5 4.1 Chloride 110 H 111 H Carbon Dioxide 23 24 BUN 13 11 Creatinine 1.01 0.95 Calcium 9.0 8.9 Liver Function 02/21/25 Range/Units 17:42 Total Bilirubin 1.8 H (0.0-1.0) mg/dL AST 31 (5-37) U/L ALT 33 (0-40) U/L Alkaline Phosphatase 78 (39-117) U/L Albumin 4.0 (3.5-5.0) g/dL Urine 02/22/25 Range/Units 01:11 Urine Color Yellow Urine Appearance Clear Urine pH 7.0 (5.0-9.0) Ur Specific [place] 1.025 (1.005-1.025) Urine Protein Negative (Neg-Trace) mg/dL Urine Glucose (UA) Negative (Negative) mg/dL CTA and CTA of brain and neck were reviewed. Few lacunar type chronic ischemic infarction were noted but otherwise no significant pathology was noted. Assessment and Plan (1) Headache, migraine: Qualifiers: Migraine type: chronic migraine (15 or more days per month) with aura S tatus migrainosus presence: without status migrainosus Intractability: i ntractable Qualified Code(s): G43.E19 - Chronic migraine with aura, intractable, without status migrainosus Status: Acute 64 years old man with chronic migraine type of frequent intractable headaches. Now he was feeling better. He also suffers from hypertension and had few microvascular lacunar type of ischemic chronic infarctions. Otherwise I do not see any significant finding on his imaging. Mainstay of management is headache control and for that he should consider taking a preventive medicine. Topiramate 25 mg at night can be considered. Procedures Date of Service Date of Service: 02/22/25
--- NOTE | 2025-02-22 11:53 | PC.NURSE ---
MRi screening form completed w/ back order clerk-- faxed to MRI dept.
--- NOTE | 2025-02-22 13:31 | HO.PM.IMPN ---
Subjective Subjective Date of Service: 02/22/25 Review of Systems Follow up CVA symptoms symptoms improved Physical Exam Exam: Exam: Appearing in no acute distress lung sounds are clear to auscultation heart regular rate rhythm, clear S1, S2 positive bowel sounds, abdomen is soft, nontender neuro patient is alert x3, no focal deficits Vital Signs: Vital Signs: Last Vital Signs Temp 97.9 F 02/22/25 12:52 Pulse 81 02/22/25 12:52 Resp 22 H 02/22/25 12:52 BP 146/83 H 02/22/25 12:52 Pulse Ox 94 02/22/25 12:52 O2 Del Method Room Air 02/22/25 12:52 BMI result Body Mass Index 29.1 Objective Data Active Medications Acetaminophen (Acetaminophen 325 Mg Tablet) 650 mg PO Q6H PRN PRN Reason: Pain, Mild 1-3,fever,headache Atorvastatin Calcium (Atorvastatin Calcium 80 Mg Tablet) 80 mg PO DAILY ISIAH Last Admin: 02/22/25 10:59 Dose: 80 mg Documented By: N-AUBREY Calcium Carbonate (Calcium Carbonate 750 Mg Tab.Chew) 750 mg PO Q4H PRN PRN Reason: Heartburn Magnesium Hydroxide (Milk Of Magnesia 30 Ml Oral.Susp) 30 ml PO DAILY PRN PRN Reason: Constipation Melatonin (Melatonin 3 Mg Tablet) 6 mg PO BEDTIME PRN PRN Reason: Insomnia Labs 02/22/25 03:52 02/22/25 03:52 Labs: Laboratory Results - last 24 hr 02/21/25 02/22/25 02/22/25 17:42 01:11 03:52 MCV 88.1 89.5 MCH 30.8 30.4 MCHC 35.0 33.9 RDW 12.8 13.2 Plt Count 236 235 MPV 10.0 10.2 Immature Gran % (Auto) 0.2 0.3 Neut % (Auto) 64.3 58.5 Lymph % (Auto) 23.2 26.8 Armstrong % (Auto) 9.6 10.4 Eos % (Auto) 1.9 3.0 Baso % (Auto) 0.8 1.0 Lymph # (Auto) 2.2 2.7 Armstrong # (Auto) 0.9 1.0 Eos # (Auto) 0.2 0.3 Baso # (Auto) 0.1 0.1 Abs Immat Gran (auto) 0.02 0.03 Absolute Neuts (auto) 6.2 5.8 Absolute Nucleated RBC 0.000 0.000 Nucleated RBC % (auto) 0.0 0.0 PT 13.8 H INR 1.2 H Anion Gap 13 12 Estim Creat Clear Calc 88.2 93.7 Estimated GFR > 60 > 60 Random Glucose 129 H 95 Calcium 9.0 8.9 Total Bilirubin 1.8 H AST 31 ALT 33 Alkaline Phosphatase 78 Total Protein 7.0 Albumin 4.0 Triglycerides 49 Cholesterol 124 LDL Cholesterol, Calc 65 HDL Cholesterol 50 Urine Color Yellow Urine Appearance Clear Urine pH 7.0 Ur Specific Hatley 1.025 Urine Protein Negative Urine Glucose (UA) Negative Urine Ketones Negative Urine Blood Negative Urine Nitrite Positive H Ur Leukocyte Esterase Negative Urine RBC 0-2 Urine WBC 0-5 Ur Squamous Epith Cells 0-2 Urine Bacteria 4+ Hyaline Casts 0-2 Assessment and Plan (1) HTN (hypertension): Status: Acute Plan 64-year-old male with a past medical history of HTN, HLD, CAD, CVA vertebrobasilar ischemia, paroxysmal AFib on Eliquis, asthma presented to the hospital today with a chief complaint of headache. CT head showed possible CVA. Headache and left upper and lower extremity weakness CT head showed questionable area of abnormal density within the luis daniel and left cerebellar peduncle-either artifact versus acute ischemia. 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 Eliquis possible UTI +nitrates and bacteria start Ceftin follow final cx BPH Continue tamsulosin DVT prophylaxis: SCD boots Code status: Full code Quality Stroke Does the patient have a stroke diagnosis?: Yes Reason for No Anti-thrombotic by Day Two: N/A - Med Ordered VTE Prior VTE?: No VTE Risk Level:: Medical - moderate - high VTE Device Contraindication: Treatment Not Indicated VTE Drug Contraindication: N/A - Med Ordered
--- NOTE | 2025-02-22 15:45 | MHC.CM.PN ---
pt lives alone has a ride home had no previous services vna rferrals made
--- NOTE | 2025-02-22 16:41 | MHC.SL.SWA ---
Speech Pathologist Impression: Oropharyngeal swallow coordination WNL. No overt s/s of aspiration with regular solids, thins and purees. Risk of Aspiration Due to: Pt endorsed new onset R jaw pain. Pt has hx of CVA and C spine surgery Dysphasia Diet Status: Continue to recommend unmodified diet REGULAR solids/THIN liquids with pills WHOLE in LIQUID. Further ST intervention is no longer warranted. Please re-refer if [facility] can be of further assistance. Liquid Consistency and Strategies for Safe Swallow: Liquid Intake Recommendation: Thin Liquid Intake Strategies: Solid Food Consistency: Dietary Recommendations: Regular Additional Modifications to Solid Foods: Oral Medication Intake: Whole with Liquid Please contact the pharmacy regarding appropriate crushable or liquid drug formulations that are available whenever modified delivery is recommended. Compensatory Strategies and Precautions to be Taken for Safe Swallow: Supervision While Eating and Drinking for Safe Swallow: None Needed Foods to Avoid: Swallowing Recommended Treatments: Recommendation for Speech: Outpatient Speech Therapy Comment: MRI revealed no new infarcts. drill doctor present to provide translation. [facility] provided education on physiological function of swallow mechanism and recc diet/safety precautions. Pt verbalized understanding and agreed with recommendation for OP dysphagia/dysarthria tx given recent onset of difficulties reported by pt as well as voice changes he endorsed. Frequency/Duration: Date Range for Service Req: Timeline to reassess: Java J2Ee Lead Clinican/Clinical Fellow: No Supervisory Statement: I have reviewed and agree with the student/clinical fellow's documentation: N/A Speech Language Pathologist: Quita Rojas M.S., CCC-[facility]
[2025-02-23 03:02] VITALS: BP 121/75; PULSE 74; RESP 18; TEMP 36.7; O2SAT 97
[2025-02-23 06:57] VITALS: BP 129/77; PULSE 66; RESP 20; TEMP 36.7; O2SAT 96
--- NOTE | 2025-02-23 07:04 | PM.DS ---
DS: Providers Provider Date of Service: 02/23/25 Date of admission: 02/21/25 23:53 Date of discharge: 02/23/25 Primary care physician: Fidel Faust MD Consults: 02/21/25 23:53 Consult to Neurology Routine Consulting Provider: Lloyd Mistry Reason for consultation: cva DS: Diagnosis Discharge Diagnosis (1) HTN (hypertension): Status: Acute DS: Summary Hospital Course Hospital Course: History and physical as per admitting provider. 64-year-old male with a past medical history of HTN, HLD, CAD, CVA vertebrobasilar ischemia, paroxysmal AFib on Eliquis, asthma presented to the hospital today with a chief complaint of headache. Patient reported having headache, around 16:00; also had associated dizziness. Denies any nausea vomiting. [place] unsteady. Denies any blurry visions. Denies any numbness tingling or focal weakness. Denies any chest pain or palpitations. Review of all other systems is negative except mentioned above ER course: Per ER team, patient's exam was grossly nonfocal; CT head showed findings concerning for possible stroke. CT angio head and neck showed acute findings. Patient was already on Eliquis-last dose was early in the morning. 64-year-old man treated for left upper and lower extremity weakness initially thought to be a possible stroke. MRI with no evidence of acute infarction but did show old lacunar infarcts. Seen evaluated by Neurology who did not think that his symptoms were secondary to stroke but more likely headaches. Neuro recommended Topamax 25 mg at bedtime. Plan will be to discharge patient home UTI. Nitrates and bacteria positive. Started on Ceftin. We will send home to complete 2 more days of antibiotics Paroxysmal atrial fibrillation. Rate controlled. Continue Eliquis BPH. Continue tamsulosin Time Attestation Discharge Coordination Time (in mins): 40 Quality: Safe Use of Opioids Does Pt have an Active Cancer Diagnosis on the Problem List?: No Quality: Stroke Does the patient have a stroke diagnosis?: No Physical Exam Exam: Exam: Appearing in no acute distress head is normocephalic atraumatic eyes pupils are PERRLA sclera is anicteric mouth throat mucous membranes are intact and moist neck is supple no lymphadenopathy, no JVD noted lung sounds are clear to auscultation heart regular rate rhythm, clear S1, S2 positive bowel sounds, abdomen is soft, nontender neuro patient is alert x3, no focal deficits Vital Signs: Vital Signs: Last Vital Signs Temp 98.0 F 02/23/25 06:57 Pulse 66 02/23/25 06:57 Resp 20 02/23/25 06:57 BP 129/77 02/23/25 06:57 Pulse Ox 96 02/23/25 06:57 O2 Del Method Room Air 02/23/25 06:57 BMI result Body Mass Index 28.3 DS: Data Data Completed and Pending Completed studies during hospitalization [Text1]: Procedures Introduction of Other Thrombolytic into Peripheral Vein, Percutaneous Approach (07/22/20) Discharge Plan Discharge Anticipated Discharge Date/Time: 02/23/25 06:59 Patient Disposition: Home, Self-Care Discharge Diagnosis: Headache UTI Referrals: Fidel Faust MD [Primary Care Provider, Medical] - 1 Week Discharge Medications: New cefuroxime axetil 250 mg Tablet 250 mg PO Q24H Qty: 2 0RF Continued atorvastatin 40 mg Tablet 40 mg PO BEDTIME Qty: 30 0RF Eliquis 5 mg Tablet 5 mg PO BID Qty: 30 0RF diltiazem HCl [Tiadylt ER] 120 mg capsule,extended release 24 hr 1 cap PO DAILY finasteride [Proscar] 5 mg Tablet 5 mg PO DAILY 30 Days Qty: 30 0RF meclizine 25 mg tablet 25 mg PO TID PRN (Reason: dizziness) Qty: 20 0RF oxycodone 5 mg tablet 5 mg PO Q6H PRN (Reason: pain) Qty: 12 0RF Rx Instructions: Partial Fill upon patient request. tamsulosin 0.4 mg capsule 0.4 mg PO BEDTIME Discharge Orders: Discharge Order (Routine); Ordered 02/23/25 Ordered By: Angela Ordaz Diet: Advance to usual diet Activity on Discharge: As tolerated Stand Alone Forms: Patient Portal Discharge page Print Language: Latvian Care Plan Goals: Complete 2 more days of antibiotic for urinary tract infection Health Concerns: Headache UTI Plan of Treatment: Follow up with primary care provider as needed Take all medications as prescribed Assessment: See discharge summary
[2025-02-23] MEDS: dilTIAZem HCL CD 120 MG CAP.ER.DEG PO (08:12)
--- NOTE | 2025-02-23 09:52 | MHC.CM.PN ---
Patient has been medically cleared for dc to home today, self care. Last IMM was addressed on 02/22/2025.
[2025-02-23 11:15] VITALS: BP 127/76; PULSE 83; RESP 20; TEMP 36.4; O2SAT 96
--- NOTE | 2025-02-25 12:29 | P.EN_ITS ---
Event Note Date of Service: 02/25/25 Event Note: Patient urine culture came Pseudomonas, as per the lab previously the culture was reported dfferent bacteria, recently discharged on Ceftin for UTI, patient's chart reviewed seems like Pseudomonas previously sensitive to cefepime, meropenem and Zosyn only: Patient was called to the emergency room get follow- up. Patient's daughter was called and explained in detail-patient is asymptomatic currently, discussed with the ID Dr. Gutierres: Since patient asymptomatic, defer further antibiotics. Daughter is in agreement with the above plan, if any new symptoms she knows that patient needs to go to the emergency room Time Spent With Patient Time: Total time managing care of this patient today ____ minutes.
== END 2025-02-23 12:32 | disposition home or self-care (01) | DRG 103 ==
LOC: HO.ED 02-22 00:24 → HO.EDOVER 02-22 00:42 → HO.IMC 02-22 19:11
PROVIDERS: Admitting Provider Hospitalist; Emergency Provider Emergency Medicine; PCP Internal Medicine; Visit Provider Nurse Practitioner Acute Care
DX: G43.E19 Chronic migraine with aura, intractable, without status migrainosus (principal); G81.94 Hemiplegia, unspecified affecting left nondominant side; I48.0 Paroxysmal atrial fibrillation; N40.0 Benign prostatic hyperplasia without lower urinary tract symptoms; B96.5 Pseudomonas (aeruginosa) (mallei) (pseudomallei) as the cause of diseases classified elsewhere; I10 Essential (primary) hypertension; J45.909 Unspecified asthma, uncomplicated; Z86.73 Personal history of transient ischemic attack (TIA), and cerebral infarction without residual deficits; Z79.01 Long term (current) use of anticoagulants; Z79.899 Other long term (current) drug therapy
CPT/HCPCS: 36415; 70450; 70496; 70498; 70551; 80048; 80053; 80061; 81001; 84484; 85025; 85610; 87086; 87088; 92610; 93005; 97161; 97165; 99222; 99285; J0131; J1200; J2765; Q9957; Q9967

== ENCOUNTER → 2025-02-21 17:51 | Outpatient (BNV) | payer OTHER, SELFPAY | PROVIDERS: Admitting Provider Hospitalist; Emergency Provider Emergency Medicine; PCP Internal Medicine; Visit Provider Internal Medicine Cardiovascular Disease | DX: R42 Dizziness and giddiness (principal) | CPT/HCPCS: 93010 ==

== ENCOUNTER → 2025-02-21 19:09 | Outpatient (BNV) | payer MEDICARE, MEDICAID, SELFPAY | PROVIDERS: Emergency Provider Emergency Medicine; PCP Internal Medicine; Visit Provider Family Medicine | DX: R51.9 Headache, unspecified (principal); R42 Dizziness and giddiness | CPT/HCPCS: 70450; 70496; 70498 ==

== ENCOUNTER 2025-02-21 23:53 | Outpatient (BNV) | payer OTHER, SELFPAY | END 2025-02-22 14:35 | PROVIDERS: Admitting Provider Hospitalist; Emergency Provider Emergency Medicine; PCP Internal Medicine; Visit Provider Radiology Diagnostic Radiology | DX: R51.9 Headache, unspecified (principal); R53.1 Weakness | CPT/HCPCS: 70551 ==

== ENCOUNTER → 2025-02-21 23:53 | Outpatient (BNV) | payer OTHER, SELFPAY | PROVIDERS: Admitting Provider Hospitalist; Emergency Provider Emergency Medicine; PCP Internal Medicine; Visit Provider Nurse Practitioner Acute Care | DX: I10 Essential (primary) hypertension (principal) | CPT/HCPCS: 99232; 99239; 99499 ==

== ENCOUNTER → 2025-02-21 23:53 | Outpatient (BNV) | payer MEDICARE, MEDICAID, SELFPAY | PROVIDERS: Admitting Provider Hospitalist; Emergency Provider Emergency Medicine; PCP Internal Medicine; Visit Provider Psychiatry & Neurology Neurology | DX: G43.E19 Chronic migraine with aura, intractable, without status migrainosus (principal) | CPT/HCPCS: 99222 ==

== ENCOUNTER 2025-06-14 14:44 | Emergency (ER) | payer OTHER, SELFPAY ==
--- NOTE | 2025-06-14 | ECG_ITS ---
Test Reason : CP Blood Pressure : */* mmHG Vent. Rate : 86 BPM Atrial Rate : 86 BPM P-R Int : 158 ms QRS Dur : 90 ms QT Int : 374 ms P-R-T Axes : 72 -36 26 degrees QTcB Int : 447 ms Normal sinus rhythm Left axis deviation Abnormal ECG When compared with ECG of 21-Feb-2025 17:51, No significant change was found Referred By: Lenore Kruger Electronically Signed By: TANNER CROCKETT MD
--- NOTE | ~2025-06-14 | XR_ITS ---
EXAMINATION: XR CHEST CLINICAL INFORMATION: CP, coughing COMPARISON: 07/01/2024 TECHNIQUE: 2 views of the chest were obtained. FINDINGS: There is vascular crowding in the lung bases and linear density in the left base. Lung volumes are decreased compared to the prior. Heart size is within normal limits. There is no sign of pleural effusion. XR/XR chest 2V IMPRESSION: Mild bibasilar atelectasis. Electronically signed by: Bony Castellanos MD 06/14/2025 03:48 PM RUPINDER
[2025-06-14 14:54] VITALS: BP 126/78; BP 130/80; PULSE 84; PULSE 98; RESP 17; TEMP 36.6; O2SAT 90; O2SAT 92; BMI 28.7
[2025-06-14 15:43] LABS: COVID-19 Test Negative (Negative); IDNOW Serial# 55D5AD1C
[2025-06-14 15:44] LABS: IDNOW Serial# 58CA691E; Influenza B2 Negative (Negative)
--- NOTE | 2025-06-14 16:23 | ED.CHESTPAIN ---
HPI - Chest Pain General Chief Complaint: Chest Pain Stated Complaint: CP AFTER COUGHING FIT PER EMS Time Seen by Provider: 06/14/25 14:52 History of Present Illness ED Provider: Dr. Kruger HPI narrative: 64 y/o M patient; PMH CAD, pAF, HLD, HTN, asthma; presents from home via EMS with report of central chest pain associated with a dry, non-productive cough for the last 24 hours. The patient otherwise denies: fever or chills, nausea/vomiting, abdominal pain. Cough exacerbates chest pain. Related Data Home Medications ?Medication ?Instructions ?Recorded ?Confirmed diltiazem HCl 120 mg capsule,24 1 cap PO DAILY 01/20/22 02/22/25 hr,extended release (Tiadylt ER) tamsulosin 0.4 mg capsule 0.4 mg PO BEDTIME 02/22/25 02/22/25 Previous Rx's ?Medication ?Instructions ?Recorded apixaban 5 mg tablet (Eliquis) 5 mg PO BID #30 tabs 07/25/20 atorvastatin 40 mg tablet 40 mg PO BEDTIME #30 tabs 07/25/20 finasteride 5 mg tablet (Proscar) 5 mg PO DAILY 30 days #30 tabs 01/22/22 meclizine 25 mg tablet 25 mg PO TID PRN dizziness #20 tabs 02/22/23 oxycodone 5 mg tablet 5 mg PO Q6H PRN pain #12 tabs 05/17/23 cefuroxime axetil 250 mg tablet 250 mg PO Q24H #2 tabs 02/23/25 azithromycin 250 mg tablet 250 mg PO DAILY 4 days #4 tabs 06/14/25 prednisone 50 mg tablet 50 mg PO DAILY 4 days #4 tabs 06/14/25 Allergies Allergy/AdvReac Type Severity Reaction Status Date / Time No Known Allergies (No Known Allergy Mild UNKNOWN Verified 06/14/25 15:09 Allergies*) Review of Systems Review of Systems: Yes all other systems are reviewed and are negative PMFSH Past Medical History Attestation statement: The following information was validated with the patient. Source: old records reviewed Medical History Headache, migraine Paroxysmal A-fib CVA (cerebral vascular accident) Vertebrobasilar ischemia Bronchitis Asthma Myocardial infarction HLD (hyperlipidemia) HTN (hypertension) Social History Social History Household Members: None Housing: Apartment Do you presently have visiting nurse or other home services: No Alcohol intake: former Patient Tobacco Use Status: Never used Tobacco Smoked in Last 30 Days: No Use of substances other than those prescribed or required for medical reasons: No Advance Directives: Yes Advance Directives on File: Yes Advance Directives Date on File: 07/23/20 Do you have a plan to hurt others: No Plan service: No Current occupational status: unemployed Physical Exam Vital Signs: Vital Signs: Last Vital Signs Temp 97.8 F 06/14/25 14:54 Pulse 69 06/14/25 17:28 Resp 20 06/14/25 17:28 BP 135/83 06/14/25 17:00 Pulse Ox 95 06/14/25 17:00 O2 Del Method Room Air 06/14/25 17:00 BMI result Body Mass Index 28.7 Patient is afebrile and hemodynamically stable. Const: General: cooperative and no acute distress Orientation/consciousness: patient oriented x3 HEENT: Head: Yes normal to inspection and Yes atraumatic Eyes: General: appearance normal, both eyes and all related structures Pupils: Equal, round and reactive pupils present EOM: EOMs intact bilaterally Neck: Neck: Yes normal visual inspection, Yes full ROM, Yes supple and No tender Chest: Chest palpation & inspection: normal inspection of the chest and normal palpation of entire chest wall Resp: Other: Mild end expiratory wheezing in upper lobes, appropriate air movement Effort & Inspection: normal respiratory effort, able to speak in complete sentences, Actively coughing and no respiratory distress Cardio: Rate: regular rate Rhythm: regular rhythm Peripheral pulses: Peripheral pulses 2+ throughout GI: Inspection: Yes normal to inspection, No Abdominal wall edema and No distended Palpation (GI): Soft to palpation, not firm, nontender, no guarding and not rigid Auscultation: normal bowel sounds Back/Spine/Pelvis: Back: No back tenderness Neuro: General: patient oriented x3 Cranial nerves: Yes Equal, round and reactive pupils present Course Course Course Narrative: Patient is afebrile and hemodynamically stable. Ordered for EKG, CXR, and screening labs. CXR reviewed and unremarkable for acute process. Labs reviewed. No significant anemia. Mild leukocytosis. Troponin is undetectable, with over 6 hours of symptoms, unlikely ACS. Placed on bronchodilator protocol. Will treat with a course of prednisone and azithromycin for a mild case of bronchitis. Plan: Discharge to home with PCP follow up Return precautions given Rx prednisone and azithromycin sent to pharmacy Medications Administered Discontinued Medications Generic Name Dose Route Start Last Admin Trade Name Freq PRN Reason Stop Dose Admin Albuterol Sulfate 2.5 mg/ 5 mg 06/14/25 17:26 06/14/25 17:27 Albuterol Sulfate 2.5 mg INHALE 06/14/25 17:27 5 mg ONCE ONE Administration Azithromycin 500 mg 06/14/25 16:58 06/14/25 17:20 Azithromycin 500 Mg Tablet PO 06/14/25 16:59 500 mg ONCE ONE Administration Prednisone 50 mg 06/14/25 16:58 06/14/25 17:19 Prednisone 10 Mg Tablet PO 06/14/25 16:59 50 mg ONCE ONE Administration Medical Decision Making Lab Data 06/14/25 16:30 06/14/25 16:30 Labs: Lab Results 06/14/25 06/14/25 Range/Units 15:20 16:30 WBC 14.0 H (4.8-10.8) X10*3/uL RBC 5.05 (4.60-5.80) X10*6/uL Hgb 15.2 (14.0-18.0) g/dl Hct 46.1 (42.0-52.0) % MCV 91.3 (80.0-98.0) fL MCH 30.1 (27.0-33.0) pg MCHC 33.0 (31.0-36.0) g/dl RDW 13.2 (11.0-16.0) % Plt Count 261 (160-400) X10*3/uL MPV 9.5 (9.4-12.4) fL Immature Gran % (Auto) 0.3 (0.0-0.4) % Neut % (Auto) 77.7 H (45-73) % Lymph % (Auto) 11.7 L (20-40) % [place] % (Auto) 7.9 (2-11) % Eos % (Auto) 1.6 (0-4) % Baso % (Auto) 0.8 (0-2) % Lymph # (Auto) 1.6 (1.2-4.9) X10*3/uL [place] # (Auto) 1.1 (0.1-1.2) X10*3/uL Eos # (Auto) 0.2 (0.0-0.4) X10*3/uL Baso # (Auto) 0.1 (0.0-0.2) X10*3/uL Abs Immat Gran (auto) 0.04 H (0.00-0.03) X10*3/uL Absolute Neuts (auto) 10.9 H (2.0-8.3) x10*3/uL Absolute Nucleated RBC 0.000 (0.0-0.012) X10*3/uL Nucleated RBC % (auto) 0.0 (0.0-0.2) /100WBC Sodium 142 (135-145) mmol/L Potassium 4.2 (3.3-5.1) mmol/L Chloride 109 H (96-108) mmol/L Carbon Dioxide 26 (22-29) mmol/L Anion Gap 11 L (12-20) BUN 9 (9-16) mg/dL Creatinine 1.03 (0.5-1.4) mg/dL Estim Creat Clear Calc 85.9 Estimated GFR > 60 Random Glucose 89 (60-115) mg/dL Calcium 9.4 (8.4-10.2) mg/dL Total Bilirubin 1.4 H (0.0-1.0) mg/dL Direct Bilirubin 0.5 (0.0-0.5) mg/dL AST 27 (5-37) U/L ALT 27 (0-40) U/L Alkaline Phosphatase 100 (39-117) U/L Troponin I High Sens < 2.7 (<3.5-35.0) ng/L Total Protein 7.5 (6.5-8.0) g/dL Albumin 4.0 (3.5-5.0) g/dL Lipase 25 (8-78) U/L COVID-19 (MARIA G) Negative (Negative) COVID-19 Clin Com See Note Influenza Type A (BOO) Negative (Negative) Influenza Type B (BOO) Negative (Negative) Influenza A & B Note See Note Independent Interpretation Interpretation: EKG independently interpreted by myself as NSR 86BPM with + LAD. Radiology Impression Discussion of test interpretation with radiology: I have reviewed the radiologist's reading. Radiologist Impression: EXAMINATION: XR CHEST CLINICAL INFORMATION: CP, coughing COMPARISON: 07/01/2024 TECHNIQUE: 2 views of the chest were obtained. FINDINGS: There is vascular crowding in the lung bases and linear density in the left base. Lung volumes are decreased compared to the prior. Heart size is within normal limits. There is no sign of pleural effusion. XR/XR chest 2V IMPRESSION: Mild bibasilar atelectasis. Electronically signed by: Bony Castellanos MD 06/14/2025 03:48 PM [facility] Discharge Plan Discharge Clinical Impression: Bronchitis Patient Disposition: Home, Self-Care Instructions: Acute Bronchitis (ED) Prescriptions: New prednisone 50 mg tablet 50 mg PO DAILY 4 Days Qty: 4 0RF azithromycin 250 mg tablet 250 mg PO DAILY 4 Days Qty: 4 0RF Rx Instructions: start on day 2 of therapy No Action atorvastatin 40 mg Tablet 40 mg PO BEDTIME Qty: 30 0RF Eliquis 5 mg Tablet 5 mg PO BID Qty: 30 0RF diltiazem HCl [Tiadylt ER] 120 mg capsule,extended release 24 hr 1 cap PO DAILY finasteride [Proscar] 5 mg Tablet 5 mg PO DAILY 30 Days Qty: 30 0RF meclizine 25 mg tablet 25 mg PO TID PRN (Reason: dizziness) Qty: 20 0RF oxycodone 5 mg tablet 5 mg PO Q6H PRN (Reason: pain) Qty: 12 0RF Rx Instructions: Partial Fill upon patient request. tamsulosin 0.4 mg capsule 0.4 mg PO BEDTIME cefuroxime axetil 250 mg Tablet 250 mg PO Q24H Qty: 2 0RF Print Language: Albanian
[2025-06-14 16:34] LABS: MANUAL DIFF FLAG NO
[2025-06-14 16:37] LABS: Hematocrit 46.1 % (42.0-52.0); Hemoglobin 15.2 g/dl (14.0-18.0); Imm Gran Abs Auto 0.04 X10*3/uL (0.00-0.03); Imm Gran Pct Auto 0.3 % (0.0-0.4); Lymphocytes Absolute Auto 1.6 X10*3/uL (1.2-4.9); Mean Corpuscular HGB Conc 33.0 g/dl (31.0-36.0); Mean Corpuscular Hemoglobin 30.1 pg (27.0-33.0); Mean Corpuscular Volume 91.3 fL (80.0-98.0); NRBC Abs Auto 0.000 X10*3/uL (0.0-0.012); NRBC Pct Auto 0.0 /100WBC (0.0-0.2); Platelet Count 261 X10*3/uL (160-400); Red Blood Count 5.05 X10*6/uL (4.60-5.80); White Blood Count 14.0 X10*3/uL (4.8-10.8)
[2025-06-14 16:49] LABS: Alanine Aminotransferase 27 U/L (0-40); Albumin Level 4.0 g/dL (3.5-5.0); Alkaline Phosphatase 100 U/L (39-117); Anion Gap 11 (12-20); Aspartate Amino Transferase 27 U/L (5-37); Blood Urea Nitrogen 9 mg/dL (9-16); Calcium 9.4 mg/dL (8.4-10.2); Carbon Dioxide 26 mmol/L (22-29); Chloride 109 mmol/L (96-108); Creatinine Clr Calc Pharmacy 85.9; Estimated Glomerular Filt Rate > 60; Lipase 25 U/L (8-78); Potassium 4.2 mmol/L (3.3-5.1); Sodium 142 mmol/L (135-145); Total Protein 7.5 g/dL (6.5-8.0)
[2025-06-14 16:58] LABS: Troponin-I High Sensitivity < 2.7 ng/L (<3.5-35.0)
[2025-06-14 17:00] VITALS: BP 135/83; PULSE 83; RESP 19; O2SAT 95
[2025-06-14] MEDS: Albuterol Sulfate 2.5 MG, Albuterol Sulfate (0.083%) 2.5 MG 5 MG INHALE (17:27)
[2025-06-14 17:28] VITALS: PULSE 69; RESP 20; O2SAT 94
--- OUTSIDE RECORDS SUMMARY | 2025-06-14 17:39 | XMS_ITS | Encounter Summary ---
Author Organization [employer] Address [address] [place] [address] Care Team Providers Care Vending Machine Mechanic Name Role Phone Fidel Hemphill MD Primary Care Provide r Reason for Visit * Reason Comments Med Refill Encounter Details Date Type Department Care Team (Late st Contact Info) Description 06/09/2025 Refill [facility] [address], [place] [phone] Fidel Hemphill MD [address] [place], [place] [phone] Mixed hyperlipidemia Social History Tobacco Use Types Packs/Day Years [...] Male 06/04/2022 10:15 AM EDT Sexual Orientation Straight 03/11/2025 1: 40 PM EDT documented as of this encounter Plan of Treatment Not on file documented as of this encounter Goals Goal Patient Goal Type Associated Problems Recent Progress Patient-Stated? Author Blood Pressure < 150/90 Blood Pressure 136/84(2024 10:40 AM EDT) No Fern Jacobo, PharmD Note: 150/90 per [facility]; 130/80 per ACC/AHA due to CVD documented as of this encounter Visit Diagnoses Diagnosis Mixed hyperlipidemia documented in this encounter Additional Health Concerns Assessment Noted Time PHQ-9 Depression Total Score: 2 08/18/19 25 10:49 AM EST documented as of this encounter Care Teams Vending Machine Mechanic Relationship Specialty Start Date End Date Fidel Hemphill MD [address] [place] [address] PCP - General Internal Medicine 03/25/14 documented as of this encounter
--- OUTSIDE RECORDS SUMMARY | 2025-06-14 17:39 | XMS_ITS | Encounter Summary ---
Author Organization [employer] Address [address] [place] [address] Care Team Providers Care Wood Furniture Assembler Name Role Phone Fidel Hemphill MD Primary Care Provide r Reason for Visit * Reason Comments Med Refill Encounter Details Date Type Department Care Team (Late st Contact Info) Description 11/15/2023 Refill [facility] MED[facility]INE [address] [place], [place] [phone] Fidel Hemphill MD [address], [place] [phone] Social History Tobacco Use Types Packs/Day Years [...] documented as of this encounter Care Teams Wood Furniture Assembler Relationship Specialty Start Date End Date Fidel Hemphill MD [address] [place] [address] PCP - General Internal Medicine 03/25/14 documented as of this encounter
--- OUTSIDE RECORDS SUMMARY | 2025-06-14 17:39 | XMS_ITS | Encounter Summary ---
Author Organization [employer] Address [address] [address] [address] [place] [address] Care Team Providers Care Inspector Fabric Name Role Phone Fidel Hemphill MD Primary Care Provide r Encounter Details Date Type Department Care Team (Late st Contact Info) Description 06/14/2025 Orders Only [facility] External Provider, [facility] Social History Tobacco Use Types Packs/Day Years [...] to CVD documented as of this encounter Procedures Procedure Name Priority Date/Time Associated Diagnosis Comments HIGH SENSITIVITY TROPONIN I Routine 06/14/2025 4:30 PM EST CBC WITH AUTO DIFFERENTIAL Routine 06/14/2025 4:30 PM EST LIPASE Routine 06/14/2025 4:30 PM EST HEPATIC FUNCTION PANEL Routine 06/14/2025 4:30 PM EST BASIC METABOLIC PANEL Routine 06/14/2025 4:30 PM EST XR CHEST 2 VIEWS Routine 06/14/2025 3:25 PM EST documented in this encounter Results * High Sensitivity Troponin I (06/14/2025 4:30 PM EST) TROPONIN I HIGH SENSITIVITY <2.7 <3.5 - 35.0 ng/L [facility] Comment:The [place] high sens itivity Troponin-I results should beused in conjunction with other diagnostic information suchas ECG, clinical observations and information, and patientsymptoms to aid in the diagnosis of VT. 06/14/2025 4:30 PM EST 06/14/2025 4:33 PM EST us Generic External Data Provider LAB BLOOD ORDERAB LES Final Result Performing Organization Address City/[facility]/ZIP Co de Phone Number [facility] [address] [place] [address] [phone] * Lipase (06/14/2025 4:30 PM EST) Lipase 25 8 - 78 U/L [facility] 06/14/2025 4:30 PM EST 06/14/2025 4:33 PM EST Generic External Data Provider LAB BLOOD ORDERAB LES Final Result Performing Organization Address [facility] Co de Phone Number [facility] [address] [place] [phone] * (ABNORMAL) Basic Metabolic Panel (06/14/2025 4:30 PM EST) Pathologist [facility] [place] Sodium 142 135 - 145 mmol/L [facility] Potassium 4.2 3.3 - 5.1 mmol/L [facility] Chloride 109(H) 96 - 108 mmol/L [facility] Carbon Dioxide 26 22 - 29 mmol/L [facility] Anion Gap 11(L) 12 - 20 [facility] Urea Nitrogen (BUN) 9 9 - 16 mg/dL [facility] Creatinine, Serum 1.03 0.5 - 1.4 mg/dL [facility] Creatinine Clr Calc Pharmacy 85.9 [facility] Comment:eGFR (calculated fro m the MDRD study equation) and eCrCl(calculated from the Cockcroft-Gault equation) are based ondifferent parameters and may not yield comparable results.If eCrCl result is absurd, please check patient'sheight/weight. Estimated Glomerular Filt Rate >60 [facility] Comment:Chronic Kidney Disea se: Estimated GFR < 60 mL/min/[id number] Kidney Disease: Estimated GFR < 15 mL/min/1.73m2 Glucose 89 60 - 115 mg/dL [facility] Calcium 9.4 8.4 - 10.2 mg/dL [facility] 06/14/2025 4:30 PM EST 06/14/2025 4:33 PM EST us Generic External Data Provider LAB BLOOD ORDERAB LES Final Result Performing Organization Address [facility] Co de Phone Number [facility] [address] [place] [phone] * (ABNORMAL) Hepatic Function Panel (06/14/2025 4:30 PM EST) Bilirubin, Total 1.4(H) 0.0 - 1.0 mg/dL [facility] Bilirubin, Direct 0.5 0.0 - 0.5 mg/dL [facility] Aspartate Amino Transferase 27 5 - 37 U/L [facility] Alanine Aminotransferase 27 0 - 40 U/L [facility] Total Protein 7.5 6.5 - 8.0 g/dL [facility] Albumin Level 4.0 3.5 - 5.0 g/dL [facility] Alkaline Phosphatase 100 39 - 117 U/L [facility] 06/14/2025 4:30 PM EST 06/14/2025 4:33 PM EST us Generic External Data Provider LAB BLOOD ORDERAB LES Final Result Performing Organization Address City/[facility] Co de Phone Number [facility] [address] [place] [phone] * (ABNORMAL) CBC auto differential (06/14/2025 4:30 PM EST) White Blood Count 14.0(H) 4.8 - 10.8 X10*3/uL [facility] Red Blood Count 5.05 4.60 - 5.80 X10*6/uL [facility] Hemoglobin 15.2 14.0 - 18.0 g/dl [facility] Hematocrit 46.1 42.0 - 52.0 % [facility] Mean Corpuscular Volume 91.3 80.0 - 98.0 fL [facility] Mean Corpuscular Hemoglobin 30.1 27.0 - 33.0 pg [facility] Mean Corpuscular HGB Conc 33.0 31.0 - 36.0 g/dl [facility] Red Cell Distribution Width 13.2 11.0 - 16.0 % [facility] Platelet Count 261 160 - 400 X10*3/uL [facility] Mean Platelet Volume 9.5 9.4 - 12.4 fL [facility] Neutrophils Percent Auto 77.7(H) 45 - 73 % [facility] Imm Gran Pct Auto 0.3 0.0 - 0.4 % [facility] Lymphocytes Percent Auto 11.7(L) 20 - 40 % [facility] Monocytes Percent Auto 7.9 2 - 11 % [facility] Eosinophils Percent Auto 1.6 0 - 4 % [facility] Basophils Percent Auto 0.8 0 - 2 % [facility] NRBC Pct Auto 0.0 0.0 - 0.2 /100WBC [facility] Neutrophils Absolute Auto 10.9(H) 2.0 - 8.3 x10*3/uL [facility] Imm Gran Abs Auto 0.04(H) 0.00 - 0.03 X10*3/uL [facility] Lymphocytes Absolute Auto 1.6 1.2 - 4.9 X10*3/uL [facility] Monocytes Absolute Auto 1.1 0.1 - 1.2 X10*3/uL [facility] Eosinophils Absolute Auto 0.2 0.0 - 0.4 X10*3/uL [facility] Basophils Absolute Auto 0.1 0.0 - 0.2 X10*3/uL [facility] NRBC Abs Auto 0.000 0.0 - 0.012 X10*3/uL [facility] 06/14/2025 4:30 PM EST 06/14/2025 4:33 PM EST us Generic External Data Provider LAB BLOOD ORDERAB LES Final Result [facility] [address] [place] [phone] * XR Chest 2 Views (06/14/2025 3:25 PM EST) Anatomical Region Laterality Modality Chest Radiographic Balbina ging 06/14/2025 3:25 PM EST Narrative 06/14/2025 3:51 PM EST [address] [address] XRay Report Signed Patient: Edmond Childers MR#: [id number] 3 : 1960 Acct:[id number] Age/Sex: 64 / M ADM Date: 06/14/25 Loc: HO.ED Attending Dr: Ordering Physician: Lenore Kruger MD Date of Service: 06/14/25 Procedure(s): XR chest 2V Accession Number(s): [id number] cc: Lenore Kruger MD; Fidel Faust MD Reason for Exam: CP, coughing EXAMINATION: XR CHEST CLINICAL INFORMATION: CP, coughing COMPARISON: 07/01/2024 TECHNIQUE: 2 views of the chest were obtained. FINDINGS: There is vascular crowding in the lung bases and linear density in the left base. Lung volumes are decreased compared to the prior. Heart size is within normal limits. There is no sign of pleural effusion. XR/XR chest 2V IMPRESSION: Mild bibasilar atelectasis. Electronically signed by: Bony Castellanos MD 06/14/2025 03:48 PM EST Dictated By: Bony Castellanos MD Signed By: <Electronically signed by Bony Castlelanos MD in OV> 06/14/25 1548 DD/ 1525 TD/TT: 06/14/25 1529 Sizer Machine: Procedure Note Donotuseinterpreter, Image - 06/14/[address] [address] XRay Report Signed Patient: Edmond ChildersMR#: [id number] 3 : 1960Acct:[id number] Age/Sex: 64 / MADM Date: 06/14/25 Loc: HO.ED Attending Dr: Ordering Physician: Lenore Kruger MD Date of Service: 06/14/25 Procedure(s): XR chest 2V Accession Number(s): [id number] cc: Lenore Kruger MD; Fidel Faust MD Reason for Exam: CP, coughing EXAMINATION: XR CHEST CLINICAL INFORMATION: CP, coughing COMPARISON: 07/01/2024 TECHNIQUE: 2 views of the chest were obtained. FINDINGS: There is vascular crowding in the lung bases and linear density in the left base. Lung volumes are decreased compared to the prior. Heart size is within normal limits. There is no sign of pleural effusion. XR/XR chest 2V IMPRESSION: Mild bibasilar atelectasis. Electronically signed by: Bony Castellanos MD 06/14/2025 03:48 PM EST Dictated By: Bony Castellanos MD Signed By: <Electronically signed by Bony Castellanos MD in OV> 06/14/25 1548 DD/ 1525 TD/TT: 06/14/25 1529 Sizer Machine: [facility] External Provider IMG XR PROCEDURES Edited Result - Final documented in this encounter Visit Diagnoses Not on filedocumented in this encounter Additional Health Concerns Assessment Noted Time PHQ-9 Depression Total Score: 2 08/18/19 10:49 AM EST documented as of this encounter Care Teams Inspector Fabric Relationship Specialty Start Date End Date Fidel Hemphill MD [address] [place] [phone] PCP - General Internal Medicine 03/25/14 documented as of this encounter
--- OUTSIDE RECORDS SUMMARY | 2025-06-14 17:39 | XMS_ITS | Encounter Summary ---
Author Organization [employer] Address [address] [facility] [address] [place] [address] Care Team Providers Care Platform Beater Name Role Phone Fidel Hemphill MD Primary Care Provide r Reason for Visit * Reason Comments Med Refill Encounter Details Date Type Department Care Team (Late st Contact Info) Description 05/07/2023 Refill [facility] [address] [place], [place] [phone] Karmen Pappas MD [address] [place] [phone] Benign prostatic hyperplasia without lower urinary tract [...] on file documented as of this encounter Visit Diagnoses Diagnosis Benign prostatic hyperplasia without lower urinary tract symptoms documented in this encounter Additional Health Concerns Assessment Noted Time PHQ-9 Depression Total Score: 1 04/23/20 23 10:02 AM EDT documented as of this encounter Care Teams Platform Beater Relationship Specialty Start Date End Date Fidel Hemphill MD [address] [place], [place] [phone] PCP - General Internal Medicine 03/25/14 documented as of this encounter
--- OUTSIDE RECORDS SUMMARY | 2025-06-14 17:39 | XMS_ITS | Encounter Summary ---
Author Organization [employer] Address [address] [facility] [address] [place] [address] Care Team Providers Care Career Specialist Name Role Phone Fidel Hemphill MD Primary Care Provide r Encounter Details Date Type Department Care Team (Late st Contact Info) Description 08/15/2022 Orders Only [facility] [address] [place] [address] Fidel Hemphill MD [address] [place] [address] Social History Tobacco Use Types Packs/Day Years Used Date Smoking Tobacco: Never Smokeless Tobacco: Never Sex and Gender Information Value Date Recorded Sex Assigned at Male 06/04/2022 10:15 AM EDT Legal Sex Male 10:15 AM EDT Gender Identity Male 06/04/2022 10:15 AM EDT Sexual Orientation Straight 03/11/2025 1: 40 PM EDT COVID-19 Exposure Response Date Recorded In the last 10 days, have yo u been in contact with someone who was confirmed or suspected to have Coronavirus/COVID-19? No / Unsure 08/14/2022 10:02 AM EST documented as of this encounter Plan of Treatment Not on file documented as of this encounter Procedures Procedure [...] Blood Count 10.0 4.8 - 10.8 X10*3/uL [facility] Red Blood Count 4.81 4.60 - 5.80 X10*6/uL [facility] Hemoglobin 13.6(L) 14.0 - 18.0 g/dl [facility] Hematocrit 40.8(L) 42.0 - 52.0 % [facility] Mean Corpuscular Volume 84.8 80.0 - 98.0 fL [facility] Mean Corpuscular Hemoglobin 28.3 27.0 - 33.0 pg [facility] Mean Corpuscular HGB Conc 33.3 31.0 - 36.0 g/dl [facility] Red Cell Distribution Width 14.3 11.0 - 16.0 % [facility] Platelet Count 258 160 - 400 X10*3/uL [facility] Mean Platelet Volume 9.6 9.4 - 12.4 fL [facility] NRBC Pct Auto 0.0 0.0 - 0.2 /100WBC [facility] NRBC Abs Auto 0.000 0.0 - 0.012 X10*3/uL [facility] 05/17/2023 12:5 3 AM EDT 05/17/2023 12:57 AM EDT us [facility] External Provider LAB BLO OD ORDERABLES Final Result [facility] [address] [place] [phone] * Urinalysis w/reflex microscopic (02/22/2023 10:25 PM EDT) Color Urine Yellow [facility] Appearance Urine Clear [facility] PH 5.5 5.0 - 9.0 [facility] Glucose Urine UA Negative Negative mg/dL [facility] Urine Blood Negative Negative [facility] Specific [place] - Urine 1.020 1.005 - 1.025 [facility] Urine Protein Trace Neg-Trace mg/dL [facility] Urine Ketones Trace Negative mg/dL [facility] Nitrite Urine Negative Negative [facility] Leukocyte Esterase Urine Negative Negative [facility] 02/22/2023 10:2 5 PM EDT 02/22/2023 10:30 PM EDT Narrative [facility] - 02/22/2023 10:35 PM EDT Urine, Clean Catch us [facility] External Provider LAB URI NE ORDERABLES Final Result [facility] [address] [place] [phone] * (ABNORMAL) Comprehensive Metabolic Panel (02/22/2023 8:50 AM EDT) Sodium 139 135 - 145 mmol/L [facility] Potassium 3.9 3.3 - 5.1 mmol/L [facility] Chloride 106 96 - 108 mmol/L [facility] Carbon Dioxide 27 22 - 29 mmol/L [facility] Anion Gap 10(L) 12 - 20 [facility] Urea Nitrogen (BUN) 9 9 - 16 mg/dL [facility] Creatinine, Serum 0.97 0.5 - 1.4 mg/dL [facility] Creatinine Clr Calc Pharmacy 93.5 [facility] Comment:eGFR (calculated fro m the MDRD study equation) and eCrCl(calculated from the Cockcroft-Gault equation) are based ondifferent parameters and may not yield comparable results.If eCrCl result is absurd, please check patient'sheight/weight. Estimated Glomerular Filt Rate >60 [facility] Comment:NOTE: For -Am erican individuals, multiply the result by 1.210.Chronic Kidney Disease: Estimated GFR < 60 mL/min/[id number] Kidney Disease: Estimated GFR < 15 mL/min/1.73m2 Glucose 99 60 - 115 mg/dL [facility] Calcium 9.5 8.4 - 10.2 mg/dL [facility] Bilirubin, Total 1.2(H) 0.0 - 1.0 mg/dL [facility] Aspartate Amino Transferase 26 5 - 37 U/L [facility] Alanine Aminotransferase 31 0 - 40 U/L [facility] Total Protein 7.7 6.5 - 8.0 g/dL [facility] Albumin Level 4.0 3.5 - 5.0 g/dL [facility] Alkaline Phosphatase 96 39 - 117 U/L [facility] 02/22/2023 8:50 AM EDT 02/22/2023 8:52 AM EDT us [facility] External Provider LAB BLO OD ORDERABLES Final Result [facility] [address] [place] [phone] * (ABNORMAL) CBC auto differential (02/22/2023 8:50 AM EDT) White Blood Count 8.2 4.8 - 10.8 X10*3/uL [facility] Red Blood Count 5.33 4.60 - 5.80 X10*6/uL [facility] Hemoglobin 14.4 14.0 - 18.0 g/dl [facility] Hematocrit 44.7 42.0 - 52.0 % [facility] Mean Corpuscular Volume 83.9 80.0 - 98.0 fL [facility] Mean Corpuscular Hemoglobin 27.0 27.0 - 33.0 pg [facility] Mean Corpuscular HGB Conc 32.2 31.0 - 36.0 g/dl [facility] Red Cell Distribution Width 15.0 11.0 - 16.0 % [facility] Platelet Count 262 160 - 400 X10*3/uL [facility] Mean Platelet Volume 9.5 9.4 - 12.4 fL [facility] Neutrophils Percent Auto 74.9(H) 45 - 73 % [facility] Imm Gran Pct Auto 0.2 0.0 - 0.4 % [facility] Lymphocytes Percent Auto 15.2(L) 20 - 40 % [facility] Monocytes Percent Auto 7.6 2 - 11 % [facility] Eosinophils Percent Auto 1.2 0 - 4 % [facility] Basophils Percent Auto 0.9 0 - 2 % [facility] NRBC Pct Auto 0.0 0.0 - 0.2 /100WBC [facility] Neutrophils Absolute Auto 6.1 2.0 - 8.3 x10*3/uL [facility] Imm Gran Abs Auto 0.02 0.00 - 0.03 X10*3/uL [facility] Lymphocytes Absolute Auto 1.2 1.2 - 4.9 X10*3/uL [facility] Monocytes Absolute Auto 0.6 0.1 - 1.2 X10*3/uL [facility] Eosinophils Absolute Auto 0.1 0.0 - 0.4 X10*3/uL [facility] Basophils Absolute Auto 0.1 0.0 - 0.2 X10*3/uL [facility] NRBC Abs Auto 0.000 0.0 - 0.012 X10*3/uL [facility] 02/22/2023 8:50 AM EDT 02/22/2023 8:52 AM EDT us [facility] External Provider LAB BLO OD ORDERABLES Final Result [facility] [address] [place] [phone] documented in this encounter Visit Diagnoses Not on filedocumented in this encounter Care Teams Career Specialist Relationship Specialty Start Date End Date Fidel Hemphill MD [address] [place] [phone] PCP - General Internal Medicine 03/25/14 documented as of this encounter
--- OUTSIDE RECORDS SUMMARY | 2025-06-14 17:39 | XMS_ITS | Clinical Summary ---
Author Organization [employer] Address [address] [place] [address] Care Team Providers Care Covering Machine Tender Name Role Phone Fidel Hemphill MD Primary Care Provide r Allergies No known active allergies Medications meclizine (Antivert) 25 MG tablet Take 1 tablet by mouth if needed in the morning and at bedtime. Active dilTIAZem ER (Tiazac) 120 MG 24 hr capsule TAKE 1 CAPSULE BY MOUTH EVERY MORNING 90 capsule 3 10/23/19 25 Active tamsulosin (Flomax) 0.4 MG 24 hr capsuleIndications :Benign prostatic hyperplasia without lower urinary tract symptoms TAKE 1 CAPSULE BY MOUTH EVERY EVENING 90 capsule 1 01/15/20 25 Active finasteride (Proscar) 5 MG tabletIndications: Benign prostatic hyperplasia without lower urinary tract symptoms TAKE 1 TABLET BY MOUTH EVERY MORNING 90 tablet 3 04/08/20 25 Active apixaban (Eliquis) 5 MG tablet TAKE 1 TABLET BY MOUTH TWICE DAILY IN THE MORNING AND IN THE EVENING 60 tablet 3 04/13/20 25 Active terbinafine (LamISIL) 250 MG tabletIndications: Onychomycosis of nail of digit of hand TAKE 1 TABLET BY MOUTH ONCE DAILY 30 tablet 2 04/13/20 25 Active atorvastatin (Lipitor) 40 MG tabletIndications: Mixed hyperlipidemia TAKE 1 TABLET BY MOUTH EVERY MORNING 90 tablet 3 06/10/20 25 Active atorvastatin (Lipitor) 40 MG tabletIndications: Mixed hyperlipidemia TAKE 1 TABLET BY MOUTH EVERY MORNING 90 tablet 3 04/30/20 24 025 Discontinued Active Problems Problem Noted Date Diagnosed Date Hospital discharge follow-up 03/11/2025 Assessment & Plan (03/11/2025 10:51 AM EDT): Patient here for a HDF Admitted to [facility] from 02/21-02/23/2025 after he preaented to the ER with headaches associated with dizziness. Denied any nausea vomiting. [place] unsteady. Denied any blurry visions. Denied any numbness tingling or focal weakness. Per ER team, patient's exam was grossly nonfocal; CT head showed findings concerning for possible stroke. CT angio head and neck showed no acute findings. Patient on Eliquis. initially thought to be a possible stroke. MRI with no evidence of acute infarction but did show old lacunar infarcts. Seen evaluated by Neurology who did not think that his symptoms were secondary to stroke but more likely headaches. Neuro recommended Topamax 25 mg at bedtime. patient was subsequently discharge home. Pt requesting to see Dr mistry for follow up given his persistent headaches. He was never prescribed the Topamax upon discharge Multiple lacunar infarcts (CMS/HCC) 03/11/2025 Assessment & Plan (03/11/2025 10:39 AM EDT): Recent MRI brain 02/22/2025 done in the ER after patient c/o headaches and dizziness showed: 1. No evidence of acute infarction. 2. Multiple old lacunar infarcts of the left basal ganglia, left thalamus, and luis daniel which are new from the prior study. 3. Multiple tiny foci of hemosiderin in the bilateral thalami which are new from the prior study. Seen by Neurology who recommended treatment for headaches and agressive risk factor modification. Plan: Patient would like to be evaluated by Dr. Mistry who saw him while kin the Hospital Overweight (BMI 25.0-29.9) 11/17/2024 Assessment & Plan [...] urinary freque ncy 08/14/2022 Assessment & Plan (03/11/2025 10:43 AM EDT): Last seen by [facility]U 12/2022 Assessment & Plan (08/14/2022 10:52 AM EST): Pt under the care of [facility], last note on record from 06/2022 on Tamsulosin and finasteride. Pt tells me he has a follow up appointment 12/2022 S/P cervical spinal fusion 08/14/2022 Assessment & Plan (03/11/2025 10:44 AM EDT): No complaints Assessment & Plan (08/14/2022 10:26 AM EST): Doing well Cervical radiculopathy due t o degenerative joint disease of spine 08/14/2022 Assessment & Plan (03/11/2025 10:45 AM EDT): Pt had an MRI of Cervical spine done at [facility] 07/22/2020 that showed degenerative spondylosis in upper cervical spine with some mass effect on the ventral cord at the C3-C4 and C4-C5 levels Pt referred to Neurosurgery for eval. 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 he was finally seen 06/26/[address] Bhagat, he is now s/p cervical spine fusion Chronic midline low back pain without sciatica 0 08/14/2022 Assessment & Plan (03/11/2025 10:44 AM EDT): Currently doing well, not complaining. Pt with previous c/o recurrent [...] pt had significant improvement from his previous symptoms. Assessment & Plan (08/14/2022 10:33 AM EST): [...] had significant improvement from his previous symptoms.. [facility] health care 08/14/2022 Assessment & Plan (03/11/2025 10:45 AM EDT): PSA 10/09/2023: Normal will repeat Colonoscopy: NL 12/22/2018 at [facility] showed a rectal polyp, GI recommended 5 yr repeat given Fam Hx of colon cancer. Due in 12/2023. Scheduled for GI 03/31/2025 Assessment & Plan (11/17/2024 10:26 AM EDT): PSA 10/09/2023: Normal Colonoscopy: NL 12/22/2018 at [facility] showed a rectal polyp, GI recommended 5 yr repeat given Fam Hx of colon cancer. Due in 12/2023 Scheduled for GI 03/31/2025 Assessment & Plan (08/18/2024 10:04 AM EST): PSA 10/09/2023: Normal Colonoscopy: NL 12/22/2018 at [facility] showed a rectal polyp, GI recommended 5 yr repeat given Fam Hx of colon cancer. Due in 12/2023 Will refer back Assessment & Plan (03/31/2024 9:08 AM EDT): PSA 10/09/2023: Normal Colonoscopy: NL 12/22/2018 at [facility] showed a rectal polyp, GI recommended 5 yr repeat given Fam Hx of colon cancer. Due in 12/2023 Assessment & Plan (08/15/2023 10:45 AM EST): Physical exam today within normal limits Colonoscopy: NL 12/22/2018 at [facility] showed a rectal polyp, GI recommended 5 yr repeat given Fam Hx of colon cancer. Due in 12/2023 Assessment & Plan (08/14/2022 12:40 PM EST): Physical exam today within normal limits Colonoscopy: NL 12/22/2018 at [facility] showed a rectal polyp, GI recommended 5 yr repeat given Fam Hx of colon cancer History of CVA (cerebrovascular accident) 2021 Assessment & Plan (08/14/2022 10:29 AM EST): Pt initially presented to [facility] ED with sudden onset of dizziness, slurred speech and right facial droop, suggestive of an acute CVA. After discussion with neurology, pt was given tPA while in ED. Pt s symptoms improved, a negative MRI was [...] symptoms 05/21/2017 Hyperlipidemia 07/06/2014 Assessment & Plan (03/11/2025 10:34 AM EDT): Pt here for a f/u [...] about diet and exercise Assessment & Plan (08/18/2024 10:04 AM EST): [...] and exercise Hypertension 08/18/2013 Assessment & Plan (03/11/2025 10:34 AM EDT): Pt here for a follow up BP currently controlled on a regimen of: Cardizem CD 120 mg po daily Given adequate blood pressure control will continue with current medical regimen. Most recent electrolytes, Bun and Creatinine done on: Lab Results Component Value Date NA 142 02/21/2025 NA 142 07/01/2024 K 3.5 02/21/2025 K 3.9 07/01/2024 CL 110 (H) 02/21/2025 CL 106 07/01/2024 BUN 13 02/21/2025 BUN 15 07/01/2024 CREATININE 1.01 02/21/2025 CREATININE 1.16 07/01/2024 were within normal limits. patient advised to adhere to a low sodium diet, encouraged about medication compliance, counseled about weight loss. f/u 4 months. Assessment & Plan (11/17/2024 10:25 AM EDT): [...] months Depressive disorder 07/08/2012 Paroxysmal atrial fibrillation ([facility]/HCC) 012 Assessment & Plan (03/11/2025 10:33 AM EDT): Here for a follow up Doing well Hx of CVA has a Hx of a single episode of A.Fib with RVR that reverted to NSR on Amiodarone. Evaluated by Cardiology in the past, back then due to a low CHADS score they recommended ASA and Cardizem CD 120mg po daily. He is on Eliquis s/p tPA for CVA Of note Pt has a Hx of [...] months follow up recommended Assessment & Plan (08/18/2024 10:02 AM EST): [...] tPA for CVA Back into care at [facility] last seen on 09/08/2020 Of note Pt [...] tPA for CVA Back into care at [facility] last seen on 09/08/2020 Of note Pt [...] tPA for CVA Back into care at [facility] last seen on 09/08/2020 Of note Pt [...] tPA for CVA Back into care at [facility] last seen on 09/08/2020 Of note Pt [...] AM EDT): Pt under the care of [facility], last note on record mentions he had an US that showed an 8 cm mass, does not specify which kidney. 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 No concerning renal mass Assessment & Plan (12/18/2022 9:43 AM EDT): Pt under the care of [facility], last note on record mentions he had an US that showed an 8 cm mass, does not specify which kidney. 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 No concerning renal mass Assessment & Plan (08/14/2022 10:52 AM EST): Pt under the care of [facility], last note on record mentions he had an US that showed an 8 cm mass, does not specify which kidney. 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 [address] [place] [address] Fidel Hemphill MD Mixed hyperlipidemia 06/09/2025 Refill [facility] [address] [place] [address] Fidel Hemphill MD Mixed hyperlipidemia 04/10/2025 Refill [facility] [address] [place] [address] Fidel Hemphill MD Onychomycosis of nail of digit of hand 04/08/[address] [facility] [address] [facility], [place] [phone] Fidel Hemphill MD Benign prostatic hyperplasia without lower urinary tract symptoms from Last 3 Months Immunizations Immunization Administration Dates Next Due Influenza Injectable Quadriv [...] your housing situation today? I have allison roberta 05/20/[address] you li [...] Orientation Straight 03/11/2025 1: 40 PM EDT Last Filed Vital Signs Vital Sign Reading Time Taken Comments Blood Pressure 136/84 03/11/2025 10:40 AM EDT Pulse 70 03/11/2025 10:02 AM EDT Temperature 36.4 C (97.5 F) 03/11/2025 10:02 AM EDT Respiratory Rate 20 03/11/2025 10:02 AM EDT Oxygen Saturation 97% 03/11/2025 10:02 AM EDT Inhaled Oxygen Concentration - - Weight 96.7 kg (213 lb 3.2 oz) 03/11/2025 10:02 AM EDT Height 182.9 cm (6') 03/11/2025 10:02 AM EDT Body Mass Index 28.92 03/11/2025 10:02 AM EDT Plan of Treatment Health Maintenance Due Date Last Done Comments CT Colonography 1960 FIT DNA/Cologuard 1960 FIT 1960 FOBT 1960 Sigmoidoscopy 1960 Colonoscopy 12/22/2024 12/23/2019 Colorectal Cancer Screening 12/22/2024 COVID-19 Vaccine ( season) 2025 07/17/2023, 10/12/2021, 11/15/2020, Additional history exists Influenza Vaccine (#1) 2025 , 06/04/2023, 04/23/2023, Additional history exists Alcohol/Substance Use Screening 08/18/2025 08/18/2024 Depression Screening 08/18/2025 08/18/2024, 08/18/19 25 SDOH Screening 08/18/2025 08/18/2024 Tobacco Screening 03/11/2026 03/11/2025 Lipid Panel 08/17/2029 08/17/2024, 03/0 01/2024, 04/22/2023, Additional history exists DTaP/Tdap/Td Vaccines (3 - Td or Tdap) 06/15/2031 06/15/2021, 11/10/2013, 02/29/2004 Zoster Vaccines Completed 01/09/2022, 03/27/2021 Hepatitis C Screening Completed 04/22/2023 Pneumococcal Vaccine: 50+ Years Completed 08/27/2023, 05/20/2011 RSV Patients and Patients Aged 60 years or older Completed 09/12/2023 HIB Vaccines Aged Out No longer eligi [...] patient's age to complete this topic Meningococcal B Vaccine Aged Out No l onger eligible based on patient's age to complete [...] TROPONIN I Routine 06/14/2025 4:30 PM EST LIPASE Routine 06/14/2025 4:30 PM EST BASIC METABOLIC PANEL Routine 06/14/2025 4:30 PM EST HEPATIC FUNCTION PANEL Routine 06/14/2025 4:30 PM EST CBC WITH AUTO DIFFERENTIAL Routine 06/14/2025 4:30 PM EST XR CHEST 2 VIEWS Routine 06/14/2025 3:25 PM EST LIPID PANEL, STANDARD Routine 08/17/2024 8:05 AM EST Mixed hyperlipidemia HEPATITIS C AB W/REFL TO HCV RNA, QN, PCR Routine 04/22/2023 8:53 AM EDT Preventative health care HM COLONOSCOPY Routine 12/23/2019 8:47 AM EDT from Last 3 Months or Most Recently Relevant to Health Maintenance Results * High Sensitivity Troponin I (06/14/2025 4:30 PM EST) Pathologist [facility] TROPONIN I HIGH SENSITIVITY <2.7 <3.5 - 35.0 ng/L [facility] Comment:The [place] high sens itivity Troponin-I results should beused in conjunction with other diagnostic information suchas ECG, clinical observations and information, and patientsymptoms to aid in the diagnosis of [place]. 06/14/2025 4:30 PM EST 06/14/2025 4:33 PM EST us Generic External Data Provider LAB BLOOD ORDERAB LES Final Result [facility] [address] [place] [phone] * (ABNORMAL) CBC auto differential (06/14/2025 4:30 PM EST) [facility] White Blood Count 14.0(H) 4.8 - 10.8 X10*3/uL [facility] Red Blood Count 5.05 4.60 - 5.80 X10*6/uL [facility] Hemoglobin 15.2 14.0 - 18.0 g/dl [facility] Hematocrit 46.1 42.0 - 52.0 % [facility] Mean Corpuscular Volume 91.3 80.0 - 98.0 fL [facility] Mean Corpuscular Hemoglobin 30.1 27.0 - 33.0 pg [facility] Mean Corpuscular HGB Conc 33.0 31.0 - 36.0 g/dl [facility] Red Cell Distribution Width 13.2 11.0 - 16.0 % [facility] Platelet Count 261 160 - 400 X10*3/uL [facility] Mean Platelet Volume 9.5 9.4 - 12.4 fL [facility] Neutrophils Percent Auto 77.7(H) 45 - 73 % [facility] Imm Gran Pct Auto 0.3 0.0 - 0.4 % [facility] Lymphocytes Percent Auto 11.7(L) 20 - 40 % [facility] Monocytes Percent Auto 7.9 2 - 11 % [facility] Eosinophils Percent Auto 1.6 0 - 4 % [facility] Basophils Percent Auto 0.8 0 - 2 % [facility] NRBC Pct Auto 0.0 0.0 - 0.2 /100WBC [facility] Neutrophils Absolute Auto 10.9(H) 2.0 - 8.3 x10*3/uL [facility] Imm Gran Abs Auto 0.04(H) 0.00 - 0.03 X10*3/uL [facility] Lymphocytes Absolute Auto 1.6 1.2 - 4.9 X10*3/uL [facility] Monocytes Absolute Auto 1.1 0.1 - 1.2 X10*3/uL [facility] Eosinophils Absolute Auto 0.2 0.0 - 0.4 X10*3/uL [facility] Basophils Absolute Auto 0.1 0.0 - 0.2 X10*3/uL [facility] NRBC Abs Auto 0.000 0.0 - 0.012 X10*3/uL [facility] 06/14/2025 4:30 PM EST 06/14/2025 4:33 PM EST us Generic External Data Provider LAB BLOOD ORDERAB LES Final Result Performing Organization Address City/[facility] Co de Phone Number [facility] [address] [place] [phone] * Lipase (06/14/2025 4:30 PM EST) Lipase 25 8 - 78 U/L [facility] 06/14/2025 4:30 PM EST 06/14/2025 4:33 PM EST us Generic External Data Provider LAB BLOOD ORDERAB LES Final Result Performing Organization Address [facility]/ZIP Co de Phone Number [facility] [address] [place] [phone] * (ABNORMAL) Hepatic Function Panel (06/14/2025 4:30 PM EST) Bilirubin, Total 1.4(H) 0.0 - 1.0 mg/dL [facility] Bilirubin, Direct 0.5 0.0 - 0.5 mg/dL [facility] Aspartate Amino Transferase 27 5 - 37 U/L [facility] Alanine Aminotransferase 27 0 - 40 U/L [facility] Total Protein 7.5 6.5 - 8.0 g/dL [facility] Albumin Level 4.0 3.5 - 5.0 g/dL [facility] Alkaline Phosphatase 100 39 - 117 U/L [facility] 06/14/2025 4:30 PM EST 06/14/2025 4:33 PM EST us Generic External Data Provider LAB BLOOD ORDERAB LES Final Result Performing Organization Address City/State/[facility] Co de Phone Number [facility] [address] [place] [phone] * (ABNORMAL) Basic Metabolic Panel (06/14/2025 4:30 PM EST) Pathologist [facility] Sodium 142 135 - 145 mmol/L [facility] Potassium 4.2 3.3 - 5.1 mmol/L [facility] Chloride 109(H) 96 - 108 mmol/L [facility] Carbon Dioxide 26 22 - 29 mmol/L [facility] Anion Gap 11(L) 12 - 20 [facility] Urea Nitrogen (BUN) 9 9 - 16 mg/dL [facility] Creatinine, Serum 1.03 0.5 - 1.4 mg/dL [facility] Creatinine Clr Calc Pharmacy 85.9 [facility] Comment:eGFR (calculated fro m the MDRD study equation) and eCrCl(calculated from the Cockcroft-Gault equation) are based ondifferent parameters and may not yield comparable results.If eCrCl result is absurd, please check patient'sheight/weight. Estimated Glomerular Filt Rate >60 [facility] Comment:Chronic Kidney Disea se: Estimated GFR < 60 mL/min/[id number] Kidney Disease: Estimated GFR < 15 mL/min/1.73m2 Glucose 89 60 - 115 mg/dL [facility] Calcium 9.4 8.4 - 10.2 mg/dL [facility] 06/14/2025 4:30 PM EST 06/14/2025 4:33 PM EST us Generic External Data Provider LAB BLOOD ORDERAB LES Final Result [facility] [address] [place] [phone] * XR Chest 2 Views (06/14/2025 3:25 PM EST) Anatomical Region Laterality Modality Chest Radiographic Balbina ging 06/14/2025 3:25 PM EST Narrative 06/14/2025 3:51 PM EST [address] [address] XRay Report Signed Patient: Edmond Childers MR#: [id number] 3 : 1960 Acct:[id number] Age/Sex: 64 / M ADM Date: 06/14/25 Loc: HO.ED Attending Dr: Ordering Physician: Lenore Kruger MD Date of Service: 06/14/25 Procedure(s): XR chest 2V Accession Number(s): [id number] cc: Lenore Kruger MD; Fidel Faust MD [...] Bony Castellanos MD 06/14/2025 03:48 PM EST RP Dictated By: Bony Castellanos MD Signed By: <Electronically signed by Bony Castellanos MD in OV> 06/14/25 1548 DD/ 24 TD/TT: 06/14/251528 Rag Inspector: Procedure Note Donotuseinterpreter, Image - 06/14/[address] [address] XRay Report Signed Patient: Edmond ChildersMR#: [id number] 3 : 1960Acct:[id number] Age/Sex: 64 / MADM Date: 06/14/25 Loc: .ED Attending Dr: Ordering Physician: Lenore Kruger MD Date of Service: 06/14/25 Procedure(s): XR chest 2V Accession Number(s): [id number] cc: Lenore Kruger MD; Fidel Faust MD [...] Bony Castellanos MD 06/14/2025 03:48 PM EST RP Dictated By: Bony Castellanos MD Signed By: <Electronically signed by Bony Castellanos MD in OV> 06/14/25 1548 DD/ 24 TD/TT: 06/14/251528 Rag Inspector: us [facility] External Provider IMG XR PROCEDURES Edited Result - Final * Lipid Panel, Standard (08/17/2024 8:05 AM EST) Triglycerides 88 <150 mg/dL [facility] Comment:Desirable Triglyceri de: less than 150 mg/dLBorderline High Triglyceride 150-199 mg/dLHigh Triglyceride: 200-499 mg/dLVery High Triglyceride: greater than or equal to 5OO mg/dL Cholesterol 146 <200 mg/dL [facility] Comment:Desirable Cholestero l: less than 200 mg/dLBorderline High Cholesterol: 200-239 mg/dLHigh Cholesterol: greater than 239 mg/dL LDL Cholesterol Calculated 79 <100 mg/dL [facility] Comment:Desirable LDL: less than 100 mg/dLNear Optimal/Above Optimal LDL: 110- 129 mg/dLBorderline High LDL: 130-159 mg/dLHigh LDL: 160-189 mg/dLVery High LDL: greater than or equal to 190 mg/dL HDL Cholesterol 50 >40 mg/dL [facility] Comment:Desirable HDL: great er than 40 mg/dL Note: This HDL assay may give artificially low results in patients with liver disease. Blood Venous blood specimen / Unknown 08/17/2024 8:05 AM EST 08/17/2024 11:07 AM EST Fidel Molina MD LAB BLOOD ORDERABLES Final Result Performing Organization Address [facility]/ZIP Co de Phone Number [facility] [address] [place] [phone] * Hepatitis C Antibody with Reflex to HCV, RNA, Quantitative, Real-Time PCR (04/22/2023 8:53 AM EDT) Hepatitis C Antibody Nonreactive Nonreactive [facility] Comment:Antibodies to HCV no t detected; does not exclude early acuteHCV infection. Blood Venous blood specimen / Unknown 04/22/2023 8:53 AM EDT 04/22/2023 11:14 AM EDT Fidel Molina MD LAB BLOOD ORDERABLES Final Result Performing Organization Address City/[facility]/ZIP Co de Phone Number [facility] [address] [place] [phone] [phone] * Colonoscopy (12/23/2019 8:47 AM EDT) Colonoscopy Normal Normal Historical Provider HEALTH MAINTENANCE Final Result from Last 3 Months or Most Recently Relevant to Health Maintenance Insurance [employer] Care Teams Covering Machine Tender Relationship Specialty Start Date End Date Fidel Hemphill MD [address] [place] [phone] PCP - General Internal Medicine 03/25/14
--- OUTSIDE RECORDS SUMMARY | 2025-06-14 17:39 | XMS_ITS | Clinical Summary ---
Author Organization [facility] Address [address] [place] [address] [place], [place] [phone] Phone Care Team Providers Care Continuous Yarn Dyeing Machine Operator Name Role Phone Fidel Faust MD Primary Care Provide r Social History Tobacco Use Types Packs/Day Years Used Date Smoking Tobacco: Never Assessed Education Answer Date Recorded Are you interested in more education? Not on alisa e 02/22/2025 Are you concerned about learning? Not on file 02/22/2025 No 02/22/2025 No 02/22/2025 Digital Access Answer Date Recorded No 02/22/2025 No 02/22/2025 Reliable internet access at home? Not on file 02/22/2025 Device with a working camera? Not on file Sex and Gender Information Value Date Recorded Sex Assigned at Not on file Legal Sex Male 1:53 PM EDT Gender Identity Not on file Sexual Orientation Not on file Plan of Treatment Not on file Medical Devices Not on file [place] [address] MEDICARE REPLACEMENT [facility] MEDICARE REPLACEMENT Member Subscriber Plan / Payer (Ef fective 2024-Present) Name:Edmond Childers Relation to Subscriber:Self Name:Edmond Childers Payer ID:[id number] (NAIC) Group ID:Not on file Type:Medicare Address: [place] [id number] [place] [address] MEDICARE REPLACEMENT Member Subscriber Plan / Payer (Ef fective 2024-Present) Name:Edmond Childers Relation to Subscriber:Self Name:Edmond Childers Payer ID:[id number] (NAIC) Group ID:Not on file Type:Medicare Address: [place] [id number] [place] [address] MEDICARE REPLACEMENT Member Subscriber Plan / Payer (Ef fective 2024-Present) Name:Edmond Childers Relation to Subscriber:Self Name:Edmond Childers Payer ID:[id number] (NAIC) Group ID:Not on file Type:Medicare Address: [place] [id number] [facility] MEDICARE REPLACEMENT [facility] MEDICARE REPLACEMENT Care Teams Continuous Yarn Dyeing Machine Operator Relationship Specialty Start Date End Date Fidel Faust MD [address] [place] [address] [address] [place] [address] PCP - General Internal Medicine 02/22/25 Additional Source Comments The information contained in this document represents components of the legal health record. It is not the complete legal health record.[facility]
--- OUTSIDE RECORDS SUMMARY | 2025-06-14 17:39 | XMS_ITS | Encounter Summary ---
Author Organization [employer] Address [address] [place] [address] Care Team Providers Care Laborer Powerhouse Name Role Phone Fidel Hemphill MD Primary Care Provide r Encounter Details Date Type Department Care Team (Late st Contact Info) Description 06/10/2025 Refill [facility] [address] [place], [place] [phone] Fidel Hemphill MD [address] [place] [address] Mixed hyperlipidemia Social History Tobacco Use Types [...] 136/84(2024 10:40 AM EDT) No Fern Jacobo, Charbel Note: 150/90 per JNC; 130/80 per ACC/AHA due to CVD documented as of this encounter Visit Diagnoses Diagnosis Mixed hyperlipidemia documented in this encounter Additional Health Concerns Assessment Noted Time PHQ-9 Depression Total Score: 2 08/18/19 25 10:49 AM EST documented as of this encounter Care Teams Laborer Powerhouse Relationship Specialty Start Date End Date Fidel Hemphill MD [address] [place] [address] PCP - General Internal Medicine 03/25/14 documented as of this encounter
[2025-06-14 18:21] VITALS: BP 135/83; PULSE 69; RESP 20; TEMP 36.6; O2SAT 95
== END 2025-06-14 18:21 | disposition home or self-care (01) ==
PROVIDERS: Emergency Provider Emergency Medicine; PCP Internal Medicine
DX: J20.9 Acute bronchitis, unspecified (principal); I10 Essential (primary) hypertension; I48.0 Paroxysmal atrial fibrillation; Z79.01 Long term (current) use of anticoagulants; I25.2 Old myocardial infarction; Z79.899 Other long term (current) drug therapy
CPT/HCPCS: 36415; 71046; 80048; 80076; 83690; 84484; 85025; 87502; 87635; 93005; 94640; 99284; 99285

== ENCOUNTER → 2025-06-14 14:52 | Outpatient (BNV) | payer OTHER, SELFPAY | PROVIDERS: Emergency Provider Emergency Medicine; PCP Internal Medicine; Visit Provider Radiology Diagnostic Radiology | DX: R07.9 Chest pain, unspecified (principal); R05.9 Cough, unspecified | CPT/HCPCS: 71046 ==

== ENCOUNTER → 2025-06-14 15:00 | Outpatient (BNV) | payer OTHER, SELFPAY | PROVIDERS: Emergency Provider Emergency Medicine; PCP Internal Medicine; Visit Provider Internal Medicine Cardiovascular Disease | DX: R94.31 Abnormal electrocardiogram [ECG] [EKG] (principal); R07.9 Chest pain, unspecified | CPT/HCPCS: 93010 ==

== ENCOUNTER 2025-07-20 10:14 | Outpatient (AMB) | payer OTHER, SELFPAY ==
[2025-07-20 10:20] VITALS: BP 114/60; PULSE 82; BMI 28.7
--- NOTE | 2025-07-20 10:20 | A.OFFVIS_ITS ---
Vital Signs 07/20/25 10:20 Height 6 ft Weight 212 lb BMI 28.7 BP 114/60 Blood Pressure Location Lt brachial Position Sitting Pulse 82 Intake Visit Reasons: Colonoscopy Screening Intake Note: Patient new consult for 1st Colonoscopy Screening Patient denies any GI issues for today. Typing Element Machine Operator Required: Yes Typing Element Machine Operator Name: Juancho [id number] Accompanied by: Self / Same As Patient Allergies No Known Allergies (No Known Allergies*) Allergy (Mild, Verified 07/20/25 10:19) UNKNOWN Medication List - Last Reconciled 07/20/25 by China Altamirano CNP albuterol sulfate 90 mcg/actuation (Ventolin HFA) 2 puffs inhalation .q4hr PRN 7 days apixaban (Eliquis) 5 mg PO BID atorvastatin 40 mg PO BEDTIME diltiazem HCl ER (Tiadylt ER) 1 cap PO DAILY finasteride (Proscar) 5 mg PO DAILY 30 days meclizine 25 mg PO TID PRN oxycodone 5 mg PO Q6H PRN tamsulosin 0.4 mg PO BEDTIME HPI HPI Colonoscopy Screening: Details: Patient is a 64-year-old Kazakh-speaking male with PMH of HTN, HLD, CAD, CVA vertebrobasilar ischemia, paroxysmal AFib on Eliquis, asthma. Pre colonoscopy screening. This will be Edmond's first. He reports daily bowel movements and denies constipation, incomplete evacuation, blood in the stool, or abdominal pain. He has a history of atrial fibrillation, for which he takes Eliquis and diltiazem. His cardiac medications are managed by his primary care physician. 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 The patient was treated with antibiotics for pneumonia in June and confirms that the treatment is complete and he is feeling better. A review of his labs indicates a persistently high bilirubin since 2019, although liver enzymes have been normal. A CT scan in 2022 was reassuring for his liver's health. Patient denies: fever/chills, n/v, appetite changes, regurgitation,dysphasia, unintentional wt loss, ab pain or melena/hematochezia. Social hx: -denies ETOH use, reports minimal use in the past, approximately once a month. -denies recreational drug use -non-smoker - family hx as below -denies personal hx of CA -tolerated anesthesia in the past without difficulty. [facility] Medical History (Updated 07/20/25 @ 10:48 by China Altamirano CNP) Elevated bilirubin Colon cancer screening Headache, migraine Paroxysmal A-fib CVA (cerebral vascular accident) Vertebrobasilar ischemia Bronchitis Asthma Myocardial infarction HLD (hyperlipidemia) HTN (hypertension) Social History Household Members: None Housing: Apartment Do you presently have visiting nurse or other home services: No Alcohol intake: former Patient Tobacco Use Status: Never used Tobacco Advance Directives Date on File: 07/23/20 service: No Current occupational status: unemployed Review of Systems Const Reports as per HPI ENT Reports as per HPI Card Reports as per HPI Resp Reports as per HPI GI Reports as per HPI Reports as per HPI Physical Exam Vital Signs: Last Vital Signs Pulse 82 07/20/25 10:20 BP 114/60 07/20/25 10:20 BMI result Body Mass Index 28.7 Const General: healthy appearing, no acute distress and well developed Nutritional Appearance: average body habitus Orientation/consciousness: patient oriented x3 HEENT Head: Yes normal to inspection, Yes normocephalic and Yes atraumatic Face and sinus: Yes normal facial exam Eyes General: appearance normal, both eyes and all related structures Neck Neck: Yes normal visual inspection Resp Effort & Inspection: normal respiratory effort, able to speak in complete sentences, no tracheal deviation and symmetric chest movement Auscultation: clear to auscultation bilaterally Cardio Jugular venous distension: no JVD Rate: regular rate Rhythm: regular rhythm Heart sounds: S1 normal heart sound present, S2 normal heart sound present, no gallops and no murmurs GI Inspection: Yes normal to inspection and No distended Palpation (GI): Soft to palpation, not firm, nontender and No hepatosplenomegaly present Auscultation: normal bowel sounds Neuro General: patient oriented x3 Gait exam (Neuro): Normal gait present Psych Appearance: grossly normal Mental Status: mental status grossly normal Speech and movement: Normal speech and movement present Affect: normal affect Attitude: cooperative Thought process: Normal thought process present Thought content: Normal thought content present Insight: Good insight present (Psych) Judgement: Good judgement present (Psych) Results Reviewed Results Reviewed: Date of Service: 02/22/23 Procedure(s): CT abdomen pelvis wo IV con Accession Number(s): [id number] cc: Anders Whittington MD~ EXAMINATION: CT ABDOMEN AND PELVIS WITHOUT CONTRAST CLINICAL INFORMATION: Right flank pain COMPARISON: Previous CT of the abdomen and pelvis most recent January 2022 TECHNIQUE: Multidetector volumetric imaging was performed from the superior aspect of the liver through the pubic symphysis. Sagittal and coronal reformatted images were obtained on the technologist's workstation. This CT examination was performed using dose optimization techniques as appropriate, variously including the following: *Automated exposure control *Adjustment of mA and/or kV according to patient size (this includes techniques or standardized protocols for targeted exams where dose is matched to indication/reason for exam; i.e. extremities or head) *Use of iterative reconstruction technique DLP: 667 mGy-cm FINDINGS: Slightly limited due to motion artifact. LUNG BASES: Subsegmental atelectasis at the left lung base. LIVER, GALLBLADDER, AND BILIARY TREE: The liver is normal in size, shape, and attenuation. No focal hepatic lesion or biliary ductal dilatation is present. The gallbladder is unremarkable with no evidence of radiopaque gallstones, gallbladder wall thickening, or obvious pericholecystic inflammatory changes. PANCREAS: Unremarkable. SPLEEN: Unremarkable. ADRENAL GLANDS: Unremarkable. KIDNEYS AND URETERS: Evaluation of the kidneys is limited due to motion artifact. No obstructing stone, ureteral dilatation or ureteral stone is seen. There are several small punctate echogenic foci that project over the kidneys is difficult to exclude a small nonobstructing renal stone. BLADDER: Unremarkable. GASTROINTESTINAL TRACT: The small and large bowel are unremarkable. The appendix is unremarkable. ABDOMINAL WALL: No significant hernia is appreciated. LYMPH NODES: Normal. VASCULAR: Unremarkable. PELVIC VISCERA: Unremarkable. OSSEOUS STRUCTURES: Degenerative changes of the spine. CT/CT abdomen pelvis wo IV con IMPRESSION: Limited exam due to motion artifact. No hydronephrosis or obstructing stone. Fleischner guidelines were followed. Assessment & Plan Assessment & Plan (1) Colon cancer screening: Code(s): Z12.11 - Encounter for screening for malignant neoplasm of colon Category: Medical Plan: Due for index screening colonoscopy. No alarm features. Due to the patient's atrial fibrillation and use of Eliquis, cardiac clearance was considered. However, given his lack of cardiac symptoms and normal physical exam, formal clearance will not be required at this time. The patient was advised to report any new cardiac symptoms Medications: -prescriptions for laxative tablets and PEG sent to pharmacy; instructions for clear liquid diet given. -understands apixaban will need to be held days prior to procedure. Nurse to review med holds per protocol. Patient educated on scheduling process, procedure preparation, including avoiding certain foods and ensuring clear liquid intake Advised on necessity for ride post-procedure due to sedation. (2) Elevated bilirubin: Code(s): R17 - Unspecified jaundice Category: Medical Plan: To evaluate the recent leukocytosis and chronically elevated bilirubin, will order repeat labs. Reassured with February 2020 CT abdomen pelvis from an hepatopancreatobiliary standpoint. - The lab order will include a CBC to confirm resolution of leukocytosis post respiratory infection June 2025. Will also order additional liver studies to rule out underlying hepatitis or liver damage. - The patient was instructed to have these labs drawn while fasting for at least eight hours. - He will get them done at a [facility] site. - Will monitor the lab results and contact the patient if there are any concerning findings that require more immediate attention. Plan Follow-up after colonoscopy or sooner as needed Time: I spent a total of 45 minutes on the date of encounter which includes: Preparing to see the patient (reviewed previous documentation, test results and medical history) Performing a medically appropriate exam and/or evaluation Ordering medications, tests, and procedures Documenting clinical information in the health record Orders: Orders Hepatitis A,B,C Profile Today R17 - Unspecified jaundice HIV Ab/Ag Today R17 - Unspecified jaundice Complete Blood Count Auto Diff Today R17 - Unspecified jaundice Hepatitis A IgG Today R17 - Unspecified jaundice Liver Panel Today R17 - Unspecified jaundice Referrals GI Procedure Notification Z12.11 - Encounter for screening for malignant neoplasm of colon Medications: New peg 3350-electrolytes 236-22.74-6.74 -5.86 gram until fecal effluent is clear 240 mL PO ONCE 4,000 mL 0RF bisacodyl take four tablets once day of colonoscopy prep 20 mg (4 x 5 mg) PO ONCE 4 tabs 0RF Coding Level of Care Code New Pt New Pt Level 4 (59491) Patient Type New Diagnoses Colon cancer screening Z12.11 Elevated bilirubin R17
--- OUTSIDE RECORDS SUMMARY | 2025-07-20 12:42 | XMS_ITS | Encounter Summary ---
Author Organization [employer] Address [address] [place] [address] Care Team Providers Care Offset Machine Operator Name Role Phone Fidel Hemphill MD Primary Care Provide r Reason for Visit * Reason Comments Med Refill Encounter Details Date Type Department Care Team (Late st Contact Info) Description 07/03/2025 Refill [facility] [address] [place], [place] [phone] Fidel Hemphill MD [address] [place], [place] [phone] Onychomycosis of nail of digit of hand [...] Care Team (Late st Contact Info) Description 11/18/2025 10:30 AM EDT Office Visit [facility] [address] [place] [address] TarkaZulema, OD [address] [place] [address] documented as of this encounter Goals Goal Patient Goal Type Associated Problems Recent Progress Patient-Stated? Author Blood Pressure < 150/90 Blood Pressure 136/84(2024 10:40 AM EDT) No Fern Jacobo, PharmD Note: 150/90 per JNC; 130/80 per ACC/AHA due to CVD documented as of this encounter Visit Diagnoses Diagnosis Onychomycosis of nail of digit of hand documented in this encounter Additional Health Concerns Assessment Noted Time PHQ-9 Depression Total Score: 2 08/18/19 25 10:49 AM EST documented as of this encounter Care Teams Offset Machine Operator Relationship Specialty Start Date End Date Fidel Hemphill MD [address] [place] [address] PCP - General Internal Medicine 03/25/14 documented as of this encounter
--- OUTSIDE RECORDS SUMMARY | 2025-07-20 12:42 | XMS_ITS | Encounter Summary ---
Author Organization [employer] Address [address] [place] [address] Care Team Providers Care Director Of Housing Name Role Phone Fidel Hemphill MD Primary Care Provide r Encounter Details Date Type Department Care Team (Latest Contact Info) Description 07/16/2025 Travel Social History Tobacco Use Types Packs/Day [...] Description 11/18/2025 10:30 AM EDT Office Visit [facility] [address] [place], [place] [phone] TarkaZulema, OD [address] [place] [address] documented as of this encounter Goals Goal [...] documented as of this encounter Care Teams Director Of Housing Relationship Specialty Start Date End Date Fidel Hemphill MD [address] [place] [address] PCP - General Internal Medicine 03/25/14 documented as of this encounter
--- OUTSIDE RECORDS SUMMARY | 2025-07-20 12:42 | XMS_ITS | Clinical Summary ---
Author Organization [employer] Address [address] [facility] [address] [place] [address] Care Team Providers Care Hot Knife Foxing Cutter Name Role Phone Fidel Hemphill MD Primary Care Provide r Allergies No known active allergies Medications meclizine (Antivert) 25 MG tablet Take 1 tablet by mouth if needed in the morning and at bedtime. Active dilTIAZem ER (Tiazac) 120 MG 24 hr capsule TAKE 1 CAPSULE BY MOUTH EVERY MORNING 90 capsule 3 10/23/19 25 Active finasteride (Proscar) 5 MG tabletIndications: Benign prostatic hyperplasia without lower urinary tract symptoms TAKE 1 TABLET BY MOUTH EVERY MORNING 90 tablet 3 5 2:37 PM EST 04/08/20 25 Active apixaban (Eliquis) 5 MG tablet TAKE 1 TABLET BY MOUTH TWICE DAILY IN THE MORNING AND IN THE EVENING 60 tablet 3 04/13/20 25 Active terbinafine (LamISIL) 250 MG tabletIndications: Onychomycosis of nail of digit of hand TAKE 1 TABLET BY MOUTH ONCE DAILY 30 tablet 2 5 4:45 PM EST 04/13/20 25 Active atorvastatin (Lipitor) 40 MG tabletIndications: Mixed hyperlipidemia TAKE 1 TABLET BY MOUTH EVERY MORNING 90 tablet 3 06/10/20 25 Active tamsulosin (Flomax) 0.4 MG 24 hr capsuleIndications :Benign prostatic hyperplasia without lower urinary tract symptoms TAKE 1 CAPSULE BY MOUTH EVERY EVENING 90 capsule 1 5 2:37 PM EST 07/09/20 25 Active tamsulosin (Flomax) 0.4 MG 24 hr capsuleIndications :Benign prostatic hyperplasia without lower urinary tract symptoms TAKE 1 CAPSULE BY MOUTH EVERY EVENING 90 capsule 1 06/07/24 25 025 Discontinued Active Problems Problem Noted Date Diagnosed Date Hospital discharge follow-up 03/11/2025 Assessment & Plan (03/11/2025 10:51 AM EDT): Patient here for a HDF Admitted to [facility] from 02/21-02/23/2025 after he preaented to the ER with headaches associated with dizziness. Denied any nausea vomiting. [place] unsteady. Denied any blurry visions. Denied any [...] AM EST): Pt under the care of [facility], last note on record [...] an MRI of Cervical spine done at 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 he was finally seen 06/26/[address] Bhagat, he is now s/p cervical spine fusion Doing well Assessment & Plan (08/14/2022 10:30 AM EST): Pt had an MRI of Cervical spine done at [facility] 07/22/2020 that showed degenerative spondylosis in upper [...] had significant improvement from his previous symptoms.. [facility] health care 08/14/2022 Assessment & Plan (03/11/2025 10:45 AM EDT): PSA 10/09/2023: Normal will repeat Colonoscopy: NL 12/22/2018 at [facility] Gastroenterology showed a rectal polyp, GI recommended 5 yr repeat given Fam Hx of colon cancer. Due in 12/2023. Scheduled for GI 03/31/2025 Assessment & Plan (11/17/2024 10:26 AM EDT): PSA 10/09/2023: Normal Colonoscopy: NL 12/22/2018 at [facility] Gastroenterology showed a rectal polyp, GI recommended 5 yr repeat given Fam Hx of colon cancer. Due in 12/2023 Scheduled for GI 03/31/2025 Assessment & Plan (08/18/2024 10:04 AM EST): PSA 10/09/2023: Normal Colonoscopy: NL 12/22/2018 at [facility] Gastroenterology showed a rectal polyp, GI recommended 5 yr repeat given Fam Hx of colon cancer. Due in 12/2023 Will refer back Assessment & Plan (03/31/2024 9:08 AM EDT): PSA 10/09/2023: Normal Colonoscopy: NL 12/22/2018 at [facility] Gastroenterology showed a rectal polyp, GI recommended 5 yr repeat given Fam Hx of colon cancer. Due in 12/2023 Assessment & Plan (08/15/2023 10:45 AM EST): Physical exam today within normal limits Colonoscopy: NL 12/22/2018 at [facility] Gastroenterology showed a rectal polyp, GI recommended 5 yr repeat given Fam Hx of colon cancer. Due in 12/2023 Assessment & Plan (08/14/2022 12:40 PM EST): Physical exam today within normal limits Colonoscopy: NL 12/22/2018 at [facility] Gastroenterology showed a rectal polyp, GI recommended 5 yr repeat given Fam Hx of colon cancer History of CVA (cerebrovascular accident) 2021 Assessment & Plan (08/14/2022 10:29 AM EST): Pt initially presented to [facility] ED with sudden onset of dizziness, slurred [...] months Depressive disorder 07/08/2012 Paroxysmal atrial fibrillation (CMS/HCC) 012 Assessment & Plan (03/11/2025 10:33 AM [...] tPA for CVA Back into care at [facility] last seen on 09/08/2020 Of note Pt [...] tPA for CVA Back into care at [facility] last seen on 09/08/2020 Of note Pt [...] tPA for CVA Back into care at [facility] last seen on 09/08/2020 Of note Pt [...] tPA for CVA Back into care at [facility] last seen on 09/08/2020 Of note Pt [...] AM EDT): Pt under the care of [facility], last note on record [...] AM EDT): Pt under the care of [facility], last note on record [...] AM EST): Pt under the care of [facility], last note on record [...] Encounters Date Type Department Care Team Description 07/16/2025 Travel 07/08/2025 Refill C MEDICINE [address] [place] [address] Fidel Hemphill MD Benign prostatic hyperplasia without lower urinary tract symptoms 07/08/2025 Refill [facility] [address] [place] [address] Fidel Hemphill MD Benign prostatic hyperplasia without lower urinary tract symptoms 07/03/2025 Refill [facility] MEDIC[facility] [address] [place] [address] Fidel Hemphill MD Onychomycosis of nail of digit of hand 06/14/2025 Orders Only [facility] External Provider, [facility] 06/10/2025 Refill [facility] MEDICINE [address] [facility] [place] [address] Fidel Hemphill MD Mixed hyperlipidemia 06/09/2025 Refill [facility] MEDICINE [address] [place] [address] Fidel Hemphill MD Mixed hyperlipidemia from Last 3 Months Immunizations Immunization Administration [...] 03/11/2025 10:02 AM EDT Plan of Treatment Upcoming Encounters Date Type Department Care Team (Late st Contact Info) Description 11/18/2025 10:30 AM EDT Office Visit [facility] OPTOMETRY [address] [place] [address] Tarka, Zulema, OD [address] [place] [address] Health Maintenance Due Date Last Done Comments CT Colonography 1960 FIT DNA/Cologuard 1960 FIT 1960 FOBT 1960 Sigmoidoscopy 1960 Colonoscopy 12/22/2024 12/23/2019 Colorectal Cancer Screening 12/22/2024 COVID-19 Vaccine ( season) 2025 07/17/2023, 10/12/2021, 11/15/2020, Additional history exists Influenza Vaccine (#1) 2025 , 06/04/2023, 04/23/2023, Additional history exists Alcohol/Substance Use Screening 08/18/2025 08/18/2024 Depression Screening 08/18/2025 08/18/2024, 08/18/19 SDOH Screening 08/18/2025 08/18/2024 Tobacco Screening 03/11/2026 [...] Troponin I (06/14/2025 4:30 PM EST) Pathologist [facility] TROPONIN I HIGH SENSITIVITY <2.7 <3.5 - 35.0 ng/L [facility] Comment:The [place] high sens itivity Troponin-I results should beused in conjunction with other diagnostic information suchas ECG, clinical observations and information, and patientsymptoms to aid in the diagnosis of [place]. 06/14/2025 4:30 PM EST 06/14/2025 4:33 PM EST us Generic External Data Provider LAB BLOOD ORDERAB LES Final Result [facility] [address] [place] [address] [phone] * (ABNORMAL) CBC auto differential (06/14/2025 4:30 PM EST) White Blood Count 14.0(H) 4.8 - 10.8 X10*3/uL [facility] Red Blood Count 5.05 4.60 - 5.80 X10*6/uL [facility] Hemoglobin 15.2 14.0 - 18.0 g/dl [facility] Hematocrit 46.1 42.0 - 52.0 % [facility] Mean Corpuscular Volume 91.3 80.0 - 98.0 fL [facility] Mean Corpuscular Hemoglobin 30.1 27.0 - 33.0 pg [facility] Mean Corpuscular HGB Conc 33.0 31.0 - 36.0 g/dl [facility] Red Cell Distribution Width 13.2 11.0 - 16.0 % [facility] Platelet Count 261 160 - 400 X10*3/uL [facility] Mean Platelet Volume 9.5 9.4 - 12.4 fL [facility] Neutrophils Percent Auto 77.7(H) 45 - 73 % [facility] Imm Gran Pct Auto 0.3 0.0 - 0.4 % [facility] Lymphocytes Percent Auto 11.7(L) 20 - 40 % [facility] Monocytes Percent Auto 7.9 2 - 11 % [facility] Eosinophils Percent Auto 1.6 0 - 4 % [facility] Basophils Percent Auto 0.8 0 - 2 % [facility] NRBC Pct Auto 0.0 0.0 - 0.2 /100WBC [facility] Neutrophils Absolute Auto 10.9(H) 2.0 - 8.3 x10*3/uL [facility] Imm Gran Abs Auto 0.04(H) 0.00 - 0.03 X10*3/uL [facility] Lymphocytes Absolute Auto 1.6 1.2 - 4.9 X10*3/uL [facility] Monocytes Absolute Auto 1.1 0.1 - 1.2 X10*3/uL [facility] Eosinophils Absolute Auto 0.2 0.0 - 0.4 X10*3/uL [facility] Basophils Absolute Auto 0.1 0.0 - 0.2 X10*3/uL [facility] NRBC Abs Auto 0.000 0.0 - 0.012 X10*3/uL [facility] 06/14/2025 4:30 PM EST 06/14/2025 4:33 PM EST us Generic External Data Provider LAB BLOOD ORDERAB LES Final Result Performing Organization Address [facility]/ZIP Co de Phone Number [facility] [address] [place] [address] [phone] * Lipase (06/14/2025 4:30 PM EST) Pathologist [facility] Lipase 25 8 - 78 U/L [facility] 06/14/2025 4:30 PM EST 06/14/2025 4:33 PM EST Generic External Data Provider LAB BLOOD ORDERAB LES Final Result Performing Organization Address [facility] Co de Phone Number [facility] [address] [place] [address] [phone] * (ABNORMAL) Hepatic Function Panel (06/14/2025 4:30 PM EST) [facility] Bilirubin, Total 1.4(H) 0.0 - 1.0 mg/dL [facility] Bilirubin, Direct 0.5 0.0 - 0.5 mg/dL [facility] Aspartate Amino Transferase 27 5 - 37 U/L [facility] Alanine Aminotransferase 27 0 - 40 U/L [facility] Total Protein 7.5 6.5 - 8.0 g/dL [facility] Albumin Level 4.0 3.5 - 5.0 g/dL [facility] Alkaline Phosphatase 100 39 - 117 U/L [facility] 06/14/2025 4:30 PM EST 06/14/2025 4:33 PM EST Generic External Data Provider LAB BLOOD ORDERAB LES Final Result Performing Organization Address [facility] Co de Phone Number [facility] [address] [place] [address] [phone] * (ABNORMAL) Basic Metabolic Panel (06/14/2025 4:30 PM EST) [facility] Sodium 142 135 - 145 mmol/L [facility] Potassium 4.2 3.3 - 5.1 mmol/L [facility] Chloride 109(H) 96 - 108 mmol/L [facility] Carbon Dioxide 26 22 - 29 mmol/L [facility] Anion Gap 11(L) 12 - 20 [facility] Urea Nitrogen (BUN) 9 9 - 16 mg/dL [facility] Creatinine, Serum 1.03 0.5 - 1.4 mg/dL [facility] Creatinine Clr Calc Pharmacy 85.9 [facility] Comment:eGFR (calculated fro m the MDRD study equation) and eCrCl(calculated from the Cockcroft-Gault equation) are based ondifferent parameters and may not yield comparable results.If eCrCl result is absurd, please check patient'sheight/weight. Estimated Glomerular Filt Rate >60 [facility] Comment:Chronic Kidney Disea se: Estimated GFR < 60 mL/min/[id number] Kidney Disease: Estimated GFR < 15 mL/min/1.73m2 Glucose 89 60 - 115 mg/dL [facility] Calcium 9.4 8.4 - 10.2 mg/dL [facility] 06/14/2025 4:30 PM EST 06/14/2025 4:33 PM EST us Generic External Data Provider LAB BLOOD ORDERAB LES Final Result [facility] [address] [place] [phone] * XR Chest 2 Views (06/14/2025 3:25 PM EST) Anatomical Region Laterality Modality Chest Radiographic [place] ging 06/14/2025 3:25 PM EST Narrative 06/14/2025 3:51 PM EST [address] [address] XRay Report Signed Patient: Edmond Childers MR#: [id number] 3 : 1960 Acct:[id number] Age/Sex: 64 / M ADM Date: 06/14/25 Loc: HO.ED Attending Dr: Ordering Physician: Lenore Kruger MD Date of Service: 06/14/25 Procedure(s): XR chest 2V Accession Number(s): [id number] cc: Lenore Kruger MD; Fidel Faust MD [...] 06/14/25 1548 DD/ 1525 TD/TT: 06/14/25 1529 Personnel Research Scientist: Procedure Note Donotuseinterpreter, Image - 06/14/2025 [place] [address] XRay Report Signed Patient: Hilton Childers#: [id number] 3 : 1960Acct:[id number] Age/Sex: 64 / MADM Date: 06/14/25 Loc: .ED Attending Dr: Ordering Physician: Lenore Kruger MD Date of Service: 06/14/25 Procedure(s): XR chest 2V Accession Number(s): [id number] cc: Lenore Kruger MD; Fidel Faust MD [...] 06/14/25 1548 DD/ 1525 TD/TT: 06/14/25 1529 Personnel Research Scientist: [facility] External Provider IMG XR PROCEDURES Edited Result - Final * Lipid Panel, Standard (08/17/2024 8:05 AM EST) Triglycerides 88 <150 mg/dL [facility] Comment:Desirable Triglyceri de: less than 150 mg/dLBorderline High Triglyceride 150-199 mg/dLHigh Triglyceride: 200-499 mg/dLVery High Triglyceride: greater than or equal to 5OO mg/dL Cholesterol 146 <200 mg/dL [facility] Comment:Desirable Cholestero l: less than 200 mg/dLBorderline High Cholesterol: 200-239 mg/dLHigh Cholesterol: greater than 239 mg/dL LDL Cholesterol Calculated 79 <100 mg/dL [facility] Comment:Desirable LDL: less than 100 mg/dLNear Optimal/Above Optimal LDL: 110- 129 mg/dLBorderline High LDL: 130-159 mg/dLHigh LDL: 160-189 mg/dLVery High LDL: greater than or equal to 190 mg/dL HDL Cholesterol 50 >40 mg/dL [facility] Comment:Desirable HDL: great er than 40 mg/dL Note: This HDL assay may give artificially low results in patients with liver disease. Blood Venous blood specimen / Unknown 08/17/2024 8:05 AM EST 08/17/2024 11:07 AM EST Fidel Molina MD LAB BLOOD ORDERABLES Final Result [facility] [address] [place] [phone] * Hepatitis C Antibody with Reflex to HCV, RNA, Quantitative, Real-Time PCR (04/22/2023 8:53 AM EDT) Hepatitis C Antibody Nonreactive Nonreactive [facility] Comment:Antibodies to HCV no t detected; does not exclude early acuteHCV infection. Blood Venous blood specimen / Unknown 04/22/2023 8:53 AM EDT 04/22/2023 11:14 AM EDT Fidel Molina MD LAB BLOOD ORDERABLES Final Result [facility] [address] [place] [address] [phone] * Hm Colonoscopy (12/23/2019 8:47 AM EDT) Colonoscopy Normal Normal Historical Provider HEALTH MAINTENANCE Final Result from Last 3 Months or Most Recently Relevant to Health Maintenance Insurance [facility] DUAL COMPLETE Care Teams Hot Knife Foxing Cutter Relationship Specialty Start Date End Date Fidel Hemphill MD [address] [place] [phone] PCP - General Internal Medicine 03/25/14
--- OUTSIDE RECORDS SUMMARY | 2025-07-20 12:42 | XMS_ITS | Encounter Summary ---
Author Organization [employer] Address [address] [place] [address] [address] [place] [address] Care Team Providers Care Transportation Associate Name Role Phone Fidel Hemphill MD Primary Care Provide r Encounter Details Date Type Department Care Team (Late st Contact Info) Description 08/15/2022 Orders Only [facility] [address] [place] [address] Fidel Hemphill MD [address] [place], [place] [phone] Social History Tobacco Use Types Packs/Day Years [...] Description 11/18/2025 10:30 AM EDT Office Visit [facility] OPTOM[facility] [address] [place], [place] [phone] Zulema Heaton, OD [address] [place], [place] [phone] documented as of this encounter Procedures Procedure [...] Blood Count 10.0 4.8 - 10.8 X10*3/uL [facility] Red Blood Count 4.81 4.60 - 5.80 X10*6/uL [facility] Hemoglobin 13.6(L) 14.0 - 18.0 g/dl [facility] Hematocrit 40.8(L) 42.0 - 52.0 % [facility] Mean Corpuscular Volume 84.8 80.0 - 98.0 fL [facility] Mean Corpuscular Hemoglobin 28.3 27.0 - 33.0 pg [facility] Mean Corpuscular HGB Conc 33.3 31.0 - 36.0 g/dl [facility] Red Cell Distribution Width 14.3 11.0 - 16.0 % [facility] Platelet Count 258 160 - 400 X10*3/uL [facility] Mean Platelet Volume 9.6 9.4 - 12.4 [facility] NRBC Pct Auto 0.0 0.0 - 0.2 /100WBC [facility] NRBC Abs Auto 0.000 0.0 - 0.012 X10*3/uL [facility] 05/17/2023 12:5 3 AM EDT 05/17/2023 12:57 AM EDT us [facility] External Provider LAB BLO OD ORDERABLES Final Result [facility] [address] [place] [phone] * Urinalysis w/reflex microscopic (02/22/2023 10:25 PM EDT) Color Urine Yellow [facility] Appearance Urine Clear [facility] PH 5.5 5.0 - 9.0 [facility] Glucose Urine UA Negative Negative mg/dL [facility] Urine Blood Negative Negative [facility] Specific [place] - Urine 1.020 1.005 - 1.025 [facility] Urine Protein Trace Neg-Trace mg/dL [facility] Urine Ketones Trace Negative mg/dL [facility] Nitrite Urine Negative Negative [facility] Leukocyte Esterase Urine Negative Negative [facility] 02/22/2023 10:2 5 PM EDT 02/22/2023 10:30 PM EDT Narrative [facility] - 02/22/2023 10:35 PM EDT Urine, Clean Catch us [facility] External Provider LAB URI NE ORDERABLES Final Result [facility] [address] [place] [phone] * (ABNORMAL) Comprehensive Metabolic Panel (02/22/2023 8:50 AM EDT) [facility] Sodium 139 135 - 145 mmol/L [facility] Potassium 3.9 3.3 - 5.1 mmol/L [facility] Chloride 106 96 - 108 mmol/L [facility] Carbon Dioxide 27 22 - 29 mmol/L [facility] Anion Gap 10(L) 12 - 20 [facility] Urea Nitrogen (BUN) 9 9 - 16 mg/dL [facility] Creatinine, Serum 0.97 0.5 - 1.4 mg/dL [facility] Creatinine Clr Calc Pharmacy 93.5 [facility] Comment:eGFR (calculated fro m the MDRD study equation) and eCrCl(calculated from the Cockcroft-Gault equation) are based ondifferent parameters and may not yield comparable results.If eCrCl result is absurd, please check patient'sheight/weight. Estimated Glomerular Filt Rate >60 [facility] Comment:NOTE: For -Am erican individuals, multiply the result by 1.210.Chronic Kidney Disease: Estimated GFR < 60 mL/min/[id number] Kidney Disease: Estimated GFR < 15 mL/min/1.73m2 Glucose 99 60 - 115 mg/dL [facility] Calcium 9.5 8.4 - 10.2 mg/dL [facility] Bilirubin, Total 1.2(H) 0.0 - 1.0 mg/dL [facility] Aspartate Amino Transferase 26 5 - 37 U/L [facility] Alanine Aminotransferase 31 0 - 40 U/L [facility] Total Protein 7.7 6.5 - 8.0 g/dL [facility] Albumin Level 4.0 3.5 - 5.0 g/dL [facility] Alkaline Phosphatase 96 39 - 117 U/L [facility] 02/22/2023 8:50 AM EDT 02/22/2023 8:52 AM EDT [facility] External Provider LAB BLO OD ORDERABLES Final Result [facility] [address] [place] [phone] * (ABNORMAL) CBC auto differential (02/22/2023 8:50 AM EDT) White Blood Count 8.2 4.8 - 10.8 X10*3/uL [facility] Red Blood Count 5.33 4.60 - 5.80 X10*6/uL [facility] Hemoglobin 14.4 14.0 - 18.0 g/dl [facility] Hematocrit 44.7 42.0 - 52.0 % [facility] Mean Corpuscular Volume 83.9 80.0 - 98.0 fL [facility] Mean Corpuscular Hemoglobin 27.0 27.0 - 33.0 pg [facility] Mean Corpuscular HGB Conc 32.2 31.0 - 36.0 g/dl [facility] Red Cell Distribution Width 15.0 11.0 - 16.0 % [facility] Platelet Count 262 160 - 400 X10*3/uL [facility] Mean Platelet Volume 9.5 9.4 - 12.4 fL [facility] Neutrophils Percent Auto 74.9(H) 45 - 73 % [facility] Imm Gran Pct Auto 0.2 0.0 - 0.4 % [facility] Lymphocytes Percent Auto 15.2(L) 20 - 40 % [facility] Monocytes Percent Auto 7.6 2 - 11 % [facility] Eosinophils Percent Auto 1.2 0 - 4 % [facility] Basophils Percent Auto 0.9 0 - 2 % [facility] NRBC Pct Auto 0.0 0.0 - 0.2 /100WBC [facility] Neutrophils Absolute Auto 6.1 2.0 - 8.3 x10*3/uL [facility] Imm Gran Abs Auto 0.02 0.00 - 0.03 X10*3/uL [facility] Lymphocytes Absolute Auto 1.2 1.2 - 4.9 X10*3/uL [facility] Monocytes Absolute Auto 0.6 0.1 - 1.2 X10*3/uL [facility] Eosinophils Absolute Auto 0.1 0.0 - 0.4 X10*3/uL [facility] Basophils Absolute Auto 0.1 0.0 - 0.2 X10*3/uL [facility] NRBC Abs Auto 0.000 0.0 - 0.012 X10*3/uL [facility] 02/22/2023 8:50 AM EDT 02/22/2023 8:52 AM EDT us [facility] External Provider LAB BLO OD ORDERABLES Final Result [facility] [address] [place] [address] [phone] documented in this encounter Visit Diagnoses Not on filedocumented in this encounter Care Teams Transportation Associate Relationship Specialty Start Date End Date Fidel Hemphill MD [address] [place] [phone] PCP - General Internal Medicine 03/25/14 documented as of this encounter
--- OUTSIDE RECORDS SUMMARY | 2025-07-20 12:42 | XMS_ITS | Clinical Summary ---
Author Organization [facility] Address [address] [place] [address] [place], [place] [phone] Phone Care Team Providers Care Time Clock Repairer Name Role Phone Fidel Faust MD Primary [...] file Medical Devices Not on file [place] [address] [address] [place] [address] MEDICARE REPLACEMENT [facility] MEDICARE REPLACEMENT Member Subscriber Plan / Payer (Ef fective 2024-Present) Name:Edmond Childers Relation to Subscriber:Self Name:Edmond Childers Payer ID:[id number] (NAIC) Group ID:Not on file Type:Medicare Address: [place] [phone] [place] [address] MEDICARE REPLACEMENT Member Subscriber Plan / Payer (Ef fective 2024-Present) Name:Edmond Childers Relation to Subscriber:Self Name:Edmond Childers Payer ID:[id number] (NAIC) Group ID:Not on file Type:Medicare Address: [place] [phone] [place] [address] MEDICARE REPLACEMENT Member Subscriber Plan / Payer (Ef fective 2024-Present) Name:Edmond Childers Relation to Subscriber:Self Name:Edmond Childers Payer ID:[id number] (NAIC) Group ID:Not on file Type:Medicare Address: [place] [phone] [facility] MEDICARE REPLACEMENT [facility] MEDICARE REPLACEMENT Care Teams Time Clock Repairer Relationship Specialty Start Date End Date Fidel Faust MD [address] [place] [address] [address] [place] [phone] PCP - General Internal Medicine 02/22/25 Additional Source Comments The information contained in this document represents components of the legal health record. It is not the complete legal health record.[facility]
--- OUTSIDE RECORDS SUMMARY | 2025-07-20 12:42 | XMS_ITS | Encounter Summary ---
Author Organization [employer] Address [address] [place] [address] Care Team Providers Care Aerobics Instructor Name Role Phone Fidel Hemphill MD Primary Care Provide r Reason for Visit * Reason Comments Med Refill Encounter Details Date Type Department Care Team (Late st Contact Info) Description 11/15/2023 Refill [facility] MEDICINE [address] [place], [place] [phone] Fidel Hemphill MD [address] [place], [place] [phone] Social History Tobacco Use Types Packs/Day Years Used Date Smoking Tobacco: Never Passive Smoke Exposure: Never Smokeless Tobacco: Never Depression Answer Date Recorded Patient Health Questionnaire-9 Score 1 04/23/2023 Housing Stability Answer Date Recorded What is your housing situation today? I have allisonlibby granados 05/20/[address] you [...] Description 11/18/2025 10:30 AM EDT Office Visit [facility] OPTOMETRY [address] [place], [place] [phone] Zulema Heaton, OD [address] [place] [address] documented as of this encounter Goals Goal [...] documented as of this encounter Care Teams Aerobics Instructor Relationship Specialty Start Date End Date Fidel Hemphill MD [address] [place] [address] PCP - General Internal Medicine 03/25/14 documented as of this encounter
--- OUTSIDE RECORDS SUMMARY | 2025-07-20 12:42 | XMS_ITS | Encounter Summary ---
Author Organization [employer] Address [address] [facility] [address] 7[address] [place] [address] Care Team Providers Care Accounts Payable Representative Name Role Phone Fidel Hemphill MD Primary Care Provide r Encounter Details Date Type Department Care Team (Late st Contact Info) Description 06/10/2025 Refill [facility] MEDICINE [address] [place], [place] [phone] Fidel Hemphill MD [address] [place] [address] Mixed hyperlipidemia Social History Tobacco Use Types [...] Description 11/18/2025 10:30 AM EDT Office Visit [facility] OPTOMETRY [address] [place] [address] Tarka, Zulema, OD [address] [place] [address] documented as of this encounter Goals Goal Patient Goal Type Associated Problems Recent Progress Patient-Stated? Author Blood Pressure < 150/90 Blood Pressure 136/84(2024 10:40 AM EDT) No Fern Jacobo, TamyD Note: 150/90 per J[facility]; 130/80 per ACC/AHA due to CVD documented as of this encounter Visit Diagnoses Diagnosis Mixed hyperlipidemia documented in this encounter Additional Health Concerns Assessment Noted Time PHQ-9 Depression Total Score: 2 08/18/19 25 10:49 AM EST documented as of this encounter Care Teams Accounts Payable Representative Relationship Specialty Start Date End Date Fidel Hemphill MD [address] [place] [address] PCP - General Internal Medicine 03/25/14 documented as of this encounter
--- OUTSIDE RECORDS SUMMARY | 2025-07-20 12:42 | XMS_ITS | Encounter Summary ---
Author Organization [employer] [facility] Address [address] [place] [address] 7t [place] [address] Care Team Providers Care Assembler Hydraulic Backhoe Name Role Phone Fidel Hemphill MD Primary Care Provide r Reason for Visit * Reason Comments Med Refill Encounter Details Date Type Department Care Team (Late Contact Info) Description 05/07/2023 Refill [facility] MEDICINE 230 [place] [address] Karmen Pappas MD [address] [place] [address] Benign prostatic hyperplasia without lower urinary tract [...] Department Care Team (Late Contact Info) Description 11/18/2025 10:30 AM EDT Office Visit [facility] OPTOMETRY [address] [place], [place] [phone] Zulema Heaton, OD [address] [place], [place] [phone] documented as of this encounter Visit Diagnoses Diagnosis Benign prostatic hyperplasia without lower urinary tract symptoms documented in this encounter Additional Health Concerns Assessment Noted Time PHQ-9 Depression Total Score: 1 04/23/20 23 10:02 AM EDT documented as of this encounter Care Teams Assembler Hydraulic Backhoe Relationship Specialty Start Date End Date Fidel Hemphill MD 230 [place] [address] PCP - General Internal Medicine 03/25/14 documented as of this encounter
== END 2025-07-20 11:01 | disposition home or self-care (01) ==
LOC: HO.HGI 10:15
PROVIDERS: PCP Internal Medicine; Visit Provider Nurse Practitioner Family
DX: Z01.818 Encounter for other preprocedural examination (principal); Z12.11 Encounter for screening for malignant neoplasm of colon; R17 Unspecified jaundice
CPT/HCPCS: 99024

== ENCOUNTER → 2025-07-20 10:14 | Outpatient (BNVA) | payer OTHER, SELFPAY | PROVIDERS: PCP Internal Medicine; Visit Provider Nurse Practitioner Family | DX: Z01.818 Encounter for other preprocedural examination (principal); R17 Unspecified jaundice | CPT/HCPCS: 99212 ==

== ENCOUNTER 2025-07-24 07:05 | Outpatient (REF) | payer OTHER, SELFPAY ==
--- OUTSIDE RECORDS SUMMARY | 2025-07-24 07:09 | XMS_ITS | Encounter Summary ---
Author Organization [employer] Address [address] [place] [address] Care Team Providers Care Refuge Manager Name Role Phone Fidel Hemphill MD Primary Care Provide r Reason for Visit * Reason Comments Med Refill Encounter Details Date Type Department Care Team (Late st Contact Info) Description 11/15/2023 Refill [facility] MEDICINE [address] [place], [place] [phone] Fidel Hemphill MD [address] [place], [place] [phone] Social History Tobacco Use Types Packs/Day Years [...] Description 11/18/2025 10:30 AM EDT Office Visit [facility] OPTOMETRY [address] [place], [place] [phone] Zulema Heaton, OD 267 [place] [address] documented as of this encounter Goals Goal [...] documented as of this encounter Care Teams Refuge Manager Relationship Specialty Start Date End Date Fidel Hemphill MD [address] [place] [address] PCP - General Internal Medicine 03/25/14 documented as of this encounter
--- OUTSIDE RECORDS SUMMARY | 2025-07-24 07:09 | XMS_ITS | Encounter Summary ---
Author Organization [employer] Address [address] [facility] [address] 7[address] [place] [address] Care Team Providers Care Ui Designer Name Role Phone Fidel Hemphill MD Primary Care Provide r Reason for Visit * Reason Comments Med Refill Encounter Details Date Type Department Care Team (Late st Contact Info) Description 07/03/2025 Refill [facility] MEDICINE [address] [place], [place] [phone] Fidel Hemphill MD [address] [place], [place] [phone] Onychomycosis of nail of digit of hand [...] Description 11/18/2025 10:30 AM EDT Office Visit [facility] OPTOMETRY [address] [place] [address] TarkaZulema, OD [address] [place] [address] documented as of this encounter Goals Goal [...] documented as of this encounter Care Teams Ui Designer Relationship Specialty Start Date End Date iFdel Hemphill MD 230 [place] [address] PCP - General Internal Medicine 03/25/14 documented as of this encounter
--- OUTSIDE RECORDS SUMMARY | 2025-07-24 07:09 | XMS_ITS | Encounter Summary ---
Author Organization [employer] Address [address] [facility] [address] [facility] [address] 7[address] [place] [address] Care Team Providers Care Jewel Hole Driller Name Role Phone Fidel Hemphill MD Primary Care Provide r Encounter Details Date Type Department Care Team (Late st Contact Info) Description 06/10/2025 Refill [facility] MEDICINE [address] [place], [place] [phone] Fidel Hemphill MD [address] [place] [address] Mixed hyperlipidemia Social History Tobacco Use Types [...] Description 11/18/2025 10:30 AM EDT Office Visit [facility] OPTOMETRY [address] [place] [address] Tarka, Zulema, OD [address] [place] [address] documented as of this encounter Goals Goal [...] documented as of this encounter Care Teams Jewel Hole Driller Relationship Specialty Start Date End Date Fidel Hemphill MD [address] [place] [address] PCP - General Internal Medicine 03/25/14 documented as of this encounter
--- OUTSIDE RECORDS SUMMARY | 2025-07-24 07:09 | XMS_ITS | Clinical Summary ---
Author Organization [facility] Address [address] [place] [address] [place], [place] [phone] Phone Care Team Providers Care Veneer Sander Name Role Phone Fidel Faust MD Primary [...] file Medical Devices Not on file [place] [address] [place] [address] MEDICARE REPLACEMENT [facility] MEDICARE REPLACEMENT Member Subscriber Plan / Payer (Ef fective 2024-Present) Name:Edmond Childers Relation to Subscriber:Self Name:Edmond Childers Payer ID:[id number] (NAIC) Group ID:Not on file Type:Medicare Address: [place] [phone] [place] [address] MEDICARE REPLACEMENT Member Subscriber Plan / Payer (Ef fective 2024-Present) Name:Edmond Childers Relation to Subscriber:Self Name:Edomnd Childers Payer ID:[id number] (NAIC) Group ID:Not on file Type:Medicare Address: [place] [phone] [place] [address] MEDICARE REPLACEMENT Member Subscriber Plan / Payer (Ef fective 2024-Present) Name:Edmond Childers Relation to Subscriber:Self Name:Edmond Childers Payer ID:[id number] (NAIC) Group ID:Not on file Type:Medicare Address: [place] [phone] [facility] MEDICARE REPLACEMENT [facility] MEDICARE REPLACEMENT Care Teams Veneer Sander Relationship Specialty Start Date End Date Fidel Faust MD [address] [place] [address] [address] [place] [phone] PCP - General Internal Medicine 02/22/25 Additional Source Comments The information contained in this document represents components of the legal health record. It is not the complete legal health record.[facility]
--- OUTSIDE RECORDS SUMMARY | 2025-07-24 07:09 | XMS_ITS | Encounter Summary ---
Author Organization [employer] Address [address] [place] [address] [address]t [place] [address] Care Team Providers Care Fire Watcher Name Role Phone Fidel Hemphill MD Primary Care Provide r Encounter Details Date Type Department Care Team (Late st Contact Info) Description 08/15/2022 Orders Only Page Health Information Management [address] [place] [address] Fidel Hemphill MD [address] [place], [place] [phone] Social History Tobacco Use Types Packs/Day Years [...] AM EDT Office Visit [facility] [address] [place], [place] [phone] Zulema Heaton, OD 267 [place], [place] [phone] documented as of this encounter Procedures Procedure [...] Blood Count 10.0 4.8 - 10.8 X10*3/uL [facility] Red Blood Count 4.81 4.60 - 5.80 X10*6/uL [facility] Hemoglobin 13.6(L) 14.0 - 18.0 g/dl [facility] Hematocrit 40.8(L) 42.0 - 52.0 % [facility] Mean Corpuscular Volume 84.8 80.0 - 98.0 fL [facility] Mean Corpuscular Hemoglobin 28.3 27.0 - 33.0 pg [facility] Mean Corpuscular HGB Conc 33.3 31.0 - 36.0 g/dl [facility] Red Cell Distribution Width 14.3 11.0 - 16.0 % [facility] Platelet Count 258 160 - 400 X10*3/uL [facility] Mean Platelet Volume 9.6 9.4 - 12.4 [facility] NRBC Pct Auto 0.0 0.0 - 0.2 /100WBC [facility] NRBC Abs Auto 0.000 0.0 - 0.012 X10*3/uL [facility] 05/17/2023 12:5 3 AM EDT 05/17/2023 12:57 AM EDT us [facility] External Provider LAB BLO OD ORDERABLES Final Result [facility] [address] [place] [address] [phone] * Urinalysis w/reflex microscopic (02/22/2023 10:25 PM EDT) Color Urine Yellow [facility] Appearance Urine Clear [facility] PH 5.5 5.0 - 9.0 [facility] Glucose Urine UA Negative Negative mg/dL [facility] Urine Blood Negative Negative [facility] Specific Gordon - Urine 1.020 1.005 - 1.025 [facility] Urine Protein Trace Neg-Trace mg/dL [facility] Urine Ketones Trace Negative mg/dL [facility] Nitrite Urine Negative Negative [facility] Leukocyte Esterase Urine Negative Negative [facility] 02/22/2023 10:2 5 PM EDT 02/22/2023 10:30 PM EDT Narrative [facility] - 02/22/2023 10:35 PM EDT Urine, Clean Catch us [facility] External Provider LAB URI NE ORDERABLES Final Result [facility] [address] [place] [phone] * (ABNORMAL) Comprehensive Metabolic Panel (02/22/2023 8:50 AM EDT) [facility] Sodium 139 135 - 145 mmol/L [facility] Potassium 3.9 3.3 - 5.1 mmol/L [facility] Chloride 106 96 - 108 mmol/L [facility] Carbon Dioxide 27 22 - 29 mmol/L [facility] Anion Gap 10(L) 12 - 20 [facility] Urea Nitrogen (BUN) 9 9 - 16 mg/dL [facility] Creatinine, Serum 0.97 0.5 - 1.4 mg/dL [facility] Creatinine Clr Calc Pharmacy 93.5 [facility] Comment:eGFR (calculated fro m the MDRD study equation) and eCrCl(calculated from the Cockcroft-Gault equation) are based ondifferent parameters and may not yield comparable results.If eCrCl result is absurd, please check patient'sheight/weight. Estimated Glomerular Filt Rate >60 [facility] Comment:NOTE: For -Am erican individuals, multiply the result by 1.210.Chronic Kidney Disease: Estimated GFR < 60 mL/min/1.68j3Fxfuss Kidney Disease: Estimated GFR < 15 mL/min/1.73m2 Glucose 99 60 - 115 mg/dL [facility] Calcium 9.5 8.4 - 10.2 mg/dL [facility] Bilirubin, Total 1.2(H) 0.0 - 1.0 mg/dL [facility] Aspartate Amino Transferase 26 5 - 37 U/L [facility] Alanine Aminotransferase 31 0 - 40 U/L [facility] Total Protein 7.7 6.5 - 8.0 g/dL [facility] Albumin Level 4.0 3.5 - 5.0 g/dL [facility] Alkaline Phosphatase 96 39 - 117 U/L [facility] 02/22/2023 8:50 AM EDT 02/22/2023 8:52 AM EDT [facility] External [facility] LAB BLO OD ORDERABLES Final Result [facility] [address] [place] [phone] * (ABNORMAL) CBC auto differential (02/22/2023 8:50 AM EDT) White Blood Count 8.2 4.8 - 10.8 X10*3/uL [facility] Red Blood Count 5.33 4.60 - 5.80 X10*6/uL [facility] Hemoglobin 14.4 14.0 - 18.0 g/dl [facility] Hematocrit 44.7 42.0 - 52.0 % [facility] Mean Corpuscular Volume 83.9 80.0 - 98.0 fL [facility] Mean Corpuscular Hemoglobin 27.0 27.0 - 33.0 pg [facility] Mean Corpuscular HGB Conc 32.2 31.0 - 36.0 g/dl [facility] Red Cell Distribution Width 15.0 11.0 - 16.0 % [facility] Platelet Count 262 160 - 400 X10*3/uL [facility] Mean Platelet Volume 9.5 9.4 - 12.4 fL [facility] Neutrophils Percent Auto 74.9(H) 45 - 73 % [facility] Imm Gran Pct Auto 0.2 0.0 - 0.4 % [facility] Lymphocytes Percent Auto 15.2(L) 20 - 40 % [facility] Monocytes Percent Auto 7.6 2 - 11 % [facility] Eosinophils Percent Auto 1.2 0 - 4 % [facility] Basophils Percent Auto 0.9 0 - 2 % [facility] NRBC Pct Auto 0.0 0.0 - 0.2 /100WBC [facility] Neutrophils Absolute Auto 6.1 2.0 - 8.3 x10*3/uL [facility] Imm Gran Abs Auto 0.02 0.00 - 0.03 X10*3/uL [facility] Lymphocytes Absolute Auto 1.2 1.2 - 4.9 X10*3/uL [facility] Monocytes Absolute Auto 0.6 0.1 - 1.2 X10*3/uL [facility] Eosinophils Absolute Auto 0.1 0.0 - 0.4 X10*3/uL [facility] Basophils Absolute Auto 0.1 0.0 - 0.2 X10*3/uL [facility] NRBC Abs Auto 0.000 0.0 - 0.012 X10*3/uL [facility] 02/22/2023 8:50 AM EDT 02/22/2023 8:52 AM EDT us [facility] External Provider LAB BLO OD ORDERABLES Final Result [facility] [address] [place] [phone] [phone] documented in this encounter Visit Diagnoses Not on filedocumented in this encounter Care Teams Fire Watcher Relationship Specialty Start Date End Date Fidel Hemphill MD [address] [place] [phone] PCP - General Internal Medicine 03/25/14 documented as of this encounter
--- OUTSIDE RECORDS SUMMARY | 2025-07-24 07:09 | XMS_ITS | Clinical Summary ---
Author Organization [employer] Address [address] [facility] [address] [place] [address] Care Team Providers Care Braided Rug Maker Name Role Phone Fidel Hemphill MD Primary [...] Patient here for a HDF Admitted to [facility] from 02/21-02/23/2025 after he preaented to the ER with headaches associated with dizziness. Denied any nausea vomiting. [place] unsteady. Denied any blurry visions. 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 he was finally seen 06/26/[address] Bhagat, he is now s/p cervical spine fusion Doing well Assessment & Plan (08/14/2022 10:30 AM EST): Pt had an MRI of Cervical spine done at [facility] 07/22/2020 that showed degenerative spondylosis in upper [...] had significant improvement from his previous symptoms.. [facility] health care 08/14/2022 Assessment & Plan (03/11/2025 10:45 AM EDT): PSA 10/09/2023: Normal will repeat Colonoscopy: NL 12/22/2018 at [facility] Gastroenterology showed a rectal polyp, GI recommended 5 yr repeat given Fam Hx of colon cancer. Due in 12/2023. Scheduled for GI 03/31/2025 Assessment & Plan (11/17/2024 10:26 AM EDT): PSA 10/09/2023: Normal Colonoscopy: NL 12/22/2018 at [facility] Gastroenterology showed a rectal polyp, GI recommended 5 yr repeat given Fam Hx of colon cancer. Due in 12/2023 Scheduled for GI 03/31/2025 Assessment & Plan (08/18/2024 10:04 AM EST): PSA 10/09/2023: Normal Colonoscopy: NL 12/22/2018 at [facility] Gastroenterology showed a rectal polyp, GI recommended 5 yr repeat given Fam Hx of colon cancer. Due in 12/2023 Will refer back Assessment & Plan (03/31/2024 9:08 AM EDT): PSA 10/09/2023: Normal Colonoscopy: NL 12/22/2018 at [facility] Gastroenterology showed a rectal polyp, GI recommended 5 yr repeat given Fam Hx of colon cancer. Due in 12/2023 Assessment & Plan (08/15/2023 10:45 AM EST): Physical exam today within normal limits Colonoscopy: NL 12/22/2018 at [facility] Gastroenterology showed a rectal polyp, GI recommended 5 yr repeat given Fam Hx of colon cancer. Due in 12/2023 Assessment & Plan (08/14/2022 12:40 PM EST): Physical exam today within normal limits Colonoscopy: NL 12/22/2018 at [facility] Gastroenterology showed a rectal polyp, GI recommended 5 yr repeat given Fam Hx of colon cancer History of CVA (cerebrovascular accident) 2021 Assessment & Plan (08/14/2022 10:29 AM EST): Pt initially presented to [facility] ED with sudden onset of dizziness, slurred [...] CVA Back into care at [facility] last seen on 09/08/2020 Of note Pt [...] CVA Back into care at [facility] last seen on 09/08/2020 Of note Pt [...] CVA Back into care at [facility] last seen on 09/08/2020 Of note Pt [...] CVA Back into care at [facility] last seen on 09/08/2020 Of note Pt [...] AM EDT): Pt under the care of [facility]rology, last note on record [...] AM EDT): Pt under the care of [facility], last note on record [...] AM EST): Pt under the care of [facility], last note on record [...] 07/16/2025 Travel 07/08/2025 Refill [facility] [address] [place] [address] Fidel Hemphill MD Benign prostatic hyperplasia without lower urinary tract symptoms 07/08/2025 Refill [facility] [address] [place] [address] Fidel Hemphill MD Benign prostatic hyperplasia without lower urinary tract symptoms 07/03/2025 Refill [facility] [address] [place] [address] Fidel Hemphill MD Onychomycosis of nail of digit of hand 06/14/2025 Orders Only [facility] External Provider, [facility] 06/10/2025 Refill [facility] [address] [place] [phone] Fidel Hemphill MD Mixed hyperlipidemia 06/09/2025 Refill [facility] [address] [place] [address] Fidel Hemphill MD Mixed hyperlipidemia from Last [...] Description 11/18/2025 10:30 AM EDT Office Visit [facility] [address] [place] [address] Tarka, Zulema, OD [address] [place] [address] Health Maintenance Due Date Last Done Comments [...] Troponin I (06/14/2025 4:30 PM EST) Pathologist [facility] TROPONIN I HIGH SENSITIVITY <2.7 <3.5 - 35.0 ng/L [facility] Comment:The [place] high sens itivity Troponin-I results should beused in conjunction with other diagnostic information suchas ECG, clinical observations and information, and patientsymptoms to aid in the diagnosis of NH. 06/14/2025 4:30 PM EST 06/14/2025 4:33 PM EST us Generic External Data Provider LAB BLOOD ORDERAB LES Final Result [facility] [address] [place] [address] [phone] * (ABNORMAL) CBC auto differential (06/14/2025 4:30 PM EST) White Blood Count 14.0(H) 4.8 - 10.8 X10*3/uL [facility] Red Blood Count 5.05 4.60 - 5.80 X10*6/uL [facility] Hemoglobin 15.2 14.0 - 18.0 g/dl [facility] Hematocrit 46.1 42.0 - 52.0 % [facility] Mean Corpuscular Volume 91.3 80.0 - 98.0 fL [facility] Mean Corpuscular Hemoglobin 30.1 27.0 - 33.0 pg [facility] Mean Corpuscular HGB Conc 33.0 31.0 - 36.0 g/dl [facility] Red Cell Distribution Width 13.2 11.0 - 16.0 % [facility] Platelet Count 261 160 - 400 X10*3/uL [facility] Mean Platelet Volume 9.5 9.4 - 12.4 fL [facility] Neutrophils Percent Auto 77.7(H) 45 - 73 % [facility] Imm Gran Pct Auto 0.3 0.0 - 0.4 % [facility] Lymphocytes Percent Auto 11.7(L) 20 - 40 % [facility] Monocytes Percent Auto 7.9 2 - 11 % [facility] Eosinophils Percent Auto 1.6 0 - 4 % [facility] Basophils Percent Auto 0.8 0 - 2 % [facility] NRBC Pct Auto 0.0 0.0 - 0.2 /100WBC [facility] Neutrophils Absolute Auto 10.9(H) 2.0 - 8.3 x10*3/uL [facility] Imm Gran Abs Auto 0.04(H) 0.00 - 0.03 X10*3/uL [facility] Lymphocytes Absolute Auto 1.6 1.2 - 4.9 X10*3/uL [facility] Monocytes Absolute Auto 1.1 0.1 - 1.2 X10*3/uL [facility] Eosinophils Absolute Auto 0.2 0.0 - 0.4 X10*3/uL [facility] Basophils Absolute Auto 0.1 0.0 - 0.2 X10*3/uL [facility] NRBC Abs Auto 0.000 0.0 - 0.012 X10*3/uL [facility] 06/14/2025 4:30 PM EST 06/14/2025 4:33 PM EST us Generic External Data Provider LAB BLOOD ORDERAB LES Final Result Performing Organization Address [facility]/ZIP Co de Phone Number [facility] [address] [place] [address] [phone] * Lipase (06/14/2025 4:30 PM EST) Pathologist [facility] Lipase 25 8 - 78 U/L [facility] 06/14/2025 4:30 PM EST 06/14/2025 4:33 PM EST Generic External Data Provider LAB BLOOD ORDERAB LES Final Result Performing Organization Address [facility] Co de Phone Number [facility] [address] [place] [address] [phone] * (ABNORMAL) Hepatic Function Panel (06/14/2025 4:30 PM EST) [facility] Bilirubin, Total 1.4(H) 0.0 - 1.0 mg/dL [facility] Bilirubin, Direct 0.5 0.0 - 0.5 mg/dL [facility] Aspartate Amino Transferase 27 5 - 37 U/L [facility] Alanine Aminotransferase 27 0 - 40 U/L [facility] Total Protein 7.5 6.5 - 8.0 g/dL [facility] Albumin Level 4.0 3.5 - 5.0 g/dL [facility] Alkaline Phosphatase 100 39 - 117 U/L [facility] 06/14/2025 4:30 PM EST 06/14/2025 4:33 PM EST Generic External Data Provider LAB BLOOD ORDERAB LES Final Result Performing Organization Address [facility] Co de Phone Number [facility] [address] [place] [address] [phone] * (ABNORMAL) Basic Metabolic Panel (06/14/2025 4:30 PM EST) [facility] Sodium 142 135 - 145 mmol/L [facility] Potassium 4.2 3.3 - 5.1 mmol/L [facility] Chloride 109(H) 96 - 108 mmol/L [facility] Carbon Dioxide 26 22 - 29 mmol/L [facility] Anion Gap 11(L) 12 - 20 [facility] Urea Nitrogen (BUN) 9 9 - 16 mg/dL [facility] Creatinine, Serum 1.03 0.5 - 1.4 mg/dL [facility] Creatinine Clr Calc Pharmacy 85.9 [facility] Comment:eGFR (calculated fro m the MDRD study equation) and eCrCl(calculated from the Cockcroft-Gault equation) are based ondifferent parameters and may not yield comparable results.If eCrCl result is absurd, please check patient'sheight/weight. Estimated Glomerular Filt Rate >60 [facility] Comment:Chronic Kidney Disea se: Estimated GFR < 60 mL/min/[id number] Kidney Disease: Estimated GFR < 15 mL/min/1.73m2 Glucose 89 60 - 115 mg/dL [facility] Calcium 9.4 8.4 - 10.2 mg/dL [facility] 06/14/2025 4:30 PM EST 06/14/2025 4:33 PM EST us Generic External Data Provider LAB BLOOD ORDERAB LES Final Result [facility] [address] [place] [phone] * XR Chest 2 Views (06/14/2025 3:25 PM EST) Anatomical Region Laterality Modality Chest Radiographic Ablbina ging 06/14/2025 3:25 PM EST Narrative 06/14/2025 3:51 PM EST [address] [address] XRay Report Signed Patient: Edmond Childers MR#: [id number] 3 : 1960 Acct:[id number] Age/Sex: 64 / M ADM Date: 06/14/25 Loc: HO.ED Attending Dr: Ordering Physician: Lenore Kruger MD Date of Service: 06/14/25 Procedure(s): XR chest 2V Accession Number(s): [id number] cc: Lenore Kruger MD; Fidel Faust MD [...] 06/14/25 1548 DD/ 1525 TD/TT: 06/14/25 1529 Network Admin: Procedure Note Donotuseinterpreter, Image - 06/14/2025 [place] [address] XRay Report Signed Patient: Hilton Childers#: [id number] 3 : 1960Acct:[id number] Age/Sex: 64 / MADM Date: 06/14/25 Loc: .ED Attending Dr: Ordering Physician: Lenore Kruger MD Date of Service: 06/14/25 Procedure(s): XR chest 2V Accession Number(s): [id number] cc: Lenore Kruger MD; Fidel Faust MD [...] 06/14/25 1548 DD/ 1525 TD/TT: 06/14/25 1529 Network Admin: [facility] External Provider IMG XR PROCEDURES Edited Result - Final * Lipid Panel, Standard (08/17/2024 8:05 AM EST) Triglycerides 88 <150 mg/dL [facility] Comment:Desirable Triglyceri de: less than 150 mg/dLBorderline High Triglyceride 150-199 mg/dLHigh Triglyceride: 200-499 mg/dLVery High Triglyceride: greater than or equal to 5OO mg/dL Cholesterol 146 <200 mg/dL [facility] Comment:Desirable Cholestero l: less than 200 mg/dLBorderline High Cholesterol: 200-239 mg/dLHigh Cholesterol: greater than 239 mg/dL LDL Cholesterol Calculated 79 <100 mg/dL [facility] Comment:Desirable LDL: less than 100 mg/dLNear Optimal/Above Optimal LDL: 110- 129 mg/dLBorderline High LDL: 130-159 mg/dLHigh LDL: 160-189 mg/dLVery High LDL: greater than or equal to 190 mg/dL HDL Cholesterol 50 >40 mg/dL [facility] Comment:Desirable HDL: great er than 40 mg/dL Note: This HDL assay may give artificially low results in patients with liver disease. Blood Venous blood specimen / Unknown 08/17/2024 8:05 AM EST 08/17/2024 11:07 AM EST Fidel Molina MD LAB BLOOD ORDERABLES Final Result [facility] [address] [place] [phone] * Hepatitis C Antibody with Reflex to HCV, RNA, Quantitative, Real-Time PCR (04/22/2023 8:53 AM EDT) Hepatitis C Antibody Nonreactive Nonreactive [facility] Comment:Antibodies to HCV no t detected; does not exclude early acuteHCV infection. Blood Venous blood specimen / Unknown 04/22/2023 8:53 AM EDT 04/22/2023 11:14 AM EDT Fidel Molina MD LAB BLOOD ORDERABLES Final Result [facility] [address] [place] [address] [phone] * Hm Colonoscopy (12/23/2019 8:47 AM EDT) Colonoscopy Normal Normal Historical Provider HEALTH MAINTENANCE Final Result from Last 3 Months or Most Recently Relevant to Health Maintenance Insurance [facility] STANDARD [facility] DUAL COMPLETE Care Teams Braided Rug Maker Relationship Specialty Start Date End Date Fidel Hemphill MD [address] [place] [phone] PCP - General Internal Medicine 03/25/14
--- OUTSIDE RECORDS SUMMARY | 2025-07-24 07:09 | XMS_ITS | Encounter Summary ---
Author Organization [employer] [facility] Address [address] [place] [address] [address] [place] [address] Care Team Providers Care Filter Worker Name Role Phone Fidel Hemphill MD Primary Care Provide r Reason for Visit * Reason Comments Med Refill Encounter Details Date Type Department Care Team (Late Contact Info) Description 05/07/2023 Refill [facility] [address] [place] [address] Karmen Pappas MD [address] [place] [address] Benign prostatic hyperplasia without lower urinary tract [...] Description 11/18/2025 10:30 AM EDT Office Visit [facility] [address] [place], [place] [phone] Zulema Heaton, OD [address] [place], [place] [phone] documented as of this encounter Visit Diagnoses Diagnosis Benign prostatic hyperplasia without lower urinary tract symptoms documented in this encounter Additional Health Concerns Assessment Noted Time PHQ-9 Depression Total Score: 1 04/23/20 23 10:02 AM EDT documented as of this encounter Care Teams Filter Worker Relationship Specialty Start Date End Date Fidel Hemphill MD [address] [place] [address] PCP - General Internal Medicine 03/25/14 documented as of this encounter
[2025-07-24 07:18] LABS: Hematocrit 47.8 % (42.0-52.0); Hemoglobin 15.9 g/dl (14.0-18.0); Imm Gran Abs Auto 0.04 X10*3/uL (0.00-0.03); Imm Gran Pct Auto 0.3 % (0.0-0.4); Lymphocytes Absolute Auto 2.0 X10*3/uL (1.2-4.9); MANUAL DIFF FLAG NO; Mean Corpuscular HGB Conc 33.3 g/dl (31.0-36.0); Mean Corpuscular Hemoglobin 30.0 pg (27.0-33.0); Mean Corpuscular Volume 90.2 fL (80.0-98.0); NRBC Abs Auto 0.000 X10*3/uL (0.0-0.012); NRBC Pct Auto 0.0 /100WBC (0.0-0.2); Platelet Count 257 X10*3/uL (160-400); Red Blood Count 5.30 X10*6/uL (4.60-5.80); White Blood Count 13.7 X10*3/uL (4.8-10.8)
[2025-07-24 08:12] LABS: Alanine Aminotransferase 27 U/L (0-40); Albumin Level 4.2 g/dL (3.5-5.0); Alkaline Phosphatase 104 U/L (39-117); Aspartate Amino Transferase 29 U/L (5-37); Total Protein 7.6 g/dL (6.5-8.0)
[2025-07-26 04:51] LABS: HBS Num1 0.00 mIU/mL (0-7.99); HBc Num1 0.09 S/CO (0.00-0.79); HBsAGNum1 0.32 S/CO (0.00-0.99); HIV Num 1 0.10 S/CO (0.00-0.99); Hepatitis A Antibody IgM 0.16 Index (0-0.79); Hepatitis B Surface Antigen Negative (Negative); ~HepC Num1 0.12 S/CO (0.00-0.79); ~Hepatitis A Antibody IgM Nonreactive (Nonreactive); ~Hepatitis B Surface Antibody NONREACTIVE (Nonreactive); ~Hepatitis C Antibody Nonreactive (Nonreactive)
== END 2025-07-24 07:06 | disposition home or self-care (01) ==
LOC: HO.LAB 07:05
PROVIDERS: PCP Internal Medicine; Visit Provider Nurse Practitioner Family
DX: R17 Unspecified jaundice (principal); Z11.4 Encounter for screening for human immunodeficiency virus [HIV]
CPT/HCPCS: 36415; 80076; 85025; 86704; 86706; 86708; 86709; 86803; 87340; 87389